=== PATIENT | female | born 1945 | race Caucasian/White ===

== ENCOUNTER 2018-04-13 11:11 | Outpatient (REF) | payer MEDICARE, MEDICAID, SELFPAY ==
[2018-04-13 14:28] LABS: ALT 31 U/L (12-78); AST 31 U/L (15-37); Albumin 3.8 g/dL (3.4-5.0); Alkaline Phosphatase 103 U/L (46-116); BUN 18 mg/dL (7-18); Bilirubin, Total 0.5 mg/dL (0.2-1.0); Calcium 8.7 mg/dL (8.5-10.1); Chloride 107 mmol/L (98-107); Estimated GFR 54.35 (mL/min/1.73m2); Glucose 86 mg/dL (70-100); Potassium 4.1 mmol/L (3.5-5.1); Sodium 143 mmol/L (136-145); TSH (W/Ref FT4) 13.92 uIU/mL (0.358-3.74); Total Protein 6.7 g/dL (6.4-8.2)
[2018-04-13 16:19] LABS: FREE T4 1.12 ng/dL (0.76-1.46)
== END 2018-04-13 11:31 ==
LOC: NCHCN 11:11
PROVIDERS: PCP Nurse Practitioner; Visit Provider Nurse Practitioner
DX: E03.9 Hypothyroidism, unspecified (principal)
CPT/HCPCS: 80053; 84439; 84443

== ENCOUNTER 2018-04-27 00:44 | Outpatient (CLI) | payer MEDICARE, MEDICAID, SELFPAY ==
--- NOTE | 2018-04-27 16:06 | DI.MAMMO_ITS ---
SYMPTOMS/DIAGNOSIS: SCREENING, Z12.39 MAMMOGRAMS: Mammograms were interpreted according to the usual protocol including computer analysis with CAD system, tomosynthesis and C view imaging. The breast tissue is heterogeneously radiodense, which lowers the sensitivity of the study. There is no dominant mass or no suspicious calcifications. No prior images were available at the time of this dictation. SUMMARY: No evidence for malignancy, category 1. Yearly screening mammography is recommended. Breast density category C. MQSA ASSESSMENT OF FINDINGS: Negative. Category 1. Patient will receive a letter notifying them of these results. Bi-RADS category C. The breasts are heterogeneously dense, which may obscure small masses.
== END 2018-04-27 01:04 ==
PROVIDERS: PCP Nurse Practitioner; Visit Provider Nurse Practitioner
DX: Z12.31 Encounter for screening mammogram for malignant neoplasm of breast (principal)
CPT/HCPCS: 77063; 77067

== ENCOUNTER 2018-10-11 11:46 | Outpatient (REF) | payer MEDICARE, MEDICAID, SELFPAY ==
[2018-10-11 19:51] LABS: Cholesterol 112 mg/dL (50-200); HDL Cholesterol 66 mg/dL (40-60); LDL CHOLESTEROL 35 mg/dL (<100); TSH (W/Ref FT4) 10.74 uIU/mL (0.358-3.74); Triglyceride 46 mg/dL (30-150)
[2018-10-11 20:23] LABS: FREE T4 1.25 ng/dL (0.76-1.46)
== END 2018-10-11 12:06 ==
LOC: NCHCN 11:46
PROVIDERS: PCP Nurse Practitioner; Visit Provider Nurse Practitioner
DX: E03.9 Hypothyroidism, unspecified (principal)
CPT/HCPCS: 80061; 83721; 84439; 84443

== ENCOUNTER 2018-11-09 22:24 | Emergency (ER) | payer MEDICARE, MEDICAID, SELFPAY ==
[2018-11-09 22:21] VITALS: BP 152/84; PULSE 70; RESP 16; TEMP 36.5; O2SAT 97
[2018-11-09] MEDS: Lidocaine 5% Patch 1 PATCH TP (22:43)
--- NOTE | 2018-11-09 23:16 | ED.GENADUL_ITS ---
Discharge Plan Disposition Patient Disposition: HOME Condition: Stable Discharge Details Chief Complaint: Nk/Back Pain Clinical Impression: Back pain Primary Care Provider: Lesvia Gaviria ED Provider: Cem Flower Home Meds and New Rx's Prescriptions: No Action alendronate [Fosamax] 70 MG tablet 70 mg PO ONCE A WEEK RF: 0 acetaminophen [Mapap Arthritis Pain] 650 MG tablet extended release 650 mg PO PRN PRNRF: 0 calcium carbonate-vitamin D3 [Calcium 500 With D] 1 EACH tablet 1 ea PO BID RF: 0 omeprazole 20 MG tablet,delayed release (DR/EC) 20 mg PO DAILY RF: 0 quetiapine 25 mg Tablet 25 mg PO HS RF: 0 risperidone [Risperdal] 0.25 mg Tablet PO BID RF: 0 aspirin 81 mg Tablet,Delayed Release (Dr/Ec) 81 mg PO DAILY RF: 0 levothyroxine 112 MCG tablet 88 mcg PO DAILY RF: 0 levalbuterol tartrate [Xopenex HFA] 15 GM HFA aerosol inhaler 2 puff Inhalation Q4H WHILE AWAKE RF: 0 food supplemt, lactose-reduced [Boost] 237 ML liquid 237 ml PO DAILY PRNQty: 12 RF: 0 Discharge Instructions Instructions: Back Pain (ED) Additional Instructions: 1. Drink plenty of fluids. 2. Continue all medications as prescribed. 3. Acetaminophen 1000mg every 4 hours (up to 5 time a day) and/or ibuprofen 600mg every 6 hours as needed for fever or pain. 4. Continue lidocaine patch if clinically beneficial. 5. Ice sore area frequently Return to the Emergency Department (ED) if your condition worsens, does not improve as expected, or for ANY other concerns. Specifically, return if you have new or uncontrolled pain, worsening fever, difficulty breathing, vomiting, or are unable to drink fluids. Medical Decision Making 73-year-old with a history of osteoarthritis and previous episodes of back pain presents with worsening low thoracic/upper lumbar discomfort. Pain is worsened by direct palpitation and rotation. Otherwise nonfocal exam with no respiratory, abdominal, or flank findings. Patient has been managed with OTC analgesia and appears in no distress. Lidocaine patch applied and patient discharged home with a plan for continued OTC analgesia and outpatient PCP follow-up. As alternative analgesia regimens with concern of cognitive side ef fects and associates with current dementia. Pt evaluated immediately prior to discharge with improved symptoms, normal vital signs, and tolerating PO. The patient feels appropriate for discharge home. Discussed clinical/diagnostic findings. Discharged with a clear plan for outpatient follow up. Given usual and customary return instructions prior to discharge. Medical Records Medical records reviewed: Yes I reviewed the patient's medical records. HPI 73-year-old with a history of dementia, hypothyroidism, COPD and osteoarthritis. Presents with 2 days of progressive atraumatic low back pain. Has had previous similar episodes. Pain is worse with direct pressure and rotation. Of note, is able to stand and walk without significant difficulty. Denies fevers/chills, dyspnea, chest pain, palpitations, abdominal pain. She has had no change in bowel habits, melena, hematochezia. She denies flank pain, urinary symptoms. She denies headache, neck pain, focal extremity weakness or difficulty with stance and gait. Her daughter has been assisting in pain management with OTC acetaminophen and ibuprofen. She had a physical therapy assessment earlier today. General Date/Time Provider Initiated Documentation: 11/09/18 23:06 . Related Data Home Medications Medication Instructions Recorded Confirmed acetaminophen [Mapap Arthritis 650 mg PO PRN PRN 06/12/16 11/09/18 Pain] calcium carbonate-vitamin D3 1 ea PO BID 06/12/16 11/09/18 [Calcium 500 With D] omeprazole 20 mg PO DAILY 06/12/16 11/09/18 levalbuterol tartrate [Xopenex HFA] 2 puff INHALATION Q4H WHILE AWAKE 04/14/17 11/09/18 food supplemt, lactose-reduced 237 ml PO DAILY PRN #12 liquid 05/22/17 06/15/17 [Boost] alendronate [Fosamax] 70 mg PO ONCE A WEEK 06/24/17 11/09/18 aspirin 81 mg PO DAILY 11/09/18 11/09/18 levothyroxine 88 mcg PO DAILY 11/09/18 11/09/18 quetiapine 25 mg PO HS 11/09/18 11/09/18 risperidone [Risperdal] PO BID 11/09/18 Previous Rx's Medication Instructions Recorded food supplemt, lactose-reduced 237 ml PO DAILY PRN #12 liquid 05/22/17 [Boost] Allergies Allergy/AdvReac Type Severity Reaction Status Date / Time No Known Allergies Allergy Unverified 11/09/18 22:45 General Stated Complaint: Nk/Back Pain DELISA: 4 Review of Systems Review of Systems All systems are reviewed and are unremarkable except as noted in HPI and below: CONSTITUTIONAL: no fevers/chills, no weakness or change in appetite EYES: no change in vision HEENT: no throat pain or difficulty swallowing; no neck pain CARDIOVASCULAR: no chest pain, palpitations, leg swelling, or diaphoresis RESPIRATORY: no cough, dyspnea, wheezing GASTROINTESTINAL: no abdominal pain, melena, nausea/emesis GENITOURINARY: no dysuria, flank pain, MUSCULOSKELETAL: Midline low back pain, myalgias, arthralgias INTEGUMENTARY: no rash, no wounds NEUROLOGIC: no headache, focal weakness, difficulty with speech, numbness PSYCHIATRIC: no confusion, no anxiety HEME: no easy bruising or bleeding ALLERGIC: no urticaria PFSH Social History Smoking/Tobacco Use Status: Never Do you feel safe in your relationship?: Yes Exam Narrative Exam Narrative: Nursing note and vital signs have been reviewed and noted. GENERAL: alert, active, no acute distress, well -hydrated, well-nourished HEENT: atraumatic/normocephalic, PERRLA, EOMI, conjunctiva clear, external ears/canals normal, nasal mucosa normal NECK: supple, full range of motion CARDIOVASCULAR: nl pulses, no edema PULMONARY: nl effort, no audible wheezing or stridor ABDOMEN: non-distended; nontender. No flank tenderness EXTREMITY: normal muscle tone, all joints with FROM, no deformity BACK: No ecchymosis, erythema, or deformity. Low thoracic midline tenderness which reproduces subjective pain. Patient able to stand upright without significant pain, noting increased discomfort with palpation and with rotation. NUERO: normal mentation, moving all extremities, normal stance and gait, PSYCH: alert and oriented SKIN: no new rashes or lesions Course Vital Signs Temperature 97.7 F 11/09/18 22:21 Pulse 70 11/09/18 22:21 Respiratory Rate 16 11/09/18 22:21 Blood Pressure 152/84 H 11/09/18 22:21 Pulse Oximetry 97 11/09/18 22:21 Temperature 97.7 F 11/09/18 22:21 Temperature Source Skin 11/09/18 22:21 Pulse 70 11/09/18 22:21 Respiratory Rate 16 11/09/18 22:21 Respiratory Effort Non-Labored 11/09/18 23:04 Blood Pressure 152/84 H 11/09/18 22:21 Blood Pressure Position Sitting 11/09/18 22:21 Pulse Oximetry 97 11/09/18 22:21 Oxygen Delivery Method Room Air 11/09/18 22:21 Oxygen Flow Rate 0 11/09/18 22:21
== END 2018-11-09 23:10 | disposition home or self-care (01) ==
LOC: ER 23:47
PROVIDERS: Emergency Provider Emergency Medicine; PCP Nurse Practitioner
DX: M54.5 Low back pain (principal); M54.6 Pain in thoracic spine; J44.9 Chronic obstructive pulmonary disease, unspecified; M19.91 Primary osteoarthritis, unspecified site
CPT/HCPCS: 99283

== ENCOUNTER 2018-11-18 10:13 | Emergency (ER) | payer MEDICARE, MEDICAID, SELFPAY ==
[2018-11-18 10:24] VITALS: BP 142/67; PULSE 72; RESP 18; TEMP 36.7; O2SAT 99
[2018-11-18 10:41] LABS: Bilirubin Negative (Negative); Blood Trace-lysed (Negative); Clarity Clear; Glucose Negative (Negative); Ketones Negative (Negative); Leukocyte Esterase Small (Negative); Nitrite Negative (Negative); Specific Gravity <= 1.005 (1.005-1.025); Urobilinogen 0.2 EU/dL (Up TO 0.2); pH 5.5 (5-8)
[2018-11-18 11:00] LABS: Bacteria Rare HPF (Negative); Casts Negative LPF (Negative); Crystals Negative HPF (Negative); Epithelial Cells Many HPF (Negative); Mucus Negative (Negative); Other Cells Few Renal (Negative); RBC 0-2 (0-2)
[2018-11-18 11:01] LABS: C & S Indicated? No/Sq. Contamination
--- NOTE | 2018-11-18 11:01 | ED.GENADUL_ITS ---
Discharge Plan Disposition Patient Disposition: HOME Condition: Fair Discharge Details Chief Complaint: Urinary Clinical Impression: UTI (urinary tract infection) Primary Care Provider: Lesvia Gaviria ED Provider: Rosina Carcamo Home Meds and New Rx's Prescriptions: New cephalexin [Keflex] 500 mg capsule 500 mg PO BID Qty: 10 RF: 0 No Action alendronate [Fosamax] 70 MG tablet 70 mg PO ONCE A WEEK RF: 0 acetaminophen [Mapap Arthritis Pain] 650 MG tablet extended release 650 mg PO PRN PRNRF: 0 calcium carbonate-vitamin D3 [Calcium 500 With D] 1 EACH tablet 1 ea PO BID RF: 0 omeprazole 20 MG tablet,delayed release (DR/EC) 20 mg PO DAILY RF: 0 quetiapine 25 mg Tablet 25 mg PO HS RF: 0 risperidone [Risperdal] 0.25 mg Tablet 0.25 mg PO BID RF: 0 aspirin 81 mg Tablet,Delayed Release (Dr/Ec) 81 mg PO DAILY RF: 0 levothyroxine 112 MCG tablet 88 mcg PO DAILY RF: 0 levalbuterol tartrate [Xopenex HFA] 15 GM HFA aerosol inhaler 2 puff Inhalation Q4H WHILE AWAKE RF: 0 Boost 237 ML liquid 237 ml PO DAILY PRNQty: 12 RF: 0 Discharge Instructions Instructions: Urinary Tract Infection in Women (ED) Additional Instructions: Encourage hydration. Please take antibiotics as prescribed. Even if symptoms improve, please finish the entire course. Keep a primary care appointment in 2 days. If you develop fever/chills, increased pain or other new/worsening symptoms please seek care urgently once again Referrals: Lesvia Gaviria [Primary Care Provider] - Discharge Data Discharge Date/Time-TO BE ENTERED AT DEPARTURE: 11/18/18 11:17 Medical Decision Making Patient 74-year-old female with history of Alzheimer's, asthma, anxiety, depression, GERD, hypothyroidism, osteoporosis, schizophrenia. Presenting today with concern for urinary tract infection by family and caregiver. Patient had been endorsing back pain but reports that this is improving. No CVA tenderness or back pain was elicited on exam today. Rather, this sounds to be isolated to sitting in a particular chair. Patient does report increased urinary urgency and frequency but denies any dysuria. Patient is afebrile. Exam is benign. Patient has had increased auditory hallucinations but she reports that these are improved although caregiver reports she is noticed increased auditory halluci nations recently. The report that she had increased auditory hallucinations associated with her UTI that she had approximately 1 year ago. Plan to obtain UA. With vital signs and exam being otherwise well, do not feel that further workup is necessary at this time. Urinalysis is concerning for small amount of leukocyte esterase. This with her history is concerning for urinary tract infection. Plan to treat with Keflex. Encourage hydration. She has an appointment with primary care in 2 days. Discussed new/worsening symptoms when to seek care urgently once again. The patient is endorsing some back pain, I have low suspicion for pyelonephritis at this time she did not have any CVA tenderness, fever and is otherwise feeling quite well. All the questions and concerns were addressed in agreement this plan. HPI General Mode of arrival: ambulatory . Date/Time Provider Initiated Documentation: 11/18/18 10:36 . Limitations to Documentation: no limitations . Information obtained by: patient, family and RN notes reviewed . HPI Narrative: Patient is a 73-year-old female, accompanied by caregiver and family, with chief complaint of increased urinary frequency and back pain. Patient was seen here on the for chief complaint of right-sided back pain which has improved only slightly since being here previously. She was diagnosed at that time a muscular skeletal source. Patient reports that at this point is not having any discomfort but primarily only notes this she sitting in her chair for an extended period of time. Family has also noted increased urinary frequency reporting that she urinates every 5 minutes. Patient reports no dysuria. No recent fevers or chills. No nausea vomiting. No change in bowel habits. Denies any abdominal pain. Caregiver also notes that her auditory hallucinations which patient does have a baseline have increased over the past week. Related Data Home Medications Medication Instructions Recorded Confirmed acetaminophen [Mapap Arthritis 650 mg PO PRN PRN 06/12/16 11/18/18 Pain] calcium carbonate-vitamin D3 1 ea PO BID 06/12/16 11/18/18 [Calcium 500 With D] omeprazole 20 mg PO DAILY 06/12/16 11/18/18 levalbuterol tartrate [Xopenex HFA] 2 puff INHALATION Q4H WHILE AWAKE 04/14/17 11/18/18 Boost 237 ml PO DAILY PRN #12 liquid 05/22/17 11/18/18 alendronate [Fosamax] 70 mg PO ONCE A WEEK 06/24/17 11/18/18 aspirin 81 mg PO DAILY 11/09/18 11/18/18 levothyroxine 88 mcg PO DAILY 11/09/18 11/18/18 quetiapine 25 mg PO HS 11/09/18 11/18/18 risperidone [Risperdal] 0.25 mg PO BID 11/09/18 11/18/18 cephalexin [Keflex] 500 mg PO BID #10 cap 11/18/18 Previous Rx's Medication Instructions Recorded Boost 237 ml PO DAILY PRN #12 liquid 05/22/17 cephalexin [Keflex] 500 mg PO BID #10 cap 11/18/18 Allergies Allergy/AdvReac Type Severity Reaction Status Date / Time No Known Allergies Allergy Unverified 11/18/18 10:38 General Stated Complaint: Urinary DELISA: 3 Review of Systems Constitutional Reports as per HPI, Denies chills, Denies fever(s) and Denies poor appetite ENT Denies neck pain Cardiovascular Denies chest pain Respiratory Denies cough Gastrointestinal Denies abdominal pain, Denies change in bowel habits, Denies nausea and Denies vomiting Genitourinary Reports as per HPI Musculoskeletal Reports as per HPI, Reports back pain, Reports muscle weakness (Baseline, currently in PT), Denies neck pain and Denies numbness Integumentary/Breasts Reports as per HPI and Denies rash Neurologic Denies numbness PFS Social History Smoking/Tobacco Use Status: Never Alcohol Intake: never Drug use: Never Substance use type: does not use Do you feel safe at home: Yes Do you feel safe in your relationship?: Yes Exam Const General: cooperative, healthy appearing, comfortable, no acute distress, well developed and well groomed Nutritional Appearance: average body habitus and well nourished Orientation: alert and awake Resp Effort & Inspection: normal respiratory effort and no respiratory distress Auscultation: clear to auscultation bilaterally, no rales, no rhonchi and no wheezes Cardio Rate: regular rate Rhythm: regular rhythm Heart Sounds: S1 normal and S2 normal GI Inspection: normal to inspection Palpation: soft, no hepatosplenomegaly, not firm, no guarding, not rigid and nontender Back/Spine/Pelvis Back: no CVA tenderness Thoracic/Lumbar Spine: thoracic and lumbar spine normal to inspection (scoliosis noted), thoraco-lumbar ROM normal, straight leg raise negative bilaterally, No bend over test abnormal, No pain with thoraco-lumbar ROM, No paraspinal tenderness, scoliosis, No thoraco-lumbar spasm, No thoracic spinal tenderness and No lumbar spinal tenderness Skin General skin exam: no rashes or lesions noted Trauma: no lacerations or abrasions Neuro General: alert and awake Cognition: normal cognition Speech: speech normal Gait: normal gait (walks with assistance at baseline) Psych Appearance: grossly normal and well kempt Mental Status: mental status grossly normal Speech and Movement: speech and movement normal Course Vital Signs Temperature 36.7 C 11/18/18 10:24 Pulse 72 11/18/18 10:24 Respiratory Rate 18 11/18/18 10:24 Blood Pressure 142/67 H 11/18/18 10:24 Pulse Oximetry 99 11/18/18 10:24 Temperature 36.7 C 11/18/18 10:24 Temperature Source Skin 11/18/18 10:24 Pulse 72 11/18/18 10:24 Respiratory Rate 18 11/18/18 10:24 Blood Pressure 142/67 H 11/18/18 10:24 Pulse Oximetry 99 11/18/18 10:24 Oxygen Delivery Method Room Air 11/18/18 10:24 Oxygen Flow Rate 0 11/18/18 10:24 Pain Level 3 11/18/18 10:24
== END 2018-11-18 11:17 | disposition home or self-care (01) ==
PROVIDERS: Emergency Provider Physician Assistant; PCP Nurse Practitioner
DX: N39.0 Urinary tract infection, site not specified (principal)
CPT/HCPCS: 99283; 81003; 81015

== ENCOUNTER 2019-05-09 16:23 | Outpatient (REF) | payer MEDICARE, MEDICAID, SELFPAY | END 2019-05-09 16:43 | LOC: NCHCO 16:23 | PROVIDERS: PCP Nurse Practitioner; Visit Provider Nurse Practitioner | DX: E03.9 Hypothyroidism, unspecified (principal) | CPT/HCPCS: 84443 ==

== ENCOUNTER 2019-08-01 14:17 | Outpatient (REF) | payer MEDICARE, MEDICAID, SELFPAY ==
[2019-08-01 19:19] LABS: ALT 47 U/L (14-59); AST 35 U/L (15-37); Albumin 3.6 g/dL (3.4-5.0); Alkaline Phosphatase 108 U/L (46-116); Anion Gap 7.8 mmol/L (3-11); BUN 15 mg/dL (7-18); Bilirubin, Total 0.4 mg/dL (0.2-1.0); CO2 29.2 mmol/L (21.0-32.0); CREATININE 0.97 mg/dL (0.55-1.02); Calcium 8.9 mg/dL (8.5-10.1); Chloride 107 mmol/L (98-107); Estimated GFR 55.98 (mL/min/1.73m2); Glucose 107 mg/dL (74-106); Potassium 4.2 mmol/L (3.5-5.1); Sodium 144 mmol/L (136-145); TSH (W/Ref FT4) 0.41 uIU/mL (0.36-3.74); Total Protein 6.3 g/dL (6.4-8.2)
[2019-08-01 19:23] LABS: Vitamin D 25 Total 34.5 ng/ml (30-100)
== END 2019-08-01 14:37 ==
LOC: NCHCN 14:17
PROVIDERS: PCP Nurse Practitioner; Visit Provider Nurse Practitioner
DX: E03.9 Hypothyroidism, unspecified (principal); M81.0 Age-related osteoporosis without current pathological fracture; F25.9 Schizoaffective disorder, unspecified
CPT/HCPCS: 80053; 82306; 84443

== ENCOUNTER 2019-08-08 01:01 | Outpatient (CLI) | payer MEDICARE, MEDICAID, SELFPAY ==
--- NOTE | 2019-08-08 13:18 | DI.MAMMO_ITS ---
EXAM: MG MAMMO SCREENING CLINICAL HISTORY: SCREENING, Z12.39. TECHNIQUE: Bilateral full field digital CC and MLO mammographic images were obtained with 3D tomosyn thesis and utilizing computer aided detection (CAD). COMPARISON: Available for comparison. FINDINGS: Masses/Architectural Distortion: None seen. Microcalcifications: No suspicious pleomorphic-type are seen. Skin Thickening/Nipple Retraction: None. IMPRESSION: 1. No significant interval change with no specific features of malignancy noted. 2. Unless there is more urgent need, screening mammography is recommended, as per [employer] guidelines. ACR BI-RAD Category- 1 Negative Breast Density - Category C - Heterogeneously dense The mammogram demonstrates the patient's breast tissue is dense. Dense breast tissue is very common a nd is not abnormal but dense breast tissue can make it harder to find cancer on a mammogram. Also, de nse breast tissue may increase their breast cancer risk. This information about the result of the [facility] mogram report was provided to the patient to raise their awareness. Use this report when you speak wi th the patient about their risks for breast cancer, which includes their family history. At that time , you may recommend for more screening tests (Ultrasound or MRI) as they might be useful based on the ir risk. A negative radiographic report should not delay biopsy if a dominant or clinically suspicious mass is present. Up to ten percent of cancers are not identified on mammography. A negative report may reinforce clinical impression. Adenosis and dense breasts may obscure an underlying neoplasm. False positive reports average 6 to 10%. Patient will receive a letter notifying them of these results.
== END 2019-08-08 01:21 ==
PROVIDERS: PCP Nurse Practitioner; Visit Provider Nurse Practitioner
DX: Z12.31 Encounter for screening mammogram for malignant neoplasm of breast (principal)
CPT/HCPCS: 77063; 77067

== ENCOUNTER 2019-08-08 03:05 | Outpatient (CLI) | payer MEDICARE, MEDICAID, SELFPAY ==
--- NOTE | 2019-08-08 14:00 | NS.NUTBLAN_ITS ---
76 year old female with cachexic appearance referred for nutritional counseling for underweight status. Ht: 11/25 Wt: 98 lbs BMI: 17 . Mayra reports she does not wear her dentures but has not trouble eating most foods, reports that her typical weight is 100 lbs but that she had lost some weight in last 6 months. Dislikes ensure and boost. Lives with son and receives food stamps. She relies on cereal, soup, sandwiches and TV dinners. Had meals on wheels in past but did not like the food. No food insecurity reported. Estimated needs: 3047-6657 kcal, 45-50 gprotein Diet recall: 850-900 kcal, 30 g protein Assessment: Mayra is only meeting 70% of her nutrient needs for weight gain back to baseline weight. She is unwilling to use Ensure , Boost or meals on wheels at this time. She is willing to add 24 ounces whole milk and cottage cheese or pudding daily to her meal routine which will meet all her nutrient needs. . Mayra is at high nutritional risk in view of low weight and inadequate intake. I expect a slow regain to baseline if she is able to meet 1200 kcal per day as discussed. Plan: add additional calories as discussed to daily routine, follow up with [facility] as scheduled, follow up with nutritional counseling if unable to regain lost weight in next 90 days.
== END 2019-08-08 03:25 ==
PROVIDERS: PCP Nurse Practitioner; Visit Provider Dietitian, Registered
DX: R63.6 Underweight (principal); Z71.3 Dietary counseling and surveillance
CPT/HCPCS: 97802

== ENCOUNTER 2022-09-24 17:57 | Emergency (ER) | payer MEDICARE, MEDICAID, SELFPAY ==
[2022-09-24 18:07] VITALS: BP 151/89; PULSE 88; RESP 16; TEMP 37.4; O2SAT 95
--- NOTE | 2022-09-24 18:30 | DI.RAD_ITS ---
Exam(s) XR CHEST 2V PA LATERAL EXAM: XR CHEST 2V PA LATERAL CLINICAL HISTORY: Cough. TECHNIQUE: 2D digital imaging was performed. COMPARISON: CR CHEST 2 VIEWS PA,LAT from 06/15/2017 FINDINGS: 2 views: Heart size is normal. The mediastinum is not widened. Thoracolumbar scoliosis again noted. Bilateral hyperinflation again noted. Lungs are clear. No infiltrates nor pleural effusions. IMPRESSION: No acute pulmonary findings.Hyperinflation again noted. DATA REPOSITORY: RADIATION DOSE DELIVERED:
--- NOTE | 2022-09-24 18:40 | ED.GENADUL_ITS ---
Discharge Plan Disposition Patient Disposition: Home Discharge Details Clinical Impression: URI (upper respiratory infection) Primary Care Provider: Lesvia Gaviria ED Provider: Penelope Montemayor Home Meds and New Rx's Prescriptions: New benzonatate 100 mg capsule 100 mg PO BID-TID PRN (Reason: cough) 7 Days Qty: 14 0RF Rx Instructions: Take 1 capsule 2-3 times a day by mouth as needed for cough. Continued alendronate [Fosamax] 70 MG tablet 70 mg PO ONCE A WEEK acetaminophen [Mapap Arthritis Pain] 650 MG tablet extended release 650 mg PO PRN PRN calcium carbonate-vitamin D3 [Calcium 500 With D] 1 EACH tablet 1 ea PO BID omeprazole 20 MG tablet,delayed release (DR/EC) 20 mg PO DAILY quetiapine 25 mg Tablet 25 mg PO HS risperidone [Risperdal] 0.25 mg Tablet 0.25 mg PO BID Rx Instructions: 0.50mg QAM, 0.25mg PM aspirin 81 mg Tablet,Delayed Release (Dr/Ec) 81 mg PO DAILY levothyroxine 112 MCG tablet 88 mcg PO DAILY levalbuterol tartrate [Xopenex HFA] 15 GM HFA aerosol inhaler 2 puff Inhalation Q4H WHILE AWAKE Boost 237 ML liquid 237 ml PO DAILY PRNQty: 12 0RF No Action cephalexin [Keflex] 500 mg capsule 500 mg PO BID Qty: 10 0RF Discharge Instructions Instructions: Upper Respiratory Infection (ED) Additional Instructions: Use the albuterol inhaler 1 to 2 puffs every 4-6 hours as needed for cough and wheezing. Take the Tessalon Perles as directed. Chest x-ray shows no evidence for pneumonia, the COVID flu swab is negative. Follow up with primary care provider in 3-5 days. Return to ED sooner if any worsening or concerns. Increase oral fluids. Referrals: Lesvia Gaviria [Primary Care Provider] - 3 days Medical Decision Making 77-year-old female with a past medical history of TIA, developmental delay, hypothyroidism, schizoaffective disorder, presents to the ER with a chief complaint of cough sore throat for the last few days. Denies any fever chills nausea vomiting diarrhea headache or chest pain. She denies any productive cough. She does have a bronchial type cough upon entrance to the room. Family states she has been taking Robitussin with little to no relief. She did take some today. She has no other associated symptoms or complaints. Chest x-ray, COVID flu, albuterol and Tessalon Perles ordered. Differential diagnosis includes but not limited to pneumonia, bronchitis, flu, COVID viral URI COVID, flu RSV rapid swab negative. X-ray negative. We will send patient home with albuterol inhaler Tessalon Perles, and follow up care. Patient appears much more comfortable after the Tessalon Perles and albuterol inhaler. This text was generated using [employer] system, please disregard any oddities of phrase or misspellings. Medical Records Medical records reviewed: Yes I reviewed the patient's medical records. Imaging Data Radiologic Study: Imaging: X-Ray Radiologist's impression: TECHNIQUE: Imaging protocol: Radiologic exam of the chest. Views: 2 views. COMPARISON: CR CHEST 2 VIEWS PA,LAT 06/15/2017 2:13 PM FINDINGS: Lungs: Unremarkable. No consolidation. Pleural spaces: Unremarkable. No pleural effusion. No pneumothorax. Heart/Mediastinum: Grossly stable. Bones/joints: Hernandes zone grossly stable. IMPRESSION: No acute findings. Thank you for allowing us to participate in the care of your patient. Dictated and Authenticated by: Erickson Hurtado MD [facility] General Mode of arrival: wheelchair . Date/Time Provider Initiated Documentation: 09/24/22 18:13 . Limitations to Documentation: no limitations . Information obtained by: patient and family . HPI Narrative: 77-year-old female with a past medical history of TIA, developmental delay, hypothyroidism, schizoaffective disorder, presents to the ER with a chief complaint of cough sore throat for the last few days. Denies any fever chills nausea vomiting diarrhea headache or chest pain. She denies any productive cough. She does have a bronchial type cough upon entrance to the room. Family states she has been taking Robitussin with little to no relief. She did take some today. She has no other associated symptoms or complaints. Family states that her grandchildren just recently were diagnosed with pneumonia. Related Data Home Medications Medication Instructions Recorded Confirmed acetaminophen 650 mg 650 mg PO PRN PRN 06/12/16 11/18/18 tablet,extended release (Mapap Arthritis Pain) calcium carbonate 500 mg-vitamin 1 ea PO BID 06/12/16 11/18/18 D3 10 mcg (400 unit) tablet (Calcium 500 With D) omeprazole 20 mg tablet,delayed 20 mg PO DAILY 06/12/16 11/18/18 release levalbuterol tartrate 45 2 puff inhalation Q4H WHILE AWAKE 04/14/17 11/18/18 mcg/actuation aerosol inhaler (Xopenex HFA) food supplemt, lactose-reduced 237 ml PO DAILY PRN ##12 05/22/17 11/18/18 0.04 gram-1 kcal/mL oral liquid (Boost) alendronate 70 mg tablet (Fosamax) 70 mg PO ONCE A WEEK 06/24/17 11/18/18 aspirin 81 mg tablet,delayed 81 mg PO DAILY 11/09/18 11/18/18 release levothyroxine 112 mcg tablet 88 mcg PO DAILY 11/09/18 11/18/18 quetiapine 25 mg tablet 25 mg PO HS 11/09/18 11/18/18 risperidone 0.25 mg tablet 0.25 mg PO BID 11/09/18 11/18/18 (Risperdal) cephalexin 500 mg capsule (Keflex) 500 mg PO BID #10 caps 11/18/18 benzonatate 100 mg capsule 100 mg PO BID-TID PRN cough 7 days 09/24/22 #14 caps Previous Rx's Medication Instructions Recorded food supplemt, lactose-reduced 237 ml PO DAILY PRN ##12 05/22/17 0.04 gram-1 kcal/mL oral liquid (Boost) cephalexin 500 mg capsule (Keflex) 500 mg PO BID #10 caps 11/18/18 benzonatate 100 mg capsule 100 mg PO BID-TID PRN cough 7 days 09/24/22 #14 caps Allergies Allergy/AdvReac Type Severity Reaction Status Date / Time No Known Allergies Allergy Unverified 11/18/18 10:38 General Stated Complaint: RespSymp DELISA: 3 Review of Systems All systems reviewed & are unremarkable except as noted in HPI and below Cardiovascular Cardiovascular: Denies dyspnea Respiratory Respiratory: Reports cough, Denies hemoptysis, Denies excessive phlegm prod uction, Denies dyspnea and Denies wheezing Gastrointestinal Gastrointestinal: Denies abdominal pain, Denies diarrhea, Denies nausea and Denies vomiting Allergic/Immunologic Allergic/Immunologic: Denies wheezing PFSH All Active Problems (Updated 09/24/22 @ 19:34 by Penelope Montemayor NP) URI (upper respiratory infection) (Acute) TIA (transient ischemic attack) (Acute) Medical History Arthropathy Auditory hallucinations Depressive disorder Developmental speech or language disorder Hypothyroidism Idiopathic scoliosis Lack of coordination Memory impairment Osteochondropathy Osteoporosis Schizoaffective disorder Sciatica Sensorineural hearing loss Symptomatic menopausal or female climacteric states Underweight Social History Smoking/Tobacco Use Status: Never Smoking risk assessment performed?: Yes Alcohol Intake: never Drug use: Never Substance use type: does not use Do you feel safe at home: Yes Do you feel safe in your relationship?: Yes Exam Narrative Exam Narrative: Constitutional: Alert and oriented x3. Appears stated age. Normal body habitus. Head: Normocephalic, no trauma. Eyes: Pupils PERRL, Red reflex noted, EOM's intact. Eyelids symmetrical without lesions, discharge, or swelling. ENT: Bilateral TM's WNL, External ear normal to inspection, no mastoid TTP, swelling, or erythema, Nasal turbinates WNL, no nasal discharge. Normal dentition, Posterior pharynx slightly erythemic, tonsils 0 bilaterally, uvula midline, no exudate. Chest: RRR, Normal S1, S2, distal pulses intact. Resp: Lungs diminished to auscultation bilaterally, no wheezes, rales, or rhonchi. Bronchial dry cough noted. Abdomen: Soft, non-distended, Normoactive bowel sounds all 4 quads. Musculoskeletal: Normal gait, 5/5 strength to all four extremities. Skin: No suspicious rashes or lesions. Capillary refill less than 2 sec. Neurologic: Cranial nerves II-XII intact. Alert and oriented x 3. Motor: No deficits noted. Sensory: Intact bilaterally all 4 extremities. Reflexes: DTR's intact bilaterally.. Hematologic/Lymphatic: No ecchymosis, no lymphadenopathy. Course Vital Signs Vital signs: Vital Signs Temperature 37.4 C 09/24/22 18:07 Pulse 88 09/24/22 18:07 Respiratory Rate 16 09/24/22 18:07 Blood Pressure 151/89 H 09/24/22 18:07 Pulse Oximetry 95 09/24/22 18:07 Temperature 37.4 C 09/24/22 18:07 Temperature Source Tympanic 09/24/22 18:07 Pulse 88 09/24/22 18:07 Respiratory Rate 16 09/24/22 18:07 Blood Pressure 151/89 H 09/24/22 18:07 Blood Pressure Position Sitting 09/24/22 18:07 Pulse Oximetry 95 09/24/22 18:07 Oxygen Delivery Method Room Air 09/24/22 18:07 Oxygen Flow Rate 0 09/24/22 18:07 Pain Level 0 09/24/22 18:07
[2022-09-24] MEDS: Albuterol HFA 8 GM 60 PUFF INH IH (18:51)
[2022-09-24] MEDS: Benzonatate 100 MG CAP PO (18:52)
[2022-09-24] MEDS: Inhaler, Assist Device 1 EACH MC (18:52)
--- NOTE | 2022-09-24 19:28 | DI.VRAD_ITS ---
PROCEDURE INFORMATION: Exam: XR Chest Exam date and time: 09/24/2022 7:13 PM Age: 77 years old Clinical indication: Cough TECHNIQUE: Imaging protocol: Radiologic exam of the chest. Views: 2 views. COMPARISON: CR CHEST 2 VIEWS PA,LAT 06/15/2017 2:13 PM FINDINGS: Lungs: Unremarkable. No consolidation. Pleural spaces: Unremarkable. No pleural effusion. No pneumothorax. Heart/Mediastinum: Grossly stable. Bones/joints: Hernandes zone grossly stable. IMPRESSION: No acute findings. Dictated and Authenticated by: Erickson Hurtado MD. Ordering:STAN Negrete MD
== END 2022-09-24 19:44 | disposition home or self-care (01) ==
PROVIDERS: Emergency Provider Registered Nurse Emergency; PCP Nurse Practitioner
DX: J06.9 Acute upper respiratory infection, unspecified (principal); E03.9 Hypothyroidism, unspecified; Z86.73 Personal history of transient ischemic attack (TIA), and cerebral infarction without residual deficits; Z79.82 Long term (current) use of aspirin
CPT/HCPCS: 94640; 99283; 71046; 99284

== ENCOUNTER 2022-09-29 22:42 | Emergency (ER) | payer MEDICARE, MEDICAID, SELFPAY ==
[2022-09-29 22:46] VITALS: BP 113/66; PULSE 92; RESP 18; TEMP 36.8; O2SAT 94
--- NOTE | 2022-09-29 23:28 | ED.GENADUL_ITS ---
Discharge Plan Disposition Patient Disposition: Home Condition: Good Discharge Details Clinical Impression: Bronchitis Primary Care Provider: Ana Rosa Handley ED Provider: Gilbert Soto Home Meds and New Rx's Prescriptions: New doxycycline hyclate 100 mg tablet 100 mg PO BID Qty: 20 0RF Continued alendronate [Fosamax] 70 MG tablet 70 mg PO ONCE A WEEK acetaminophen [Mapap Arthritis Pain] 650 MG tablet extended release 650 mg PO PRN PRN calcium carbonate-vitamin D3 [Calcium 500 With D] 1 EACH tablet 1 ea PO BID omeprazole 20 MG tablet,delayed release (DR/EC) 20 mg PO DAILY quetiapine 25 mg Tablet 25 mg PO HS risperidone [Risperdal] 0.25 mg Tablet 0.25 mg PO BID Rx Instructions: 0.50mg QAM, 0.25mg PM aspirin 81 mg Tablet,Delayed Release (Dr/Ec) 81 mg PO DAILY levothyroxine 112 MCG tablet 88 mcg PO DAILY levalbuterol tartrate [Xopenex HFA] 15 GM HFA aerosol inhaler 2 puff Inhalation Q4H WHILE AWAKE Boost 237 ML liquid 237 ml PO DAILY PRNQty: 12 0RF cephalexin [Keflex] 500 mg capsule 500 mg PO BID Qty: 10 0RF benzonatate 100 mg capsule 100 mg PO BID-TID PRN (Reason: cough) 7 Days Qty: 14 0RF Rx Instructions: Take 1 capsule 2-3 times a day by mouth as needed for cough. Discharge Instructions Instructions: Acute Bronchitis (ED) Additional Instructions: At this time your symptoms are concerning for mild bronchitis. Please take the doxycycline as directed. Please take the Symbicort inhaler, 2 puffs every 12 hours as directed. If you notice any worsening of your symptoms, or any new symptoms such as vomiting, diarrhea, fever, chills, shortness of breath, chest pain, numbness, weakness, or fainting , please return immediately to the emergency department for reevaluation. Please follow up with your primary care provider as soon as possible for reassessment and reevaluation. As always, it was a pleasure participating in your medical care today. Referrals: Ana Rosa Handley [Primary Care Provider] - Medical Decision Making 77-year-old female with a past medical history of depression, developmental speech delay, hypothyroidism, mild cognitive memory impairment, schizoaffective disorder, presents today for evaluation of cough. Patient was seen and assessed in the emergency department 5 days ago for evaluation of cough. At that time she had a negative chest x-ray and a benign work-up. She was given Tessalon Perles and an albuterol inhaler, but unfortunately in spite of this her cough is persisted. She denies fever or chills. She now does have productive yellow sputum. No other complaints at this time. No chest pain or shortness of breath otherwise. No vomiting or diarrhea. Exam demonstrates stable vital signs, patient does have a minimal crackle in the right lower lung field. With the patient's persistent cough, I do suspect that she may be affected with mild bronchitis or pneumonia at this stage. We will hold off on additional radiation exposure, will start the patient on doxycycline and a Symbicort inhaler. I did discuss with the patient the importance of close follow-up with her primary care provider for reassessment if she does not have improvement after a week of treatment, she may need pulmonary function testing then. Discussed red flags for which to return. I have extensively reviewed the treatment plan and discharge instructions with the patient and their family. I have addressed all patient concerns at this time. The patient and family was made aware of what symptoms to monitor for that would warrant a return to the emergency department. Discussed the plan with the patient and family, they demonstrate verbal understanding and agreement with our assessment and plan at this time. The documentation in this chart was dictated using [employer] dictation software. Please excuse any dictation errors. HPI General Date/Time Provider Initiated Documentation: 09/29/22 22:43 . HPI Narrative: 77-year-old female with a past medical history of depression, developmental speech delay, hypothyroidism, mild cognitive memory impairment, schizoaffective disorder, presents today for evaluation of cough. Patient was seen and assessed in the emergency department 5 days ago for evaluation of cough. At that time she had a negative chest x-ray and a benign work-up. She was given Tessalon Perles and an albuterol inhaler, but unfortunately in spite of this her cough is persisted. She denies fever or chills. She now does have productive yellow sputum. No other complaints at this time. No chest pain or shortness of breath otherwise. No vomiting or diarrhea. Related Data Home Medications Medication Instructions Recorded Confirmed acetaminophen 650 mg 650 mg PO PRN PRN 06/12/16 11/18/18 tablet,extended release (Mapap Arthritis Pain) calcium carbonate 500 mg-vitamin 1 ea PO BID 06/12/16 11/18/18 D3 10 mcg (400 unit) tablet (Calcium 500 With D) omeprazole 20 mg tablet,delayed 20 mg PO DAILY 06/12/16 11/18/18 release levalbuterol tartrate 45 2 puff inhalation Q4H WHILE AWAKE 04/14/17 11/18/18 mcg/actuation aerosol inhaler (Xopenex HFA) food supplemt, lactose-reduced 237 ml PO DAILY PRN ##12 05/22/17 11/18/18 0.04 gram-1 kcal/mL oral liquid (Boost) alendronate 70 mg tablet (Fosamax) 70 mg PO ONCE A WEEK 06/24/17 11/18/18 aspirin 81 mg tablet,delayed 81 mg PO DAILY 11/09/18 11/18/18 release levothyroxine 112 mcg tablet 88 mcg PO DAILY 11/09/18 11/18/18 quetiapine 25 mg tablet 25 mg PO HS 11/09/18 11/18/18 risperidone 0.25 mg tablet 0.25 mg PO BID 11/09/18 11/18/18 (Risperdal) cephalexin 500 mg capsule (Keflex) 500 mg PO BID #10 caps 11/18/18 benzonatate 100 mg capsule 100 mg PO BID-TID PRN cough 7 days 09/24/22 #14 caps doxycycline hyclate 100 mg tablet 100 mg PO BID #20 tabs 09/29/22 Previous Rx's Medication Instructions Recorded food supplemt, lactose-reduced 237 ml PO DAILY PRN ##12 05/22/17 0.04 gram-1 kcal/mL oral liquid (Boost) cephalexin 500 mg capsule (Keflex) 500 mg PO BID #10 caps 11/18/18 benzonatate 100 mg capsule 100 mg PO BID-TID PRN cough 7 days 09/24/22 #14 caps doxycycline hyclate 100 mg tablet 100 mg PO BID #20 tabs 09/29/22 Allergies Allergy/AdvReac Type Severity Reaction Status Date / Time No Known Allergies Allergy Unverified 11/18/18 10:38 General Stated Complaint: RespSymp DELISA: 3 Review of Systems All systems reviewed & are unremarkable except as noted in HPI and below PFSH All Active Problems URI (upper respiratory infection) (Acute) Bronchitis (Acute) TIA (transient ischemic attack) (Acute) Medical History Arthropathy Auditory hallucinations Depressive disorder Developmental speech or language disorder Hypothyroidism Idiopathic scoliosis Lack of coordination Memory impairment Osteochondropathy Osteoporosis Schizoaffective disorder Sciatica Sensorineural hearing loss Symptomatic menopausal or female climacteric states Underweight Social History Smoking/Tobacco Use Status: Never Smoking risk assessment performed?: Yes Alcohol Intake: never Drug use: Never Substance use type: does not use Do you feel safe at home: Yes Do you feel safe in your relationship?: Yes Exam Narrative Exam Narrative: 1.Const: Well-nourished, Well-developed, appearing stated age 2.Eyes: PERRL, no conjunctival injection, and symmetrical lids. 3.ENT: Atraumatic external nose and ears. Moist MM. Neck: Symmetric, trachea midline, No thyromegaly. 4.CVS: +S1/S2, No murmurs or gallops. Peripheral pulses 2+ and equal in all extremities. Brisk capillary refill in all extremities. 5.RESP: Unlabored respiratory effort. Clear to auscultation except for minimal crackle in the right lower lung field 6.GI: Soft, Nontender/Nondistended, No hepatosplenomegaly. No guarding or rebound. 7.MSK: Normocephalic/Atraumatic, Extremities w/o deformity or ttp No cyanosis or clubbing, Normal movement of all extremities 8.Skin: Warm, Dry. No rashes or lesions. 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 Sensation grossly intact, no focal neurologic deficits. 10.Psych: (AAO) x3. Appropriate mood and affect Course Vital Signs Vital signs: Vital Signs Temperature 36.8 C 09/29/22 22:46 Pulse 92 H 09/29/22 22:46 Respiratory Rate 18 09/29/22 22:46 Blood Pressure 113/66 09/29/22 22:46 Pulse Oximetry 94 09/29/22 22:46 Temperature 36.8 C 09/29/22 22:46 Temperature Source Oral 09/29/22 22:46 Pulse 92 H 09/29/22 22:46 Respiratory Rate 18 09/29/22 22:46 Respiratory Effort Normal, Non-Labored 09/29/22 22:53 Blood Pressure 113/66 09/29/22 22:46 Blood Pressure Position Sitting 09/29/22 22:46 Pulse Oximetry 94 09/29/22 22:46 Oxygen Delivery Method Room Air 09/29/22 22:46 Oxygen Flow Rate 0 09/29/22 22:46 Pain Level 5 09/29/22 22:46
[2022-09-29] MEDS: Doxycycline Hyclate 100 MG, 2 CAPS/BTL PO (23:45)
[2022-09-29] MEDS: Budesonide/Formoterol 160/4.5 6 GM 60 PUFF INH IH (23:47)
== END 2022-09-30 00:01 | disposition home or self-care (01) ==
PROVIDERS: Emergency Provider Student in an Organized Health Care Education/Training Program; PCP Nurse Practitioner Occupational Health
DX: J40 Bronchitis, not specified as acute or chronic (principal)
CPT/HCPCS: 99283

== ENCOUNTER → 2023-06-02 13:56 | Outpatient (BNVA) | payer MEDICARE, MEDICAID, SELFPAY | PROVIDERS: Visit Provider Podiatrist | DX: B35.1 Tinea unguium (principal); L60.3 Nail dystrophy; I73.89 Other specified peripheral vascular diseases; M79.672 Pain in left foot; M79.671 Pain in right foot | CPT/HCPCS: 11721; 99213 ==

== ENCOUNTER 2023-06-16 16:23 | Outpatient (REF) | payer MEDICARE, MEDICAID, SELFPAY ==
[2023-06-16 16:00] LABS: Abs Immature Grans 0.02 10^3/uL (0.0-0.06); Absolute Basophil Count 0.03 10^3/uL (0.0-0.2); Absolute Eosinophil Count 0.06 10^3/uL (0.0-0.7); Absolute Lymphocyte Count 1.27 10^3/uL (1.2-3.4); Absolute Monocyte Count 0.51 10^3/uL (0.1-0.8); Absolute Neutrophil Count 4.06 10^3/uL (1.2-6.7); Basophils % 0.5; HCT 42.8 % (36.0-46.0); HGB 14.3 g/dL (11.2-15.7); Immature Grans % 0.3; Lymphocytes % 21.3; MCH 30.8 pg (27.0-33.0); MCHC 33.4 % (32.0-36.0); MCV 92 fL (80-95); MPV 10.9 fL (8.0-11.0); Monocytes % 8.6; Neutrophils % 68.3; Platelet Count 273 10^3/uL (130-400); RBC 4.65 10^6/uL (3.93-5.22); RDW-SD 43.6 fL; WBC 5.95 10^3/uL (4.4-10.8)
[2023-06-16 16:18] LABS: ALT 16 U/L (14-59); AST 23 U/L (15-37); Alkaline Phosphatase 77 U/L (46-116); Anion Gap 8.9 mmol/L (3-11); BUN 21 mg/dL (7-18); Bilirubin, Total 0.6 mg/dL (0.2-1.0); CO2 26.1 mmol/L (21.0-32.0); Calcium 9.7 mg/dL (8.5-10.1); Chloride 106 mmol/L (98-107); Estimated GFR 57.66 (mL/min/1.73m2); Glucose 110 mg/dL (74-106); Potassium 3.8 mmol/L (3.5-5.1); Sodium 141 mmol/L (136-145); TSH 0.18 uIU/mL (0.36-3.74); Total Protein 7.2 g/dL (6.4-8.2)
== END 2023-06-16 16:24 | disposition home or self-care (01) ==
LOC: NCHCN 16:23
PROVIDERS: PCP Nurse Practitioner Family; Visit Provider Nurse Practitioner Family
DX: E03.9 Hypothyroidism, unspecified (principal); F25.9 Schizoaffective disorder, unspecified
CPT/HCPCS: 80053; 84443; 85025

== ENCOUNTER 2023-07-02 09:42 | Emergency (ER) | payer MEDICARE, MEDICAID, SELFPAY ==
[2023-07-02 10:00] VITALS: BP 153/81; PULSE 84; RESP 18; TEMP 37; O2SAT 97
[2023-07-02 10:09] VITALS: RESP 16
[2023-07-02 10:24] LABS: Bilirubin Negative (Negative); Blood Negative (Negative); Clarity Clear (Clear); Glucose Negative (Negative); Ketones Negative (Negative); Leukocyte Esterase Negative (Negative); Nitrite Negative (Negative); Urobilinogen 0.2 mg/dL (Up to 0.2)
--- NOTE | 2023-07-02 10:30 | RT.EKG_ITS ---
APPROVED REPORT Exam: Resting ECG Reason for Exam: ams Patient Location: E HR:75 bpm ECG Measurements Heart Rate 75 AXIS FL 141 P 76 QRSd 82 QRS 20 QT 388 T 54 QTc 430 Conclusion Sinus rhythm.. V-rate 60- 99 Atrial premature complex...SV complex w/ short R-R interval Consider anteroseptal infarct...Q >30mS, dimin R, V1-V2 Appropriate intervals. No ST segment or T wave abnormalities to suggest occlusive NV
--- NOTE | 2023-07-02 10:30 | DI.CT_ITS ---
Exam(s) CT HEAD WO EXAM: CT HEAD WO CLINICAL HISTORY: ams. TECHNIQUE: Imaging Protocol: Axial computed tomography images with coronal and sagittal reformatted images were created and reviewed COMPARISON: CT HEAD WITHOUT STROKE PROTOCOL from 05/20/2017 FINDINGS: Ventricles and Extra axial spaces: Normal in size and morphology for the patient's age. Hemorrhage: None. Cerebral parenchyma: No evidence of acute infarct or mass. Midline shift: None. Brainstem/Cerebellum: Normal. Calvarium: Normal. Visualized Paranasal sinuses/Mastoids: Clear. Soft Tissues: Unremarkable. IMPRESSION: No acute intracranial process. RADIATION DOSE DELIVERED: Total DLP DATA REPOSITORY: All CT scans at this facility are submitted to the National Radiology Data Registry (NRDR) Dose Index Registry (DIR) with the [employer] (A[employer]). RADIATION OPTIMIZATION: All CT scans at this facility use at least one of these dose optimization te chniques: automated exposure control; mA and/or kV adjustment per patient size (includes targeted exa ms where dose is matched to clinical indication); or iterative reconstruction.
[2023-07-02] MEDS: risperiDONE 0.5 MG TAB PO (10:55)
[2023-07-02] MEDS: LORazepam 0.5 MG TAB PO (10:55)
[2023-07-02 11:07] LABS: RBC 4.76 10^6/uL (3.93-5.22); WBC 6.75 10^3/uL (4.4-10.8)
[2023-07-02 11:08] LABS: Abs Immature Grans 0.03 10^3/uL (0.0-0.06); Absolute Basophil Count 0.03 10^3/uL (0.0-0.2); Absolute Eosinophil Count 0.03 10^3/uL (0.0-0.7); Absolute Lymphocyte Count 0.93 10^3/uL (1.2-3.4); Absolute Monocyte Count 0.43 10^3/uL (0.1-0.8); Basophils % 0.4; Eosinophils % 0.4; HCT 43.8 % (36.0-46.0); HGB 14.6 g/dL (11.2-15.7); Immature Grans % 0.4; Lymphocytes % 13.8; MCH 30.7 pg (27.0-33.0); MCHC 33.3 % (32.0-36.0); MCV 92 fL (80-95); MPV 9.7 fL (8.0-11.0); Monocytes % 6.4; Neutrophils % 78.6; Platelet Count 258 10^3/uL (130-400); RDW-SD 44.5 fL
[2023-07-02 11:33] LABS: ALT 19 U/L (14-59); AST 19 U/L (15-37); Albumin 3.9 g/dL (3.4-5.0); Alkaline Phosphatase 75 U/L (46-116); BUN 13 mg/dL (7-18); Bilirubin, Total 0.5 mg/dL (0.2-1.0); CREATININE 1.2 mg/dL (0.55-1.02); Calcium 10.1 mg/dL (8.5-10.1); Chloride 107 mmol/L (98-107); Estimated GFR 46.33 (mL/min/1.73m2); Glucose 124 mg/dL (74-106); Magnesium 2.2 mg/dL (1.8-2.4); Potassium 3.5 mmol/L (3.5-5.1); Sodium 145 mmol/L (136-145); TSH (W/Ref FT4) 5.47 uIU/mL (0.36-3.74); Total Protein 6.9 g/dL (6.4-8.2)
[2023-07-02 11:34] LABS: ETHANOL BLOOD < 3.0 mg/dL (<10)
[2023-07-02 11:53] LABS: FREE T4 1.56 ng/dL (0.76-1.46)
--- NOTE | 2023-07-02 12:25 | ED.GENADUL_ITS ---
Discharge Plan Disposition Patient Disposition: Home Discharge Details Clinical Impression: Auditory hallucinations, Schizoaffective disorder, Hypothyroidism, Agitation Primary Care Provider: Ivania Lancaster ED Provider: Marlee Jones Home Meds and New Rx's Prescriptions: New risperidone [Risperdal] 0.5 mg tablet 0.5 mg PO BID Qty: 14 0RF lorazepam [Ativan] 0.5 mg tablet 0.5 mg PO DAILY PRNQty: 5 0RF Continued ketoconazole 2 % cream 1 applic topical DAILY 90 Days Qty: 60 3RF Rx Instructions: Apply to toenails once daily alendronate [Fosamax] 70 MG tablet 70 mg PO ONCE A WEEK acetaminophen [Mapap Arthritis Pain] 650 MG tablet extended release 650 mg PO PRN PRN calcium carbonate-vitamin D3 [Calcium 500 With D] 1 EACH tablet 1 ea PO BID omeprazole 20 MG tablet,delayed release (DR/EC) 20 mg PO DAILY quetiapine 25 mg Tablet 25 mg PO HS risperidone [Risperdal] 0.25 mg Tablet 0.25 mg PO BID Rx Instructions: 0.50mg QAM, 0.25mg PM levothyroxine 112 MCG tablet 88 mcg PO DAILY levalbuterol tartrate [Xopenex HFA] 15 GM HFA aerosol inhaler 2 puff Inhalation Q4H WHILE AWAKE Discharge Instructions Instructions: Hypothyroidism (ED) Additional Instructions: Please follow-up with your primary care physician and 2 to 3 days for reassessment It sounds like you have had an intake today [facility] for further outpatient evaluation i am writing for your morning and evening medication risperdal 0.5 mg and ativan 0.5mg as needed Use the Ativan only for persistent agitation 1 hour after Risperdal administration Please return earlier should he have new or worsening complaints Continue on your nightly dose of Risperdal Referrals: [facility] [Outside] Ivania Lancaster [Primary Care Provider] - Discharge Data Discharge Date/Time-TO BE ENTERED AT DEPARTURE: 07/02/23 14:58 Medical Decision Making 77-year-old female presenting with increased agitation in the setting of dementia history was decrease of Risperdal by PCP In the emergency department she is alert, active, agitated, actively hallucinating which is not reportedly new and not significantly changed from baseline aside from agitation per daughter who is also DPOA She was given 0.5 of Risperdal which is the medication she was on previously and a half a milligram of Ativan and is now calm and cooperative, her labs do not display any acute medical cause of patient's complaints and CT imaging of her head did not show acute abnormality She will be screened NK, urinalysis clear I do not see a clear medical etiology of patient's complaints, she was screened by and had just and both daughter and patient felt comfortable being discharged home at this time, patient is calm and cooperative, she is alert and oriented Will place patient on 0.5 mg of Risperdal in the morning and give Ativan several tablets 0.5 as needed HPI General Date/Time Provider Initiated Documentation: 07/02/23 10:14 . HPI Narrative: 77-year-old female presenting with history of peripheral vascular disease, dementia, schizoaffective disorder, hypothyroidism, auditory hallucinations presents with report of worsening agitation since risperidone was discontinued in the morning by PCP last week. Also had adjustment of her thyroid medication simultaneously. Patient has not been reportedly more confused but agitated and throwing plates and increased hallucinations at home. some urinary frequency per daughter. Did have a fall out of her seat at bin, unsure as to whether or not she hit her head but no reported loss of consciousness. Related Data Home Medications Medication Instructions Recorded Confirmed acetaminophen 650 mg 650 mg PO PRN PRN 06/12/16 06/02/23 tablet,extended release (Mapap Arthritis Pain) calcium carbonate 500 mg-vitamin 1 ea PO BID 06/12/16 06/02/23 D3 10 mcg (400 unit) tablet (Calcium 500 With D) omeprazole 20 mg tablet,delayed 20 mg PO DAILY 06/12/16 06/02/23 release levalbuterol tartrate 45 2 puff inhalation Q4H WHILE AWAKE 04/14/17 06/02/23 mcg/actuation aerosol inhaler (Xopenex HFA) alendronate 70 mg tablet (Fosamax) 70 mg PO ONCE A WEEK 06/24/17 06/02/23 levothyroxine 112 mcg tablet 88 mcg PO DAILY 11/09/18 06/02/23 quetiapine 25 mg tablet 25 mg PO HS 11/09/18 06/02/23 risperidone 0.25 mg tablet 0.25 mg PO BID 11/09/18 06/02/23 (Risperdal) ketoconazole 2 % topical cream 1 applic topical DAILY 3 months 06/02/23 06/02/23 #60 grams lorazepam 0.5 mg tablet (Ativan) 0.5 mg PO DAILY PRN #5 tabs 07/02/23 risperidone 0.5 mg tablet 0.5 mg PO BID #14 tabs 07/02/23 (Risperdal) Previous Rx's Medication Instructions Recorded ketoconazole 2 % topical cream 1 applic topical DAILY 3 months 06/02/23 #60 grams lorazepam 0.5 mg tablet (Ativan) 0.5 mg PO DAILY PRN #5 tabs 07/02/23 risperidone 0.5 mg tablet 0.5 mg PO BID #14 tabs 07/02/23 (Risperdal) Allergies Allergy/AdvReac Type Severity Reaction Status Date / Time No Known Allergies Allergy Unverified 06/02/23 14:06 General Stated Complaint: AMS/LOC DELISA: 2 PFSH All Active Problems (Updated 07/02/23 @ 14:45 by SHIRLEY Tejeda) Agitation (Acute) PVD (peripheral vascular disease) (Chronic) Pain in right foot (Acute) Pain in left foot (Acute) Nail dystrophy (Acute) Onychomycosis (Acute) Memory impairment (Acute) Underweight (Acute) Lack of coordination (Acute) Schizoaffective disorder (Acute) Auditory hallucinations (Acute) Developmental speech or language disorder (Acute) Depressive disorder (Chronic) Hypothyroidism (Chronic) Sciatica (Acute) Osteoporosis (Chronic) Idiopathic scoliosis (Acute) Sensorineural hearing loss (Acute) Osteochondropathy (Acute) TIA (transient ischemic attack) (Acute) Medical History Symptomatic menopausal or female climacteric states Arthropathy Social History Smoking/Tobacco Use Status: Never Smoking risk assessment performed?: Yes Alcohol Intake: never Drug use: Never Substance use type: does not use Do you feel safe at home: Yes Do you feel safe in your relationship?: Yes Additional Social history: unable to asses privately SANJUANITA ARREDONDO 07/02/23 Course Vital Signs Vital signs: Vital Signs Temperature 37.0 C 07/02/23 10:00 Pulse 84 07/02/23 10:00 Respiratory Rate 18 07/02/23 10:00 Blood Pressure 153/81 H 07/02/23 10:00 Pulse Oximetry 97 07/02/23 10:00 Temperature 37.0 C 07/02/23 10:00 Temperature Source Temporal Artery Scan 07/02/23 10:00 Pulse 84 07/02/23 10:00 Respiratory Rate 16 07/02/23 10:09 Respiratory Effort Normal, Non-Labored 07/02/23 10:09 Respiratory Depth Normal 07/02/23 10:09 Respiratory Pattern Normal 07/02/23 10:09 Blood Pressure 153/81 H 07/02/23 10:00 Pulse Oximetry 97 07/02/23 10:00 Oxygen Delivery Method Room Air 07/02/23 10:00 Oxygen Flow Rate 0 07/02/23 10:00 Lab/Test Results Lab/Test Results: Laboratory Tests Range/Units 07/02/23 07/02/23 10:14 10:59 WBC (4.4-10.8) 10^3/uL 6.75 RBC (3.93-5.22) 10^6/uL 4.76 Hgb (11.2-15.7) g/dL 14.6 Hct (36.0-46.0) % 43.8 MCV (80-95) fL 92 MCH (27.0-33.0) pg 30.7 MCHC (32.0-36.0) % 33.3 RDW (11.7-14.6) % 13.0 Plt Count (130-400) 10^3/uL 258 MPV (8.0-11.0) fL 9.7 Immature Gran % 0.4 Neutrophils % 78.6 Lymphocytes % 13.8 Monocytes % 6.4 Eosinophils % 0.4 Basophils % 0.4 Nucleated RBC % (0.0-0.3) % 0.0 Absolute Neutrophils (1.2-6.7) 10^3/uL 5.30 Absolute Lymphocytes (1.2-3.4) 10^3/uL 0.93 L Absolute Monocytes (0.1-0.8) 10^3/uL 0.43 Absolute Eosinophils (0.0-0.7) 10^3/uL 0.03 Absolute Basophils (0.0-0.2) 10^3/uL 0.03 Sodium (136-145) mmol/L 145 Potassium (3.5-5.1) mmol/L 3.5 Chloride (98-107) mmol/L 107 Carbon Dioxide (21.0-32.0) mmol/L 30.0 Anion Gap (3-11) mmol/L 8.0 BUN (7-18) mg/dL 13 Creatinine (0.55-1.02) mg/dL 1.2 H Est GFR (CKD-EPI 2020) (mL/min/1.73m2) 46.33 Glucose (74-106) mg/dL 124 H Calcium (8.5-10.1) mg/dL 10.1 Magnesium (1.8-2.4) mg/dL 2.2 Total Bilirubin (0.2-1.0) mg/dL 0.5 AST (15-37) U/L 19 ALT (14-59) U/L 19 Alkaline Phosphatase (46-116) U/L 75 Total Protein (6.4-8.2) g/dL 6.9 Albumin (3.4-5.0) g/dL 3.9 TSH (0.36-3.74) uIU/mL 5.47 H Free T4 (0.76-1.46) ng/dL 1.56 H Urine Color (Yellow) Yellow Urine Clarity (Clear) Clear Urine pH (5-8) 6.0 Ur Specific [place] (1.005-1.025) 1.010 Urine Protein (Negative) mg/dL Negative Urine Ketones (Negative) mg/dL Negative Urine Blood (Negative) Negative Urine Nitrite (Negative) Negative Urine Bilirubin (Negative) Negative Urine Urobilinogen (Up to 0.2) mg/dL 0.2 Ur Leukocyte Esterase (Negative) Negative Urine Glucose (Negative) mg/dL Negative Ethyl Alcohol (<10) mg/dL < 3.0
[2023-07-02 12:56] VITALS: BP 126/80; PULSE 76; RESP 16; TEMP 37; O2SAT 98
[2023-07-02 15:29] LABS: *AMPHETAMINES SCREEN URINE Negative (Negative); *BARBITURATES SCREEN URINE Negative (Negative); *BENZODIAZEPINES SCREEN URINE Negative (Negative); Cannabinoids THC Negative (Negative); Cocaine Screen,Urine Negative (Negative); METHADONE URINE SCREEN Negative (Negative); OPIATES URINE SCREEN Negative (Negative)
[2023-07-02 15:33] LABS: Tricyclic Antidepressants Negative (Negative)
--- NOTE | 2023-07-03 12:08 | PDOC.MHCN_ITS ---
Date of service: 07/03/23 Time of Service: 12:08 Mental Health Emergency Note Release [facility] release signed:: Yes Reason for Visit The client is seen in the ED after family brought her in for sudden increase in agitation and behaviors. The ED reported they did not see her needing inpatient level of care however, outpatient supports would be helpful. In the last 2 weeks has the pt presented for ES prior to today?: Unknown Client Information Client is: New Well Housed: Yes Non Suicidal Self Injury Current: No History: No Safety Risk/Harm to Self or Others Current Ideation to Harm Self or Others: No Risk: Does risk to harm exist?: No Risk: Low Risk Duty to warn indicated: No Asssessment/Mental Status Appearance: Disheveled Attitude: Cooperative Behavior: Unremarkable Speech: Other (The client speaks as if she may have a hearing impairment.) Affect: Normal Mood: Euthymic Thought process: Unremarkable Hallucinations: yes, Visual and Auditory Delusions: No Attention: Unremarkable Perception: Other (The client has dementia per hospital and daughters report. ) Orientation: Disoriented in Time Memory: Impaired in: (Per report of the hospital staff and client's daughter she is diagnosed with dementia.) Remote Insight: Fair Judgement: Fair Neurovegetative Symptoms Sleep: Decrease (Reported she tosses and turns all night) Appetitie: Decrease Interests: Decrease Energy: Decrease Libido: Not applicable Substance Use: Do you use nicotine?: No Have you used substances in the last 7 days?: No Additional Issues: Assaultive/Threatening Behavior: No Medical Concerns: No Client engaged in active self harm w/weapon: No Threatening to run away: No Child reported abuse/neglect: No Voluntarily presenting for services: Yes Domestic violence is a concern: No Extreme Psychosis or extreme behavior is present: No Impression The client is a 77, year old, , female who lives with her daughter and others in [facility]. She gaytan been trying to get into services with [facility] and [facility] was only trying to get intake paperwork completed. This was completed today during this assessment. It is reported by the daughter and the client that the client has been experiencing auditory and visual hallucinations and as a result has at times become physically aggressive. The client reported that she hears voices telling her they want to shoot me. She does not know why but states she has heard them for a long time. Shes said she would but I don't know how to shoot a gun. I tell it to shut up all the time. She described the voice as being a females voice but not a familiar one. The daughter informed that the client stated that the voice tells her she is going to take her kids away. when she hears this she becomes agitated pounding her fist on the table really hard and screaming out loud. The daughter stated that there was a recent change in her meds and attributes this behavior to those changes. The daughter said she has had poor concentration even when it comes to her favorite game of [employer]. She reported that last evening while playing [employer] she thought she saw this person staring at her through the window and so slid off the chair and hid under the table. She is observed by family to sit in her chair all day tapping her foot continuously. It appears based on chart review with [facility] the client is diagnosed with schizophrenia. The client was feeling better after receiving some Risperidone and wanted to go home. Resources Re[facility] reviewed and given:: [id number] and [facility] Plan/Disposition Recommended Disposition: [facility] Services [facility] Services: Other. Plan: The client was discharged to go home with her daughter. She will be followed up with by her new team in [facility] soon now that intake paperwork is completed. Person reported agreement to plan: Yes Reports/communication Outcome discussed with: ED/Personnel
== END 2023-07-02 14:58 | disposition home or self-care (01) ==
PROVIDERS: Student in an Organized Health Care Education/Training Program; Emergency Provider Physician Assistant; PCP Nurse Practitioner Family
DX: R44.0 Auditory hallucinations (principal); R45.1 Restlessness and agitation; R94.31 Abnormal electrocardiogram [ECG] [EKG]; F03.90 Unspecified dementia, unspecified severity, without behavioral disturbance, psychotic disturbance, mood disturbance, and anxiety
CPT/HCPCS: 00123; 36415; 80053; 80307; 93005; 99284; 70450; 80320; 81003; 83735; 84439; 84443; 85025; 93010

== ENCOUNTER 2023-07-29 09:04 | Emergency (ER) | payer MEDICARE, MEDICAID, SELFPAY ==
--- NOTE | 2023-07-29 09:08 | ED.GENADUL_ITS ---
HPI General DELISA: 2 Date/Time Provider Initiated Documentation: 07/29/23 09:07. HPI Narrative: MDM This is an overall well-appearing normothermic and not tachycardic nor hypoxic 78-year-old female with shortness of breath while laying flat concerning for possibility of pneumonia. ACS possible based on the patient's age however in the setting of a nonischemic ECG and symptoms since last night we will obtain a single troponin and will be reassured if this is negative. No pain out of pr oportion to suggest necrotizing soft tissue infection. No dysuria nor frequency so doubt UTI. Not volume overloaded and reassuring POCUS exam not consistent with acute heart failure so I did not send a proBNP. Pulmonary embolism is certainly a possibility however is not the most likely diagnosis as patient does not have calf pain or hemoptysis or prior history of PE nor DVT so we will use a D-dimer cutoff of 1000 based on YEARS criteria. Will swab for COVID influenza and RSV. Will obtain a chest x-ray though limited bedside ultrasound was not consistent with pneumonia. Will obtain labs in the event that patient is found to have a pneumonia in order to calculate a PORT score. I considered sepsis however the patient is not febrile hypotensive nor tachycardic so I did not obtain a lactate to empirically with antibiotics nor obtain blood cultures. Patient is eating and drinking well and so my suspicion for dehydration is low so I did not order IV fluids. No focal neurological deficits to suggest CVA. Patient does have a formal echocardiogram from 6 years ago in the system showing normal ejection fraction. She is on an inhaler which introduces possibility of acute exacerbation of reactive airway disease. She has no significant wheezes and no diagnosis of COPD. Given age will defer steroids. Patient's daughter does report that she has an inhaler which was prescribed when she was [place]. She has no history of reactive airway disease and no history of COPD. Given her age and her pulmonary complaints but reassuring lung exam he may benefit from pulmonary function testing and/or repeat echocardiogram but do not feel that she requires these emergently. 10 AM CBC lacks anemia thrombocytopenia and leukocytosis. Negative troponin. Chest x-ray read as clear. Basic metabolic panel lacks JANET had any acute electrolyte abnormalities. 10:50 AM COVID RSV influenza all negative. D-dimer greater than 2000 for which patient will undergo CT angiogram to assess for PE. 12:20 PM Patient was found to have a CT scan with no evidence of PE and no obvious pneumonia. 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 No abdominal pain nausea nor vomiting to suggest mesenteric ischemia. I have asked health community sports coordinator Trudy to have the patient seen within the week by her primary care provider. I advised ED return to the patient and her daughter for any worsening shortness of breath chest pain fevers or more productive cough. Otherwise we will proceed with an empiric trial of discharge with expectant outpatient management. Given the small size of the patient's pleural effusion I do not feel that she requires a thoracentesis. She is not hypoxic. Based on patient's age her lower effusion may be secondary to malignancy though she had no obvious pulmonary nodules on CT scan.It is certainly possible that the patient's shortness of breath could be secondary to viral URI for which I gave her benzonatate and cetirizine. Chronic conditions affecting the care of the patient: Alzheimer's and schizophrenia History obtained from an outside historian: Patient's daughter External record review: [facility] [Diagnostic interpretations performed by me: Per my independent interpretation chest x-ray shows: Significantly rotated film with no acute cardiopulmonary process on preliminary ED interpretation. Per my independent interpretation EKG shows: Narrow complex normal sinus rhythm at a rate of 79. Normal axis. Intervals within normal limits. No ST segment abnormalities beyond mild ST segment depressions left lateral chest wall leads. T wave inversion in aVL. Artifact in leads I and II interferes with interpretation. No acute injury pattern. No prior for comparison. Medications: benzonatate and cetirizine Social determinants of health affecting disposition: N/A Management discussed with: N/A Treatment/interventions considered: N/A Response to therapies provided: N/A HPI This is a 78-year-old female arriving from a private residence with her daughter with whom she lives in the setting of shortness of breath since last night. Patient has had a dry cough for the past 4 days. Patient had more shortness of breath when laying flat. Her cough is nonproductive. She has had no fevers. Daughter has been treated with Robitussin and Sudafed. No chest pain. No leg swelling. No history of heart failure. She received her influenza, COVID and pneumonia vaccines. No sick contacts. No recent falls. No history of PE nor DVT. No recent travel. No dysuria nor frequency. No history of diabetes. Patient is not a smoker drinker nor an IV drug user. Exam General: Chronically ill-appearing in no acute distress speaking in complete sentences. Head: Normocephalic, atraumatic. Eye: Extraocular eye movements intact. No conjunctival injection. No scleral icterus. Ear, nose, mouth, throat: Grossly normal inspection. Normal voice, handling secretions normally. Neck: Trachea midline. Cardiovascular: Well-perfused distal extremities. Regular rate and rhythm Respiratory: Nonlabored respiration. Clear lungs bilaterally Gastrointestinal: Nondistended abdomen. Soft nontender Musculoskeletal: No significant lower extremity pitting edema. Moving all 4 extremities spontaneously. Skin: Normal for age and race, grossly normal temperature and turgor. No acute rash. Neurologic: Alert and appropriate, no apparent acute deficits. GCS 14: E4, V4, M6 Psychiatric: Mood and manner are appropriate. Grooming and personal hygiene are appropriate. Related Data Home Medications Medication Instructions Recorded Confirmed acetaminophen 650 mg 650 mg PO PRN PRN 06/12/16 07/29/23 tablet,extended release (Mapap Arthritis Pain) calcium carbonate 500 mg-vitamin 1 ea PO BID 06/12/16 07/29/23 D3 10 mcg (400 unit) tablet (Calcium 500 With D) omeprazole 20 mg tablet,delayed 20 mg PO DAILY 06/12/16 07/29/23 release levalbuterol tartrate 45 2 puff inhalation Q4H WHILE AWAKE 04/14/17 07/29/23 mcg/actuation aerosol inhaler (Xopenex HFA) alendronate 70 mg tablet (Fosamax) 70 mg PO ONCE A WEEK 06/24/17 07/29/23 levothyroxine 112 mcg tablet 88 mcg PO DAILY 11/09/18 07/29/23 quetiapine 25 mg tablet 25 mg PO HS 11/09/18 07/29/23 risperidone 0.25 mg tablet 0.25 mg PO BID 11/09/18 07/29/23 (Risperdal) ketoconazole 2 % topical cream 1 applic topical DAILY 3 months 06/02/23 07/29/23 #60 grams lorazepam 0.5 mg tablet (Ativan) 0.5 mg PO DAILY PRN #5 tabs 07/02/23 07/29/23 risperidone 0.5 mg tablet 0.5 mg PO BID #14 tabs 07/02/23 07/29/23 (Risperdal) benzonatate 100 mg capsule 100 mg PO BID PRN #7 caps 07/29/23 cetirizine 10 mg tablet 10 mg PO DAILY PRN #7 tabs 07/29/23 Previous Rx's Medication Instructions Recorded ketoconazole 2 % topical cream 1 applic topical DAILY 3 months 06/02/23 #60 grams lorazepam 0.5 mg tablet (Ativan) 0.5 mg PO DAILY PRN #5 tabs 07/02/23 risperidone 0.5 mg tablet 0.5 mg PO BID #14 tabs 07/02/23 (Risperdal) benzonatate 100 mg capsule 100 mg PO BID PRN #7 caps 07/29/23 cetirizine 10 mg tablet 10 mg PO DAILY PRN #7 tabs 07/29/23 Allergies Allergy/AdvReac Type Severity Reaction Status Date / Time No Known Allergies Allergy Unverified 07/29/23 09:30 PFSH All Active Problems (Updated 07/29/23 @ 12:24 by Bakari Aquino MD) Pleural effusion, right (Acute) Breath shortness (Acute) Agitation (Acute) PVD (peripheral vascular disease) (Chronic) Pain in right foot (Acute) Pain in left foot (Acute) Nail dystrophy (Acute) Onychomycosis (Acute) Memory impairment (Acute) Underweight (Acute) Lack of coordination (Acute) Schizoaffective disorder (Acute) Auditory hallucinations (Acute) Developmental speech or language disorder (Acute) Depressive disorder (Chronic) Hypothyroidism (Chronic) Sciatica (Acute) Osteoporosis (Chronic) Idiopathic scoliosis (Acute) Sensorineural hearing loss (Acute) Osteochondropathy (Acute) TIA (transient ischemic attack) (Acute) Medical History Symptomatic menopausal or female climacteric states Arthropathy Social History Smoking/Tobacco Use Status: Never Smoking risk assessment performed?: Yes Alcohol Intake: never Drug use: Never Substance use type: does not use Do you feel safe at home: Yes Do you feel safe in your relationship?: Yes Additional Social history: unable to assess privately Medical Decision Making Quality:[facility] Health Related Social Needs: No Data to Display Discharge Plan Disposition Patient Disposition: Home Discharge Details Clinical Impression: Breath shortness, Pleural effusion, right Primary Care Provider: Ivania Lancaster ED Provider: Bakari Aquino Home Meds and New Rx's Prescriptions: New cetirizine 10 mg tablet 10 mg PO DAILY PRNQty: 7 0RF benzonatate 100 mg capsule 100 mg PO BID PRNQty: 7 0RF Continued ketoconazole 2 % cream 1 applic topical DAILY 90 Days Qty: 60 3RF Rx Instructions: Apply to toenails once daily alendronate [Fosamax] 70 MG tablet 70 mg PO ONCE A WEEK acetaminophen [Mapap Arthritis Pain] 650 MG tablet extended release 650 mg PO PRN PRN calcium carbonate-vitamin D3 [Calcium 500 With D] 1 EACH tablet 1 ea PO BID omeprazole 20 MG tablet,delayed release (DR/EC) 20 mg PO DAILY quetiapine 25 mg Tablet 25 mg PO HS risperidone [Risperdal] 0.25 mg Tablet 0.25 mg PO BID Rx Instructions: 0.50mg QAM, 0.25mg PM levothyroxine 112 MCG tablet 88 mcg PO DAILY risperidone [Risperdal] 0.5 mg tablet 0.5 mg PO BID Qty: 14 0RF lorazepam [Ativan] 0.5 mg tablet 0.5 mg PO DAILY PRNQty: 5 0RF levalbuterol tartrate [Xopenex HFA] 15 GM HFA aerosol inhaler 2 puff Inhalation Q4H WHILE AWAKE Discharge Instructions Additional Instructions: You were seen in the emergency department for your shortness of breath. Your blood work showed no sign of a heart attack. Your CAT scan showed no sign of a pneumonia and no signs of a blood clot in your lungs. As we discussed you may benefit from an updated echocardiogram or the possibility of pulmonary function testing. You are found to have a small amount of fluid in your right lung. Please return to the emergency department if you develop worsening shortness of breath have any falls or develop any chest pain. Discharge Data Discharge Date/Time-TO BE ENTERED AT DEPARTURE: 07/29/23 12:42 POCUS Exam (ED) Limited Cardiac Exam DATE OF EXAM: 07/29/23 TIME OF EXAM: 09:44 PROVIDER THAT PERFORMED THE STUDY: Bakari Aquino IS THIS A REPEAT EXAM DURING THIS ENCOUNTER: no REASON FOR EXAM: Dyspnea VISUALIZED STRUCTURES: Four Chambers, Left ventricle and LVOT VIEW OBTAINED: Apical 4-Chamber, Parasternal long-axis, Subxiphoid and Other (Lung windows) PERTINENT FINDINGS/IMPRESSION: No LV dysfunction, No pericardial effusion and No RV dilation INCIDENTAL FINDINGS: Aortic outflow track less than 4 cm, good squeeze, RV less than LV, no significant pericardial effusion Exam complete Limited Thoracic Lung Exam DATE OF EXAM: 07/29/23 TIME OF EXAM: 09:45 PROVIDER THAT PERFORMED THE STUDY: Bakari Aquino REASON FOR EXAM: Shortness ofBreath and Other indication: Shortness of breath VISUALIZED STRUCTURES: right anterior, left anterior, right posterior and left posterior PERTINENT FINDINGS/IMPRESSION: No apparent abnormalities; lung sliding left side, lung sliding left side, no B-Lines/left side, no B-lines/left side and no pneumonia noted INCIDENTAL FINDINGS: Reassuring bedside thoracic ultrasound Exam complete
[2023-07-29 09:10] VITALS: BP 164/89; PULSE 88
[2023-07-29 09:11] VITALS: BP 164/89; PULSE 85; RESP 18; TEMP 36.6; O2SAT 100
--- NOTE | 2023-07-29 09:15 | RT.EKG_ITS ---
APPROVED REPORT Exam: Resting ECG Reason for Exam: sob Patient Location: E HR:79 bpm ECG Measurements Heart Rate 79 AXIS WY 134 P 82 QRSd 72 QRS 52 QT 374 T 73 QTc 429 Conclusion Sinus rhythm...normal P axis, V-rate 60- 99 Narrow complex normal sinus rhythm at a rate of 79. Normal axis. Intervals within normal limits. N o ST segment abnormalities beyond mild ST segment depressions left lateral chest wall leads. T wave inversion in aVL. Artifact in leads I and II interferes with interpretation. No acute injury kev n. No prior for comparison.
[2023-07-29 09:16] VITALS: BP 145/78; PULSE 79
[2023-07-29 09:26] VITALS: RESP 20
--- NOTE | 2023-07-29 09:30 | DI.RAD_ITS ---
Exam(s) XR PORTABLE CHEST AP EXAM: XR PORTABLE CHEST AP CLINICAL HISTORY: Shortness of breath TECHNIQUE: 2D digital imaging was performed. COMPARISON: CR,XR XR CHEST 2V PA LATERAL from 09/24/2022 FINDINGS: LUNGS: Clear. No pleural abnormality seen. HEART: Normal size. AORTA: Normal diameter. BONES: Prominent scoliosis. Soft tissues: Unremarkable. IMPRESSION: No acute findings. DATA REPOSITORY: RADIATION DOSE DELIVERED:
[2023-07-29 09:48] LABS: Abs Immature Grans 0.01 10^3/uL (0.0-0.06); Absolute Basophil Count 0.03 10^3/uL (0.0-0.2); Absolute Eosinophil Count 0.13 10^3/uL (0.0-0.7); Absolute Lymphocyte Count 1.06 10^3/uL (1.2-3.4); Absolute Monocyte Count 0.34 10^3/uL (0.1-0.8); Absolute Neutrophil Count 3.42 10^3/uL (1.2-6.7); Basophils % 0.6; Eosinophils % 2.6; HCT 43.6 % (36.0-46.0); HGB 14.3 g/dL (11.2-15.7); Immature Grans % 0.2; Lymphocytes % 21.2; MCH 30.8 pg (27.0-33.0); MCHC 32.8 % (32.0-36.0); MCV 94 fL (80-95); Monocytes % 6.8; Neutrophils % 68.6; Platelet Count 263 10^3/uL (130-400); RBC 4.64 10^6/uL (3.93-5.22); RDW 13.8 % (11.7-14.6); RDW-SD 47.6 fL; WBC 4.99 10^3/uL (4.4-10.8)
[2023-07-29 10:08] LABS: Anion Gap 4.5 mmol/L (3-11); BUN 17 mg/dL (7-18); CO2 31.5 mmol/L (21.0-32.0); Calcium 9.3 mg/dL (8.5-10.1); Chloride 107 mmol/L (98-107); Estimated GFR 57.31 (mL/min/1.73m2); Glucose 103 mg/dL (74-106); Potassium 3.9 mmol/L (3.5-5.1); Sodium 143 mmol/L (136-145); Troponin I < 50 ng/L (<or=60)
[2023-07-29 10:23] LABS: COVID-19 PCR Negative (Negative); Influenza A PCR Negative (Negative); Influenza B PCR Negative (Negative); RSV PCR Negative (Negative)
[2023-07-29 10:45] LABS: Source Nasopharynx
[2023-07-29 10:48] LABS: D-Dimer 1764 ng/mlFEU (<500)
[2023-07-29] MEDS: Normal Saline - Diluent 50 ML VIAL IJ (11:53)
[2023-07-29] MEDS: Omnipaque 350 MG/ML 100 ML BTL 53 ML IJ (11:54)
--- NOTE | 2023-07-29 12:00 | DI.CT_ITS ---
Exam(s) CT CHEST PE CTA EXAM: CT CHEST PE CTA CLINICAL HISTORY: Positive D-dimer. TECHNIQUE: Imaging Protocol: Axial CT angiography was performed with multi-slice acquisition and mu lti-planar reconstructions as well as axial, coronal and sagittal MIP reconstructions. CONTRAST MATERIAL: Intravenous: Omnipaque 350 Contrast volume:53 ml COMPARISON: CR XR PORTABLE CHEST AP from 07/29/2023 FINDINGS: Pulmonary Arteries: No evidence of filling defect to suggest pulmonary emboli. Tracheobronchial tree: Patent where visualized. Mediastinum and Yesenia: No dominant adenopathy or fluid collection. Pulmonary parenchyma: Mild left basilar atelectasis. Respiratory motion and expiratory changes somew hat limited evaluation of the lungs. No consolidation or dominant measurable mass. Pleura: Trace right pleural effusion. Heart: The heart is mildly dilated. No coronary artery calcifications are seen. Aorta: Ascending aorta 3.5 cm. Descending aorta 1.9 cm. No dissection. Upper abdomen: Severe narrowing at origin of celiac axis. SMA and left renal artery are unremarkabl e. Bones: Severe scoliosis. Tubes, Catheters, and Lines: None Soft tissues: Unremarkable. IMPRESSION: No evidence of pulmonary embolism. Trace right pleural effusion and adjacent mild atelectasis. 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 RADIATION DOSE DELIVERED: Total DLP DATA REPOSITORY: All CT scans at this facility are submitted to the National Radiology Data Registry (NRDR) Dose Index Registry (DIR) with the [employer] (ACR). RADIATION OPTIMIZATION: All CT scans at this facility use at least one of these dose optimization te chniques: automated exposure control; mA and/or kV adjustment per patient size (includes targeted exa ms where dose is matched to clinical indication); or iterative reconstruction.
--- NOTE | 2023-07-29 12:24 | NUR.NOTE ---
Pt referred to Primary Care to be seen for shortness of breath within the week.
== END 2023-07-29 12:42 | disposition home or self-care (01) ==
PROVIDERS: Emergency Provider Emergency Medicine; PCP Nurse Practitioner Family
DX: R06.02 Shortness of breath (principal); J90 Pleural effusion, not elsewhere classified; Z11.52 Encounter for screening for COVID-19
CPT/HCPCS: 36415; 71275; 76604; 80048; 87637; 93005; 93308; 99284; 71045; 84484; 85025; 85379; 93010; J3490

== ENCOUNTER 2023-11-12 16:45 | Outpatient (REF) | payer MEDICARE, MEDICAID, SELFPAY ==
[2023-11-12 19:21] LABS: Abs Immature Grans 0.01 10^3/uL (0.0-0.06); Absolute Basophil Count 0.04 10^3/uL (0.0-0.2); Absolute Eosinophil Count 0.19 10^3/uL (0.0-0.7); Absolute Lymphocyte Count 0.94 10^3/uL (1.2-3.4); Absolute Monocyte Count 0.42 10^3/uL (0.1-0.8); Absolute Neutrophil Count 4.47 10^3/uL (1.2-6.7); Basophils % 0.7; Eosinophils % 3.1; HCT 39.1 % (36.0-46.0); Immature Grans % 0.2; Lymphocytes % 15.5; MCH 31.2 pg (27.0-33.0); MCHC 33.2 % (32.0-36.0); MCV 94 fL (80-95); MPV 10.8 fL (8.0-11.0); Monocytes % 6.9; Neutrophils % 73.6; Platelet Count 252 10^3/uL (130-400); RBC 4.17 10^6/uL (3.93-5.22); RDW-SD 44.3 fL; WBC 6.07 10^3/uL (4.4-10.8)
[2023-11-12 19:40] LABS: ALT 19 U/L (14-59); AST 25 U/L (15-37); Albumin 3.4 g/dL (3.4-5.0); Alkaline Phosphatase 77 U/L (46-116); Anion Gap 6.1 mmol/L (3-11); BUN 17 mg/dL (7-18); Bilirubin, Total 0.3 mg/dL (0.2-1.0); CO2 28.9 mmol/L (21.0-32.0); CREATININE 0.9 mg/dL (0.55-1.02); Calcium 8.8 mg/dL (8.5-10.1); Chloride 108 mmol/L (98-107); Estimated GFR 65.03 (mL/min/1.73m2); FREE T4 1.36 ng/dL (0.76-1.46); Glucose 153 mg/dL (74-106); Potassium 3.9 mmol/L (3.5-5.1); Sodium 143 mmol/L (136-145); TSH 3.79 uIU/Ml (0.36-3.74); Total Protein 6.5 g/dL (6.4-8.2)
== END 2023-11-12 16:46 | disposition home or self-care (01) ==
LOC: NCHCN 16:45
PROVIDERS: PCP Nurse Practitioner Family; Visit Provider Nurse Practitioner Family
DX: E03.9 Hypothyroidism, unspecified (principal); F25.9 Schizoaffective disorder, unspecified; Z79.899 Other long term (current) drug therapy
CPT/HCPCS: 80053; 84439; 84443; 85025

== ENCOUNTER 2024-02-11 16:40 | Outpatient (REF) | payer MEDICARE, MEDICAID, SELFPAY ==
--- OUTSIDE RECORDS SUMMARY | 2024-02-11 16:42 | XMS_ITS | Encounter Summary ---
Author Organization [facility] Address [address] [place] [address] Care Team Providers Care Bmx Rider Name Role Phone Unavailable Primary Care Provider Unavailabl e Encounter Details Date Type Department Care Team (Latest Contact Info) Description 02/21/2014 12:50 EDT - 02/21/2014 23:59 EDT Hospital Encounter [address] [address] Unknown, Provider, Discharge Disposition: Home or Self Care Social History Tobacco Use Types Packs/Day Years Used Date Smoking Tobacco: Never Assessed Sex and Gender Information Value Date Recorded Sex Assigned at Not on file Gender Identity Not on file Sexual Orientation Not on file documented as of this encounter Discharge Disposition Disposition Code Departure Means Destination Home or Self Long Term documented in this encounter Plan of Treatment Not on file documented as of this encounter Visit Diagnoses Not on filedocumented in this encounter
--- OUTSIDE RECORDS SUMMARY | 2024-02-11 16:42 | XMS_ITS | Encounter Summary ---
Author Organization [facility] Address [address] [place] [address] Care Team Providers Care Software Test Developer Name Role Phone Unknown, Provider Primary Care Provider [phone] Encounter Details Date Type Department Care Team (Late st Contact Info) Description 03/29/2015 Historical Results Only [facility] Radiology Results [address] [place] [id number] Jorge Morillo MD [address] [place] [address] [address] [place] [address] Social History Tobacco Use Types Packs/Day Years Used Date Smoking Tobacco: Never Assessed Sex and Gender Information Value Date Recorded Sex Assigned at Not on file Gender Identity Not on file Sexual Orientation Not on file documented as of this encounter Plan of Treatment Not on file documented as of this encounter Procedures Procedure Name Priority Date/Time Associated Diagnosis Comments XR CHEST 2 VIEWS 03/29/2015 13:4 3 EDT documented in this encounter Results * XR CHEST 2 VIEWS (03/29/2015 13:43 EDT) Anatomical Region Laterality Modality Spine, C-spine Other 03/29/2015 13:4 3 EDT Narrative 03/29/2015 17:08 EDT [facility] [address] [place], [place] [address] Diagnostic Imaging Report Signed Patient Name:LOLITA ELIZONDO ? Date of :1945 ? MR Number:[id number] Age:69 ?Sex:F Category: CR ? Date of Exam:03/29/15 Procedure: CR: Chest; PA/LAT views ? Ordering Physician: Jorge Bonilla ?? CC: Jorge Bonilla CHEST X-RAY CLINICAL HISTORY: ??Choking and coughing. PA and lateral radiographs of the chest demonstrate the heart to be normal in size. ??The mediastinum is unremarkable in appearance and the pulmonary vascularity is not engorged. ??Linear pulmonary opacity radiating inferiorly from the right hilum is stable in appearance since prior study of 11/08/13. ??The lungs are hyperinflated. ??No developing mass, infiltrate or effusion is seen. ??There is rotatory scoliosis of the thoracolumbar spine which is convex to the right. EDGARDO/demario Dictated by: Carl Matute ??MD ? D/ 1708 Transcribed by: VANESSA ? D/ 26 E-Signed by: <Electronically signed by Carl Matute ??MD> ? D/ 1008 Procedure Note Carl Matute MD - 04/26/2019 [place] [id number] Diagnostic Imaging Report Signed Patient Name:LOLITA ELIZONDO Number:[id number] Date of :1945 MRNumber:[id number] Age:69 Sex:F Category: CR Date ofExam:03/29/15 Procedure: CR: Chest; PA/LAT viewsAccession: [id number] Ordering Physician: Jorge Bonilla MD CC: Jorge Bonilla CHEST X-RAY CLINICAL HISTORY: Choking and coughing. PA and lateral radiographs of the chest demonstrate the heart to be normalin size. The mediastinum is unremarkable in appearance and the pulmonary vascularity is notengorged. Linear pulmonary opacity radiating inferiorly from the right hilum is stable in appearancesince prior study of 11/08/13. The lungs are hyperinflated. No developing mass, infiltrate oreffusion is seen. There is rotatory scoliosis of the thoracolumbar spine which is convex to theright. EDGARDO/demario Dictated by: Carl Matute MDD/ 07 Transcribed by: EFICSORD/ 26 E-Signed by: <Electronically signed by Carl Matute MD>D/ 1008 Jorge Morillo MD [facility] ORDERABLES documented in this encounter Visit Diagnoses Not on filedocumented in this encounter Care Teams Software Test Developer Relationship Specialty Start Date End Date Unknown, Provider, PCP - General 02/22/14 documented as of this encounter
--- OUTSIDE RECORDS SUMMARY | 2024-02-11 16:42 | XMS_ITS | Referral Summary ---
Author Organization [facility] Address [address] [place] [address] Care Team Providers Care Ash Pit Worker Name Role Phone Unknown, Provider Primary Care Provider [phone] Social History Tobacco Use Types Packs/Day Years Used Date Smoking Tobacco: Never Assessed Sex and Gender Information Value Date Recorded Sex Assigned at Not on file Gender Identity Not on file Sexual Orientation Not on file Plan of Treatment Not on file Care Teams Ash Pit Worker Relationship Specialty Start Date End Date Unknown, Provider, PCP - General 02/22/14
--- OUTSIDE RECORDS SUMMARY | 2024-02-11 16:42 | XMS_ITS | Encounter Summary ---
Author Organization [facility] Address [address] [place] [address] Care Team Providers Care Insecticide Expert Name Role Phone Unavailable Primary Care Provider Unavailabl e Encounter Details Date Type Department Care Team (Latest Contact Info) Description 04/07/2006 16:43 EDT Hospital Encounter [facility] - Other [address] [place] [address] Raissa Jones, HAND FORMER Discharge Disposition: Home or Self Care Social History Tobacco Use Types Packs/Day Years Used Date Smoking Tobacco: Never Assessed Sex and Gender Information Value Date Recorded Sex Assigned at Not on file Gender Identity Not on file Sexual Orientation Not on file documented as of this encounter Discharge Disposition Disposition Code Departure Means Destination Home or Self Care documented in this encounter Plan of Treatment Not on file documented as of this encounter Procedures Procedure Name Priority Date/Time Associated Diagnosis Comments T3, TOTAL Routine 04/07/2006 14:30 EDT documented in this encounter Results * T3, TOTAL (04/07/2006 14:30 EDT) T3, Total 115 60 - 181 ng/dL [facility] 04/07/2006 14:3 0 EDT 04/08/2006 17:33 EDT Provider Unknown CHEMISTRY & BLOOD GA S ORDERABLES [facility] [address] [place] [address] documented in this encounter Visit Diagnoses Not on filedocumented in this encounter
--- OUTSIDE RECORDS SUMMARY | 2024-02-11 16:42 | XMS_ITS | Encounter Summary ---
Author Organization [facility] Address [address] [place] [address] Care Team Providers Care Dust Box Worker Name Role Phone Unknown, Provider Primary Care Provider Encounter Details Date Type Department Care Team (Late st Contact Info) Description 03/08/2015 Historical Results Only [facility] Radiology Results [address] [place] [address] [id number] Jorge Morillo MD [address] [place] [address] [address] [place] [address] Social History Tobacco Use Types Packs/Day Years Used Date Smoking Tobacco: Never Assessed Sex and Gender Information Value Date Recorded Sex Assigned at Not on file Gender Identity Not on file Sexual Orientation Not on file documented as of this encounter Plan of Treatment Not on file documented as of this encounter Procedures Procedure Name Priority Date/Time Associated Diagnosis Comments MR HEAD WO CONTRAST 03/08/2015 1 1:30 EDT documented in this encounter Results * MR HEAD WO CONTRAST (03/08/2015 11:30 EDT) Anatomical Region Laterality Modality Head Other 03/08/2015 11:3 0 EDT Narrative 03/08/2015 17:19 EDT [facility] [place] [facility] [address] [place], [place] [address] Diagnostic Imaging Report Signed Patient Name:LOLITA ELIZONDO ? Date of :1945 ? MR Number:[id number] Age:69 ?Sex:F Category: MR ? Date of Exam:03/08/15 Procedure: MR: MRI Brain w/o contrast ? Ordering Physician: Jorge Bonilla ?? CC: Jorge Morillo MR BRAIN The patient has a history of auditory hallucinations and the question is raised of neoplasm. T1, T2, FLAIR and diffusion/ADC imaging is performed. ??The exam possesses limitations owing to difficulty with patient cooperation. ??No prior brain MR is currently available for comparison. There is mild cerebral atrophy. ??Multiple small areas of increased T2/FLAIR signal are present within the white matter bilaterally in a pattern consistent with mild to moderate chronic small vessel ischemic disease. ??No focal clearly suspicious areas of abnormal signal are identified within the brain parenchyma. ??The ventricles appear relatively symmetric with no mass effect or romina hydrocephalus noted. ??No intracranial hemorrhage is identified. ??A tiny focus of increased T1 and T2 signal within the skull superiorly on the right is of doubtful clinical significance. The exam otherwise appears unremarkable. IMPRESSION: ??No acute intracranial abnormality is identified. ??Specifically no suspicious mass lesion is noted. ESTRADA/eif Dictated by: Allyson Estrada ??MD ? D/ 1719 Transcribed by: VANESSA ? D/ 1730 E-Signed by: <Electronically signed by Allyson Estrada ??MD> ? D/ 1520 Procedure Note Steven Estrada MD - 04/27/2019 [place] [id number] Diagnostic Imaging Report Signed Patient Name:LOLITA ELIZONDO Number:[id number] Date of :1945 MRNumber:[id number] Age:69 Sex:F Category: MR Date ofExam:03/08/15 Procedure: MR: MRI Brain w/o contrastAccession: [id number] Ordering Physician: Jorge Bonilla MD CC: Jorge Morillo MR BRAIN The patient has a history of auditory hallucinations and the question israised of neoplasm. T1, T2, FLAIR and diffusion/ADC imaging is performed. The exam possesseslimitations owing to difficulty with patient cooperation. No prior brain MR is currentlyavailable for comparison. There is mild cerebral atrophy. Multiple small areas of increasedT2/FLAIR signal are present within the white matter bilaterally in a pattern consistent with mild tomoderate chronic small vessel ischemic disease. No focal clearly suspicious areas of abnormalsignal are identified within the brain parenchyma. The ventricles appear relatively symmetric with nomass effect or romina hydrocephalus noted. No intracranial hemorrhage is identified. A tinyfocus of increased T1 and T2 signal within the skull superiorly on the right is of doubtful clinicalsignificance. The exam otherwise appears unremarkable. IMPRESSION: No acute intracranial abnormality is identified.Specifically no suspicious mass lesion is noted. KATELYN/eif Dictated by: Allyson Estrada MDD/ 1719 Transcribed by: JYOTIORD/ 1730 E-Signed by: <Electronically signed by Allyson Estrada MD>D/ 1520 Jorge Morillo MD IMG MRI ORDERABLES documented in this encounter Visit Diagnoses Not on filedocumented in this encounter Care Teams Dust Box Worker Relationship Specialty Start Date End Date Unknown, Provider, PCP - General 02/22/14 documented as of this encounter
--- OUTSIDE RECORDS SUMMARY | 2024-02-11 16:42 | XMS_ITS | Encounter Summary ---
Author Organization [facility] Address [address] [place] [address] Care Team Providers Care Licensed Insurance Agent Name Role Phone Unavailable Primary Care Provider Unavailabl e Encounter Details Date Type Department Care Team (Latest Contact Info) Description 04/20/2007 15:03 EDT Hospital Encounter [facility] - Other [address] [place] [address] Raissa Jones NP Discharge Disposition: Auto Discharge Social History Tobacco Use Types Packs/Day Years Used Date Smoking Tobacco: Never Assessed Sex and Gender Information Value Date Recorded Sex Assigned at Not on file Gender Identity Not on file Sexual Orientation Not on file documented as of this encounter Discharge Disposition Disposition Code Departure Means Destination Auto Discharge documented in this encounter Plan of Treatment Not on file documented as of this encounter Procedures Procedure Name Priority Date/Time Associated Diagnosis Comments CYTOPATHOLOGY Routine 04/25/2008 0:00 EDT documented in this encounter Results * CYTOPATHOLOGY (04/25/2008 0:00 EDT) Pathology Report: CYTOPATHOLOGY REPORT ? Reports generated via electronic interface contain original data; ? however they are lacking the format of the original report. ? Caution should be taken when reading/interpreti ng unformatted reports. ? Name: ? PLRAZA, LOLITA ? Accession #: ? [id number] ? : ? 1945 (Age: 62) ??F ?Collect Date: ? 04/25/2008 ? Location: ? [facility] ? Receive Date: ? 04/26/2008 ? Provider: ?EMI DEENA MD ? Copy to: ? Specimen/Source: ?Pap Test, Endocervix, ThinPrep Imaging System with ? manual evaluation ? Last Menstrual Period: ? SPECIMEN ADEQUACY ? Satisfactory for Evaluation ? - transformation zone component present ? GENERAL CATEGORIZATION ? Negative for Intraepithelial Lesion or Malignancy ? Document reviewed and electronically signed by: ? Ivania Verville,CT(ASCP) ? Report Date: ??04/28/2008 08:04 ? End of Report ? [facility] 04/25/2008 04/26/2008 Emi Reilly MD PATHOLOGY ORDERABL ES [facility] [address] [place] [address] documented in this encounter Visit Diagnoses Not on filedocumented in this encounter
--- OUTSIDE RECORDS SUMMARY | 2024-02-11 16:42 | XMS_ITS | Encounter Summary ---
Author Organization [facility] Address [address] [place] [address] Care Team Providers Care Hospital Liaison Name Role Phone Unknown, Provider Primary Care Provider [phone] Encounter Details Date Type Department Care Team (Late st Contact Info) Description 02/21/2014 Results Only [facility] Services - [facility] [address] [place], [place] [address] Jorge Morillo MD [address] [place] [address] [address] [place] [address] Social History Tobacco Use Types Packs/Day Years Used Date Smoking Tobacco: Never Assessed Sex and Gender Information Value Date Recorded Sex Assigned at Not on file Gender Identity Not on file Sexual Orientation Not on file documented as of this encounter Plan of Treatment Not on file documented as of this encounter Procedures Procedure Name Priority Date/Time Associated Diagnosis Comments SURGICAL PATHOLOGY Routine 02/21/2014 14 :35 EDT documented in this encounter Results * SURGICAL PATHOLOGY (02/21/2014 14:35 EDT) Pathology Report: SURGICAL PATHOLOGY REPORT Reports generated via electronic interface contain original data; however they are lacking the format of the original report. Caution should be taken when reading/interpreting unformatted reports. Name: ? CHARLESRAZA LOLITA ? Accession #: ? [id number] ? : ? 1945 (Age: 68) ??F ? Collect Date: ? 02/21/2014 ? Location: ? [facility] ? Receive Date: ? 02/22/2014 ? Provider: JORGE LOW MD Copy to: TY JUSTICE MD ? Final Pathologic Diagnosis: SKIN OF FACE, LEFT MAXILLARY, SHAVE BIOPSY: - Actinic keratosis, irritated and inflamed. ?? - Lesion present at base of shave biopsy specimen. ?? Microscopic Description: The stratum corneum is thickened by compact orthohyperkeratosis with tiers of parakeratosis and foci of hemorrhage. ??The epidermis is hyperplastic with papillomatosis and acanthosis. ??The keratinocytes have variable atypia with glassy cytoplasm centrally. The granular layer is accentuated. ??There is a moderately dense lymphohistiocytic infiltrate and solar elastosis. ??(Dr. Fuller)/n Document reviewed and electronically signed by: FRANCE FULLER MD Report ??Date: 02/23/2014 14:35 By the signature above, the attending physician certifies that he/she has personally conducted a gross and/or microscopic examination of the described specimens and rendered or confirmed the above diagnosis. Specimen(s) Received: Left maxillary facial growth with excoriation Clinical History: R/O neoplasm, removed with DermaBlade; clinical diagnosis code: 238.2 Gross Description: ? Received in formalin labelled with proper patient identification (initials P, A) and left cheek is a shave biopsy of lopez-hays friable granular papule (0.8 x 0.5 x 0.4 cm). ??Inked, bisected and entirely submitted in 1. Dr. Mckeon 02/22/2014 03:09 PM End of Report TIA PIN[facility] 02/21/2014 14:3 5 EDT 02/22/2014 14:35 EDT Jorge Morillo MD PATHOLO GY ORDERABLES [facility] [address] [place] [address] documented in this encounter Visit Diagnoses Not on filedocumented in this encounter Care Teams Hospital Liaison Relationship Specialty Start Date End Date Unknown, Provider, PCP - General 02/22/14 documented as of this encounter
--- OUTSIDE RECORDS SUMMARY | 2024-02-11 16:42 | XMS_ITS | Encounter Summary ---
Author Organization [facility] Address [address] [place] [address] Care Team Providers Care Beam Racker Name Role Phone Unavailable Primary Care Provider Unavailabl e Encounter Details Date Type Department Care Team (Late st Contact Info) Description 04/15/2005 Results Only [facility] conversion [address] [place] [address] Raissa Rashid NP Social History Tobacco Use Types Packs/Day Years Used Date Smoking Tobacco: Never Assessed Sex and Gender Information Value Date Recorded Sex Assigned at Not on file Gender Identity Not on file Sexual Orientation Not on file documented as of this encounter Plan of Treatment Not on file documented as of this encounter Procedures Procedure Name Priority Date/Time Associated Diagnosis Comments CYTOPATHOLOGY Routine 04/15/2005 0:00 EDT documented in this encounter Results * CYTOPATHOLOGY (04/15/2005 0:00 EDT) Pathology Report: CYTOPATHOLOGY REPORT Reports generated via electronic interface contain original data; however they are lacking the format of the original report. Caution should be taken when reading/interpreti ng unformatted reports. Name: ? LOLITA LUO ? Accession #: ? [id number] : ? 1945 (Age: 59) ??F ?Collect Date: ? 04/15/2005 Location: ? [facility] ? Receive Date: ? 04/16/2005 Provider: ?RAISSA RASHID BUSINESS RELATIONS MANAGER Copy to: ? Specimen/Source: ?ThinPrep Pap Test, Endocervix, processed on [employer] ThinPrep Imaging System, with manual evaluation Last Menstrual Period: ? SPECIMEN ADEQUACY ? Satisfactory for Evaluation - transformation zone component present GENERAL CATEGORIZATION ? Negative for Intraepithelial Lesion or Malignancy ? Document reviewed and electronically signed by: ? FOREST Serna(ASCP)(IAC) ? Report Date: ??04/22/2005 15:56 End of Report [facility] 04/15/2005 04/16/2005 Raissa Rashid STRETCH BOX TENDER PATHOLOGY ORDERABLES [facility] [address] [place] [address] documented in this encounter Visit Diagnoses Not on filedocumented in this encounter
--- OUTSIDE RECORDS SUMMARY | 2024-02-11 16:42 | XMS_ITS | Encounter Summary ---
Author Organization [facility] Address [address] [place] [address] Care Team Providers Care Coverage Analyst Name Role Phone Unknown, Provider Primary Care Provider [phone] Encounter Details Date Type Department Care Team (Late st Contact Info) Description 06/11/2014 Historical Results Only [facility] Radiology Results [address] [place] [address] [id number] Darnell Obando MD [address] [place] [address] Social History Tobacco Use Types Packs/Day Years Used Date Smoking Tobacco: Never Assessed Sex and Gender Information Value Date Recorded Sex Assigned at Not on file Gender Identity Not on file Sexual Orientation Not on file documented as of this encounter Plan of Treatment Not on file documented as of this encounter Procedures Procedure Name Priority Date/Time Associated Diagnosis Comments XR ACUTE ABDOMEN SERIES 06/11/2014 10:35 EST documented in this encounter Results * XR ACUTE ABDOMEN SERIES (06/11/2014 10:35 EST) Anatomical Region Laterality Modality Body Other 06/11/2014 10:3 5 EST Narrative 06/11/2014 19:36 EST [facility] [place] [facility] [address] [place], [place] [address] Diagnostic Imaging Report Signed Patient Name:LOLITA ELIZONDO ? Date of :1945 ? MR Number:[id number] Age:68 ?Sex:F Category: CR ? Date of Exam:06/11/14 Procedure: CR: Acute Abdomen w/PA Chest ? Ordering Physician: Darnell Obando ?? CC: Jorge Morillo Michael MD ACUTE ABDOMINAL SERIES CLINICAL HISTORY: Vomiting. Frontal radiograph of the chest demonstrates rotatory scoliosis of the thoracolumbar spine which is convex to the right. ??Linear density at the right lower lung field likely represents scar or atelectasis and was visible on prior study of 11/07. ??The lungs are otherwise voluminous but clear. No subdiaphragmatic free air is seen. Supine and upright radiographs of the abdomen demonstrate the bowel gas pattern to be unremarkable in appearance. ??Left pelvic surgical clips are present. EDGARDO/karina Dictated by: Carl Matute ? D/ 35 Transcribed by: RADHA ? D/ 13 E-Signed by: <Electronically signed by Carl Matute ??MD> ? D/ 29 Procedure Note Carl Matute MD - 04/26/2019 [place] [id number] Diagnostic Imaging Report Signed Patient Name:LOLITA ELIZONDO Number:[id number] Date of :1945 MRNumber:[id number] Age:68 Sex:F Category: CR Date ofExam:06/11/14 Procedure: CR: Acute Abdomen w/PA ChestAccession: [id number] Ordering Physician: Darnell Obando MD CC: Jorge Morillo Michael MD ACUTE ABDOMINAL SERIES CLINICAL HISTORY: Vomiting. Frontal radiograph of the chest demonstrates rotatory scoliosis of thethoracolumbar spine which is convex to the right. Linear density at the right lower lung field likelyrepresents scar or atelectasis and was visible on prior study of 11/07. The lungs areotherwise voluminous but clear. No subdiaphragmatic free air is seen. Supine and upright radiographs of the abdomen demonstrate the bowel gaspattern to be unremarkable in appearance. Left pelvic surgical clips are present. EDGARDO/karina Dictated by: Carl Matute/ 35 Transcribed by: JCURIEL/ 13 E-Signed by: <Electronically signed by Carl Matute MD>D/ 29 Darnell Obando MD IMG DIAGNOSTIC IMAG ING ORDERABLES documented in this encounter Visit Diagnoses Not on filedocumented in this encounter Care Teams Coverage Analyst Relationship Specialty Start Date End Date Unknown, Provider, PCP - General 02/22/14 documented as of this encounter
--- OUTSIDE RECORDS SUMMARY | 2024-02-11 16:42 | XMS_ITS | Encounter Summary ---
Author Organization [facility] Address [address] [place] [address] Care Team Providers Care Window Sash Installer Name Role Phone Unavailable Primary Care Provider Unavailabl e Encounter Details Date Type Department Care Team (Latest Contact Info) Description 04/29/2004 9:39 EDT - 04/29/2004 11:59 EDT Hospital Encounter [facility] - Other [address] [place] [address] Raissa Jones, OVER HAULER HELPER Discharge Disposition: Auto Discharge Social History Tobacco [...]
--- OUTSIDE RECORDS SUMMARY | 2024-02-11 16:42 | XMS_ITS | Encounter Summary ---
Author Organization [facility] Address [address] [place] [address] Care Team Providers Care Wheel Cutter Name Role Phone Unknown, Provider Primary Care Provider Encounter Details Date Type Department Care Team (Late st Contact Info) Description 02/15/2014 Historical Results Only [facility] Radiology Results [address] [place], [place] [address] Jorge Morillo MD [address] [place] [address] [address] [place] [address] Social History Tobacco Use Types Packs/Day Years Used Date Smoking Tobacco: Never Assessed Sex and Gender Information Value Date Recorded Sex Assigned at Not on file Gender Identity Not on file Sexual Orientation Not on file documented as of this encounter Plan of Treatment Not on file documented as of this encounter Procedures Procedure Name Priority Date/Time Associated Diagnosis Comments MA BREAST SCREENING BILATERAL 02/15/2014 14:00 EDT documented in this encounter Results * MA BREAST SCREENING BILATERAL (02/15/2014 14:00 EDT) Anatomical Region Laterality Modality Breast Bilateral Other 02/15/2014 14:0 0 EDT Narrative 02/16/2014 9:23 EDT [facility] [address] [place], [place] [address] Diagnostic Imaging Report Signed Patient Name:LOLITA ELIZONDO ? Date of :1945 ? MR Number:[id number] Age:68 ?Sex:F Category: MG ? Date of Exam:02/15/14 Procedure: MG: Mammo, Bilat, Screening ? Ordering Physician: Jorge Morillo CC: Jorge Morillo BILATERAL SCREENING MAMMOGRAM This is a routine screening exam. ??No clinical symptoms are reported. Correlation is made with multiple earlier studies, the most recent of which is dated 01/18/13. ??R2 CAD is utilized. The breast tissue is heterogeneously dense. ??No suspicious three-dimensional mass, architectural distortion or suspicious appearing calcifications are identified on either side. IMPRESSION: ??No significant imaging abnormality is noted. ??It is advised the patient undergo a bilateral screening mammogram in one year? s time unless clinical findings indicate a dditional/earlier evaluation. ??BIRADS 1 (negative). ??The patient has been entered into a reminder system to prompt scheduling of a recommended routine screening mammogram in one year? s time. KATELYN/eif Dictated by: Allyson Estrada ? D/ 922 Transcribed by: VANESSA ? D/ 1047 E-Signed by: <Electronically signed by Allyson Estrada ??MD> ? D/ 1535 Procedure Note Steven Estrada MD - 04/26/2019 [place] [address] Diagnostic Imaging Report Signed Patient Name:LOLITA ELIZONDO Number:[id number] Date of :1945 MRNumber:[id number] Age:68 Sex:F Category: MG Date ofExam:02/15/14 Procedure: MG: Mammo, Bilat, ScreeningAccession: [id number] Ordering Physician: Jorge Morillo CC: Jorge Morillo BILATERAL SCREENING MAMMOGRAM This is a routine screening exam. No clinical symptoms are reported. Correlation is made with multiple earlier studies, the most recent ofwhich is dated 01/18/13. R2 CAD is utilized. The breast tissue is heterogeneously dense. No suspiciousthree-dimensional mass, architectural distortion or suspicious appearing calcifications are identified on eitherside. IMPRESSION: No significant imaging abnormality is noted. It is advisedthe patient undergo a bilateral screening mammogram in one year? s time unless clinical findingsindicate a dditional/earlier evaluation. BIRADS 1 (negative). The patient has beenentered into a reminder system to prompt scheduling of a recommended routine screening mammogramin one year? s time. KATELYN/demario Dictated by: Allyson Estrada MDD/ 2 Transcribed by: MADAI/ 1047 E-Signed by: <Electronically signed by Allyson Estrada MD>D/ 0105 [facility] documented in this encounter Visit Diagnoses Not on filedocumented in this encounter Care Teams Wheel Cutter Relationship Specialty Start Date End Date Unknown, Provider, PCP - General 02/22/14 documented as of this encounter
--- OUTSIDE RECORDS SUMMARY | 2024-02-11 16:42 | XMS_ITS | Encounter Summary ---
Author Organization [facility] Address [address] [place] [address] Care Team Providers Care Assembler Watch Train Name Role Phone Unavailable Primary Care Provider Unavailabl e Encounter Details Date Type Department Care Team (Late st Contact Info) Description 04/20/2007 Results Only [facility] conversion [address] [place] [address] Raissa Rashid NP Social History Tobacco Use [...] Priority Date/Time Associated Diagnosis Comments CYTOPATHOLOGY Routine 04/20/2007 0:00 EDT documented in this encounter Results * CYTOPATHOLOGY (04/20/2007 0:00 EDT) Pathology Report: CYTOPATHOLOGY REPORT Reports generated via electronic interface contain original data; however they are lacking the format of the original report. Caution should be taken when reading/interpreti ng unformatted reports. Name: ? LOLITA LUO ? Accession #: ? [id number] : ? 1945 (Age: 61) ??F ?Collect Date: ? 04/20/2007 Location: ? [facility] ? Receive Date: ? 04/21/2007 Provider: ?RAISSA RASHID ENTRY SPECIALIST Copy to: ? Specimen/Source: ?ThinPrep Pap Test, Cervix, processed on [employer] ThinPrep Imaging System, with manual evaluation Last Menstrual Period: ? SPECIMEN ADEQUACY ? Satisfactory for Evaluation - transformation zone component present GENERAL CATEGORIZATION ? Negative for Intraepithelial Lesion or Malignancy ? Document reviewed and electronically signed by: ? JAX Sands(ASCP) ? Report Date: ??04/27/2007 10:58 End of Report TIA PINEDA 04/20/2007 04/21/2007 Raissa Rashid WASTE SPECIALIST PATHOLOGY ORDERABLES [facility] [address] [place] [address] documented in this encounter Visit Diagnoses Not on filedocumented in this encounter
--- OUTSIDE RECORDS SUMMARY | 2024-02-11 16:42 | XMS_ITS | Encounter Summary ---
Author Organization [facility] Address [address] [place] [address] Care Team Providers Care Certified Nurses Aide Name Role Phone Unknown, Provider Primary Care Provider [phone] Encounter Details Date Type Department Care Team (Late st Contact Info) Description 04/12/2015 Historical Results Only [facility] Radiology Results [address] [place], [place] [address] Jorge Morillo MD [address] [place] [address] [address] [place] [address] Social History Tobacco Use Types Packs/Day Years Used Date Smoking Tobacco: Never Assessed Sex and Gender Information Value Date Recorded Sex Assigned at Not on file Gender Identity Not on file Sexual Orientation Not on file documented as of this encounter Plan of Treatment Not on file documented as of this encounter Procedures Procedure Name Priority Date/Time Associated Diagnosis Comments FL SWALLOW FUNCTION 04/12/2015 1 3:16 EDT documented in this encounter Results * FL SWALLOW FUNCTION (04/12/2015 13:16 EDT) Anatomical Region Laterality Modality Body Other 04/12/2015 13:1 6 EDT Narrative 04/12/2015 19:05 EDT [facility] [address] [place], [place] [address] Diagnostic Imaging Report Signed Patient Name:LOLITA ELIZONDO ? Date of :1945 ? MR Number:[id number] Age:69 ?Sex:F Category: RF ? Date of Exam:04/12/15 Procedure: RF: Barium Swallow- Modified ? Ordering Physician: Jorge Bonilla ?? CC: Jorge Bonilla MODIFIED BARIUM SWALLOW The patient has a history of cough. Fluoroscopic services were provided to the speech pathology department in the performance of a swallowing function study. The patient was given various viscosities of barium soaked food under fluoroscopic guidance. ??A single spot image that, unfortunately, is degraded by motion documents the procedure. ??Please see formal speech pathology report. ??Briefly, no romina aspiration is seen. ??Abundant coughing occurred throughout the procedure. KATELYN/eif Dictated by: Allyson Estrada ? D/ 04 Transcribed by: VANESSA ? D/ 28 E-Signed by: <Electronically signed by Allyson Estrada ??MD> ? D/ 3 Procedure Note Steven Estrada MD - 04/27/2019 [place] [id number] Diagnostic Imaging Report Signed Patient Name:LOLITA ELIZONDO Number:[id number] Date of :1945 MRNumber:[id number] Age:69 Sex:F Category: RF Date ofExam:04/12/15 Procedure: RF: Barium Swallow- ModifiedAccession: [id number] Ordering Physician: Jorge Bonilla MD CC: Jorge Bonilla MODIFIED BARIUM SWALLOW The patient has a history of cough. Fluoroscopic services were provided to the speech pathology department inthe performance of a swallowing function study. The patient was given various viscosities of barium soaked food underfluoroscopic guidance. A single spot image that, unfortunately, is degraded by motion documents theprocedure. Please see formal speech pathology report. Briefly, no romina aspiration is seen.Abundant coughing occurred throughout the procedure. KATELYN/demario Dictated by: Allyson Estrada MDD/ 04 Transcribed by: BETTYICSORD/ 28 E-Signed by: <Electronically signed by Allyson Estrada MD>D/ 3 Jorge Morillo MD IMG FLU OROSCOPY ORDERABLES documented in this encounter Visit Diagnoses Not on filedocumented in this encounter Care Teams Certified Nurses Aide Relationship Specialty Start Date End Date Unknown, Provider, PCP - General 02/22/14 documented as of this encounter
--- OUTSIDE RECORDS SUMMARY | 2024-02-11 16:42 | XMS_ITS | Encounter Summary ---
Author Organization [facility] Address [address] [place] [address] Care Team Providers Care Warehouse Incentive Selector Name Role Phone Unavailable Primary Care Provider Unavailabl e Encounter Details Date Type Department Care Team (Late st Contact Info) Description 04/07/2006 Results Only [facility] conversion [address] [place] [address] Raissa Rashid NP Social History Tobacco Use [...] Priority Date/Time Associated Diagnosis Comments CYTOPATHOLOGY Routine 04/07/2006 0:00 EDT documented in this encounter Results * CYTOPATHOLOGY (04/07/2006 0:00 EDT) Pathology Report: CYTOPATHOLOGY REPORT Reports generated via electronic interface contain original data; however they are lacking the format of the original report. Caution should be taken when reading/interpreti ng unformatted reports. Name: ? LOLITA LUO ? Accession #: ? [id number] : ? 1945 (Age: 60) ??F ?Collect Date: ? 04/07/2006 Location: ? [facility] ? Receive Date: ? 04/08/2006 Provider: ?RAISSA RASHID WEAVER TIRE CORD Copy to: ? Specimen/Source: ?ThinPrep Pap Test, Endocervix, processed on [employer] ThinPrep Imaging System, with manual evaluation Last Menstrual Period: ? SPECIMEN ADEQUACY ? Satisfactory for Evaluation - transformation zone component present GENERAL CATEGORIZATION ? Negative for Intraepithelial Lesion or Malignancy ? Document reviewed and electronically signed by: ? JAX Sands(ASCP) ? Report Date: ??04/10/2006 15:09 End of Report TIA PINEDA 04/07/2006 04/08/2006 Raissa Rashid LEAD DATABASE ADMINISTRATOR PATHOLOGY ORDERABLES [facility] [address] [place] [address] documented in this encounter Visit Diagnoses Not on filedocumented in this encounter
--- OUTSIDE RECORDS SUMMARY | 2024-02-11 16:42 | XMS_ITS | Encounter Summary ---
Author Organization [facility] Address [address] [place] [address] Care Team Providers Care Package Center Supervisor Name Role Phone Unknown, Provider Primary Care Provider [phone] Encounter Details Date Type Department Care Team (Late st Contact Info) Description 09/12/2015 Results Only [facility] [phone] Jorge Morillo MD [address] [place] [address] [address] [place] [address] Social History Tobacco Use Types [...] Date/Time Associated Diagnosis Comments SURGICAL PATHOLOGY Routine 09/12/2015 16 :38 EST documented in this encounter Results * SURGICAL PATHOLOGY (09/12/2015 16:38 EST) Pathology Report: SURGICAL PATHOLOGY REPORT Reports generated via electronic interface contain original data; however they are lacking the format of the original report. Caution should be taken when reading/interpreti ng unformatted reports. Name: ? SANDRA ELIZONDOA ? Accession #: ? [id number] ? : ? 1945 (Age: 70) ??F ? Collect Date: ? 09/12/2015 ? Location: ? [facility] ? Receive Date: ? 09/13/2015 ? Provider: JORGE LOW MD Copy to: TY JUSTICE MD ? Final Pathologic Diagnosis: SKIN OF SHOULDER, LEFT ANTERIOR, SHAVE BIOPSY: - Seborrheic keratosis, inflamed. Document reviewed and electronically signed by: NATALIE ARROYO MD Report ??Date: 09/17/2015 16:37 By the signature above, the attending physician certifies that he/she has personally conducted a gross and/or microscopic examination of the described specimens and rendered or confirmed the above diagnosis. Specimen(s) Received: Left ant shoulder 1.0 cm Clinical History: Flat topped irregular but well defined macule with mild irritation ? ISK removed with dermablade; clinical diagnosis code: ??R21 Gross Description: ? Received in formalin labelled with proper patient identification (initials P, A) and not otherwise specified is a shave biopsy of a lopez to myers friable, diffusely crusted nodule (1.3 x 0.8 x 0.2 cm). The margins are inked blue. The specimen is serially sectioned and entirely submitted as 1-2. Marlon Butcher 09/14/2015 8:56 AM End of Report [facility] 09/12/2015 16:3 8 EST 09/13/2015 16:38 EST Jorge Morillo MD PATHOLO GY ORDERABLES [facility] [address] [place] [address] documented in this encounter Visit Diagnoses Not on filedocumented in this encounter Care Teams Package Center Supervisor Relationship Specialty Start Date End Date Unknown, Provider, PCP - General 02/22/14 documented as of this encounter
--- OUTSIDE RECORDS SUMMARY | 2024-02-11 16:42 | XMS_ITS | Encounter Summary ---
Author Organization [facility] Address [address] [place] [address] Care Team Providers Care Commercial Credit Portfolio Manager Name Role Phone Unknown, Provider Primary Care Provider [phone] Encounter Details Date Type Department Care Team (Latest Contact Info) Description 09/12/2015 7:01 EST - 09/12/2015 23:59 EST Hospital Encounter [address] [address] Unknown, Provider, Discharge Disposition: Home or Self Care Social History Tobacco Use Types Packs/Day Years Used Date Smoking Tobacco: Never Assessed Sex and Gender Information Value Date Recorded Sex Assigned at Not on file Gender Identity Not on file Sexual Orientation Not on file documented as of this encounter Discharge Disposition Disposition Code Departure Means Destination Home or Self Penitentiary documented in this encounter Plan of Treatment Not on file documented as of this encounter Visit Diagnoses Not on filedocumented in this encounter Care Teams Commercial Credit Portfolio Manager Relationship Specialty Start Date End Date Unknown, Provider, PCP - General 02/22/14 documented as of this encounter
--- OUTSIDE RECORDS SUMMARY | 2024-02-11 16:42 | XMS_ITS | Encounter Summary ---
Author Organization [facility] Address [address] [place] [address] Care Team Providers Care Chocolate Packer Name Role Phone Unknown, Provider Primary Care Provider [phone] Encounter Details Date Type Department Care Team (Late st Contact Info) Description 03/05/2015 Historical Results Only [facility] Radiology Results [address] [place], [place] [id number] Jorge Morillo MD [address] [place] [address] [address] [place] [address] Social History Tobacco Use Types [...] Date/Time Associated Diagnosis Comments MA BREAST SCREENING GURPREET BILATERAL 03/05/2015 16:30 EDT documented in this encounter Results * MA BREAST SCREENING GURPREET BILATERAL (03/05/2015 16:30 EDT) Anatomical Region Laterality Modality Breast Bilateral Other 03/05/2015 16:3 0 EDT Narrative 03/06/2015 8:[address] [facility] [address] [place], [place] [address] Diagnostic Imaging Report Signed Patient Name:LOLITA ELIZONDO ? Date of :1945 ? MR Number:[id number] Age:69 ?Sex:F Category: MG ? Date of Exam:03/05/15 Procedure: MG: Mammo, Bilat scr w/gurpreet ? Ordering Physician: Jorge Bonilla ?? CC: Jorge Morillo BILATERAL SCREENING MAMMOGRAM This is a routine screening exam. ??No clinical symptoms are reported. Correlation is made with multiple earlier studies, the most recent of which is dated 02/15/14. Tomosynthesis and R2 CAD are utilized. The current exam possesses slight limitations owing to difficulty with patient cooperation. Scattered fibroglandular elements are present. ??No suspicious three-dimensional mass, architectural distortion or suspicious appearing calcifications are identified on either side. IMPRESSION: ??No significant imaging abnormality is noted. ??It is advised the patient undergo a bilateral screening mammogram in one year? s time unless clinical findings indicate additional/earlier evaluation. ??BIRADS 1 (negative). ??The patient has been entered into a reminder system to prompt scheduling of a recommended routine screening mammogram in one year? s time. ESTRADA/eif Dictated by: Allyson Estrada ? D/ 0817 Transcribed by: VANESSA ? D/ 0957 E-Signed by: <Electronically signed by Allyson Estrada ??MD> ? D/ 1233 Procedure Note Steven Estrada MD - 04/26/2019 [place] [id number] Diagnostic Imaging Report Signed Patient Name:LOLITA ELIZONDO Number:[id number] Date of :1945 MRNumber:[id number] Age:69 Sex:F Category: MG Date ofExam:03/05/15 Procedure: MG: Mammo, Bilat scr w/tomoAccession: [id number] Ordering Physician: Jorge Bonilla MD CC: Jorge Morillo BILATERAL SCREENING MAMMOGRAM This is a routine screening exam. No clinical symptoms are reported. Correlation is made with multiple earlier studies, the most recent ofwhich is dated 02/15/14. Tomosynthesis and R2 CAD are utilized. The current exam possesses slight limitations owing to difficulty withpatient cooperation. Scattered fibroglandular elements are present. No suspiciousthree-dimensional mass, architectural distortion or suspicious appearing calcifications are identified on eitherside. IMPRESSION: No significant imaging abnormality is noted. It is advisedthe patient undergo a bilateral screening mammogram in one year? s time unless clinical findingsindicate additional/earlier evaluation. BIRADS 1 (negative). The patient has beenentered into a reminder system to prompt scheduling of a recommended routine screening mammogramin one year? s time. KATELYN/demario Dictated by: Allyson Estrada MDD/ 0817 Transcribed by: MADAI/ 0957 E-Signed by: <Electronically signed by Allyson Estrada MD>D/ 1233 [facility] documented in this encounter Visit Diagnoses Not on filedocumented in this encounter Care Teams Chocolate Packer Relationship Specialty Start Date End Date Unknown, Provider, PCP - General 02/22/14 documented as of this encounter
--- OUTSIDE RECORDS SUMMARY | 2024-02-11 16:42 | XMS_ITS | Clinical Summary ---
Author Organization [facility] Address [address] [place] [address] Care Team Providers Care Acura Sales Consultant Name Role Phone Unknown, Provider Primary Care Provider Social History Tobacco Use Types Packs/Day Years Used Date Smoking Tobacco: Never Assessed Sex and Gender Information Value Date Recorded Sex Assigned at Not on file Gender Identity Not on file Sexual Orientation Not on file Plan of Treatment Health Maintenance Due Date Last Done Comments Hepatitis C Screen 1945 RSV Immunization ( o r 60+ Years) (1 - 1-dose 60+ series) 2004 Fall Risk Screening 2009 COVID-19 Vaccine (2022-24 season) 2023 Care Teams Acura Sales Consultant Relationship Specialty Start Date End Date Unknown, Provider, PCP - General 02/22/14
--- OUTSIDE RECORDS SUMMARY | 2024-02-11 16:42 | XMS_ITS | Encounter Summary ---
Author Organization [facility] Address [address] [place] [address] Care Team Providers Care Opthalmic Tech Name Role Phone Unavailable Primary Care Provider Unavailabl e Encounter Details Date Type Department Care Team (Late st Contact Info) Description 09/10/2005 Results Only [facility] conversion [address] [place] [address] Tori Hernandez MD Social History Tobacco Use Types Packs/Day Years Used Date Smoking Tobacco: Never Assessed Sex and Gender Information Value Date Recorded Sex Assigned at Not on file Gender Identity Not on file Sexual Orientation Not on file documented as of this encounter Plan of Treatment Not on file documented as of this encounter Procedures Procedure Name Priority Date/Time Associated Diagnosis Comments SURGICAL PATHOLOGY Routine 09/10/2005 0:00 EST documented in this encounter Results * SURGICAL PATHOLOGY (09/10/2005 0:00 EST) Pathology Report: SURGICAL PATHOLOGY REPORT Reports generated via electronic interface contain original data; however they are lacking the format of the original report. Caution should be taken when reading/interpreti ng unformatted reports. Name: ? LOLITA ELIZONDO ? Accession #: ? [id number] ? : ? 1945 (Age: 60) ??F ? Collect Date: ? 09/10/2005 ? Location: ? [facility] ? Receive Date: ? 09/10/2005 ? Provider: TORI HERNANDEZ MD Copy to: TY RASHID [facility] JACINTA WHITE MD ? Final Pathologic Diagnosis: ? Colon, ascending, biopsy: - Cauterized hyperplastic polyp. Document reviewed and electronically signed by: TY JUSTICE MD Report ??Date: 09/12/2005 16:27 By the signature above, the attending physician certifies that he/she has personally conducted a gross and/or microscopic examination of the described specimens and rendered or confirmed the above diagnosis. Specimen(s) Received: ? Ascend polyp x1 Clinical History: ? Blood per rectum Gross Description: ? Received in Hollande's fixative labelled Plue and ascend is a 0.3 x 0.2 x 0.2 cm piece of tissue. ??Submitted intact in one cassette. ??(Jona Delacruz)/herminio End of Report TIA [facility] 09/10/2005 09/10/2005 14: 12 EST Tori Hernandez MD PATHOLOGY ORDERABLES [facility] [address] [place] [address] documented in this encounter Visit Diagnoses Not on filedocumented in this encounter
--- OUTSIDE RECORDS SUMMARY | 2024-02-11 16:42 | XMS_ITS | Encounter Summary ---
Author Organization [facility] Address [address] [place] [address] Care Team Providers Care Personal Development Educator Name Role Phone Unavailable Primary Care Provider Unavailabl e Encounter Details Date Type Department Care Team (Late st Contact Info) Description 04/15/2005 17:[address] [facility] [address] [place] [address] Raissa Jones, VANDANA Social History Tobacco Use Types Packs/Day Years Used Date Smoking Tobacco: Never Assessed Sex and Gender Information Value Date Recorded Sex Assigned at Not on file Gender Identity Not on file Sexual Orientation Not on file documented as of this encounter Plan of Treatment Not on file documented as of this encounter Procedures Procedure Name Priority Date/Time Associated Diagnosis Comments VITAMIN B12 Routine 04/15/2005 14:30 EDT documented in this encounter Results * VITAMIN B12 (04/15/2005 14:30 EDT) Vitamin B-12 456 250 - 1100 pg/ml [facility] 04/15/2005 14:3 0 EDT 04/16/2005 15:30 EDT Provider Unknown MD CHEMISTRY & BLOOD GA S ORDERABLES [facility] [address] [place] [address] documented in this encounter Visit Diagnoses Not on filedocumented in this encounter
--- OUTSIDE RECORDS SUMMARY | 2024-02-11 16:42 | XMS_ITS | Encounter Summary ---
Author Organization [facility] Address [address] [place] [address] Care Team Providers Care Tail Dogger Name Role Phone Unavailable Primary Care Provider Unavailabl e Encounter Details Date Type Department Care Team (Late st Contact Info) Description 04/17/2004 Results Only [facility] conversion [address] [place] [address] Raissa Rashid NP Social History Tobacco Use [...] Priority Date/Time Associated Diagnosis Comments CYTOPATHOLOGY Routine 04/17/2004 0:00 EDT documented in this encounter Results * CYTOPATHOLOGY (04/17/2004 0:00 EDT) Pathology Report: CYTOPATHOLOGY REPORT Reports generated via electronic interface contain original data; however they are lacking the format of the original report. Caution should be taken when reading/interpreti ng unformatted reports. Name: ? LOLITA LUO ? Accession #: ? [id number] : ? 1945 (Age: 58) ??F ?Collect Date: ? 04/17/2004 Location: ? [facility] ? Receive Date: ? 04/18/2004 Provider: ?RAISSA RASHID BROOM BUILDER Copy to: ? Specimen/Source: ?ThinPrep Pap Test, Endocervix Last Menstrual Period: ? n/a ? SPECIMEN ADEQUACY ? Unsatisfactory for Evaluation, - insufficient numbers of squamous epithelial cells (less than 10% of expected cellularity) - sample preparation compromised by excessive inflammation GENERAL CATEGORIZATION ? Specimen processed and examined, but unsatisfactory for evaluation of epithelial abnormality. Recommend repeat Pap test or further follow up, as clinically indicated. ? Document reviewed and electronically signed by: ? FOERST Esquivel(ASCP) ? Report Date: ??04/24/2004 11:52 End of Report TIA PINEDA 04/17/2004 04/18/2004 Raissa Rashid PRODUCT SUPPORT ANALYST PATHOLOGY ORDERABLES [facility] [address] [place] [address] documented in this encounter Visit Diagnoses Not on filedocumented in this encounter
--- OUTSIDE RECORDS SUMMARY | 2024-02-11 16:42 | XMS_ITS | Encounter Summary ---
Author Organization [facility] Address [address] [place] [address] Care Team Providers Care Printer Slotter Operator Name Role Phone Unavailable Primary Care Provider Unavailabl e Encounter Details Date Type Department Care Team (Late st Contact Info) Description 04/29/2004 Results Only [facility] conversion [address] [place] [address] Raissa Rashid NP Social History Tobacco Use [...] Priority Date/Time Associated Diagnosis Comments CYTOPATHOLOGY Routine 04/29/2004 0:00 EDT documented in this encounter Results * CYTOPATHOLOGY (04/29/2004 0:00 EDT) Pathology Report: CYTOPATHOLOGY REPORT Reports generated via electronic interface contain original data; however they are lacking the format of the original report. Caution should be taken when reading/interpreti ng unformatted reports. Name: ? LOLITA LUO ? Accession #: ? [id number] : ? 1945 (Age: 58) ??F ?Collect Date: ? 04/29/2004 Location: ? [facility] ? Receive Date: ? 04/30/2004 Provider: ?RAISSA RASHID MECHANIC RECOVERY Copy to: ? Specimen/Source: ?ThinPrep Pap Test, Endocervix Last Menstrual Period: ? SPECIMEN ADEQUACY ? Satisfactory for Evaluation - assessment of transformation zone component not applicable ( e.g. atrophy, vaginal sample, hysterectomy) - scant squamous epithelial component secondary to excessive inflammation GENERAL CATEGORIZATION ? Negative for Intraepithelial Lesion or Malignancy ? Document reviewed and electronically signed by: ? Dixie Liriano, CT(ASCP) ? Report Date: ??05/02/2004 14:31 End of Report TIA PINEDA 04/29/2004 04/30/2004 Raissa Rashid PRIVATE EQUITY ANALYST PATHOLOGY ORDERABLES [facility] [address] [place] [address] documented in this encounter Visit Diagnoses Not on filedocumented in this encounter
--- OUTSIDE RECORDS SUMMARY | 2024-02-11 16:43 | XMS_ITS | Data Portability ---
Author Organization [facility] Address [address] [place] [address] Care Team Providers Care Digester Capper Name Role Phone [facility] Neurologist Assessment No assessment recorded. Plan of Treatment Reminders Order Date Submit Date Provider Last Modified By Organization Details Last Modified Time Details Appointments Follow Up 2023 01:00P Brenden LANCASTER Not available Not available Not available Follow Up 2023 12:30P Brenden LANCASTER Not available Not available Not available Lab urinalysi s, dipstick 2022 023 [email or web address] [facility], [address], [place], [address], 06/16/2023 14:20:23 CBC w/ diff 2022 023 [facility] (Registration ), [address] [place] [address] [place] [facility] [place], [address], 07/30/2023 07:41:58 CMP, serum or plasma 2022 023 [facility] (Registration ), [address] [place] [address] [place] [facility] [place], [address], 07/02/2023 11:36:43 TSH, serum or plasma 2022 023 [facility] (Registration ), [address] [place] [address] [place], [address], 07/30/2023 07:41:59 CBC w/ diff - 1 PST, 1 LAV obtained without issue from (R) AC 2023 024 [email or web address] [facility] (Registration ), [address] [place] [address] [place], [address], 11/13/2023 10:19:53 urinalysi s, dipstick 2023 024 [email or web address] [facility], [address] , [place], [address], 11/13/2023 10:19:53 TSH + free T4, serum - 1 PST, 1 LAV obtained without issue from (R) [address] [facility] (Registration ), [address] [place] [address] [place], [address], 11/13/2023 10:19:53 CMP, serum or plasma - 1 PST, 1 LAV obtained without issue from (R) 2023 024 [email or web address] [facility] (Registration ), [address] [place] [address] [place], [address], 11/13/2023 10:19:[address] referral 2022 023 [email or web address] Sandra Choudhary [facility], [address] [place] [address] [place], [address], 02/08/2024 15:48:55 psychiatr ist referral - schizoaff ective disorder, depressio n, auditory hallucina tions, needs psychiatr ist and medicatio n managemen t 2022 023 [email or web address] [facility], [address] [place], [address], 01/05/2024 16:11:18 psychiatr ist referral - NEEDS PSYCHIATR IST, NOT JUST COUNSELOR 2023 024 [email or web address] [facility], [address] [place], [address], 02/05/2024 09:26:[address] referral 2023 024 [facility], [address] [facility], [place], [address], 11/30/2023 16:45:24 Procedures None recorded. Surgeries None recorded. Imaging bone density 2022 023 [email or web address] [facility], [address], [place], [address], 01/27/2024 16:25:23 Medication Orders Adult Low Dose Aspirin 81 mg tablet,de layed release 2022 023 [email or web address] [facility], [address] [place] [address], [address], 06/16/2023 12:44:58 quetiapin e 25 mg tablet 2023 024 [facility], [address] [place], [address], 02/11/2024 13:02:41 risperido ne 0.25 mg tablet 2023 024 [facility], [address] [place], [address], 02/08/2024 15:20:22 oxybutyni n chloride ER 5 mg tablet,ex tended release 24 hr 2023 024 [email or web address] [facility], [address] [place], [address], 11/25/2023 13:37:53 Patient TargetsNo targets recorded. Patient Instructions Encounter Date Encounter Id Patient Instructions Last Modified By Organization Details Last Modified Time 06/16/2023 [id number] 1. Call [facility] and make a follow up to review MRI and make a plan for lower back pain and tumor 2. get bone density screening done 3. establish care with [facility] psychiatry, referral sent 4. establish with audiology for hearing aids- referral sent 5. continue all current medications as you have been until you hear from me about labs or imaging results [email or web address] Not available 06/16/2023 12:36:59 11/12/2023 [id number] Nice to see you today! Labs today for monitoring and possible initiation of medication for urge incontinence. Urine testing today as well. I will call you with results. Continue on all current medications as prescribed. We will check on [facility] psychiatrist referral that we placed back in July. You are established with a counselor there as well as career discovery teacher but no psychiatrist for prescribing. Will let you know what they say on estimate for appointment with them for psychiatrist. We discussed that [facility] with Deanna cole may be able to see you instead if [facility] can't get you in. We will order the durable medical equipment: medium size pull-ups through [employer] for 4-5 pull ups in a 24-hour period for urge incontinence. Discussed starting oxybutynin extended release once nightly if kidney function testing is normal and urine testing is normal today. This should help with urge incontinence And nighttime urination. Not available 11/12/2023 14:52:40 Reason for Referral Psychiatrist Referral for Sc hizoaffective disorder schizoaffective disorder, depression, auditory hallucinations, needs psychiatrist and medication management Referring Physician: [facility], Encounter Date: 06/16/2023 Drafter Patent Referral for Bradly ateral hearing loss Referring Physician: [facility], Encounter Date: 06/16/2023 Psychiatrist Referral for Sc hizoaffective disorder NEEDS PSYCHIATRIST, NOT JUST COUNSELOR Referring Physician: [facility], Encounter Date: 11/12/2023 Drafter Patent Referral for Sen sorineural hearing loss hearing aids in past. want updated hearing exam and hearing aid consult. lost her last pair 1 yr ago Referring Physician: [facility], Encounter Date: 11/12/2023 Boot Maker Referral for Onyc homycosis of toenails toenail cutting, onychomycosis Referring Physician: Ivania [facility], [facility], Encounter Date: 02/11/2024 Results Created Date Observation Date Name Description Value Unit Range Abnormal Flag LastModifiedBy Organization Detail LastModifiedTime 06/16/2006/16/2023 urina lysis , dipst ick Leukocytes Small Not Available [facility] [address], [place], [address], 06/16/2023 11:49:26 06/16/2006/16/2023 urina lysis , dipst ick Nitrite negati ve Not Available [facility] [address], [place], [address], 06/16/2023 11:49:26 06/16/20 23 06/16/2023 urina lysis , dipst ick Urobilinogen .2 Not Available [facility] [address], [place], [address], 06/16/2023 11:49:26 06/16/20 23 06/16/2023 urina lysis , dipst ick Protein 30 Not Available [facility] [address], [place], [address], 06/16/2023 11:49:26 06/16/20 23 06/16/2023 urina lysis , dipst ick pH 6.0 Not Available [facility] [address], [place], [address], 06/16/2023 11:49:26 06/16/20 23 06/16/2023 urina lysis , dipst ick Blood Non-He molyze d: Trace Not Available [facility] [address], [place], [address], 06/16/2023 11:49:26 06/16/20 23 06/16/2023 urina lysis , dipst ick Specific [place] 1.030 Not Available [facility] [address], [place], [address], 06/16/2023 11:49:26 06/16/20 23 06/16/2023 urina lysis , dipst ick Ketone Small Not Available [facility] [address], [place], [address], 06/16/2023 11:49:26 06/16/20 23 06/16/2023 urina lysis , dipst ick Bilirubin Negati ve Not Available [facility] [address], [place], [address], 06/16/2023 11:49:26 06/16/20 23 06/16/2023 urina lysis , dipst ick Glucose Negati ve Not Available [facility] [address], [place], [address], 06/16/2023 11:49:26 07/02/20 23 07/02/2023 URINA LYSIS color Yellow yellow Not Available [address] [place], [address] 07/02/2023 10:28:35 07/02/20 23 07/02/2023 URINA LYSIS clarity Clear clear Not Available [address] [place] [facility] [place], [address] 07/02/2023 10:28:35 07/02/20 23 07/02/2023 URINA LYSIS specific gravity 1.010 1.005- 1.025 normal Not Available [address] [place] [facility] [place], [address] 07/02/2023 10:28:35 07/02/20 23 07/02/2023 URINA LYSIS pH 6.0 5-8 normal Not Available [address] [place], [address] 07/02/2023 10:28:35 07/02/20 23 07/02/2023 URINA LYSIS leukocyte esterase Negati ve negati ve Not Available [address] [place], [address] 07/02/2023 10:28:35 07/02/20 23 07/02/2023 URINA LYSIS nitrite Negati ve negati ve Not Available [address] [place], [address] 07/02/2023 10:28:35 07/02/20 23 07/02/2023 URINA LYSIS protein Negati ve mg/dL negati ve Not Available [address] [place], [address] 07/02/2023 10:28:35 07/02/20 23 07/02/2023 URINA LYSIS glucose Negati ve mg/dL negati ve Not Available [address] [place], [address] 07/02/2023 10:28:35 07/02/20 23 07/02/2023 URINA LYSIS ketones Negati ve mg/dL negati ve Not Available [address] [place], [address] 07/02/2023 10:28:35 07/02/20 23 07/02/2023 URINA LYSIS urobilinogen 0.2 mg/dL up to 0.2 Not Available [address] [place], [address] 07/02/2023 10:28:35 07/02/20 23 07/02/2023 URINA LYSIS bilirubin Negati ve negati ve Not Available [address] [place], [address] 07/02/2023 10:28:35 07/02/20 23 07/02/2023 URINA LYSIS blood Negati ve negati ve Not Available [address] [place], [address] 07/02/2023 10:28:35 07/02/20 23 07/02/2023 COMPL ETE BLOOD COUNT W/DIF F WBC 6.75 10_3/ uL 4.4-10 .8 normal Not Available [address] [place], [address] 07/02/2023 11:11:40 07/02/20 23 07/02/2023 COMPL ETE BLOOD COUNT W/DIF F RBC 4.76 10_6/ uL 3.93-5 .22 normal Not Available [address] [place], [address] 07/02/2023 11:11:40 07/02/20 23 07/02/2023 COMPL ETE BLOOD COUNT W/DIF F HGB 14.6 g/dL 11.2-1 5.7 normal Not Available [address] [place], [address] 07/02/2023 11:11:40 07/02/2007/02/2023 COMPL ETE BLOOD COUNT W/DIF F HCT 43.8 % 36.0-4 6.0 normal Not Available [address] [place], [address] 07/02/2023 11:11:40 07/02/20 23 07/02/2023 COMPL ETE BLOOD COUNT W/DIF F MCV 92 fL 80-95 normal Not Available [address] [place], [address] 07/02/2023 11:11:40 07/02/20 23 07/02/2023 COMPL ETE BLOOD COUNT W/DIF F MCH 30.7 pg 27.0-3 3.0 normal Not Available [address] [place], [address] 07/02/2023 11:11:40 07/02/20 23 07/02/2023 COMPL ETE BLOOD COUNT W/DIF F MCHC 33.3 % 32.0-3 6.0 normal Not Available [address] [place], [address] 07/02/2023 11:11:40 07/02/20 23 07/02/2023 COMPL ETE BLOOD COUNT W/DIF F RDW 13.0 % 11.7-1 4.6 normal Not Available [address] [place], [address] 07/02/2023 11:11:40 07/02/20 23 07/02/2023 COMPL ETE BLOOD COUNT W/DIF F platelet count 258 10_3/ uL 130-40 0 normal Not Available [address] [place], [address] 07/02/2023 11:11:40 07/02/20 23 07/02/2023 COMPL ETE BLOOD COUNT W/DIF F MPV 9.7 fL 8.0-11 .0 normal Not Available [address] [place], [address] 07/02/2023 11:11:40 07/02/20 23 07/02/2023 COMPL ETE BLOOD COUNT W/DIF F neutrophils % 78.6 Not Available [address] [place], [address] 07/02/2023 11:11:40 07/02/20 23 07/02/2023 COMPL ETE BLOOD COUNT W/DIF F lymphocytes % 13.8 Not Available [address] [place], [address] 07/02/2023 11:11:40 07/02/20 23 07/02/2023 COMPL ETE BLOOD COUNT W/DIF F monocytes % 6.4 Not Available [address] [place], [address] 07/02/2023 11:11:40 07/02/20 23 07/02/2023 COMPL ETE BLOOD COUNT W/DIF F eosinophils % 0.4 Not Available [address] [place], [address] 07/02/2023 11:11:40 07/02/20 23 07/02/2023 COMPL ETE BLOOD COUNT W/DIF F basophils % 0.4 Not Available [address] [place], [address] 07/02/2023 11:11:40 07/02/20 23 07/02/2023 COMPL ETE BLOOD COUNT W/DIF F immature grans % 0.4 Not Available [address] [place], [address] 07/02/2023 11:11:40 07/02/20 23 07/02/2023 COMPL ETE BLOOD COUNT W/DIF F nucleated RBC 0.0 % 0.0-0. 3 normal Not Available [address] [place], [address] 07/02/2023 11:11:40 07/02/20 23 07/02/2023 COMPL ETE BLOOD COUNT W/DIF F absolute neutrophil count 5.30 10_3/ uL 1.2-6. 7 normal Not Available [address] [place], [address] 07/02/2023 11:11:40 07/02/20 23 07/02/2023 COMPL ETE BLOOD COUNT W/DIF F absolute lymphocyte count 0.93 10_3/ uL 1.2-3. 4 low Not Available [address] [place], [address] 07/02/2023 11:11:40 07/02/20 23 07/02/2023 COMPL ETE BLOOD COUNT W/DIF F absolute monocyte count 0.43 10_3/ uL 0.1-0. 8 normal Not Available [address] [place], [address] 07/02/2023 11:11:40 07/02/20 23 07/02/2023 COMPL ETE BLOOD COUNT W/DIF F absolute eosinophil count 0.03 10_3/ uL 0.0-0. 7 normal Not Available [address] [place], [address] 07/02/2023 11:11:40 07/02/20 23 07/02/2023 COMPL ETE BLOOD COUNT W/DIF F absolute basophil count 0.03 10_3/ uL 0.0-0. 2 normal Not Available [address] [place], [address] 07/02/2023 11:11:40 07/02/20 23 07/02/2023 COMPR EHENS PAVITHRA METAB OLIC PANEL calcium 10.1 mg/dL 8.5-10 .1 normal Not Available [address] [place], [address] 07/02/2023 11:36:43 12/07/07/02/2023 COMPR EHENS PAVITHRA METAB OLIC PANEL glucose 124 mg/dL 74-106 high Not Available [address] [place], [address] 07/02/2023 11:36:43 07/02/20 23 07/02/2023 COMPR EHENS PAVITHRA METAB OLIC PANEL BUN 13 mg/dL 7-18 normal Not Available [address] [place], [address] 07/02/2023 11:36:43 07/02/20 23 07/02/2023 COMPR EHENS PAVITHRA METAB OLIC PANEL creatinine 1.2 mg/dL 0.55-1 .02 high Not Available [address] [place], [address] 07/02/2023 11:36:43 07/02/20 23 07/02/2023 COMPR EHENS PAVITHRA METAB OLIC PANEL estimated GFR 46.33 mL/min /1.73m 2 Not Available [address] [place], [address] 07/02/2023 11:36:43 07/02/20 23 07/02/2023 COMPR EHENS PAVITHRA METAB OLIC PANEL total protein 6.9 g/dL 6.4-8. 2 normal Not Available [address] [place], [address] 07/02/2023 11:36:43 07/02/20 23 07/02/2023 COMPR EHENS PAVITHRA METAB OLIC PANEL albumin 3.9 g/dL 3.4-5. 0 normal Not Available [address] [place], [address] 07/02/2023 11:36:43 07/02/20 23 07/02/2023 COMPR EHENS PAVITHRA METAB OLIC PANEL bilirubin, total 0.5 mg/dL 0.2-1. 0 normal Not Available [address] [place], [address] 07/02/2023 11:36:43 07/02/20 23 07/02/2023 COMPR EHENS PAVITHRA METAB OLIC PANEL alk phos 75 U/L 46-116 normal Not Available [address] [place], [address] 07/02/2023 11:36:43 07/02/20 23 07/02/2023 COMPR EHENS PAVITHRA METAB OLIC PANEL sodium 145 mmol/ L 136-14 5 normal Not Available [address] [place], [address] 07/02/2023 11:36:43 07/02/20 23 07/02/2023 COMPR EHENS PAVITHRA METAB OLIC PANEL potassium 3.5 mmol/ L 3.5-5. 1 normal Not Available [address] [place], [address] 07/02/2023 11:36:43 07/02/20 23 07/02/2023 COMPR EHENS PAVITHRA METAB OLIC PANEL chloride 107 mmol/ L 98-107 normal Not Available [address] [place], [address] 07/02/2023 11:36:43 07/02/20 23 07/02/2023 COMPR EHENS PAVITHRA METAB OLIC PANEL CO2 30.0 mmol/ L 21.0-3 2.0 normal Not Available [address] [place], [address] 07/02/2023 11:36:43 07/02/20 23 07/02/2023 COMPR EHENS PAVITHRA METAB OLIC PANEL anion gap 8.0 mmol/ L 3-11 normal Not Available [address] [place], [address] 07/02/2023 11:36:43 07/02/20 23 07/02/2023 COMPR EHENS PAVITHRA METAB OLIC PANEL AST 19 U/L 15-37 normal Not Available [address] [place], [address] 07/02/2023 11:36:43 07/02/20 23 07/02/2023 COMPR EHENS PAVITHRA METAB OLIC PANEL ALT 19 U/L 14-59 normal Not Available [address] [place], [address] 07/02/2023 11:36:43 07/02/20 23 07/02/2023 ETHYL ALCOH OL ethyl alcohol < 3.0 mg/dL <10 Not Available Vlad [address] [place], [address] 07/02/2023 11:36:44 07/02/20 23 07/02/2023 MAGNE SIUM magnesium 2.2 mg/dL 1.8-2. 4 normal Not Available [address] [place], [address] 07/02/2023 11:36:44 07/02/20 23 07/02/2023 TSH (W/RE F FT4) TSH (w/ref FT4) 5.47 uIU/m L 0.36-3 .74 high Not Available [address] [place], [address] 07/02/2023 11:36:45 07/02/20 23 07/02/2023 ETHYL ALCOH OL ethyl alcohol < 3.0 mg/dL <10 Not Available [address] [place], [address] 07/02/2023 11:55:51 07/02/20 23 07/02/2023 MAGNE SIUM magnesium 2.2 mg/dL 1.8-2. 4 normal Not Available [address] [place], [address] 07/02/2023 11:55:51 07/02/20 23 07/02/2023 TSH (W/RE F FT4) TSH (w/ref FT4) 5.47 uIU/m L 0.36-3 .74 high Not Available [address] [place], [address] 07/02/2023 11:55:52 07/02/20 23 07/02/2023 FREE T4 free T4 1.56 NG/dL 0.76-1 .46 high Not Available [address] [place], [address] 07/02/2023 11:55:52 07/02/20 23 07/02/2023 URINE DRUG SCREE N ([facility] ) methadone Negati ve negati ve Not Available [address] [place], [address] 07/02/2023 15:35:13 07/02/20 23 07/02/2023 URINE DRUG SCREE N ([facility] ) benzodiazepi odalys Negati ve negati ve Not Available [address] [place], [address] 07/02/2023 15:35:13 07/02/20 23 07/02/2023 URINE DRUG SCREE N ([facility] ) cocaine Negati ve negati ve Not Available [address] [place], [address] 07/02/2023 15:35:13 07/02/20 23 07/02/2023 URINE DRUG SCREE N ([facility] ) amphetamines Negati ve negati ve Not Available [address] [place], [address] 07/02/2023 15:35:13 07/02/20 23 07/02/2023 URINE DRUG SCREE N ([facility] ) tetrahydroca nnabinol Negati ve negati ve Not Available [address] [place], [address] 07/02/2023 15:35:13 07/02/20 23 07/02/2023 URINE DRUG SCREE N ([facility] ) opiates Negati ve negati ve Not Available [address] [place], [address] 07/02/2023 15:35:13 07/02/20 23 07/02/2023 URINE DRUG SCREE N ([facility] ) barbiturates Negati ve negati ve Not Available [address] [place], [address] 07/02/2023 15:35:13 07/02/20 23 07/02/2023 URINE DRUG SCREE N ([facility] ) tricyclic antidepressa nts Negati ve negati ve Not Available [address] [place], [address] 07/02/2023 15:35:13 07/29/19 24 07/29/2023 COMPL ETE BLOOD COUNT W/DIF F WBC 4.99 10_3/ uL 4.4-10 .8 normal Not Available [address] [place], [address] 07/29/2023 09:52:33 07/29/19 24 07/29/2023 COMPL ETE BLOOD COUNT W/DIF F RBC 4.64 10_6/ uL 3.93-5 .22 normal Not Available [address] [place], [address] 07/29/2023 09:52:33 07/29/19 24 07/29/2023 COMPL ETE BLOOD COUNT W/DIF F HGB 14.3 g/dL 11.2-1 5.7 normal Not Available [address] [place], [address] 07/29/2023 09:52:33 07/29/19 24 07/29/2023 COMPL ETE BLOOD COUNT W/DIF F HCT 43.6 % 36.0-4 6.0 normal Not Available [address] [place], [address] 07/29/2023 09:52:33 07/29/19 24 07/29/2023 COMPL ETE BLOOD COUNT W/DIF F MCV 94 fL 80-95 normal Not Available [address] [place], [address] 07/29/2023 09:52:33 07/29/19 24 07/29/2023 COMPL ETE BLOOD COUNT W/DIF F MCH 30.8 pg 27.0-3 3.0 normal Not Available [address] [place], [address] 07/29/2023 09:52:33 07/29/19 24 07/29/2023 COMPL ETE BLOOD COUNT W/DIF F MCHC 32.8 % 32.0-3 6.0 normal Not Available [address] [place], [address] 07/29/2023 09:52:33 07/29/19 24 07/29/2023 COMPL ETE BLOOD COUNT W/DIF F RDW 13.8 % 11.7-1 4.6 normal Not Available [address] [place], [address] 07/29/2023 09:52:33 07/29/19 24 07/29/2023 COMPL ETE BLOOD COUNT W/DIF F platelet count 263 10_3/ uL 130-40 0 normal Not Available [address] [place], [address] 07/29/2023 09:52:33 07/29/19 24 07/29/2023 COMPL ETE BLOOD COUNT W/DIF F MPV 10.0 fL 8.0-11 .0 normal Not Available [address] [place], [address] 07/29/2023 09:52:33 07/29/19 24 07/29/2023 COMPL ETE BLOOD COUNT W/DIF F neutrophils % 68.6 Not Available [address] [place], [address] 07/29/2023 09:52:33 07/29/19 24 07/29/2023 COMPL ETE BLOOD COUNT W/DIF F lymphocytes % 21.2 Not Available [address] [place], [address] 07/29/2023 09:52:33 07/29/19 24 07/29/2023 COMPL ETE BLOOD COUNT W/DIF F monocytes % 6.8 Not Available [address] [place], [address] 07/29/2023 09:52:33 07/29/19 24 07/29/2023 COMPL ETE BLOOD COUNT W/DIF F eosinophils % 2.6 Not Available [address] [place], [address] 07/29/2023 09:52:33 07/29/19 24 07/29/2023 COMPL ETE BLOOD COUNT W/DIF F basophils % 0.6 Not Available [address] [place], [address] 07/29/2023 09:52:33 07/29/19 24 07/29/2023 COMPL ETE BLOOD COUNT W/DIF F immature grans % 0.2 Not Available [address] [place], [address] 07/29/2023 09:52:33 07/29/19 24 07/29/2023 COMPL ETE BLOOD COUNT W/DIF F nucleated RBC 0.0 % 0.0-0. 3 normal Not Available [address] [place], [address] 07/29/2023 09:52:33 07/29/19 24 07/29/2023 COMPL ETE BLOOD COUNT W/DIF F absolute neutrophil count 3.42 10_3/ uL 1.2-6. 7 normal Not Available [address] [place], [address] 07/29/2023 09:52:33 07/29/19 24 07/29/2023 COMPL ETE BLOOD COUNT W/DIF F absolute lymphocyte count 1.06 10_3/ uL 1.2-3. 4 low Not Available [address] [place], [address] 07/29/2023 09:52:33 07/29/19 24 07/29/2023 COMPL ETE BLOOD COUNT W/DIF F absolute monocyte count 0.34 10_3/ uL 0.1-0. 8 normal Not Available [address] [place], [address] 07/29/2023 09:52:33 07/29/19 24 07/29/2023 COMPL ETE BLOOD COUNT W/DIF F absolute eosinophil count 0.13 10_3/ uL 0.0-0. 7 normal Not Available [address] [place], [address] 07/29/2023 09:52:33 07/29/19 24 07/29/2023 COMPL ETE BLOOD COUNT W/DIF F absolute basophil count 0.03 10_3/ uL 0.0-0. 2 normal Not Available [address] [place], [address] 07/29/2023 09:52:33 07/29/19 24 07/29/2023 BASIC METAB OLIC PANEL calcium 9.3 mg/dL 8.5-10 .1 normal Not Available [address] [place], [address] 07/29/2023 10:10:34 07/29/19 24 07/29/2023 BASIC METAB OLIC PANEL glucose 103 mg/dL 74-106 normal Not Available [address] [place], [id number] 07/29/2023 10:10:34 07/29/19 24 07/29/2023 BASIC METAB OLIC PANEL BUN 17 mg/dL 7-18 normal Not Available [address] [place], [id number] 07/29/2023 10:10:34 07/29/19 24 07/29/2023 BASIC METAB OLIC PANEL creatinine 1.0 mg/dL 0.55-1 .02 normal Not Available [address] [place], [address] 07/29/2023 10:10:34 07/29/19 24 07/29/2023 BASIC METAB OLIC PANEL estimated GFR 57.31 mL/min /1.73m 2 Not Available [address] [place], [id number] 07/29/2023 10:10:34 07/29/19 24 07/29/2023 BASIC METAB OLIC PANEL sodium 143 mmol/ L 136-14 5 normal Not Available [address] [place], [id number] 07/29/2023 10:10:34 07/29/19 24 07/29/2023 BASIC METAB OLIC PANEL potassium 3.9 mmol/ L 3.5-5. 1 normal Not Available [address] [place], [address] 07/29/2023 10:10:34 07/29/19 24 07/29/2023 BASIC METAB OLIC PANEL chloride 107 mmol/ L 98-107 normal Not Available [address] [place], [address] 07/29/2023 10:10:34 07/29/19 24 07/29/2023 BASIC METAB OLIC PANEL CO2 31.5 mmol/ L 21.0-3 2.0 normal Not Available [address] [place], [address] 07/29/2023 10:10:34 07/29/19 24 07/29/2023 BASIC METAB OLIC PANEL anion gap 4.5 mmol/ L 3-11 normal Not Available [address] [place], [address] 07/29/2023 10:10:34 07/29/19 24 07/29/2023 CARDI AC TROPO DOMINICK I cardiac troponin I < 50 NG/L <or=60 Not Available [address] [place], [address] 07/29/2023 10:10:35 07/29/19 24 07/29/2023 COVID /FLU/ RSV PCR source Nasoph arynx Not Available [address] [place], [address] 07/29/2023 10:49:41 07/29/19 24 07/29/2023 COVID /FLU/ RSV PCR covid-19 PCR Negati ve negati ve Not Available [address] [place], [address] 07/29/2023 10:49:41 07/29/19 24 07/29/2023 COVID /FLU/ RSV PCR influenza A PCR Negati ve negati ve Not Available [address] [place], [address] 07/29/2023 10:49:41 07/29/19 24 07/29/2023 COVID /FLU/ RSV PCR influenza B PCR Negati ve negati ve Not Available [address] [place], [address] 07/29/2023 10:49:41 07/29/19 24 07/29/2023 COVID /FLU/ RSV PCR RSV PCR Negati ve negati ve Not Available [address] [place], [address] 07/29/2023 10:49:41 07/29/19 24 07/29/2023 D-DIM ER D-dimer 1764 NG/ml feu <500 high Not Available [address] [place], [address] 07/29/2023 10:51:41 11/12/19 24 11/12/2023 COMPL ETE BLOOD COUNT W/DIF F WBC 6.07 10_3/ uL 4.4-10 .8 normal Not Available [address] [place], [address] 11/12/2023 19:26:45 11/12/19 24 11/12/2023 COMPL ETE BLOOD COUNT W/DIF F RBC 4.17 10_6/ uL 3.93-5 .22 normal Not Available [address] [place], [address] 11/12/2023 19:26:45 11/12/19 24 11/12/2023 COMPL ETE BLOOD COUNT W/DIF F HGB 13.0 g/dL 11.2-1 5.7 normal Not Available [address] [place], [address] 11/12/2023 19:26:45 11/12/19 24 11/12/2023 COMPL ETE BLOOD COUNT W/DIF F HCT 39.1 % 36.0-4 6.0 normal Not Available [address] [place], [address] 11/12/2023 19:26:45 11/12/19 24 11/12/2023 COMPL ETE BLOOD COUNT W/DIF F MCV 94 fL 80-95 normal Not Available [address] [place], [address] 11/12/2023 19:26:45 11/12/19 24 11/12/2023 COMPL ETE BLOOD COUNT W/DIF F MCH 31.2 pg 27.0-3 3.0 normal Not Available [address] [place], [address] 11/12/2023 19:26:45 11/12/19 24 11/12/2023 COMPL ETE BLOOD COUNT W/DIF F MCHC 33.2 % 32.0-3 6.0 normal Not Available [address] [place], [address] 11/12/2023 19:26:45 11/12/19 24 11/12/2023 COMPL ETE BLOOD COUNT W/DIF F RDW 13.0 % 11.7-1 4.6 normal Not Available [address] [place], [address] 11/12/2023 19:26:45 11/12/19 24 11/12/2023 COMPL ETE BLOOD COUNT W/DIF F platelet count 252 10_3/ uL 130-40 0 normal Not Available [address] [place], [address] 11/12/2023 19:26:45 11/12/19 24 11/12/2023 COMPL ETE BLOOD COUNT W/DIF F MPV 10.8 fL 8.0-11 .0 normal Not Available [address] [place], [address] 11/12/2023 19:26:45 11/12/19 24 11/12/2023 COMPL ETE BLOOD COUNT W/DIF F neutrophils % 73.6 Not Available [address] [place], [address] 11/12/2023 19:26:45 11/12/19 24 11/12/2023 COMPL ETE BLOOD COUNT W/DIF F lymphocytes % 15.5 Not Available [address] [place], [address] 11/12/2023 19:26:45 11/12/19 24 11/12/2023 COMPL ETE BLOOD COUNT W/DIF F monocytes % 6.9 Not Available [address] [place], [address] 11/12/2023 19:26:45 11/12/19 24 11/12/2023 COMPL ETE BLOOD COUNT W/DIF F eosinophils % 3.1 Not Available [address] [place], [address] 11/12/2023 19:26:45 11/12/19 24 11/12/2023 COMPL ETE BLOOD COUNT W/DIF F basophils % 0.7 Not Available [address] [place], [address] 11/12/2023 19:26:45 11/12/19 24 11/12/2023 COMPL ETE BLOOD COUNT W/DIF F immature grans % 0.2 Not Available [address] [place], [address] 11/12/2023 19:26:45 11/12/19 24 11/12/2023 COMPL ETE BLOOD COUNT W/DIF F nucleated RBC 0.0 % 0.0-0. 3 normal Not Available [address] [place], [address] 11/12/2023 19:26:45 11/12/19 24 11/12/2023 COMPL ETE BLOOD COUNT W/DIF F absolute neutrophil count 4.47 10_3/ uL 1.2-6. 7 normal Not Available [address] [place], [address] 11/12/2023 19:26:45 11/12/19 24 11/12/2023 COMPL ETE BLOOD COUNT W/DIF F absolute lymphocyte count 0.94 10_3/ uL 1.2-3. 4 low Not Available [address] [place], [address] 11/12/2023 19:26:45 11/12/19 24 11/12/2023 COMPL ETE BLOOD COUNT W/DIF F absolute monocyte count 0.42 10_3/ uL 0.1-0. 8 normal Not Available [address] [place], [address] 11/12/2023 19:26:45 11/12/19 24 11/12/2023 COMPL ETE BLOOD COUNT W/DIF F absolute eosinophil count 0.19 10_3/ uL 0.0-0. 7 normal Not Available [address] [place], [address] 11/12/2023 19:26:45 11/12/19 24 11/12/2023 COMPL ETE BLOOD COUNT W/DIF F absolute basophil count 0.04 10_3/ uL 0.0-0. 2 normal Not Available [address] [place], [address] 11/12/2023 19:26:45 11/12/19 24 11/12/2023 COMPR EHENS PAIVTHRA METAB OLIC PANEL calcium 8.8 mg/dL 8.5-10 .1 normal Not Available [address] [place], [address] 11/12/2023 19:44:51 11/12/19 24 11/12/2023 COMPR EHENS PAVITHRA METAB OLIC PANEL glucose 153 mg/dL 74-106 high Not Available [address] [place], [address] 11/12/2023 19:44:51 11/12/19 24 11/12/2023 COMPR EHENS PAVITHRA METAB OLIC PANEL BUN 17 mg/dL 7-18 normal Not Available [address] [place], [address] 11/12/2023 19:44:51 11/12/19 24 11/12/2023 COMPR EHENS PAVITHRA METAB OLIC PANEL creatinine 0.9 mg/dL 0.55-1 .02 normal Not Available [address] [place], [address] 11/12/2023 19:44:51 11/12/19 24 11/12/2023 COMPR EHENS PAVITHRA METAB OLIC PANEL estimated GFR 65.03 mL/min /1.73M 2 Not Available [address] [place], [address] 11/12/2023 19:44:51 11/12/19 24 11/12/2023 COMPR EHENS PAVITHRA METAB OLIC PANEL total protein 6.5 g/dL 6.4-8. 2 normal Not Available [address] [place], [address] 11/12/2023 19:44:51 11/12/19 24 11/12/2023 COMPR EHENS PAVITHRA METAB OLIC PANEL albumin 3.4 g/dL 3.4-5. 0 normal Not Available [address] [place], [address] 11/12/2023 19:44:51 11/12/19 24 11/12/2023 COMPR EHENS PAVITHRA METAB OLIC PANEL bilirubin, total 0.3 mg/dL 0.2-1. 0 normal Not Available [address] [place], [address] 11/12/2023 19:44:51 11/12/19 24 11/12/2023 COMPR EHENS PAVITHRA METAB OLIC PANEL alk phos 77 U/L 46-116 normal Not Available [address] [place], [address] 11/12/2023 19:44:51 11/12/19 24 11/12/2023 COMPR EHENS PAVITHRA METAB OLIC PANEL sodium 143 mmol/ L 136-14 5 normal Not Available [address] [place], [address] 11/12/2023 19:44:51 11/12/19 24 11/12/2023 COMPR EHENS PAVITHRA METAB OLIC PANEL potassium 3.9 mmol/ L 3.5-5. 1 normal Not Available [address] [place], [address] 11/12/2023 19:44:51 11/12/19 24 11/12/2023 COMPR EHENS PAVITHRA METAB OLIC PANEL chloride 108 mmol/ L 98-107 high Not Available [address] [place], [address] 11/12/2023 19:44:51 11/12/19 24 11/12/2023 COMPR EHENS PAVITHRA METAB OLIC PANEL CO2 28.9 mmol/ L 21.0-3 2.0 normal Not Available [address] [place], [address] 11/12/2023 19:44:51 11/12/19 24 11/12/2023 COMPR EHENS PAVITHRA METAB OLIC PANEL anion gap 6.1 mmol/ L 3-11 normal Not Available [address] [place], [address] 11/12/2023 19:44:51 11/12/19 24 11/12/2023 COMPR EHENS PAVITHRA METAB OLIC PANEL AST 25 U/L 15-37 normal Not Available [address] [place], [address] 11/12/2023 19:44:51 11/12/19 24 11/12/2023 COMPR EHENS PAVITHRA METAB OLIC PANEL ALT 19 U/L 14-59 normal Not Available [address] [place], [address] 11/12/2023 19:44:51 11/12/19 24 11/12/2023 TSH TSH 3.79 uIU/m L 0.36-3 .74 high Not Available [facility] [address] , [place], [address] 11/12/2023 19:44:52 11/12/19 24 11/12/2023 FREE T4 free T4 1.36 NG/dL 0.76-1 .46 normal Not Available [facility] [address] , [place], [address] 11/12/2023 19:44:53 11/12/19 24 11/12/2023 urina lysis , dipst ick Leukocytes Negati ve Not Available [facility] [address], [place], [address], 11/12/2023 15:23:50 11/12/19 24 11/12/2023 urina lysis , dipst ick Nitrite negati ve Not Available [facility] [address], [place], [address], 11/12/2023 15:23:50 11/12/19 24 11/12/2023 urina lysis , dipst ick Urobilinogen .2 Not Available [facility] [address], [place], [address], 11/12/2023 15:23:50 11/12/19 24 11/12/2023 urina lysis , dipst ick Protein Trace Not Available [facility] [address], [place], [address], 11/12/2023 15:23:50 11/12/19 24 11/12/2023 urina lysis , dipst ick pH 5.0 Not Available [facility] [address], [place], [address], 11/12/2023 15:23:50 11/12/19 24 11/12/2023 urina lysis , dipst ick Blood Non-He molyze d: Trace Not Available [facility] [address], [place], [address], 11/12/2023 15:23:50 11/12/19 24 11/12/2023 urina lysis , dipst ick Specific [place] 1.020 Not Available [facility] [address], [place], [address], 11/12/2023 15:23:50 11/12/19 24 11/12/2023 urina lysis , dipst ick Ketone Negati ve Not Available [facility] [address], [place], [address], 11/12/2023 15:23:50 11/12/19 24 11/12/2023 urina lysis , dipst ick Bilirubin Negati ve Not Available [facility] [address], [place], [address], 11/12/2023 15:23:50 11/12/19 24 11/12/2023 urina lysis , dipst ick Glucose Negati ve Not Available [facility] [address], [place], [address], 11/12/2023 15:23:50 11/12/19 24 11/12/2023 urina lysis , dipst ick Appearance Slight ly Cloudy Not Available [facility] [address], [place], [address], 11/12/2023 15:23:50 11/12/19 24 11/12/2023 urina lysis , dipst ick Color Pale Yellow Not Available [facility] [address], [place], [address], 11/12/2023 15:23:50 06/24/20 23 12/02/2022 MRI, lumba r spine , w/wo contr ast No observ ation record ed. Not Available 06/24/2023 19:58:44 07/02/2007/02/2023 karli bolden am EKG ZHANNA Anaya NAME: Jaspal Elizondo UNIT #: [id number] ORDERI NG PROVID ER: Candy hernandez,Tra n PA ACCOUN T #: [id number] PRIMAR Y CARE PROVID ER: IVANIA LANCASTER DATE/T SO OF SERVIC E: 1043 : 1944 PERFOR EDWINA LOCATI ON: ER ------ ------ --- APPROV ED REPORT ------ ------ -- Exam: Restin g ECG Reason for Exam: ams Zhanna anaya Locati on: E HR:75 bpm ECG Measur ements Heart Rate 75 AXIS MT 141 P 76 QRSd 82 QRS 20 QT 388 T 54 QTc 430 Conclu dick Sinus rhythm .. V-rate 60- 99 Atrial premat ure comple x...SV comple x w/ short R-R interv al Consid er kisha septal infarc t...Q >30mS, dimin R, V1-V2 Approp riate interv als. No ST segmen t or T wave abnorm angel an to connie t occlus pavithra [place] ------ ------ ------ ------ ------ ------ ------ ------ ------ ------ ------ ------ ------ ------ ------ ------ ---- ------ - E-Sign Date: E-Sign Time: 1052 [facility] [address] [place], [address] 07/02/2023 15:48:08 07/02/2007/02/2023 CT imagi ng repor t Zhanna anaya Name: Jaspal Elizondo Unit #: [id number] Loc: ER Orderi ng Provid er: Tra Moreira Accoun t #: [id number] Status : REG ER Primar y Care Provid er: Ivania Lancaster Date of Exam: Sex: F : 1944 Age: 77 Exam(s ) a CT:CT head wo Exam(s ) CT HEAD WO EXAM: CT HEAD WO CLINIC AL HISTOR Y: ams. TECHNI QUE: Imagin g Protoc ol: Axial comput ed tomogr aphy images with miller l and sagitt al reform atted images were create d and review ed COMPAR TEN: CT HEAD WITHOU T STROKE PROTOC OL from 2016 FINDIN GS: Ventri cles and Extra axial spaces : Normal in size and morpho logy for the patien t's age. Hemorr yaneth: None. Cerebr al parenc hyma: No eviden ce of acute infarc t or mass. Midlin e shift: None. Brains tem/Ce rebell um: Normal . Calvar ium: Normal . Visual ized Parana jose sinuse s/Mast oids: Clear. Soft Tissue s: Unrema rkable . IMPRES DICK: No acute intrac ranial proces s. RADIAT ION DOSE DELIVE RED: Total DLP DATA REPOSI TORY: All CT scans at this facili ty are submit erick to the Nation al Radiol ogy Data Regist ry (NRDR) Dose Index Regist ry (DIR) with the [place] Radiol ogy (ACR). RADIAT ION OPTIMI ZATION : All CT scans at this facili ty use at least one of these dose optimi zation techni ques: automa erick exposu re contro l; mA and/or kV adjust ment per patien t size (inclu jareth target ed exams where dose is matche d to clinic al indica tion); or iterat pavithra recons tructi on. 1207-0 012: Total DLP = 0.00 mGy-cm Ordere d By: Tra Moreira CC: ------ ------ ------ ------ ------ ------ ------ ------ ------ ------ ------ ------ ---- Dictat ed By: Rudy Rosario [id number] Transc ribed By: Sebastian Ames [id number] This is privil eged, confid ential inform ation intend ed only for the provid er named. Any use or distri bution by any person other than this provid er is strict ly prohib ited. If you receiv e this report in error, please notify us immedi tracey at [phone] and return the origin al report to us at the addres s above. Thank- you. [facility] [address], [place], [address] 07/02/2023 15:48:09 07/02/20 23 07/02/2023 elect jani bolden am EKG ZHANNA Anaya NAME: Jaspal Elizondo UNIT #: [id number] ORDERI NG PROVID ER: Candy hernandez,Tra WATSON ACCOUN T #: [id number] PRIMAR Y CARE PROVID ER: IVANIA LANCASTER DATE/T SO OF SERVIC E: 104 : 1944 MILADY EDWINA LOCATI ON: ER ------ ------ --- APPROV ED REPORT ------ ------ -- Exam: Restin g ECG Reason for Exam: ams Zhanna anaya Locati on: E HR:75 bpm ECG Measur ements Heart Rate 75 AXIS MT 141 P 76 QRSd 82 QRS 20 QT 388 T 54 QTc 430 Conclu dick Sinus rhythm .. V-rate 60- 99 Atrial premat ure comple x...SV comple x w/ short R-R interv al Consid er kisha septal infarc t...Q >30mS, dimin R, V1-V2 Approp riate interv als. No ST segmen t or T wave abnorm alitie s to sugges t occlus pavithra [place] ------ ------ ------ ------ ------ ------ ------ ------ ------ ------ ------ ------ ------ ------ ------ ------ ---- ------ - E-Sign Date: E-Sign Time: 1052 ------ ------ --- ADDEND UM APPROV ED REPORT ------ ------ -- Exam: Restin g ECG Reason for Exam: ams Patien t Locati on: E HR:75 bpm ECG Measur ements Heart Rate 75 AXIS MT 141 P 76 QRSd 82 QRS 20 QT 388 T 54 QTc 430 Conclu dick Sinus rhythm .. V-rate 60- 99 Atrial premat ure comple x...SV comple x w/ short R-R interv al Consid er kisha septal infarc t...Q >30mS, dimin R, V1-V2 Approp riate interv als. No ST segmen t or T wave abnorm alitie s to sugges t occlus pavithra [place] I have review ed and I agree with the emerge ncy room physic peña's ECG interp retati on. Electr onical ly signed by: [id number] Cosign ed by: [facility] [address] [facility] [place], [address] 07/02/2023 15:48:08 07/03/20 23 07/02/2023 ED visit note ED Visit Note PATIPAT Anaya NAME: Jaspal Elizondo brigid Brenden UNIT #: [id number] ADMITT ING PROVID ER: Tra Moreira ACCOUN T #: [id number] PRIMAR Y CARE PROVID ER: IVANIA LANCASTER DATE OF ADMIT: 02/15 : 1944 Discha rge Plan Dispos ition Patien t Dispos ition: Home Discha rge Detail s Clinic al Impres dick: Audito ry halluc inatio ns, Schizo affect pavithra disord er, Hypoth yroidi sm, Agitat ion Primar y Care Provid er: Ivania Lancaster ED Provid er: Tra Moreira Home Meds and New Rx's Prescr iption s: New risper idone [Rispe rdal] 0.5 mg tablet 0.5 mg PO BID Qty: 14 0RF loraze yadiel [Ativa n] 0.5 mg tablet 0.5 mg PO DAILY PRNQty : 5 0RF Contin ued ketoco nazole 2 % cream 1 applic topica l DAILY 90 Days Qty: 60 3RF Rx Instru ctions : Apply to toenai ls once daily alendr erlin [Fosam ax] 70 MG tablet 70 mg PO ONCE A WEEK acetam inophe n [Mapap Arthri tis Pain] 650 MG tablet extend ed releas e 650 mg PO PRN PRN calciu m carbon ate-vi tamin D3 [Calci um 500 With D] 1 EACH tablet 1 ea PO BID omepra zole 20 MG tablet ,delay ed releas e (DR/EC ) 20 mg PO DAILY quetia pine 25 mg Tablet 25 mg PO HS risper idone [Rispe rdal] 0.25 mg Tablet 0.25 mg PO BID Rx Instru ctions : 0.50mg QAM, 0.25mg PM levoth yroxin e 112 MCG tablet 88 mcg PO DAILY levalb uterol tartra te [Xopen ex HFA] 15 GM HFA aeroso l inhale r 2 puff Inhala tion Q4H WHILE AWAKE Discha rge Instru ctions Instru ctions : Hypoth yroidi sm (ED) Additi onal Instru ctions : Please follow -up with your primar y care physic peña and 2 to 3 days for reasse ssment It sounds like you have had an intake today [facility] for furthe r outpat ient evalua tion i am writin g for your mornin g and evenin g medica tion risper adela 0.5 mg and ativan 0.5mg as needed Use the Ativan only for persis tent agitat ion 1 hour after Risper adela admini strati on Please return earlie r should he have new or worsen ing compla ints Contin ue on your nightl y dose of Risper adela Referr als: [facility] [Outsi de] Ivania Lancaster [Prima ry Care Provid er] - Discha rge Data Discha rge Date/T so-TO BE ENTERE D AT DEPART URE: 14:58 Medica l Decisi on Making 77-yea r-old female paul de leong with increa sed agitat ion in the settin g of sameera ia histor y was decrea se of Risper adela by PCP In the emerge ncy depart ment she is alert, active , agitat ed, active ly halluc inatin g which is not report edly new and not signif icantl y change d from baseli ne aside from agitat ion per daught er who is also DPOA She was given 0.5 of Risper adela which is the medica tion she was on previo usly and a half a millig janene of Ativan and is now calm and marcos ative, her labs do not displa y any acute medica l cause of zhanna anaya's compla ints and CT imagin g of her head did not show acute abnorm ality She will be screen ed [facility], urinal ysis clear I do not see a clear medica l etiolo gy of zhanna anaya's compla ints, she was screen ed by and had just and both daught er and patien héctor felt comfor table being discha rged home at this time, zhanna anaya is calm and marcos ative, she is alert and orient ed Will place zhanna anaya on 0.5 mg of Risper adela in the mornin g and give Ativan severa l tablet s 0.5 as needed HPI Genera l Date/T so Provid er Initia erick Docume ntatio n: 10:14 . 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 Also had adjust ment of her thyroi d medica tion simult aneous ly. Zhanna anaya has not been report edly more confus ed but agitat ed and throwi ng plates and increa sed halluc inatio ns at home. some urinar y freque ncy per daught er. Did have a fall out of her seat at bin, unsure as to whethe r or not she hit her head but no report ed loss of consci ousnes s. Relate d Data Home Medica tions Medica tion Instru ctions Record ed Confir med acetam inophe n 650 mg 650 mg PO PRN PRN tablet ,exten ded releas e (Mapap Arthri tis Pain) calciu m carbon ate 500 mg-vit ocasio 1 ea PO BID D3 10 mcg (400 unit) tablet (Calci um 500 With D) omepra zole 20 mg tablet ,delay ed 20 mg PO DAILY releas e levalb uterol tartra te 45 2 puff inhala tion Q4H WHILE AWAKE mcg/ac tuatio n aeroso l inhale r (Xopen ex HFA) alendr erlin 70 mg tablet (Fosam ax) 70 mg PO ONCE A WEEK levoth yroxin e 112 mcg tablet 88 mcg PO DAILY quetia pine 25 mg tablet 25 mg PO HS risper idone 0.25 mg tablet 0.25 mg PO BID (Rispe rdal) ketoco nazole 2 % topica l cream 1 applic topica l DAILY 3 months #60 grams loraze yadiel 0.5 mg tablet (Ativa n) 0.5 mg PO DAILY PRN #5 tabs risper idone 0.5 mg tablet 0.5 mg PO BID #14 tabs (Rispe rdal) Previo us Rx's Medica tion Instru ctions Record ed ketoco nazole 2 % topica l cream 1 applic topica l DAILY 3 months #60 grams loraze yadiel 0.5 mg tablet (Ativa n) 0.5 mg PO DAILY PRN #5 tabs risper idone 0.5 mg tablet 0.5 mg PO BID #14 tabs (Rispe rdal) Allerg ies Allerg y/AdvR eac Type Severi ty Reacti on Status Date / Time No Known Allerg ies Allerg y Unveri fied 14:06 Genera l Stated Compla int: AMS/LO C DELISA: 2 PFSH All Active Proble ms (Updat ed @ 14:45 by Marlee Gupta rs, PA) Agitat ion (Acute ) 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) (Chron ic) Pain in right foot (Acute ) Pain in left foot (Acute ) Nail dystro phy (Acute ) Onycho mycosi s (Acute ) Memory impair ment (Acute ) Underw eight (Acute ) Lack of coordi nation (Acute ) Schizo affect pavithra disord er (Acute ) Audito ry halluc inatio ns (Acute ) Develo pmenta l speech or langua ge disord er (Acute ) Depres sive disord er (Chron ic) Hypoth yroidi sm (Chron ic) Sciati ca (Acute ) Osteop orosis (Chron ic) Idiopa thic scolio sis (Acute ) Sensor ineura l hearin g loss (Acute ) Osteoc hondro roshan (Acute ) TIA (trans ient ischem ic attack ) (Acute ) Medica l Histor y (Revie thu @ 14:12 by Sophia Guzmán DPM) Sympto matic menopa usal or female climac teric states Arthro roshan Social Histor y (Revie thu @ 14:12 by Sophia Guzmán DPM) 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 Use Status : Never Smokin g risk assess ment perfor med?: Yes Alcoho l Intake : never Drug use: Never Substa nce use type: does not use Do you feel safe at home: Yes Do you feel safe in your relati onship ?: Yes Additi onal Social histor y: unable to asses pop ARREDONDO RN 3 Course Vital Signs Vital signs: Vital Signs Temper ature 37.0 C 10:00 Pulse 84 10:00 Respir atory Rate 18 10:00 Blood Pressu re 153/81 H 10:00 Pulse Oximet ry 97 10:00 Temper ature 37.0 C 10:00 Temper ature Source Tempor al Artery Scan 10:00 Pulse 84 10:00 Respir atory Rate 16 10:09 Respir atory Effort Normal , Non-La bored 10:09 Respir atory Depth Normal 10:09 Respir atory Patter n Normal 10:09 Blood Pressu re 153/81 H 10:00 Pulse Oximet ry 97 10:00 Oxygen Delive ry Method Room Air 10:00 Oxygen Flow Rate 0 10:00 Lab/Te st Result s Lab/Te st Result s: Labora tory Tests Range/ Units 10:14 10:59 WBC (4.4-1 0.8) 10 3/uL 6.75 RBC (3.93- 5.22) 10 6/uL 4.76 Hgb (11.2- 15.7) g/dL 14.6 Hct (36.0- 46.0) % 43.8 MCV (80-95 ) fL 92 MCH (27.0- 33.0) pg 30.7 MCHC (32.0- 36.0) % 33.3 RDW (11.7- 14.6) % 13.0 Plt Count (130-4 00) 10 3/uL 258 MPV (8.0-1 1.0) fL 9.7 Immatu re Gran % 0.4 Neutro phils % 78.6 Lympho cytes % 13.8 Monocy melissa % 6.4 Eosino phils % 0.4 Basoph ils % 0.4 Nuclea erick RBC % (0.0-0 .3) % 0.0 Absolu te Neutro phils (1.2-6 .7) 10 3/uL 5.30 Absolu te Lympho cytes (1.2-3 .4) 10 3/uL 0.93 L Absolu te Monocy melissa (0.1-0 .8) 10 3/uL 0.43 Absolu te Eosino phils (0.0-0 .7) 10 3/uL 0.03 Absolu te Basoph ils (0.0-0 .2) 10 3/uL 0.03 Sodium (136-1 45) mmol/L 145 Potass ium (3.5-5 .1) mmol/L 3.5 Chlori de (98-10 7) mmol/L 107 Carbon Dioxid e (21.0- 32.0) mmol/L 30.0 Anion Gap (3-11) mmol/L 8.0 BUN (7-18) mg/dL 13 Creati nine (0.55- 1.02) mg/dL 1.2 H Est GFR (CKD-E PI 2020) (mL/mi n/1.73 m2) 46.33 Glucos e (74-10 6) mg/dL 124 H Calciu m (8.5-1 0.1) mg/dL 10.1 Magnes ium (1.8-2 .4) mg/dL 2.2 Total Biliru bin (0.2-1 .0) mg/dL 0.5 AST (15-37 ) U/L 19 ALT (14-59 ) U/L 19 Alkali ne Phosph atase (46-11 6) U/L 75 Total Protei n (6.4-8 .2) g/dL 6.9 Albumi n (3.4-5 .0) g/dL 3.9 TSH (0.36- 3.74) uIU/mL 5.47 H Free T4 (0.76- 1.46) ng/dL 1.56 H Urine Color (Yello w) Yellow Urine Clarit y (Clear ) Clear Urine pH (5-8) 6.0 Ur Specif ic Gravit y (1.005 -1.025 ) 1.010 Urine Protei n (Negat pavithra) mg/dL Negati ve Urine Ketone s (Negat pavithra) mg/dL Negati ve Urine Blood (Negat pavithra) Negati ve Urine Nitrit e (Negat pavithra) Negati ve Urine Biliru bin (Negat pavithra) Negati ve Urine Urobil inogen (Up to 0.2) mg/dL 0.2 Ur Leukoc yte Estera se (Negat pavithra) Negati ve Urine Glucos e (Negat pavithra) mg/dL Negati ve Ethyl Alcoho l (<10) mg/dL < 3.0 cc: JILLIAN IVANIA ------ ------ ------ ------ ------ ------ ------ ------ ------ ------ ------ --- Dictat ed by: TRA LOPEZ Dictat ed: Time: 1225 Date: 1750 Date: Date: Transc ribed Date: Transc ribed Time: 1224 By: FLORENTIN This is privil eged, confid ential inform ation, intend ed only for the provid er named. Any use or distri bution by any person other than this provid er is strict ly prohib ited. If you receiv e this report in error, please notify us immedi tracey at [phone] and return the origin al report to us at the addres s above. Thank you. [email or web address] [facility] [address], [place], [address] 07/03/2023 22:25:15 07/04/20 23 07/03/2023 stanley padilla crisi s note Mental Health Crisis Note ZHANNA T NAME: Jaspal Elizondo brandojaspal Brenden UNIT #: [id number] ADMITT ING PROVID ER: Leticia Hill T #: [id number] PRIMAR Y CARE PROVID ER: IVANIA LANCASTER DATE OF ADMIT: 02/15 : 1944 Date of servic e: Time of Servic e: 12:08 Mental Health Emerge ncy Note Releas meagan [facility] releas meagan signed :: Yes Reason for Visit The client is seen in the ED after family yemi t her in for sudden increa se in agitat ion and behavi ors. The ED report ed they did not see her murphyin g inpati ent level of care kym r, outpat edi alvarado ts would be helpfu l. In the last 2 weeks has the pt presen erick for ES prior to today? : Unknow n Client Inform ation Client is: New Well Housed : Yes Non Suicid al Self Injury Curren t: No Histor y: No Safety Risk/H arm to Self or Others Curren t Ideati on to Harm Self or Others : No Risk: Does risk to harm exist? : No Risk: Low Risk Duty to warn indica erick: No Assses sment/ Mental Status Appear ance: Dishev eled Attitu de: Marcos ative Behavi or: Unrema rkable Speech : Other (The client speaks as if she may have a hearin g impair ment.) Affect : Normal Mood: Euthym ic Though t proces s: Unrema rkable Halluc inatio ns: yes, Visual and Audito ry Delusi ons: No Attent ion: Unrema rkable Percep tion: Other (The client has sameera ia per hospit al and daught ers report . ) [place] ation: Disori ented in Time Memory : Impair ed in: (Per report of the hospit al staff and client 's daught er she is diagno sed with sameera ia.) Remote Insigh t: Fair Judgem ent: Fair Neurov egetat pavithra Sympto ms Sleep: Decrea se (Repor erick she tosses and turns all night) Appeti tie: Decrea se Intere sts: Decrea se Energy : Decrea se Libido : Not applic able Substa nce Use: Do you use nicoti ne?: No Have you used substa nces in the last 7 days?: No Additi onal Issues : Assaul tive/T hreate fidelina Behavi or: No Medica l Concer ns: No Client engage d in active self harm w/weap on: No Threat ening to run away: No Child report ed abuse/ neglec t: No Volunt arily presen ting for servic es: Yes Domest ic violen ce is a concer n: No Extrem e Psycho sis or extrem e behavi or is presen t: No Impres dick The client is a 77, year old, widowe d, [place] peña female who lives with her daught er and others in [facility]. She gaytan been trying to get into servic es with [facility] and [facility] was only trying to get intake paperw ork comple erick. This was comple erick today during this assess ment. It is report ed by the daught er and the client that the client has been experi encing audito ry and visual halluc inatio ns and as a result has at times become physic ally aggres sive. The client report ed that she hears voices tellin g her they want to shoot me. She does not know why but states she has heard them for a long time. Shes said she would but I don't know how to shoot a gun. I tell it to shut up all the time. She descri bed the voice as being a female s voice but not a famili ar one. The daught er inform ed that the client stated that the voice tells her she is going to take her kids away. when she hears this she become s agitat ed poundi ng her fist on the table really hard and scream ing out loud. The daught er stated that there was a recent change in her meds and attrib utes this behavi or to those change s. The daught er said she has had poor concen tratio n even when it comes to her favori te game of [employer]. She report ed that last evenin g while playin g [employer] she though t she saw this person starin g at her throug h the window and so slid off the chair and hid under the table. She is observ ed by family to sit in her chair all day tappin g her foot contin uously . It appear s based on chart review with [facility] the client is diagno sed with schizo phreni a. The client was feelin g better after receiv ing some Risper idone and wanted to go home. Resour lillian Reosur lillian review ed and given: : 988 and [facility] Plan/D isposi tion Recomm ended Dispos ition: [facility] Servic es [facility] Servic es: Other. Plan: The client was discha rged to go home with her daught er. She will be follow ed up with by her new team in [facility] soon now that intake paperw ork is comple erick. Person report ed agreem ent to plan: Yes Report s/comm unicat ion Outcom e discus sed with: ED/Per libby cc: ------ ------ ------ ------ ------ ------ ------ ------ ------ ------ ------ --- Dictat ed by: CECI Padilla MS QMHP,R OSE Dictat ed: Time: 1208 Date: 2201 Date: Date: Transc ribed Date: Transc ribed Time: 1207 By: SAVANNAH This is privil eged, confid ential inform ation, intend ed only for the provid er named. Any use or distri bution by any person other than this provid er is strict ly prohib ited. If you receiv e this report in error, please notify us immedi lizly at and return the origin al report to us at the addres s above. Thank you. [email or web address] [facility] [address], [place], [address] 07/07/2023 13:32:02 07/29/19 24 07/29/2023 karli bolden am EKG ZHANNA Anaay NAME: Jaspal Elizondo UNIT #: [id number] ORDERI NG PROVID ER: Bakari Olea M.D. ACCOUN T #: [id number] PRIMAR Y CARE PROVID ER: Ivania Lancaster DATE/T SO OF SERVIC E: 0 4 0917 : 1944 PERFOR EDWINA LOCATI ON: ER ------ ------ --- APPROV ED REPORT ------ ------ -- Exam: Restin g ECG Reason for Exam: sob Zhanna anaya Locati on: E HR:79 bpm ECG Measur ements Heart Rate 79 AXIS MT 134 P 82 QRSd 72 QRS 52 QT 374 T 73 QTc 429 Conclu dick Sinus rhythm ...nor mal P axis, V-rate 60- 99 ____ Narrow comple x normal sinus rhythm at a rate of 79. Normal axis. Interv als within normal limits . No ST segmen t abnorm alitie s beyond mild ST segmen t depres sions left latera l chest wall leads. T wave invers ion in aVL. Artifa ct in leads I and II interf eres with interp retati on. No acute injury patter n. No prior for compar ten. ------ ------ ------ ------ ------ ------ ------ ------ ------ ------ ------ ------ ------ ------ ------ ------ ---- ------ - E-Sign Date: E-Sign Time: 934 [email or web address] [facility] [address] [place], [address] 07/30/2023 22:26:49 07/29/19 24 07/29/2023 elect jani bolden am No observ ation record ed. [email or web address] Not Available 07/30/2023 22:58:55 07/29/19 24 07/29/2023 x-ray imagi ng rayna anaya Name: Jaspal Elizondo Unit #: [id number] Loc: ER Orderi [facility] er: Bakari Olea M.D. Accdaniel t #: [id number] Status : REG ER [facility] er: Ivania Lancaster Date of Exam: Sex: F Admiss ion Date: : 1944 Age: 78 Exam(s ) XR PORTAB LE CHEST AP EXAM: XR PORTAB LE CHEST AP CLINIC AL HISTOR Y: Shortn ess of breath TECHNI QUE: 2D digita l imagin g was perfor med. COMPAR TEN: CR,XR XR CHEST 2V PA LATERA L from 2022 FINDIN GS: LUNGS: Clear. No pleura l abnorm ality seen. HEART: Normal size. AORTA: Normal diamet er. BONES: Promin ent scolio sis. Soft tissue s: Unrema rkable . IMPRES DICK: No acute findin gs. DATA REPOSI TORY: RADIAT ION DOSE DELIVE RED: Ordere d By: Bakari Olea M.D. CC: ------ ------ ------ ------ ------ ------ ------ ------ ------ ------ ------ ------ - Dictat ed By: Rudy Rosario 1002 1002 Transc ribed By: Sebastian Ames 1002 This is privil eged, confid ential inform ation intend ed only for the provid er named. Any use or distri bution by any person other than this provid er is strict ly prohib ited. If you receiv e this report in error, please notify us immedi ately at and return the origin al report to us at the addres s above. Thank- you. [email or web address] [facility] [address], [place], [address] 07/30/2023 22:26:49 07/29/19 24 07/29/2023 CT imagi ng rayna t Zhanna t Name: Jaspal Elizondo Unit #: [id number] Loc: ER Orderi ng Provid er: Bakari Olea M.D. Accoun t #: [id number] Status : REG ER Primar y Care Provid er: Ivania Lancaster Date of Exam: Sex: F : 1944 Age: 78 Exam(s ) a CT:CT chest PE CTA Exam(s ) CT CHEST PE CTA EXAM: CT CHEST PE CTA CLINIC AL HISTOR Y: Positi ve D-dime r. TECHNI QUE: Imagin g Protoc ol: Axial CT angiog ruy was perfor med with multi- slice acquis ition and multi- planar recons tructi ons as well as axial, miller l and sagitt al MIP recons tructi ons. CONTRA ST MATERI AL: Intrav enous: Omnipa que [address] volume :53 ml COMPAR TEN: CR XR PORTAB LE CHEST AP from 2023 FINDIN GS: Pulmon shannon Arteri es: No eviden ce of fillin g defect to sugges t pulmon shannon emboli . Trache obronc hial tree: Patent where visual ized. Medias tinum and Yesenia: No domina nt adenop athy or fluid collec tion. Pulmon shannon parenc hyma: Mild left basila r atelec tasis. Respir atory motion and expira tory change s somewh at limite d evalua tion of the lungs. No consol idatio n or domina nt measur able mass. Pleura : Trace right pleura l effusi on. Heart: The heart is mildly dilate d. No miller ry artery calcif icatio ns are seen. Aorta: Ascend ing aorta 3.5 cm. Descen ding aorta 1.9 cm. No dissec tion. Upper abdome n: Severe narrow ing at origin of celiac axis. SMA and left renal artery are unrema rkable . Bones: Severe scolio sis. Tubes, Cathet ers, and Lines: None Soft tissue s: Unrema rkable . IMPRES DICK: No eviden ce of pulmon shnanon emboli sm. Trace right pleura l effusi on and adjace nt mild atelec tasis. 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 RADIAT ION DOSE DELIVE RED: Total DLP DATA REPOSI TORY: All CT scans at this facili ty are submit erick to the Nation al Radiol ogy Data Regist ry (NRDR) Dose Index Regist ry (DIR) with the [employer] an [employer] e [employer] Radiol ogy (ACR). RADIAT ION OPTIMI ZATION : All CT scans at this facili ty use at least one of these dose optimi zation techni ques: automa erick exposu re contro l; mA and/or kV adjust ment per patien t size (inclu jareth target ed exams where dose is matche d to clinic al indica tion); or iterat pavithra recons tructi on. 102-0 016: Total DLP = 0.00 mGy-cm Ordere d By: Bakari Olea M.D. CC: ------ ------ ------ ------ ------ ------ ------ ------ ------ ------ ------ ------ ---- Dictat ed By: Rudy Rosario 1217 1216 Transc ribed By: Sebastian Ames 1216 This is privil eged, confid ential inform ation intend ed only for the provid er named. Any use or distri bution by any person other than this provid er is strict ly prohib ited. If you receiv e this report in error, please notify us immedi lizly at and return the origin al report to us at the addres s above. Thank- you. [email or web address] [facility] [address], [place], [address] 07/30/2023 22:26:49 07/30/19 24 07/29/2023 ED visit note ED Visit Note ZHANNA Anaya NAME: Jaspal Elizondo UNIT #: [id number] ADMITT ING PROVID ER: Bakari Olea M.D. ACCOUN T #: [id number] PRIMAR Y CARE PROVID ER: Ivania Lancaster DATE OF ADMIT: 07/29 : 1944 HPI Genera l DELISA: 2 Date/T so Provid er Initia erick Charlie ntatio n: 09:07. HPI Narrat pavithra: MDM This is an overal l well-a ppeari ng normot hermic and not tachyc ardic nor hypoxi c 78-yea r-old female with shortn ess of breath while laying flat concer fidelina for possib ility of pneumo jw. ACS possib le based on the zhanna anaya's age howeve r in the settin g of a nonisc hemic ECG and sympto ms since last night we will obtain a single tropon in and will be reassu red if this is negati ve. No pain out of propor tion to sugges t necrot izing soft tissue infect ion. No dysuri a nor freque ncy so doubt UTI. Not volume overlo aded and reassu ring POCUS exam not consis tent with acute heart failur e so I did not send a proBNP . Pulmon shannon emboli sm is certai nly a possib ility howeve r is not the most likely diagno sis as zhanna anaya does not have calf pain or hemopt ysis or prior histor y of PE nor DVT so we will use a D-dime r cutoff of 1000 based on YEARS criter ia. Will swab for COVID influe nza and RSV. Will obtain a chest x-ray though limite d bedsid e ultras ound was not consis tent with pneumo jw. Will obtain labs in the event that zhanna anaya is found to have a pneumo jw in order to calcul ate a PORT score. I consid ered sepsis howeve r the zhanna anaya is not febril e hypote nsive nor tachyc ardic so I did not obtain a lactat e to empiri omkar with antibi otics nor obtain blood cultur es. Zhanna anaya is eating and drinki ng well and so my suspic ion for dehydr ation is low so I did not order IV fluids . No focal neurol ogical defici ts to sugges t CVA. Zhanna anaya does have a formal echoca rdiogr am from 6 years ago in the system showin g normal ejecti on fracti on. She is on an inhale r which introd uces possib ility of acute exacer bation of reacti ve airway diseas e. She has no signif icant wheeze s and no diagno sis of COPD. Given age will defer steroi ds. Zhanna anaya's daught er does report that she has an inhale r which was prescr ibed when she was [place]. She has no histor y of reacti ve airway diseas e and no histor y of COPD. Given her age and her pulmon shannon compla ints but reassu ring lung exam he may benefi t from pulmon shannon functi on testin g and/or repeat echoca rdiogr am but do not feel that she requir es these emerge ntly. 10 AM CBC lacks anemia thromb ocytop enia and leukoc ytosis . Negati ve tropon in. Chest x-ray read as clear. Basic metabo lic panel lacks JANET had any acute electr olyte abnorm alitie s. 10:50 AM COVID RSV influe nza all negati ve. D-dime r greate r than 1999 for which zhanna anaya will underg o CT angiog janene to assess for PE. 12:20 PM Zhanna anaya was found to have a CT scan with no eviden ce of PE and no obviou s pneumo jw. Zhanna anaya did have incide ntal notati on of a severe stenos is of her celiac access . No abdomi nal pain nausea nor vomiti ng to sugges t mesent gurpreet ischem ia. I have asked health unit coordhumble Yates to have the zhanna anaya seen within the week by her primar y care provid er. I advise d ED return to the zhanna anaya and her daught er for any worsen ing shortn ess of breath chest pain fevers or more produc tive cough. Otherw ise we will procee d with an empiri c trial of discha rge with expect ant outpat ient manage ment. Given the small size of the zhanna anaya's pleura l effusi on I do not feel that she requir es a thorac entesi s. She is not hypoxi c. Based on zhanna anaya's age her lower effusi on may be second shannon to malign florencia though she had no obviou s pulmon shannon nodule s on CT scan.I t is certai nly possib le that the zhanna anaya's shortn ess of breath could be second shannon to viral URI for which I gave her benzon atate and cetiri zine. Chroni c condit ions affect ing the care of the zhanna anaya: Alzhei eriberto's and schizo phreni a Histor y obtain ed from an outsid e histor peña: Zahnna anaya's daught er [employer] al record review : [facility] [place] [Diagn ostic interp retati ons perfor med by me: Per my indepe ndent interp retati on chest x-ray shows: Signif icantl y rotate d film with no acute cardio pulmon shannon proces s on prelim inary ED interp retati on. Per my indepe ndent interp retati on EKG shows: Narrow comple x normal sinus rhythm at a rate of 79. Normal axis. Interv als within normal limits . No ST segmen t abnorm alitie s beyond mild ST segmen t depres sions left latera l chest wall leads. T wave invers ion in aVL. Artifa ct in leads I and II interf eres with interp retati on. No acute injury patter n. No prior for compar ten. Medica tions: benzon atate and cetiri zine Social determ inants of health affect ing dispos ition: N/A Manage ment discus sed with: N/A Treatm ent/in terven tions consid ered: N/A Respon se to therap ies provid ed: N/A HPI This is a 78-yea r-old female [facility] with her daught er [facility] shortn ess of breath since last night. Zhanna anaya has had a dry cough for the past 4 days. Zhanna anaya had more shortn ess of breath when laying flat. Her cough is nonpro ductiv e. She has had no fevers . Daught er has been treate d with Robitu ssin and Sudafe d. No chest pain. No leg swelli ng. No histor y of heart failur e. She receiv ed her influe nza, COVID and pneumo jw vaccin es. No sick contac ts. No recent falls. No histor y of PE nor DVT. No recent travel . No dysuri a nor freque ncy. No histor y of diabet es. Zhanna anaya is not a smoker drinke r nor an IV drug user. Exam Genera l: Chroni omkar ill-ap pearin g in no acute distre ss speaki ng in comple te senten lillian. Head: Normoc ephali c, atraum atic. Eye: Extrao cular eye moveme nts intact . No conjun ctival inject ion. No sclera l icteru s. Ear, nose, mouth, throat : Grossl y normal inspec tion. Normal voice, handli ng secret ions normal ly. Neck: Trache a midlin e. Cardio vascul ar: Well-p erfuse d distal extrem ities. Regula r rate and rhythm Respir atory: Nonlab ored respir ation. Clear lungs bilate rally Gastro intest inal: Nondis tended abdome n. Soft nonten ryan Muscul oskele jan: No signif icant lower extrem ity pittin g edema. Moving all 4 extrem ities sponta neousl y. Skin: Normal for age and race, grossl y normal temper ature and turgor . No acute rash. Neurol ogic: Alert and approp riate, no appare nt acute defici ts. GCS 14: E4, V4, M6 Psychi atric: Mood and manner are approp riate. Groomi ng and person al hygien e are approp riate. Relate d Data Home Medica tions Medica tion Instru ctions Record ed Confir med acetam inophe n 650 mg 650 mg PO PRN PRN tablet ,exten ded releas e (Mapap Arthri tis Pain) calciu m carbon ate 500 mg-vit ocasio 1 ea PO BID D3 10 mcg (400 unit) tablet (Calci um 500 With D) omepra zole 20 mg tablet ,delay ed 20 mg PO DAILY releas e levalb uterol tartra te 45 2 puff inhala tion Q4H WHILE AWAKE mcg/ac tuatio n aeroso l inhale r (Xopen ex HFA) alendr erlin 70 mg tablet (Fosam ax) 70 mg PO ONCE A WEEK levoth yroxin e 112 mcg tablet 88 mcg PO DAILY quetia pine 25 mg tablet 25 mg PO HS risper idone 0.25 mg tablet 0.25 mg PO BID (Rispe rdal) ketoco nazole 2 % topica l cream 1 applic topica l DAILY 3 months #60 grams loraze yadiel 0.5 mg tablet (Ativa n) 0.5 mg PO DAILY PRN #5 tabs risper idone 0.5 mg tablet 0.5 mg PO BID #14 tabs (Rispe rdal) benzon atate 100 mg capsul e 100 mg PO BID PRN #7 caps cetiri zine 10 mg tablet 10 mg PO DAILY PRN #7 tabs Previo us Rx's Medica tion Instru ctions Record ed ketoco nazole 2 % topica l cream 1 applic topica l DAILY 3 months #60 grams loraze yadiel 0.5 mg tablet (Ativa n) 0.5 mg PO DAILY PRN #5 tabs risper idone 0.5 mg tablet 0.5 mg PO BID #14 tabs (Rispe rdal) benzon atate 100 mg capsul e 100 mg PO BID PRN #7 caps cetiri zine 10 mg tablet 10 mg PO DAILY PRN #7 tabs Allerg ies Allerg y/AdvR eac Type Severi ty Reacti on Status Date / Time No Known Allerg ies Allerg y Unveri fied 09:30 PFSH All Active Proble ms (Updat ed @ 12:24 by Bakari anaya MD) Pleura l effusi on, right (Acute ) Breath shortn ess (Acute ) Agitat ion (Acute ) 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) (Chron ic) Pain in right foot (Acute ) Pain in left foot (Acute ) Nail dystro phy (Acute ) Onycho mycosi s (Acute ) Memory impair ment (Acute ) Underw eight (Acute ) Lack of coordi nation (Acute ) Schizo affect pavithra disord er (Acute ) Audito ry halluc inatio ns (Acute ) Develo pmenta l speech or langua ge disord er (Acute ) Depres sive disord er (Chron ic) Hypoth yroidi sm (Chron ic) Sciati ca (Acute ) Osteop orosis (Chron ic) Idiopa thic scolio sis (Acute ) Sensor ineura l hearin g loss (Acute ) Osteoc hondro roshan (Acute ) TIA (trans ient ischem ic attack ) (Acute ) Medica l Histor y (Revie thu @ 14:12 by Sophia Guzmán DPM) Sympto matic menopa usal or female climac teric states Arthro roshan Social Histor y (Revie thu @ 14:12 by Sophia Guzmán DPM) 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 Use Status : Never Smokin g risk assess ment perfor med?: Yes Alcoho l Intake : never Drug use: Never Substa nce use type: does not use Do you feel safe at home: Yes Do you feel safe in your relati onship ?: Yes Additi onal Social histor y: unable to assess privat constance Medica l Decisi on Making Qualit y:SDOH Health Relate d Social Needs: No Data to Displa y Discha rge Plan Dispos ition Patien t Dispos ition: Home Discha rge Detail s Clinic al Impres dick: Breath shortn ess, Pleura l effusi on, right Primar y Care Provid er: Ivania Lancaster ED Provid er: Bakari Olea Home Meds and New Rx's Prescr iption s: New cetiri zine 10 mg tablet 10 mg PO DAILY PRNQty : 7 0RF benzon atate 100 mg capsul e 100 mg PO BID PRNQty : 7 0RF Contin ued ketoco nazole 2 % cream 1 applic topica l DAILY 90 Days Qty: 60 3RF Rx Instru ctions : Apply to toenai ls once daily alendr erlin [Fosam ax] 70 MG tablet 70 mg PO ONCE A WEEK acetam inophe n [Mapap Arthri tis Pain] 650 MG tablet extend ed releas e 650 mg PO PRN PRN calciu m carbon ate-vi tamin D3 [Calci um 500 With D] 1 EACH tablet 1 ea PO BID omepra zole 20 MG tablet ,delay ed releas e (DR/EC ) 20 mg PO DAILY quetia pine 25 mg Tablet 25 mg PO HS risper idone [Rispe rdal] 0.25 mg Tablet 0.25 mg PO BID Rx Instru ctions : 0.50mg QAM, 0.25mg PM levoth yroxin e 112 MCG tablet 88 mcg PO DAILY risper idone [Rispe rdal] 0.5 mg tablet 0.5 mg PO BID Qty: 14 0RF loraze yadiel [Ativa n] 0.5 mg tablet 0.5 mg PO DAILY PRNQty : 5 0RF levalb uterol tartra te [Xopen ex HFA] 15 GM HFA aeroso l inhale r 2 puff Inhala tion Q4H WHILE AWAKE Discha rge Instru ctions Additi onal Instru ctions : You were seen in the emerge ncy depart ment for your shortn ess of breath . Your blood work showed no sign of a heart attack . Your CAT scan showed no sign of a pneumo jw and no signs of a blood clot in your lungs. As we discus sed you may benefi t from an update d echoca rdiogr am or the possib ility of pulmon shannon functi on testin g. You are found to have a small amount of fluid in your right lung. Please return to the emerge ncy depart ment if you develo p worsen ing shortn ess of breath have any falls or develo p any chest pain. Discha rge Data Discha rge Date/T so-TO BE ENTERE D AT DEPART URE: 12:42 POCUS Exam (ED) Limite gail Ambriz c Exam DATE OF EXAM: TIME OF EXAM: 09:44 [facility] THAT PERFOR MED THE STUDY: Bakari Barker t IS THIS A REPEAT EXAM DURING THIS ENCOUN TER: no REASON FOR EXAM: Dyspne a VISUAL IZED STRUCT URES: Four Chambe rs, Left ventri thiago and LVOT VIEW OBTAIN ED: Apical 4-Carol kristopher, Parast ernal long-a xis, Subxip hoid and Other (Lung window s) PERTIN ENT FINDIN GS/IMP RESSIO N: No LV dysfun ction, No perica rdial effusi on and No RV dilati on INCIDE NTAL FINDIN GS: Aortic outflo w track less than 4 cm, good squeez e, RV less than LV, no signif icant perica rdial effusi on Exam comple te Limite d Thorac ic Lung Exam DATE OF EXAM: TIME OF EXAM: 09:45 PROVID ER THAT PERFOR MED THE STUDY: Bakari anaya REASON FOR EXAM: Shortn ess ofBrea th and Other indica tion: Shortn ess of breath VISUAL IZED STRUCT URES: right anteri or, left anteri or, 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 Dictat ed: Time: 090 8 Date: 07 Date: Date: Transc ribed Date: Transc ribed Time: 09 By: MANUEL This is privil eged, confid ential inform ation, intend ed only for the provid er named. Any use or distri bution by any person other than this provid er is strict ly prohib ited. If you receiv e this report in error, please notify us immedi ately at and return the origin al report to us at the addres s above. Thank you. [email or web address] [facility] [address] [place], [address] 07/30/2023 22:26:48 08/04/19 24 07/29/2023 karli bolden am EKG ZHANNA Anaya NAME: Jaspal Elizondo brandojaspal Cronin UNIT #: [id number] ORDERI NG PROVID ER: Bakari Olea M.D. ACCOUN T #: [id number] PRIMAR Y CARE PROVID ER: Ivania Lancaster DATE/T SO OF SERVIC E: [id number] : 1944 [place] LOCATI ON: ER ------ ------ --- APPROV ED REPORT ------ ------ -- Exam: Restin g ECG Reason for Exam: vivi anaya Locati on: E HR:79 bpm ECG Measur ements Heart Rate 79 AXIS MT 134 P 82 QRSd 72 QRS 52 QT 374 T 73 QTc 429 Conclu dick Sinus rhythm ...nor mal P axis, V-rate 60- 99 ____ Narrow comple x normal sinus rhythm at a rate of 79. Normal axis. Interv als within normal limits . No ST segmen t abnorm alitie s beyond mild ST segmen t depres sions left latera l chest wall leads. T wave invers ion in aVL. Artifa ct in leads I and II interf eres with interp retati on. No acute injury kev quevedo No prior for compar ten. ------ ------ ------ ------ ------ ------ ------ ------ ------ ------ ------ ------ ------ ------ ------ ------ ---- ------ - E-Sign Date: E-Sign Time: 09 ------ ------ --- ADDEND APPRO ED REPORT ------ ------ -- Exam: Restin g ECG Reason for Exam: vivi anaya Locati on: E HR:79 bpm ECG Measur ements Heart Rate 79 AXIS MT 134 P 82 QRSd 72 QRS 52 QT 374 T 73 QTc 429 Conclu dick Sinus rhythm ...nor mal P axis, V-rate 60- 99 ____ Narrow comple x normal sinus rhythm at a rate of 79. Normal axis. Interv als within normal limits . No ST segmen t abnorm alitie s beyond mild ST segmen t depres sions left latera l chest wall leads. T wave invers ion in aVL. Artifa ct in leads I and II interf eres with interp retati on. No acute injury patter n. No prior for compar ten. I have review ed and I agree with the emerge ncy room physic peña's ECG interp retati on. Electr onical ly signed by: [id number] Cosign ed by: [email or web address] [facility] [address], [place], [address] 08/07/2023 11:35:30 08/04/19 24 07/29/2023 trans -thor acic echoc ardio gram (TTE) (PROC ) No observ ation record ed. Not Available 08/11/2023 14:34:47 Result Notes None recorded. 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 Tia Hugo null, [facility] 4 11:52:36 Sensorineural hearing loss Active 2015 Tia Hugo null, [facility], [facility] 4 11:54:31 Hypothyroidism Active 2015 Tia Hugo null, [facility] 4 11:49:27 Idiopathic scoliosis Active 2015 Problem Code: M41.20; Problem Code Type: ICD-10; Not Available [facility] 3 05:18:19 Senile osteoporosis Active 2015 Problem Code: M81.0; Problem Code Type: ICD-10; Not Available [facility] 3 05:18:19 Sciatica Active 2015 Problem Code: M54.30; Problem Code Type: ICD-10; Not Available [facility] 3 05:18:19 Major depression, single episode Active 2015 Problem Code: F32.9; Problem Code Type: ICD-10; Not Available [facility] 3 05:18:19 Arthropathy Active 2015 Problem Code: M12.9; Problem Code Type: ICD-10; Not Available [facility] 3 05:18:19 Acute upper respiratory infection Completed 201609/15/2016 Problem Code: J06.9; Problem Code Type: ICD-10; Not Available [facility] 3 05:18:19 Auditory hallucinations Active 2016 Tia Hugo null, [facility], [facility]. 4 11:52:16 Schizoaffective disorder Active 2016 Problem Code: F25.9; Problem Code Type: ICD-10; ADÁN HUFF [address], [place], [address] [facility], [facility] 3 11:51:45 Transient cerebral ischemia Active 2018 Tia Hugo null, [facility] 4 11:50:19 Incoordination Active 2018 Tia Hugo null, [facility] 4 11:56:33 Underweight Active 2019 Problem Code: R63.6; Problem Code Type: ICD-10; Not Available [facility] 3 05:18:20 Amnesia Active 2019 Tia Hugo null, [facility] 4 11:56:50 Pain in thoracic spine Completed 201503/19/2017 Problem Code: M54.9; Problem Code Type: ICD-10; Not Available [facility] 3 05:18:20 Abnormal weight loss Completed 201601/12/2018 Problem Code: R63.4; Problem Code Type: ICD-10; Not Available [facility] 3 05:18:20 Urinary tract infectious disease Completed 201805/09/2019 Problem Code: N39.0; Problem Code Type: ICD-10; Not Available [facility] 3 05:18:20 Cognitive deficit in communication skills Completed 201506/13/2016 Problem Code: R41.841; Problem Code Type: ICD-10; Not Available [facility] 3 05:18:20 Screening for malignant neoplasm of breast Completed 201608/02/2019 Problem Code: Z12.39; Problem Code Type: ICD-10; Not Available [facility] 3 05:18:20 Screening for malignant neoplasm of colon Completed 201708/02/2019 Problem Code: Z12.11; Problem Code Type: ICD-10; Not Available [facility] 3 05:18:20 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 Completed 201504/22/2023 Problem Code: I69.328; Problem Code Type: ICD-10; Not Available [facility] 3 05:18:20 General unsteadiness Completed 201503/24/2017 Problem Code: R26.81; Problem Code Type: ICD-10; Not Available [facility] 3 05:18:21 Auditory hallucinations Completed 201403/24/2017 Problem Code: R44.0; Problem Code Type: ICD-10; Estelita Arias [facility] 4 11:52:16 Screening for disorder Completed 201805/09/2019 Problem Code: Z13.89; Problem Code Type: ICD-10; Not Available [facility] 3 05:18:21 Stool finding Completed 201503/19/2017 Problem Code: R19.5; Problem Code Type: ICD-10; Not Available [facility] 3 05:18:21 Pain in left lower limb Completed 201503/19/2017 Problem Code: M79.605; Problem Code Type: ICD-10; Not Available [facility] 3 05:18:21 Gastroesophageal reflux disease without esophagitis Active 2022 TISHA MARIE RN [facility], [facility] 3 15:14:39 Nocturia Active [address], [place], [address] , [facility] 4 14:07:06 Urge incontinence of urine Active [address], [place], [address] , [facility] 4 14:13:00 Onychomycosis of toenails Active [address], [place], [address] , [facility] 4 13:35:19 Notes:Some problems listed i n Document: #[id number] could not be added to this patient's chart. Please review this document and add these problems to the patient's chart manually as needed. Problem Notes None recorded. Procedures Surgical History None recorded. Imaging Results Imaging Date Name Status LastModified by Organization Details LastModified Time 12/02/2022 MRI, lumbar spine, w/wo contrast completed Information not available 06/24/2023 19:58:44 07/02/2023 electrocardiogram completed [email or web address] [address] [place], [address] 07/02/2023 15:48:08 07/02/2023 CT imaging report completed [email or web address] [address] [place], [address] 07/02/2023 15:48:09 07/02/2023 electrocardiogram completed [email or web address] [address] [place], [address] 07/02/2023 15:48:08 07/02/2023 ED visit note completed [email or web address] Allen john [address] [place], [address] 07/03/2023 22:25:15 07/03/2023 mental health crisis note completed [email or web address] [address] [place], [address] 07/07/2023 13:32:02 07/29/2023 electrocardiogram completed [email or web address] [address] [place], [address] 07/30/2023 22:26:49 07/29/2023 electrocardiogram completed Informa tion not available 07/30/2023 22:58:55 07/29/2023 x-ray imaging report completed [email or web address] [address] [place], [address] 07/30/2023 22:26:49 07/29/2023 CT imaging report completed [address] [place], [address] 07/30/2023 22:26:49 07/29/2023 ED visit note completed [address] [place], [address] 07/30/2023 22:26:48 07/29/2023 electrocardiogram completed [email or web address] [address] [place], [address] 08/07/2023 11:35:30 07/29/2023 trans-thoracic echocardiogram (TTE) (PROC) completed Information not available 08/11/2023 14:34:47 Procedure Notes None recorded. Medical Equipment None Reported. Allergies No known drug allergies Medications Name Sig Start Date Stop Date Status Note LastModified by Organization Details LastModified Time quetiapin e 25 mg tablet Take 1 tablet every day by oral route at bedtime. active filled 11/12/23 Not Available Not Available Not Available atorvasta tin 40 mg tablet TAKE ONE TABLET BY MOUTH AT BEDTIME 07/04 completed Not Available Not Available Not Available aspirin 325 mg tablet TAKE ONE TABLET BY MOUTH EVERY DAY 10/11 completed Not Available Not Available Not Available alendrona te 70 mg tablet Take 1 tablet by mouth once a week 2023 active Not Available Not Available Not Avai lable risperido ne 0.25 mg tablet Take 3 tablet by mouth every night at bedtime 2023 active changed by [facility] provider Not Available Not Available Not Available aspirin 81 mg tablet,de layed release TAKE ONE TABLET BY MOUTH EVERY DAY active Not Available Not Available No t Available quetiapin e 100 mg tablet Take 1 tab by mouth daily 2016 active Not Available Not Available Not Avai lable acetamino phen ER 650 mg tablet,ex tended release 1 tablet by mouth every six hours as needed 2015 active Not Available Not Available Not Avai lable levothyro xine 75 mcg tablet TAKE ONE TABLET BY MOUTH EVERY MORNING PRIOR TO EATING BREAKFAS T +DOSE DECREASE + active Not Available Not Available No t Available levothyro xine 100 mcg tablet TAKE ONE TABLET BY MOUTH EVERY DAY IN THE MORNING 30 MINUTES PRIOR TO EATING active Not Available Not Available No t Available levothyro xine 88 mcg tablet Take 1 tab by mouth daily 06/17 completed dose decrease d to 75mcg on 06/17/23 . Not Available Not Available Not Available lorazepam 0.5 mg tablet TAKE ONE TABLET BY MOUTH EVERY DAY NEEDED 02/03 completed Not Available Not Available Not Available benzonata te 100 mg capsule TAKE ONE CAPSULE BY MOUTH TWICE A DAY NEEDED 11/11 completed Not Available Not Available Not Available paroxetin e 20 mg tablet Take 1 tab by mouth daily. 07/31 completed Has appt on 07/03/16 Not Available Not Available Not Available oxybutyni n chloride ER 5 mg tablet,ex tended release 24 hr TAKE ONE TABLET BY MOUTH EVERY MORNING FOR URINARY INCONTIN ENCE active Not Available Not Available No t Available omeprazol e 20 mg capsule,d elayed release TAKE ONE CAPSULE BY MOUTH EVERY DAY active Not Available Not Available No t Available Synthroid 112 mcg tablet Take 1 tab by mouth daily 2015 active Not Available Not Available Not Avai lable ketoconaz ole 2 % topical cream APPLY TO TOENAILS ONCE DAILY FOR 3 MONTHS 11/11 completed from podiatry Not Available Not Available Not Available sertralin e 50 mg tablet Take 1 tab by mouth daily prescrib ed by Dr. Tere su ([facility]) 07/09 completed Not Available Not Available Not Available doxycycli ne hyclate 100 mg tablet TAKE ONE TABLET BY MOUTH TWICE A DAY 06/16 completed Not Available Not Available Not Available risperido ne 0.5 mg tablet Take 1 tablet by mouth every night with 0.25mg tablet 02/10 completed changed by [facility] provider Not Available Not Available Not Available Ensure one can BID, vanilla is preferre d flavor 05/09 completed Not Available Not Available Not Available Xopenex HFA 45 mcg/actua tion aerosol inhaler Inhale 1-2 puffs by mouth every 4 - 6 hours as needed 05/09 completed Not Available Not Available Not Available quetiapin e 50 mg tablet Take 1 tab by mouth once daily 2016 active Not Available Not Available Not Avai lable calcium carbonate 600 mg-vitami n D3 10 mcg (400 unit) tablet TAKE 1 TABLET BY MOUTH EVERY DAY active Not Available Not Available No t Available omeprazol e 20 mg tablet,de layed release Take 1 tab by mouth daily. 06/16 completed duplicat e RX Not Available Not Available Not Available cholecalc iferol (vitamin D3) 50 mcg (2,000 unit) capsule TAKE 1 CAPSULE BY MOUTH ONCE DAILY active Not Available Not Available No t Available cholecalc iferol (vitamin D3) 50 mcg (2,000 unit) tablet TAKE ONE TABLET BY MOUTH EVERY DAY 06/16 completed Not Available Not Available Not Available Calcium 600 with Vitamin D3 600 mg-12.5 mcg (500 unit) capsule Take 1 capsule by mouth once a day 11/11 completed DUPLICAT E Not Available Not Available Not Available albuterol sulf 90 mcg/actua tion breath activated powder inhaler,s ensor Inhale 2 puffs every 4-6 hours by inhalati on route as needed. active Not Available Not Available No t Available Vitals Date Recorded Body height Body mass index (BMI) Body weight Body temperature Heart rate Respiratory rate Systolic blood pressure Diastolic blood pressure Provider Name and Address Organization Details Last Updated DateTime 3 162.56 cm 16.9 kg/m2 05687.7 7 g 98.2 [degF] 78 /min 14 /min 104 mm[Hg] 64 mm[Hg] TISHA MARIE RN [facility] 3 11:31:38 Date Recorded Body height Body mass index (BMI) Body weight Body temperature Heart rate Respiratory rate Systolic blood pressure Diastolic blood pressure Provider Name and Address Organization Details Last Updated DateTime 4 162.56 cm 16.3 kg/m2 91525.2 8 g 98.2 [degF] 76 /min 14 /min 92 mm[Hg] 50 mm[Hg] TISHA MARIE RN [facility] 4 13:51:53 Date Recorded Body height Body mass index (BMI) Body weight Body temperature Heart rate Respiratory rate Systolic blood pressure Diastolic blood pressure Provider Name and Address Organization Details Last Updated DateTime 4 162.56 cm 16.3 kg/m2 23131.5 6 g 98.2 [degF] 78 /min 16 /min 110 mm[Hg] 60 mm[Hg] TISHA MARIE RN [facility] 4 13:05:09 Social History Question Answer Notes LastModified by Organizat ion Details LastModified Time Tobacco Smoking Status Never Smoker SANJUANITA SPANGLER, [facility] 06/16/2023 11:28:51 What Is Your Level Of Alcohol Consumption? None Information not available 06/16/2023 Do You Use Any Illicit Or Recreational Drugs? No Information not available 06/16/2023 Do You Or Have You Ever Used Any Other Forms Of Tobacco Or Nicotine? No Information not available 11/12/2023 Sex: Female Functional Status None recorded. Mental Status None recorded. Family History Relationship Description Onset Age of this Age Resolved Age Notes Father Family history of ca ncer of colon Mother Family history of se izure disorder Medical History No medical history recorded. Gynecological HistoryNo gynecological history recorded. Obstetrics History GPAL:G 0 P 0 0 0 0 Immunizations Vaccine Type Date Status Provider Name and Address Organization Details Recorded Time Tdap 06/16/2023 completed SANJUANITA SPANGLER [facility] 06/16/2023 17:19:44 Tdap 08/27/2011 completed Not Available [facility] 06:04:44 zoster live 10/25/2012 completed Not Available [facility] 06/05/2023 06:04:44 Influenza, split virus, trivalent, preservative 07/03/2016 completed Not Available [facility] 06/05/2023 06:04:44 Pneumococcal Conjugate, unspecified formulation 10/18/2014 completed Not Available [facility] 06/05/2023 06:04:44 Influenza, split virus, quadrivalent, preservative 04/13/2018 completed Not Available [facility] 06/05/2023 06:04:44 pneumococcal polysaccharide PPV23 09/24/2010 completed Not Available [facility] 2022 06:04:44 influenza, unspecified formulation 05/17/2019 completed Not Available [facility] 06/05/2023 06:04:45 Past Encounters Encounter ID Performer Location Encounter Start Date Encounter Closed Date Diagnosis/Indication Diagnosis SNOMED-CT Code [id number] ADÁN HUFF [facility] [place] [address] 06/16/2023 11:04:49 06/16/2023 12:35:17 Anticoagulant therapy 730292422 Hypothyroidism 46774984 Schizoaffe ctive disorder 32596154 Transient cerebral ischemia 936587519 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 655596457 Patient ne w to provider [id number] Gastroesop hageal reflux disease 243804013 Osteoporosis 75003401 Dysuria 16414586 Low back pain 028174078 Bilateral hearing loss 20236374 Administra tion of diphtheria, pertussis, and tetanus vaccine 003736120 [id number] ADÁN HUFF [facility] [place] [address] 11/12/2023 12:49:40 11/12/2023 15:02:22 Schizoaffective disorder 65898597 Nocturia 644366124 Hypothyroidism 74398627 Urge incon tinence of urine 19255747 Sensorineu ral hearing loss 11022288 [id number] Mali [facility] [place] [address] 02/11/2024 12:45:08 02/11/2024 14:06:48 Hypothyroidism 10126162 Osteoporosis 95313898 Urge incon tinence of urine 37030065 Onychomyco sis of toenails 298418471 Health Concerns Section Related Observation LastModified by Organization Detai ls LastModified Time None Recorded Concern Status LastModified by Organization Details LastModified Time None Recorded Advance Directives Directive None Recorded Payers Encounter Date Sequence Insurance Name Policy Number Policy Murray Covered Member ID Murray Member ID Guarantor Name 06/16/2023 1 [place] [employer] Mayra Elizondo [id number] Mayra Cronin Plue 06/16/2023 2 [facility] (MEDICAID) Mayra Cronin Caro [id number] Mayra Cronin Caro 11/12/2023 1 [place] [employer] Mayra Cronin Plue [id number] Mayra Cronin Plue 11/12/2023 2 [facility] (MEDICAID) Mayra Cronin Caro [id number] Mayra Brenden Caro Notes Date Note Type Note Provider Name and Address Organization Details Recorded Time 06/16/2023 text/html HPI Notes: Gener ic HPI Template Reported by patient. Notes: Mayra is a pleasant 77 year old female here today for an [facility] care get acquainted visit with new PCP. Last time she was seen in this office was 2019. She has been seeing primary care provider in [facility] but hasn't been seen in a year. Last office visit notes, last labs at last office were February 2022. 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 Recent MRI completed in November but they did not hear the results back from the provider there yet apparently missed a phone call. Does not have a follow-up scheduled. She has chronic lumbar spine pain and the tumor was found secondary to work-up for this pain. Initial work-up started at her last PCP office last year. They report that it had been mentioned to get the tumor out via surgery but they wanted to see what the new MRI showed. I reviewed Lumbar spine MRI results with him today. 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 Should be reviewed by neurosurgery. Stable. History of hypothyroidism and currently on 88 mcg levothyroxine. Due for thyroid laboratory. Does have mental health medication for diagnosis of schizoaffective disorder. She has auditory hallucinations. Currently on quetiapine as well as risperidone nightly. Her caregiver feels that this is a good combination for her. They do want to get established with a psychiatric provider for continued management. Her caregiver is her daughter Binta. This is her power of commonwealth attorney. Mayra has a developmental delay as well as dementia. These diagnoses came from her last office visit with primary care provider in [place]. I do not have any mental health visit notes from past mental health facilities. does have history of osteoporosis and currently on L and on rate once weekly as well as vitamin D and calcium. Daughter reports that she has been on this well over 5 years. Last bone density screening was in 2016. Does have history of TIA and is currently only on low-dose baby aspirin.History of GERD and takes omeprazole 20 mg a day. Does complain of dysuria. Is not sure if this is related to urine or vaginal irritation. IVANIA LANCASTER, ADÁN [address], [place], [address], [facility]. 06/16/2023 14:42:48 11/12/2023 text/html HPI Notes: Mayra is here today with her daughter, Binta, who is also her caregiver. Was seen last to establish care with me 06/16/2023. At that time I had placed a referral to audiology for sensorineural hearing loss to get potential new hearing aids. Unfortunately [employer] lost their mannequin maker and they would like referral to a different mannequin maker for assessment. Discussed today that Mayra continues with urge incontinence and she does use urinary incontinence pads. Would like to get these reordered through the same company. Uses 4-5 a day. Size medium. Having a lot of trouble at night time with getting up to pee as well. Has never been on any medication to help with urge incontinence. Has not had a recent urine test or kidney function test. They would be interested in urge incontinence medication if would be helpful. Last office visit I had send her for audiology screening recheck hearing and hearing aids. Last office visit had sent referral back to [facility] [employer] to get reestablished with psychiatrist that she has not seen them for quite some time. does have diagnosis of schizoaffective disorder. Currently taking only quetiapine 25 mg nightly as well as risperidone 0.25 mg. Patient's daughter feels that this could be increased. Issues with sleeping still. But again she is getting up multiple times to pee in the night. Apparently [facility] human services only establish her with a counselor and not a psychiatrist so they never got establishedwith a psychiatric prescriber. IVANIA LANCASTER, ADÁN [address], [place], [address], [facility]. 11/25/2023 14:53:11 OBGyn Episode No OBEpisode recorded.
--- OUTSIDE RECORDS SUMMARY | 2024-02-11 16:43 | XMS_ITS | Encounter Summary ---
Author Organization [facility] Address [address] [place] [address] Care Team Providers Care Tiller Worker Name Role Phone Unavailable Primary Care Provider Unavailabl e Encounter Details Date Type Department Care Team (Latest Contact Info) Description 07/15/2000 14:10 EST Hospital Encounter [facility] - Other [address] [place] [address] Raissa Rashid, ENGINEERING WRITER Unknown, Provider, Discharge Disposition: Auto Discharge Social History Tobacco [...] Priority Date/Time Associated Diagnosis Comments CYTOPATHOLOGY Routine 07/15/2000 0:00 EST documented in this encounter Results * CYTOPATHOLOGY (07/15/2000 0:00 EST) Pathology Report: CYTOPATHOLOGY REPORT Reports generated via electronic interface contain original data; however they are lacking the format of the original report. Caution should be taken when reading/interpreti ng unformatted reports. Name: ? VALERIO LOLITA ? Accession #: ? [id number] : ? 1945 (Age: 55) ??F ?Collect Date: ? 07/15/2000 Location: ? [facility] ? Receive Date: ? 07/17/2000 Provider: ?RAISSA RASHID TRAIN ELECTRONIC TECHNICIAN Copy to: ? Specimen/Source: ?ThinPrep Pap Test, Endocervix Last Menstrual Period: ? Not applicable. Hormonal/Contracep tive Status: ? Premarin and provera ? SPECIMEN ADEQUACY ? Satisfactory for evaluation. GENERAL CATEGORIZATION ? Benign Cellular Changes DESCRIPTIVE DIAGNOSIS ? Predominance of coccobacilli present consistent with shift in vaginal rosario. ? Document reviewed and electronically signed by: ? FOREST Coronel(ASCP) ? Report Date: ??07/17/2000 14:24 End of Report TIA PINEDA 07/15/2000 07/17/2000 Raissa Rashid ENGINEERING WRITER PATHOLOGY ORDERABLES TIA PINEDA [address] [place] [address] documented in this encounter Visit Diagnoses Not on filedocumented in this encounter
--- OUTSIDE RECORDS SUMMARY | 2024-02-11 16:43 | XMS_ITS | Encounter Summary ---
Author Organization [facility] Address [address] [place] [address] Care Team Providers Care Bias Binding Cutter Name Role Phone Unavailable Primary Care Provider Unavailabl e Encounter Details Date Type Department Care Team (Latest Contact Info) Description 04/17/2004 12:14 EDT Hospital Encounter [facility] - Other [address] [place] [address] Raissa Jones, ESOL TEACHER ASSISTANT Discharge Disposition: Auto Discharge Social History Tobacco [...]
--- OUTSIDE RECORDS SUMMARY | 2024-02-11 16:43 | XMS_ITS | Continuity of Care Document ---
Author [facility] [place] [address] Care Team Providers Care Trimmer Press Clippings Name Role Phone [facility] Neurologist [phone] Assessment No assessment recorded. Plan of Treatment Reminders Order Date Submit Date Provider Last Modified By Organization Details Last Modified Time Details Appointments Follow Up 2023 01:00P Brenden LANCASTER Not available Not available Not available Follow Up 2023 12:30P Brenden LANCASTER Not available Not available Not available Lab CBC w/ diff - 1 PST, 1 LAV obtained without issue from (R) 2023 024 [id number] [facility] (Registration ), [address] [place] [address] [place], [address], 11/13/2023 10:19:53 urinalysi s, dipstick 2023 024 [facility], [address], [place], [address], 11/13/2023 10:19:53 TSH + free T4, serum - 1 PST, 1 LAV obtained without issue from (R) 2023 024 [id number] [facility] (Registration ), [address] [place] [address] [place], [address], 11/13/2023 10:19:53 CMP, serum or plasma - 1 PST, 1 LAV obtained without issue from (R) 2023 024 [id number] [facility] (Registration ), [address], [place], [address], 11/13/2023 10:19:53 Referral psychiatr ist referral - NEEDS PSYCHIATR IST, NOT JUST COUNSELOR 2023 024 [facility], [address] [place], [address], 02/05/2024 09:26:[address] referral 2023 024 [facility], [address] [facility], [place], [address], 11/30/2023 16:45:24 Procedures None recorded. Surgeries None recorded. Imaging None recorded. Medication Orders quetiapin e 25 mg tablet 2023 024 [facility], [address] [place], [address], 02/11/2024 13:02:41 risperido ne 0.25 mg tablet 2023 024 [email or web address] [facility], [address] [place], [address], 02/08/2024 15:20:22 oxybutyni n chloride ER 5 mg tablet,ex tended release 24 hr 2023 024 [place] [facility], [address] [place], [address], 11/25/2023 13:37:53 Patient TargetsNo targets recorded. Patient Instructions Encounter Date Encounter Id Patient Instructions Last Modified By Organization Details Last Modified Time 11/12/2023 [id number] Nice to see you today! Labs today for monitoring and possible initiation of medication for urge incontinence. Urine testing today as well. I will call you with results. Continue on all current medications as prescribed. We will check on [facility] psychiatrist referral that we placed back in July. You are established with a counselor there as well as career technical education instructor but no psychiatrist for prescribing. Will let you know what they say on estimate for appointment with them for psychiatrist. We discussed that [facility] with Deanna cole may be able to see you instead if [facility] can't get you in. We will order the durable medical equipment: medium size pull-ups through [employer] for 4-5 pull ups in a 24-hour [...] and medication management Referring Physician: Ivania Lancaster [facility], Encounter Date: 06/16/2023 Director Of Marketing Referral for Bradly ateral hearing loss Referring Physician: Ivania Lancaster [facility], Encounter Date: 06/16/2023 Psychiatrist Referral for Sc hizoaffective disorder NEEDS PSYCHIATRIST, NOT JUST COUNSELOR Referring Physician: Ivania Lancaster [facility], Encounter Date: 11/12/2023 Director Of Marketing Referral for Sen sorineural hearing loss hearing aids in past. want updated hearing exam and hearing aid consult. lost her last pair 1 yr ago Referring Physician: Ivania Lancaster [facility], Encounter Date: 11/12/2023 Rehab Manager Referral for Onyc homycosis of toenails toenail cutting, onychomycosis Referring Physician: Ivania Lancaster [facility], Encounter Date: 02/11/2024 Results Created Date Observation Date Name Description Value Unit Range Abnormal Flag LastModifiedBy Organization Detail LastModifiedTime 11/12/1911/12/2023 urina lysis , dipst ick Leukocytes Negati ve Not Available [facility] [address], [place], [address], 11/12/2023 15:23:50 04/18/20 24 11/12/2023 urina lysis , dipst ick Nitrite negati ve Not Available [facility] [address], [place], [address], 11/12/2023 15:23:50 11/12/19 24 11/12/2023 urina lysis , dipst ick Urobilinogen .2 Not Available [facility] [address], [place], [address], 11/12/2023 15:23:50 11/12/19 24 11/12/2023 urina lysis , dipst ick Protein Trace Not Available [facility] [address], [place], [address], 11/12/2023 15:23:50 11/12/19 24 11/12/2023 urina lysis , dipst ick pH 5.0 Not Available [facility] [address], [place], [address], 11/12/2023 15:23:50 11/12/19 24 11/12/2023 urina lysis , dipst ick Blood Non-He molyze d: Trace Not Available [facility] [address], [place], [address], 11/12/2023 15:23:50 11/12/19 24 11/12/2023 urina lysis , dipst ick Specific [place] 1.020 Not Available [facility] [address], [place], [address], 11/12/2023 15:23:50 11/12/19 24 11/12/2023 urina lysis , dipst ick Ketone Negati ve Not Available [facility] [address], [place], [address], 11/12/2023 15:23:50 11/12/19 24 11/12/2023 urina lysis , dipst ick Bilirubin Negati ve Not Available [facility] [address], [place], [address], 11/12/2023 15:23:50 11/12/19 24 11/12/2023 urina lysis , dipst ick Glucose Negati ve Not Available [facility] [address], [place], [address], 11/12/2023 15:23:50 11/12/19 24 11/12/2023 urina lysis , dipst ick Appearance Slight ly Cloudy Not Available [facility] [address], [place], [address], 11/12/2023 15:23:50 11/12/19 24 11/12/2023 urina lysis , dipst ick Color Pale Yellow Not Available [facility] [address], [place], [address], 11/12/2023 15:23:50 Result Notes None recorded. Problems Name Status Onset Date Resolution Date Notes Provider Name and Address Organization Details Recorded Time Menopause present Completed 201511/12/2023 Problem Code: N95.1; Problem Code Type: ICD-10; Tia Hugo null, [facility]. 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 4 11:52:36 Sensorineural hearing loss Active 2015 Tia Hugo null, [facility] 4 11:54:31 Hypothyroidism Active 2015 Tia Hugo null, [facility] 4 11:49:27 Idiopathic scoliosis Active 2015 Problem Code: M41.20; Problem Code Type: ICD-10; Not Available [facility] 3 05:18:19 Senile osteoporosis Active 2015 Problem Code: M81.0; Problem Code Type: ICD-10; Not Available [facility] 3 05:18:19 Sciatica Active 2015 Problem Code: M54.30; Problem Code Type: ICD-10; Not Available [facility] 3 05:18:19 Major depression, single episode Active 2015 Problem Code: F32.9; Problem Code Type: ICD-10; Not Available [facility] 3 05:18:19 Arthropathy Active 2015 Problem Code: M12.9; Problem Code Type: ICD-10; Not Available [facility] 3 05:18:19 Acute upper respiratory infection Completed 201609/15/2016 Problem Code: J06.9; Problem Code Type: ICD-10; Not Available [facility] 3 05:18:19 Auditory hallucinations Active 2016 Tia Hugo null, [facility]. 4 11:52:16 Schizoaffective disorder Active 2016 Problem Code: F25.9; Problem Code Type: ICD-10; [address], [place], [address] [facility]. 3 11:51:45 Transient cerebral ischemia Active 2018 Tia Hugo null, [facility], [facility]. 4 11:50:19 Incoordination Active 2018 Tia Hugo null, [facility]. 4 11:56:33 Underweight Active 2019 Problem Code: R63.6; Problem Code Type: ICD-10; Not Available [facility] 3 05:18:20 Amnesia Active 2019 Tia Hugo null, [facility], [facility]. 4 11:56:50 Pain in thoracic spine Completed 201503/19/2017 Problem Code: M54.9; Problem Code Type: ICD-10; Not Available [facility] 3 05:18:20 Abnormal weight loss Completed 201601/12/2018 Problem Code: R63.4; Problem Code Type: ICD-10; Not Available [facility] 3 05:18:20 Urinary tract infectious disease Completed 201805/09/2019 Problem Code: N39.0; Problem Code Type: ICD-10; Not Available [facility] 3 05:18:20 Cognitive deficit in communication skills Completed 201506/13/2016 Problem Code: R41.841; Problem Code Type: ICD-10; Not Available [facility] 3 05:18:20 Screening for malignant neoplasm of breast Completed 201608/02/2019 Problem Code: Z12.39; Problem Code Type: ICD-10; Not Available [facility] 3 05:18:20 Screening for malignant neoplasm of colon Completed 201708/02/2019 Problem Code: Z12.11; Problem Code Type: ICD-10; Not Available [facility] 3 05:18:20 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 Completed 201504/22/2023 Problem Code: I69.328; Problem Code Type: ICD-10; Not Available [facility] 3 05:18:20 General unsteadiness Completed 201503/24/2017 Problem Code: R26.81; Problem Code Type: ICD-10; Not Available [facility] 3 05:18:21 Auditory hallucinations Completed 201403/24/2017 Problem Code: R44.0; Problem Code Type: ICD-10; AYAN Nath [facility] 4 11:52:16 Screening for disorder Completed 201805/09/2019 Problem Code: Z13.89; Problem Code Type: ICD-10; Not Available [facility] 3 05:18:21 Stool finding Completed 201503/19/2017 Problem Code: R19.5; Problem Code Type: ICD-10; Not Available [facility] 3 05:18:21 Pain in left lower limb Completed 201503/19/2017 Problem Code: M79.605; Problem Code Type: ICD-10; Not Available [facility] 3 05:18:21 Gastroesophageal reflux disease without esophagitis Active 2022 TISHA MARIE RN [facility], [facility] 3 15:14:39 Nocturia Active [address], [facility] [id number] [place] [address] 4 14:07:06 Urge incontinence of urine Active [address], [facility] [id number] [place] [address] 4 14:13:00 Onychomycosis of toenails Active [address], [facility] [address] [facility] 4 13:35:19 Notes:Some problems listed i n Document: #[id number] could not be added to this patient's chart. Please review this document and add these problems to the patient's chart manually as needed. Problem Notes None recorded. Medical Equipment None Reported. [...] 1 tablet by mouth once a week 07/18/ 2024 active Not Available Not Available Not Avai lable risperido ne 0.25 mg tablet Take 3 tablet by mouth every night at bedtime 2023 active changed by [facility] provider Not Available Not Available Not [...] daily prescrib ed by Dr. Tere su ([facility]) 07/09 completed Not Available Not Available Not Available doxycycli ne hyclate 100 mg tablet TAKE ONE TABLET BY MOUTH TWICE A DAY 06/16 completed Not Available Not Available Not Available risperido ne 0.5 mg tablet Take 1 tablet by mouth every night with 0.25mg tablet 02/10 completed changed by [facility] provider Not Available Not Available Not [...] Updated DateTime 4 162.56 cm 16.3 kg/m2 17095.2 8 g 98.2 [degF] 76 /min 14 /min 92 mm[Hg] 50 mm[Hg] TISHA MARIE RN [facility] 13:51:53 Social History Question Answer Notes LastModified by Organizat ion Details LastModified Time Tobacco Smoking Status Never Smoker SANJUANITA SPANGLER, [facility] 06/16/2023 11:28:51 What Is Your Level Of [...] Details Recorded Time Tdap 06/16/2023 completed SANJUANITA SPANGLER, [facility] 06/16/2023 17:19:44 Tdap 08/27/2011 completed Not Available [facility] 06:04:44 zoster live 10/25/2012 completed Not Available [facility] 06/05/2023 06:04:44 Influenza, split virus, trivalent, preservative 07/03/2016 completed Not Available [facility] 06/05/2023 06:04:44 Pneumococcal Conjugate, unspecified formulation 10/18/2014 completed Not Available [facility] 06/05/2023 06:04:44 Influenza, split virus, quadrivalent, preservative 04/13/2018 completed Not Available [facility] 06/05/2023 06:04:44 pneumococcal polysaccharide PPV23 09/24/2010 completed Not Available [facility] 2022 06:04:44 influenza, unspecified formulation 05/17/2019 completed Not Available [facility] 06/05/2023 06:04:45 Past Encounters Encounter ID Performer Location Encounter Start Date Encounter Closed Date Diagnosis/Indication Diagnosis SNOMED-CT Code [id number] ADÁN HUFF [facility] [address] [place] [address] 11/12/2023 12:49:40 11/12/2023 15:02:22 Schizoaffective disorder 10959823 Nocturia 268272521 Hypothyroidism 17394834 Urge incon tinence of urine 36566786 Sensorineu ral hearing loss 82689867 Health Concerns Section Related Observation LastModified by Organization Detai ls LastModified Time None Recorded Concern Status LastModified by Organization Details LastModified Time None Recorded Payers Encounter Date Sequence Insurance Name Policy Number Policy Murray Covered Member ID Murray Member ID Guarantor Name 11/12/2023 1 [place] [employer] Mayra Elizondo [id number] Mayra Elizondo 11/12/2023 2 [facility] (MEDICAID) Mayra Elizondo [id number] Mayra Elizondo Notes Date Note Type Note Provider Name and Address Organization Details Recorded Time 11/12/2023 text/html HPI Notes: Mayra is here today with her daughter, Binta, who is also her caregiver. Was seen last to establish care with me 06/16/2023. At that time I had placed a referral to audiology for sensorineural hearing loss to get potential new hearing aids. Unfortunately [facility] lost their assistant designer and they would like referral to a different assistant designer for assessment. Discussed today that Mayra continues [...] office visit had sent referral back to [facility] to get reestablished with psychiatrist that she has not seen them for quite some time. does have diagnosis of schizoaffective disorder. Currently taking only quetiapine 25 mg nightly as well as risperidone 0.25 mg. Patient's daughter feels that this could be increased. Issues with sleeping still. But again she is getting up multiple times to pee in the night. Apparently [facility] only establish her with a counselor and not a psychiatrist so they never got establishedwith a psychiatric prescriber. IVANIA LANCASTER, [address], [place], [address], [facility]. 11/25/2023 14:53:11 OBGyn Episode No OBEpisode recorded.
--- OUTSIDE RECORDS SUMMARY | 2024-02-11 16:43 | XMS_ITS | Encounter Summary ---
Author Organization [facility] Address [address] [place] [address] Care Team Providers Care Sql Manager Name Role Phone Unavailable Primary Care Provider Unavailabl e Encounter Details Date Type Department Care Team (Latest Contact Info) Description 06/30/2001 14:24 EST Hospital Encounter [facility] - Other [address] [place] [address] Raissa Rashid, COMMUNITY COORDINATOR Unknown, Provider, Discharge Disposition: Auto Discharge Social [...] Priority Date/Time Associated Diagnosis Comments CYTOPATHOLOGY Routine 06/30/2001 0:00 EST documented in this encounter Results * CYTOPATHOLOGY (06/30/2001 0:00 EST) Pathology Report: CYTOPATHOLOGY REPORT Reports generated via electronic interface contain original data; however they are lacking the format of the original report. Caution should be taken when reading/interpreti ng unformatted reports. Name: ? VALERIO LOLITA ? Accession #: ? [id number] : ? 1945 (Age: 55) ??F ?Collect Date: ? 06/30/2001 Location: ? [facility] ? Receive Date: ? 07/02/2001 Provider: ?RAISSA RASHID SHUTTLE PREPARATION SUPERVISOR Copy to: ? Specimen/Source: ?ThinPrep Pap Test, Source Not Provided Last Menstrual Period: ? SPECIMEN ADEQUACY ? Satisfactory for evaluation. GENERAL CATEGORIZATION ? Benign Cellular Changes DESCRIPTIVE DIAGNOSIS ? Predominance of coccobacilli present consistent with shift in vaginal rosario. ? Document reviewed and electronically signed by: ? Michelle Guzman, FOREST(ASCP)(IAC) ? Report Date: ??07/07/2001 09:36 End of Report TIA PINEDA 06/30/2001 07/02/2001 Raissa Rashid COMMUNITY COORDINATOR PATHOLOGY ORDERABLES TIA PINEDA [address] [place] [address] documented in this encounter Visit Diagnoses Not on filedocumented in this encounter
--- OUTSIDE RECORDS SUMMARY | 2024-02-11 16:43 | XMS_ITS | Encounter Summary ---
Author Organization [facility] Address [address] [place] [address] Care Team Providers Care Certified Rehabilitation Counselor Name Role Phone Unavailable Primary Care Provider Unavailabl e Encounter Details Date Type Department Care Team (Latest Contact Info) Description 05/31/1999 16:36 EST Hospital Encounter [facility] - Other [address] [place] [address] Raissa Jones, RED MUD THICKENER OPERATOR Unknown, Provider, Discharge Disposition: Auto Discharge Social [...]
--- OUTSIDE RECORDS SUMMARY | 2024-02-11 16:43 | XMS_ITS | Encounter Summary ---
Author Organization [facility] Address [address] [place] [address] Care Team Providers Care Company Accountant Name Role Phone Unavailable Primary Care Provider Unavailabl e Encounter Details Date Type Department Care Team (Latest Contact Info) Description 09/30/2002 14:19 EST Hospital Encounter [facility] - Other [address] [place] [address] Raissa Rashid, THREE DIMENSIONAL ART INSTRUCTOR Unknown, Provider, Discharge Disposition: Auto Discharge Social [...] Priority Date/Time Associated Diagnosis Comments CYTOPATHOLOGY Routine 09/30/2002 0:00 EST documented in this encounter Results * CYTOPATHOLOGY (09/30/2002 0:00 EST) Pathology Report: CYTOPATHOLOGY REPORT Reports generated via electronic interface contain original data; however they are lacking the format of the original report. Caution should be taken when reading/interpreti ng unformatted reports. Name: ? VALERIO LOLITA ? Accession #: ? [id number] : ? 1945 (Age: 57) ??F ?Collect Date: ? 09/30/2002 Location: ? [facility] ? Receive Date: ? 10/03/2002 Provider: ?RAISSA RASHID BASIN CLEANER Copy to: ? Specimen/Source: ?ThinPrep Pap Test, Endocervix Last Menstrual Period: ? SPECIMEN ADEQUACY ? Satisfactory for Evaluation - transformation zone component present GENERAL CATEGORIZATION ? Negative for Intraepithelial Lesion or Malignancy INTERPRETATION ? Reactive cellular changes associated with inflammation present (includes repair). ? Document reviewed and electronically signed by: ? MARICRUZ CUNHA MD ? Report Date: ??10/05/2002 12:56 End of Report TIA PINEDA 09/30/2002 10/03/2002 Raissa Rashid THREE DIMENSIONAL ART INSTRUCTOR PATHOLOGY ORDERABLES TIA PINEDA [address] [place] [address] documented in this encounter Visit Diagnoses Not on filedocumented in this encounter
[2024-02-11 18:01] LABS: ALT 15 U/L (14-59); AST 25 U/L (15-37); Albumin 3.4 g/dL (3.4-5.0); Alkaline Phosphatase 80 U/L (46-116); Anion Gap 7.6 mmol/L (3-11); BUN 19 mg/dL (7-18); Bilirubin, Total 0.38 mg/dL (0.2-1.0); CO2 28.4 mmol/L (21.0-32.0); CREATININE 1.1 mg/dL (0.55-1.02); Calcium 8.9 mg/dL (8.5-10.1); Chloride 108 mmol/L (98-107); Estimated GFR 51.11 (mL/min/1.73m2); FREE T4 1.72 ng/dL (0.76-1.46); Glucose 117 mg/dL (74-106); Potassium 3.9 mmol/L (3.5-5.1); Sodium 144 mmol/L (136-145); TSH 0.18 uIU/Ml (0.36-3.74); Total Protein 6.4 g/dL (6.4-8.2)
== END 2024-02-11 16:41 | disposition home or self-care (01) ==
LOC: NCHCN 16:40
PROVIDERS: Visit Provider Nurse Practitioner Family
DX: E03.9 Hypothyroidism, unspecified (principal); N39.41 Urge incontinence
CPT/HCPCS: 80053; 84439; 84443

== ENCOUNTER → 2024-03-03 01:15 | Outpatient (CLI) | payer MEDICARE, MEDICAID, SELFPAY ==
--- NOTE | 2024-03-03 | DI.DEXA_ITS ---
Exam(s) XR DEXA BONE DENSITY W/WO TIERNEY EXAM: XR DEXA BONE DENSITY W/WO TIERNEY CLINICAL HISTORY: OSTEOPOROSIS, M85.88 TECHNIQUE: Hologic Horizon C densitometer analysis of left hip, lumbar spine and left forearm. Lat eral survey image of the thoracic and lumbar spine. COMPARISON: DX DEXA BONE DENSITY WITH TIERNEY from 07/15/2016 CR CHEST 2 VIEWS PA,LAT from 06/15/2017 CR,XR XR CHEST 2V PA LATERAL from 09/24/[address] CHEST PE CTA from 07/29/2023 CR XR PORTABLE CHEST AP from 07/29/2023 FINDINGS: Lateral view of the thoracic and lumbar spine shows a mild to moderate compression fracture of L2. T his appears to have been present on the prior chest x-ray from 2017. The thoracic vertebral bodies a re suboptimally profiled due to scoliosis. Bone mineral density measurements of the lumbar spine correspond to a total T-score of -1.5, in the osteopenic range. There are significant endplate degenerative changes with prominent endplate osteop hytes which likely elevate the bone mineral density measurements. Bone mineral density measurements of the left hip correspond to a total T-score of -3.1 greater this represents a 10.4 percent decrease from 2016.. The femoral neck T-score is -3.1, in the osteoporo tic range. Theleft forearm bone mineral density measurements correspond to a T-score of the distal 3rd of -5.2, in the osteoporotic range. This represents a 20.5 percent decrease from 2016. IMPRESSION: Osteoporosis of the hip and forearm. Osteopenia of the spine.
--- OUTSIDE RECORDS SUMMARY | 2024-03-03 01:20 | XMS_ITS | Encounter Summary ---
Author Organization [facility] Address [address] [place] [address] Care Team Providers Care Head Lineman Name Role Phone Unknown, Provider Primary Care Provider Encounter Details Date Type Department Care Team (Late st Contact Info) Description 04/12/[address] [facility] Radiology Results [address] [place], [place] [address] Jorge Morillo MD [address] [place] [address] [address] [place] [address] Social History Tobacco Use Types [...] 13:1 6 EDT Narrative 04/12/2015 19:05 EDT [facility] [address] [place], [place] [address] Diagnostic Imaging Report Signed Patient Name:LOLITA ELIZONDO ? Date of :1945 ? MR Number:[id number] Age:69 ?Sex:F Category: RF ? Date of [...] Allyson Estrada ? D/ 04 Transcribed by: VANSESA ? D/ 28 E-Signed by: <Electronically signed by Allyson Estrada ??MD> ? D/ 3 Procedure Note Steven Estrada MD - 04/27/2019 [place] [id number] Diagnostic Imaging Report Signed Patient Name:LOLITA ELIZONDO Number:[id number] Date of :1945 MRNumber:[id number] Age:69 Sex:F Category: RF Date ofExam:04/12/15 Procedure: RF: Barium Swallow- ModifiedAccession: [id number] Ordering Physician: Jorge Bonilla MD CC: Jorge [...] on filedocumented in this encounter Care Teams Head Lineman Relationship Specialty Start Date End Date Unknown, Provider, PCP - General 02/22/14 documented as of this encounter
--- OUTSIDE RECORDS SUMMARY | 2024-03-03 01:20 | XMS_ITS | Referral Summary ---
Author Organization [facility] Address [address] [place] [address] Care Team Providers Care Chopper Feeder Name Role Phone Unknown, Provider Primary Care Provider [phone] Social History Tobacco Use Types Packs/Day Years Used Date Smoking Tobacco: Never Assessed Sex and Gender Information Value Date Recorded Sex Assigned at Not on file Gender Identity Not on file Sexual Orientation Not on file Plan of Treatment Not on file Care Teams Chopper Feeder Relationship Specialty Start Date End Date Unknown, Provider, PCP - General 02/22/14
--- OUTSIDE RECORDS SUMMARY | 2024-03-03 01:20 | XMS_ITS | Clinical Summary ---
Author Organization [facility] Address [address] [place] [address] Care Team Providers Care Insurance Sales Assistant Name Role Phone Unknown, Provider Primary Care [...] COVID-19 Vaccine (2022-24 season) 2023 Care Teams Insurance Sales Assistant Relationship Specialty Start Date End Date Unknown, Provider, PCP - General 02/22/14
--- OUTSIDE RECORDS SUMMARY | 2024-03-03 01:20 | XMS_ITS | Encounter Summary ---
Author Organization [facility] Address [address] [place] [address] Care Team Providers Care Land Acquisition Manager Name Role Phone Unknown, Provider Primary Care Provider [phone] Encounter Details Date Type Department Care Team (Late st Contact Info) Description 09/12/2015 Results Only [facility] [phone] Jorge Morillo MD [address] [place] [address] [address] [place] [address] Social History Tobacco Use Types [...] ? SANDRA ELIZONDOA ? Accession #: ? [id number] ? : ? 1945 (Age: 70) ??F ? Collect Date: ? 09/12/2015 ? [facility] ? Receive Date: ? 09/13/2015 ? [...] 8:56 AM End of Report [facility] 09/12/2015 16:3 8 EST 09/13/2015 16:38 EST Jorge Morillo MD PATHOLO GY ORDERABLES [facility] [address] [place] [address] documented in this encounter Visit Diagnoses Not on filedocumented in this encounter Care Teams Land Acquisition Manager Relationship Specialty Start Date End Date Unknown, Provider, PCP - General 02/22/14 documented as of this encounter
--- OUTSIDE RECORDS SUMMARY | 2024-03-03 01:20 | XMS_ITS | Encounter Summary ---
Author Organization [facility] Address [address] [place] [address] Care Team Providers Care Hostess Party Sales Representative Name Role Phone Unknown, Provider Primary Care Provider [phone] Encounter Details Date Type Department Care Team (Latest Contact Info) Description 09/12/2015 7:01 EST - 09/12/2015 23:59 EST Hospital Encounter [address] [address] Unknown, Provider, Discharge Disposition: Home or Self Care Social History Tobacco Use Types Packs/Day Years Used Date Smoking Tobacco: Never Assessed Sex and Gender Information Value Date Recorded Sex Assigned at Not on file Gender Identity Not on file Sexual Orientation Not on file documented as of this encounter Discharge Disposition Disposition Code Departure Means Destination Home or Self [facility] documented in this encounter Plan of Treatment Not on file documented as of this encounter Visit Diagnoses Not on filedocumented in this encounter Care Teams Hostess Party Sales Representative Relationship Specialty Start Date End Date Unknown, Provider, PCP - General 02/22/14 documented as of this encounter
--- OUTSIDE RECORDS SUMMARY | 2024-03-03 01:21 | XMS_ITS | Encounter Summary ---
Author Organization [facility] Address [address] [place] [address] Care Team Providers Care Director Of Procurement Name Role Phone Unavailable Primary Care Provider Unavailabl e Encounter Details Date Type Department Care Team (Late st Contact Info) Description 04/15/2005 17:30 EDT Hospital Encounter [facility] - Other [address] [place] [address] Raissa Jones, VANDANA Social History Tobacco Use [...] GA S ORDERABLES [facility] [address] [place] [address] documented in this encounter Visit Diagnoses Not on filedocumented in this encounter
--- OUTSIDE RECORDS SUMMARY | 2024-03-03 01:21 | XMS_ITS | Encounter Summary ---
Author Organization [facility] Address [address] [place] [address] Care Team Providers Care Turkey Boner Name Role Phone Unknown, Provider Primary Care Provider Encounter Details Date Type Department Care Team (Late st Contact Info) Description 06/11/2014 Historical Results Only [facility] Radiology Results [address] [place] [id number] Darnell Obando MD [address] [place] [address] Social History Tobacco Use Types [...] 10:3 5 EST Narrative 06/11/2014 19:36 EST [facility] [address] [place], [place] [address] Diagnostic Imaging Report Signed Patient Name:LOLITA ELIZONDO ? Date of :1945 ? MR Number:[id number] Age:68 ?Sex:F Category: CR ? Date of [...] Procedure Note Carl Matute MD - 04/26/2019 [place] [id number] Diagnostic Imaging Report Signed Patient Name:LOLITA ELIZONDO Number:[id number] Date of :1945 MRNumber:[id number] Age:68 Sex:F Category: CR Date ofExam:06/11/14 Procedure: CR: Acute Abdomen w/PA ChestAccession: [id number] Ordering Physician: Darnell Obando MD CC: Jorge [...] on filedocumented in this encounter Care Teams Turkey Boner Relationship Specialty Start Date End Date Unknown, Provider, PCP - General 02/22/14 documented as of this encounter
--- OUTSIDE RECORDS SUMMARY | 2024-03-03 01:21 | XMS_ITS | Encounter Summary ---
Author Organization [facility] Address [address] [place] [address] Care Team Providers Care Data Collection Technician Name Role Phone Unavailable Primary Care Provider Unavailabl e Encounter Details Date Type Department Care Team (Latest Contact Info) Description 07/15/2000 14:10 EST Hospital Encounter [facility] - Other [address] [place] [address] Raissa Rashid, JAVA DEVELOPER WITH SECURITY CLEARANCE Unknown, Provider, Discharge Disposition: Auto Discharge Social [...] ? VALERIO LOLITA ? Accession #: ? [id number] : ? 1945 (Age: 55) ??F ?Collect Date: ? 07/15/2000 Location: ? [facility] ? Receive Date: ? 07/17/2000 Provider: ?RAISSA RASHID CITY DRIVER Copy to: ? Specimen/Source: ?ThinPrep Pap Test, [...] Report [facility] 07/15/2000 07/17/2000 Raissa Rashid JAVA DEVELOPER WITH SECURITY CLEARANCE PATHOLOGY ORDERABLES [facility] [address] [place] [address] documented in this encounter Visit Diagnoses Not on filedocumented in this encounter
--- OUTSIDE RECORDS SUMMARY | 2024-03-03 01:21 | XMS_ITS | Encounter Summary ---
Author Organization [facility] Address [address] [place] [address] Care Team Providers Care Medical Staff Credentialing Coordinator Name Role Phone Unavailable Primary Care Provider Unavailabl e Encounter Details Date Type Department Care Team (Late st Contact Info) Description 09/10/2005 Results Only [facility] [place] conversion [address] [place] [address] Tori Hernandez MD Social History Tobacco Use [...] ? LOLITA ELIZONDO ? Accession #: ? [id number] ? : ? 1945 (Age: 60) ??F ? Collect Date: ? 09/10/2005 ? Location: ? [facility] ? Receive Date: ? 09/10/2005 ? Provider: TORI HERNANDEZ MD Copy to: TY RASHID [facility] JACINTA WHITE MD ? Final Pathologic [...] MD PATHOLOGY ORDERABLES [facility] [address] [place] [address] documented in this encounter Visit Diagnoses Not on filedocumented in this encounter
--- OUTSIDE RECORDS SUMMARY | 2024-03-03 01:21 | XMS_ITS | Encounter Summary ---
Author Organization [facility] Address [address] [place] [address] Care Team Providers Care Icd 9 Coder Name Role Phone Unknown, Provider Primary Care Provider [phone] Encounter Details Date Type Department Care Team (Late st Contact Info) Description 03/05/2015 Historical Results Only [facility] Radiology Results [address] [place], [place] [id number] Jorge Morillo MD [address] [place] [address] [address] [place] [address] Social History Tobacco Use Types [...] 03/06/2015 8:[address] [facility] [address] [place], [place] [address] Diagnostic Imaging Report Signed Patient Name:LOLITA ELIZONDO ? Date of :1945 ? MR Number:[id number] Age:69 ?Sex:F Category: MG ? Date of [...] Procedure Note Steven Estrada MD - 04/26/2019 [place] [id number] Diagnostic Imaging Report Signed Patient Name:LOLITA ELIZONDO Number:[id number] Date of :1945 MRNumber:[id number] Age:69 Sex:F Category: MG Date ofExam:03/05/15 Procedure: MG: Mammo, Bilat scr w/tomoAccession: [id number] Ordering Physician: Jorge Bonilla MD CC: Jorge [...] Allyson Estrada MD>D/ 1233 [facility] documented in this encounter Visit Diagnoses Not on filedocumented in this encounter Care Teams Icd 9 Coder Relationship Specialty Start Date End Date Unknown, Provider, PCP - General 02/22/14 documented as of this encounter
--- OUTSIDE RECORDS SUMMARY | 2024-03-03 01:21 | XMS_ITS | Encounter Summary ---
Author Organization [facility] Address [address] [place] [address] Care Team Providers Care Fire Protection Designer Name Role Phone Unavailable Primary Care Provider Unavailabl e Encounter Details Date Type Department Care Team (Late st Contact Info) Description 04/20/2007 Results Only [facility] [address] [place] [address] Raissa Rashid NP Social History Tobacco Use [...] ? LOLITA LUO ? Accession #: ? [id number] : ? 1945 (Age: 61) ??F ?Collect Date: ? 04/20/2007 Location: ? [facility] ? Receive Date: ? 04/21/2007 Provider: ?RAISSA RASHID HEALTHCARE SALES REPRESENTATIVE Copy to: ? Specimen/Source: ?ThinPrep Pap Test, Cervix, processed on [employer] ThinPrep Imaging System, with manual evaluation Last Menstrual Period: ? SPECIMEN ADEQUACY ? Satisfactory for Evaluation - transformation zone component present GENERAL CATEGORIZATION ? Negative for Intraepithelial Lesion or Malignancy ? Document reviewed and electronically signed by: ? JAX Sands(ASCP) ? Report Date: ??04/27/2007 10:58 End of Report [facility] 04/20/2007 04/21/2007 Raissa Rashid CLAIMS AGENT RIGHT OF WAY PATHOLOGY ORDERABLES [facility] [address] [place] [address] documented in this encounter Visit Diagnoses Not on filedocumented in this encounter
--- OUTSIDE RECORDS SUMMARY | 2024-03-03 01:21 | XMS_ITS | Continuity of Care Document ---
Author Organization [facility] [place] [address] Care Team Providers Care Sugar Trucker Name Role Phone [facility] Neurologist Assessment No assessment recorded. Plan of Treatment Reminders Order Date Submit Date Provider Last Modified By Organization Details Last Modified Time Details Appointments Follow Up 30 2023 12:30P M MONIKA WALSH Not available Not available Not available Lab TSH + free T4, serum - 1 PST obtained without issue [email or web address] [facility] (Registration ), [address] [place] [address] [place], [address], 02/12/2024 15:44:58 CMP, serum or plasma - 1 PST obtained without issue [address] [facility] (Registration ), [address] [place] [address] [place], [address], 02/11/2024 18:09:39 Referral podiatris t referral 2023 024 [facility], [address] [place] [address] [place], [address], 02/15/2024 14:10:35 Procedures None recorded. Surgeries None recorded. Imaging bone density 2023 024 [email or web address] [facility], [address], [place], [address], 02/18/2024 09:54:37 Medication Orders alendrona te 70 mg tablet 2023 024 [email or web address] [facility], [address] [place], [address], 02/11/2024 14:20:14 Patient TargetsNo targets recorded. Patient Instructions Encounter Date Encounter Id Patient Instructions Last Modified By Organization Details Last Modified Time 02/11/2024 [id number] Nice to see you today! we will get your labs and I will call you with results talked about if kidney function good, would have less incontinence if we increase the ER to 10mg oxybutynin will let you know continue with [facility] provider, Seeker, telehealth continue same medication dosings continue with counselor weekly counselor on zoom with [facility] as you have been. I will reorder the dexa scan for osteoporosis monitoring on the alendonerate Not available 02/11/2024 14:03:36 Reason for Referral Psychiatrist Referral for Sc hizoaffective disorder schizoaffective disorder, depression, auditory hallucinations, needs psychiatrist and medication management Referring Physician: [facility], Encounter Date: 06/16/2023 Second Butler Referral for Bradly ateral hearing loss Referring Physician: [facility], Encounter Date: 06/16/2023 Psychiatrist Referral for Sc hizoaffective disorder NEEDS PSYCHIATRIST, NOT JUST COUNSELOR Referring Physician: Family Dakotah Herrmann, Encounter Date: 11/12/2023 Second Butler Referral for Sen sorineural hearing loss hearing aids in past. want updated hearing exam and hearing aid consult. lost her last pair 1 yr ago Referring Physician: Family Dakotah Herrmann, Encounter Date: 11/12/2023 Reel Winder Referral for Onyc homycosis of toenails toenail cutting, onychomycosis Referring Physician: Family Dakotah Herrmann, Encounter Date: 02/11/2024 Problems Name Status Onset Date Resolution Date Notes Provider Name and Address Organization Details Recorded Time Menopause present Completed 201511/12/2023 Problem Code: N95.1; Problem Code Type: ICD-10; Tia Hugo null, [place] - [facility] 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 2015 Tia Hugo null, [facility] 4 11:52:36 Sensorineural hearing loss Active 2015 Tia Hugo null, [facility] 4 11:54:31 Hypothyroidism Active 2015 [facility] Hugo null, [facility] 4 11:49:27 Idiopathic scoliosis Active 2015 Problem Code: M41.20; Problem Code Type: ICD-10; [address], [place] [address] , [facility] 4 14:14:56 Senile osteoporosis Active 2015 Problem Code: M81.0; Problem Code Type: ICD-10; AD[address], [place] [id number] 4 14:14:42 Sciatica Active 2015 Problem Code: M54.30; Problem Code Type: ICD-10; AD[address] Dr, [facility] [address] 4 14:14:44 Major depression, single episode Active 2015 Problem Code: F32.9; Problem Code Type: ICD-10; AD[address], [facility] [address] [place] [address] 4 14:14:54 Arthropathy Active 2015 Problem Code: M12.9; Problem Code Type: ICD-10; [address], [place], [address] , [facility] 4 14:14:59 Acute upper respiratory infection Completed 201609/15/2016 Problem Code: J06.9; Problem Code Type: ICD-10; Not Available [facility] 3 05:18:19 Auditory hallucinations Active 2016 Tia Hugo null, [facility]. 4 11:52:16 Schizoaffective disorder Active 2016 Problem Code: F25.9; Problem Code Type: ICD-10; [address], [facility] [address] [place] [address] 3 11:51:45 Transient cerebral ischemia Active 2018 Tia Hugo null, [facility]. 4 11:50:19 Incoordination Active 2018 Tia Hugo null, [facility]. 4 11:56:33 Underweight Active 2019 Problem Code: R63.6; Problem Code Type: ICD-10; AD[address], [facility] [address] [place] [address] 4 14:14:40 Amnesia Active 2019 Tia Hugo null, [facility]. 4 11:56:50 Pain in thoracic spine Completed 201503/19/2017 Problem Code: M54.9; Problem Code Type: ICD-10; Not Available [facility] 3 05:18:20 Abnormal weight loss Completed 201601/12/2018 Problem Code: R63.4; Problem Code Type: ICD-10; Not Available [facility] 3 05:18:20 Urinary tract infectious disease Completed 201805/09/2019 Problem Code: N39.0; Problem Code Type: ICD-10; Not Available [facility] 3 05:18:20 Cognitive deficit in communication skills Completed 201506/13/2016 Problem Code: R41.841; Problem Code Type: ICD-10; Not Available [facility] 3 05:18:20 Screening for malignant neoplasm of breast Completed 201608/02/2019 Problem Code: Z12.39; Problem Code Type: ICD-10; Not Available [facility] 3 05:18:20 Screening for malignant neoplasm of colon Completed 201708/02/2019 Problem Code: Z12.11; Problem Code Type: ICD-10; Not Available [facility] 3 05:18:20 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 4 11:52:16 Screening for disorder Completed 201805/09/2019 Problem Code: Z13.89; Problem Code Type: ICD-10; Not Available [facility] 3 05:18:21 Stool finding Completed 201503/19/2017 Problem Code: R19.5; Problem Code Type: ICD-10; Not Available [facility] 3 05:18:21 Pain in left lower limb Completed 201503/19/2017 Problem Code: M79.605; Problem Code Type: ICD-10; Not Available [facility] 3 05:18:21 Gastroesophagea l reflux disease without esophagitis Active 2022 SANJUANITA SPANGLER, [facility]. 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 sees [facility] neurosurger y. planned MRI repeat for management January [address], [place], [address] , [facility] 4 11:18:57 Low back pain Active [address], [facility] [address] , [facility] 4 11:16:28 Unsteady when walking Active [address], [facility] [address] , [facility] 4 11:16:42 Notes:Some problems listed i n Document: #[id number] could not be added to this patient's [...] completed Not Available Not Available Not Available oxybutyni n chloride ER 10 mg tablet,ex tended release 24 hr Take 1 tablet every day by oral route in the morning, for urinary incontin ence. active Not Available Not Available No t Available aspirin 325 mg tablet TAKE ONE TABLET BY MOUTH EVERY DAY 10/11 completed Not Available Not Available Not Available alendrona te 70 mg tablet Take 1 tablet by mouth once a week active Not Available Not Available No t Available risperido ne 0.25 mg tablet Take 3 tablet by mouth every night at bedtime 2023 active changed by [facility] provider Not Available Not Available Not [...] THE MORNING 30 MINUTES PRIOR TO EATING 02/11 completed Not Available Not Available Not Available levothyro xine 88 mcg tablet Take 1 tab by mouth daily in the morning 30 minutes prior to eating anything for hypothyr oidism active Not Available Not Available No t Available lorazepam 0.5 mg tablet TAKE ONE [...] MOUTH EVERY MORNING FOR URINARY INCONTIN ENCE 02/11 completed Not Available Not Available Not Available omeprazol e 20 mg capsule,d elayed [...] daily prescrib ed by Dr. Tere su ([facility]) 07/09 completed Not Available Not Available Not Available doxycycli ne hyclate 100 mg tablet TAKE ONE TABLET BY MOUTH TWICE A DAY 06/16 completed Not Available Not Available Not Available risperido ne 0.5 mg tablet Take 1 tablet by mouth every night with 0.25mg tablet 02/10 completed changed by [facility] provider Not Available Not Available Not [...] Updated DateTime 4 162.56 cm 16.3 kg/m2 23069.5 6 g 98.2 [degF] 78 /min 16 /min 110 mm[Hg] 60 mm[Hg] TISHA MARIE RN [facility] 4 13:05:09 Social History Question Answer Notes LastModified by Organizat ion Details LastModified Time Tobacco Smoking Status Never Smoker SANJUANITA SPANGLER, [facility] 06/16/2023 11:28:51 What Is Your Level Of [...] Recorded Time Tdap 06/16/2023 completed SANJUANITA SPANGLER, [facility] 06/16/2023 17:19:44 Tdap 08/27/2011 completed Not Available [facility] 06:04:44 zoster live 10/25/2012 completed Not Available [facility] 06/05/2023 06:04:44 Influenza, split virus, trivalent, preservative 07/03/2016 completed Not Available [facility] 06/05/2023 06:04:44 Pneumococcal Conjugate, unspecified formulation 10/18/2014 completed Not Available [facility] 06/05/2023 06:04:44 Influenza, split virus, quadrivalent, preservative 04/13/2018 completed Not Available [facility] 06/05/2023 06:04:44 pneumococcal polysaccharide PPV23 09/24/2010 completed Not Available [facility] 2022 06:04:44 influenza, unspecified formulation 05/17/2019 completed Not Available [facility] 06/05/2023 06:04:45 Past Encounters Encounter ID Performer Location Encounter Start Date Encounter Closed Date Diagnosis/Indication Diagnosis SNOMED-CT Code [id number] ADÁN HERRMANN [address] [place] [address] 02/11/2024 12:45:08 02/11/2024 14:06:48 Hypothyroidism 74884306 Osteoporosis 66987852 Urge incon tinence of urine 39753379 Onychomyco sis of toenails 667136777 Schizoaffe ctive disorder 80860494 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 639598387 Unsteady when walking 22 100111 Health Concerns Section Related Observation LastModified by Organization Detai ls LastModified Time None Recorded Concern Status LastModified by Organization Details LastModified Time None Recorded Payers Encounter Date Sequence Insurance Name Policy Number Policy Murray Covered Member ID Murray Member ID Guarantor Name 02/11/2024 1 [place] [employer] Mayra Elizondo [id number] Mayra Elizondo 02/11/2024 2 [facility] (MEDICAID) Mayra Elizondo [id number] Mayra Elizondo Notes Date Note Type Note Provider Name and Address Organization Details Recorded Time 02/11/2024 text/html HPI Notes: Mayra is a pleasant 78 year old female here today for a 3 month follow up: hypothyroidism (recheck TSH today), psych referral (re-sent 11/11, seeing Dr. Albert now), nocturia, audiology referral (sent 11/11, pt daughter Binta says they never called from [facility]). Did not get DEXA scan scheduled - will need new order today. ??? Daughter reports that Mayra is unsteady with her gait even though she is completing physical therapy for her lower back pain. 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 Continues to have back pain and also osteoporosis. Continues to see [facility] neurosurgery for management and follow-up MRI scheduled January or February for lower back. Reports that the oxybutynin 5 mg has helped with urinary urge incontinence but they never received DME order for incontinence pull-ups. We did order these back in October. Will order again for family. Says they never heard from the company active style. Daughter says she is doing well with no longer hearing voices as she is now on Risperdal and Seroquel at night. Does not take anything during the day. Feels she is too sedated if she takes these things during the day. Denies abdominal pain, flank pain, blood in urine, dysuria, poor sleep, chest pain, chest tightness, headaches, vision changes, edema MONIKA WALSH, CLEAR COAT SPRAYER [address], [place], [address], [place] - [facility]. 02/15/2024 11:26:46 OBGyn Episode No OBEpisode recorded.
--- OUTSIDE RECORDS SUMMARY | 2024-03-03 01:21 | XMS_ITS | Encounter Summary ---
Author Organization [facility] Address [address] [place] [address] Care Team Providers Care Health Insurance Specialist Name Role Phone Unavailable Primary Care Provider Unavailabl e Encounter Details Date Type Department Care Team (Late st Contact Info) Description 04/07/2006 Results Only [facility] conversion [address] [place] [address] Raissa Rashid NP Social History Tobacco Use [...] ? LOLITA LUO ? Accession #: ? [id number] : ? 1945 (Age: 60) ??F ?Collect Date: ? 04/07/2006 Location: ? [facility] ? Receive Date: ? 04/08/2006 Provider: ?RAISSA RASHID CAKE STRIPPER Copy to: ? Specimen/Source: ?ThinPrep Pap Test, Endocervix, processed on [employer] ThinPrep Imaging System, with manual evaluation Last Menstrual Period: ? SPECIMEN ADEQUACY ? Satisfactory for Evaluation - transformation zone component present GENERAL CATEGORIZATION ? Negative for Intraepithelial Lesion or Malignancy ? Document reviewed and electronically signed by: ? JAX Sands(ASCP) ? Report Date: ??04/10/2006 15:09 End of Report TIA PINEDA 04/07/2006 04/08/2006 Raissa Rashid THREAD GRINDER PATHOLOGY ORDERABLES [facility] [address] [place] [address] documented in this encounter Visit Diagnoses Not on filedocumented in this encounter
--- OUTSIDE RECORDS SUMMARY | 2024-03-03 01:21 | XMS_ITS | Encounter Summary ---
Author Organization [facility] Address [address] [place] [address] Care Team Providers Care Finishing Machine Tender Name Role Phone Unavailable Primary Care Provider Unavailabl e Encounter Details Date Type Department Care Team (Latest Contact Info) Description 04/20/2007 15:03 EDT Hospital Encounter [facility] - Other [address] [place] [address] Raissa Jones NP Discharge Disposition: Auto Discharge [...] ? PLRAZA, LOLITA ? Accession #: ? [id number] ? : ? 1945 (Age: 62) ??F [...] PATHOLOGY ORDERABL ES [facility] [address] [place] [address] documented in this encounter Visit Diagnoses Not on filedocumented in this encounter
--- OUTSIDE RECORDS SUMMARY | 2024-03-03 01:21 | XMS_ITS | Encounter Summary ---
Author Organization [facility] Address [address] [place] [address] Care Team Providers Care Respiratory Care Specialist Name Role Phone Unavailable Primary Care Provider Unavailabl e Encounter Details Date Type Department Care Team (Late st Contact Info) Description 04/15/2005 Results Only [facility] conversion [address] [place] [address] Raissa Rashid NP Social History Tobacco Use [...] ? LOLITA LUO ? Accession #: ? [id number] : ? 1945 (Age: 59) ??F ?Collect Date: ? 04/15/2005 Location: ? [facility] ? Receive Date: ? 04/16/2005 Provider: ?RAISSA RASHID RECEIVING WEIGHER Copy to: ? Specimen/Source: ?ThinPrep Pap Test, Endocervix, processed on [employer] ThinPrep Imaging System, with manual evaluation Last Menstrual Period: ? SPECIMEN ADEQUACY ? Satisfactory for Evaluation - transformation zone component present GENERAL CATEGORIZATION ? Negative for Intraepithelial Lesion or Malignancy ? Document reviewed and electronically signed by: ? FOREST Serna(ASCP)(IAC) ? Report Date: ??04/22/2005 15:56 End of Report TIA PINEDA 04/15/2005 04/16/2005 Raissa Rashid INTERLACER PATHOLOGY ORDERABLES [facility] [address] [place] [address] documented in this encounter Visit Diagnoses Not on filedocumented in this encounter
--- OUTSIDE RECORDS SUMMARY | 2024-03-03 01:21 | XMS_ITS | Encounter Summary ---
Author Organization [facility] Address [address] [place] [address] Care Team Providers Care Dish Technician Name Role Phone Unknown, Provider Primary Care Provider Encounter Details Date Type Department Care Team (Late st Contact Info) Description 02/15/2014 Historical Results Only [facility] Radiology Results [address] [place], [place] [address] Jorge Morillo MD [address] [place] [address] [address] [place] [address] Social History Tobacco Use Types [...] 14:0 0 EDT Narrative 02/16/2014 9:23 EDT [facility] [address] [place], [place] [address] Diagnostic Imaging Report Signed Patient Name:LOLITA ELIZONDO ? Date of :1945 ? MR Number:[id number] Age:68 ?Sex:F Category: MG ? Date of [...] Procedure Note Steven Estrada MD - 04/26/2019 [place] [address] Diagnostic Imaging Report Signed Patient Name:LOLITA ELIZONDO Number:[id number] Date of :1945 MRNumber:[id number] Age:68 Sex:F Category: MG Date ofExam:02/15/14 Procedure: MG: Mammo, Bilat, ScreeningAccession: [id number] Ordering Physician: Jorge Morillo CC: Jorge Morillo [...] by: <Electronically signed by Allyson Estrada MD>D/ 7755 Jorge Morillo MD [facility] ORDERABLES documented in this encounter Visit Diagnoses Not on filedocumented in this encounter Care Teams Dish Technician Relationship Specialty Start Date End Date Unknown, Provider, PCP - General 02/22/14 documented as of this encounter
--- OUTSIDE RECORDS SUMMARY | 2024-03-03 01:21 | XMS_ITS | Encounter Summary ---
Author Organization [facility] Address [address] [place] [address] Care Team Providers Care Labor Arbitrator Hearing Office Name Role Phone Unavailable Primary Care Provider Unavailabl e Encounter Details Date Type Department Care Team (Late st Contact Info) Description 04/29/2004 Results Only [facility] conversion [address] [place] [address] Raissa Rashid NP Social History Tobacco Use [...] ? LOLITA LUO ? Accession #: ? [id number] : ? 1945 (Age: 58) ??F ?Collect Date: ? 04/29/2004 Location: ? [facility] ? Receive Date: ? 04/30/2004 Provider: ?RAISSA RASHID SERVICE OPERATIONS MANAGER Copy to: ? Specimen/Source: ?ThinPrep Pap [...] Report TIA PINEDA 04/29/2004 04/30/2004 Raissa Rashid EVP CHIEF EXPLORATION OFFICER PATHOLOGY ORDERABLES [facility] [address] [place] [address] documented in this encounter Visit Diagnoses Not on filedocumented in this encounter
--- OUTSIDE RECORDS SUMMARY | 2024-03-03 01:21 | XMS_ITS | Data Portability ---
Author Organization [facility] Address [address] [place] [address] Care Team Providers Care Newsagent Name Role Phone [facility] Neurologist [phone] Assessment No assessment recorded. Plan of Treatment Reminders Order Date Submit Date Provider Last Modified By Organization Details Last Modified Time Details Appointments Follow Up 30 2023 12:30P M IVANIA LANCASTER Not available Not available Not available Lab urinalysi s, dipstick 2022 023 [email or web address] [facility], [address], [place], [address], 06/16/2023 14:20:23 CBC w/ diff 2022 023 [facility] (Registration ), [address] [place] [address] Dr [facility] [place], [address], 07/30/2023 07:41:58 CMP, serum or plasma 2022 023 [facility] (Registration ), [address] [place] [address] [place], [address], 07/02/2023 11:36:43 TSH, serum or plasma 2022 023 [facility] (Registration ), [address] [place] [address] [place], [address], 07/30/2023 07:41:59 CBC w/ diff - 1 PST, 1 LAV obtained without issue from (R) AC 2023 024 [email or web address] [facility] (Registration ), [address] [place] [address] , [place], [address], 11/13/2023 10:19:53 urinalysi s, dipstick 2023 024 [email or web address] [facility], [address] , [place], [address], 11/13/2023 10:19:53 TSH + free T4, serum - 1 PST, 1 LAV obtained without issue from (R) AC [email or web address] [facility] (Registration ), [address] [place] [address] [place], [address], 11/13/2023 10:19:53 CMP, serum or plasma - 1 PST, 1 LAV obtained without issue from (R) AC [address] [facility] (Registration ), [address] [place] [address] [place], [address], 11/13/2023 10:19:53 TSH + free T4, serum - 1 PST obtained without issue [email or web address] [address] [place] [address] [place], [address], 02/12/2024 15:44:58 CMP, serum or plasma - 1 PST obtained without issue 2023 024 [email or web address] [facility] (Registration ), [address] [place] [address] [place], [address], 02/11/2024 18:09:[address] referral 2022 023 [email or web address] Sadnra Choudhary [facility], [address] [place] [address] [place], [address], 02/08/2024 15:48:55 psychiatr ist referral - schizoaff ective disorder, depressio n, auditory hallucina tions, needs psychiatr ist and medicatio n managemen t 2022 023 [email or web address] [facility], [address] [place], [address], 01/05/2024 16:11:18 psychiatr ist referral - NEEDS PSYCHIATR IST, NOT JUST COUNSELOR 2023 024 [facility], [address] [place], [address], 02/05/2024 09:26:[address] referral 2023 024 [facility], [address], [place], [address], 11/30/2023 16:45:24 podiatris t referral 2023 024 [facility], [address] [place] [address], [place], [address], 02/15/2024 14:10:35 Procedures None recorded. Surgeries None recorded. Imaging bone density 2022 023 [email or web address] [facility], [address], [place], [address], 01/27/2024 16:25:23 bone density 2023 024 [email or web address] [facility], [address], [place], [address], 02/18/2024 09:54:37 Medication Orders Adult Low Dose Aspirin 81 mg tablet,de layed release 2022 023 [email or web address] [facility], [address] [place], [address], 06/16/2023 12:44:58 quetiapin e 25 mg tablet 2023 024 [facility], [address] [place], [address], 02/11/2024 13:02:41 risperido ne 0.25 mg tablet 2023 024 [email or web address] [facility], [address] [place], [address], 02/08/2024 15:20:22 oxybutyni n chloride ER 5 mg tablet,ex tended release 24 hr 2023 024 [email or web address] [facility], [address] [place], [address], 02/12/2024 14:14:19 alendrona te 70 mg tablet 2023 024 [email or web address] [facility], [address] [place], [address], 02/11/2024 14:20:14 Patient TargetsNo targets recorded. Patient Instructions Encounter Date Encounter Id Patient Instructions Last Modified By Organization Details Last Modified Time 06/16/2023 [id number] 1. Call [facility] and make a follow up to review MRI and make a plan for lower back pain and tumor 2. get bone density screening done 3. establish care with [facility] psychiatry, referral sent 4. establish with audiology for hearing aids- referral sent 5. continue all current medications as you have been until you hear from me about labs or imaging results Not available 06/16/2023 12:36:59 11/12/2023 [id number] Nice to see you today! Labs today for monitoring and possible initiation of medication for urge incontinence. Urine testing today as well. I will call you with results. Continue on all current medications as prescribed. We will check on [facility] psychiatrist referral that we placed back in July. You are established with a counselor there as well as care attendant but no psychiatrist for prescribing. Will let you know what they say on estimate for appointment with them for psychiatrist. We discussed that [facility] with Deanna cole may be able to see you instead if [facility] can't get you in. We will order the durable medical equipment: medium size pull-ups through [employer] for 4-5 pull ups in a 24-hour period for urge incontinence. Discussed starting oxybutynin extended release once nightly if kidney function testing is normal and urine testing is normal today. This should help with urge incontinence And nighttime urination. Not available 11/12/2023 14:52:40 02/11/2024 [id number] Nice to see you today! we will get your labs and I will call you with results talked about if kidney function good, would have less incontinence if we increase the ER to 10mg oxybutynin will let you know continue with [facility] provider, Seeker, telehealth continue same medication dosings continue with counselor weekly counselor on zoom with [facility] as you have been. I will reorder the dexa scan for osteoporosis monitoring on the alendonerate Not available 02/11/2024 14:03:36 Reason for Referral Psychiatrist Referral for Sc hizoaffective disorder schizoaffective disorder, depression, auditory hallucinations, needs psychiatrist and medication management Referring Physician: Ivania Lancaster [facility], Encounter Date: 06/16/2023 Surveillance Manager Referral for Bradly ateral hearing loss Referring Physician: Family Dakotah Huff, Encounter Date: 06/16/2023 Psychiatrist Referral for Sc hizoaffective disorder NEEDS PSYCHIATRIST, NOT JUST COUNSELOR Referring Physician: Family Dakotah Huff, Encounter Date: 11/12/2023 Surveillance Manager Referral for Sen sorineural hearing loss hearing aids in past. want updated hearing exam and hearing aid consult. lost her last pair 1 yr ago Referring Physician: [facility], Encounter Date: 11/12/2023 Falsework Builder Referral for Onyc homycosis of toenails toenail cutting, onychomycosis Referring Physician: Ivania Lancaster [facility], Encounter Date: 02/11/2024 Results Created Date Observation Date Name Description Value Unit Range Abnormal Flag LastModifiedBy Organization Detail LastModifiedTime 06/16/20 23 06/16/2023 urina lysis , dipst ick Leukocytes Small Not Available [facility] [address], [place], [address], 06/16/2023 11:49:26 06/16/20 23 06/16/2023 urina lysis , dipst ick Nitrite negati ve Not Available [facility] [address], [place], [address], 06/16/2023 11:49:26 06/16/20 23 06/16/2023 urina lysis , dipst ick Urobilinogen .2 Not Available [facility] [address], [place], [address], 06/16/2023 11:49:26 06/16/20 23 06/16/2023 urina lysis , dipst ick Protein 30 Not Available [facility] [address], [place], [address], 06/16/2023 11:49:26 06/16/20 23 06/16/2023 urina lysis , dipst ick pH 6.0 Not Available [facility] [address], [place], [address], 06/16/2023 11:49:26 06/16/20 23 06/16/2023 urina lysis , dipst ick Blood Non-He molyze d: Trace Not Available [facility] [address], [place], [address], 06/16/2023 11:49:26 06/16/20 23 06/16/2023 urina lysis , dipst ick Specific Gibson 1.030 Not Available [facility] [address], [place], [address], 06/16/2023 11:49:26 06/16/2006/16/2023 urina lysis , dipst ick Ketone Small Not Available [facility] [address], [place], [address], 06/16/2023 11:49:26 06/16/20 23 06/16/2023 urina lysis , dipst ick Bilirubin Negati ve Not Available [facility] [address], [place], [address], 06/16/2023 11:49:26 06/16/20 23 06/16/2023 urina lysis , dipst ick Glucose Negati ve Not Available [facility] [address], [place], [address], 06/16/2023 11:49:26 06/16/2006/16/2023 TSH, serum or plasm a TSH, serum or plasma 0.18 micro intl_ units /mL 0.36-3 .74 low Not Available Not Available 02/26/2024 12:47:05 06/16/2006/16/2023 hemog lobin (Hb), blood hemoglobin (Hb), blood 14.3 g/dL 11.2-1 5.7 normal Not Available Not Available 02/26/2024 12:47:05 06/16/2006/16/2023 gluco se, QN [mass /volu me], blood glucose ser 110 mg/dL 74-106 high Not Available [facility] [address], [place], [address], 02/26/2024 12:47:04 06/16/2006/16/2023 CMP, serum or plasm a albumin, serum or plasma 4.0 g/dL 3.4-5. 0 normal Not Available Not Available 02/26/2024 12:47:00 06/16/20 23 06/16/2023 CMP, serum or plasm a aniongap 8.9 mmol/ L 3-11 normal Not Available Not Available 02/26/2024 12:47:00 06/16/2006/16/2023 CMP, serum or plasm a bilirubin, total, serum or plasma 0.6 mg/dL 0.2-1. 0 normal Not Available Not Available 02/26/2024 12:47:00 06/16/2006/16/2023 CMP, serum or plasm a BUN (blood urea nitrogen), serum or plasma 21 mg/dL 7-18 high Not Available Not Available 12:47:00 06/16/2006/16/2023 CMP, serum or plasm a calcium, qn, serum or plasma 9.7 mg/dL 8.5-10 .1 normal Not Available Not Available 02/26/2024 12:47:00 06/16/2006/16/2023 CMP, serum or plasm a chloride, serum or plasma 106 mmol/ L 98-107 normal Not Available Not Available 02/26/2024 12:47:00 06/16/2006/16/2023 CMP, serum or plasm a CO2, (carbon dioxide), total, serum or plasma 26.1 mmol/ L 21.0-3 2.0 normal Not Available Not Available 02/26/2024 12:47:00 06/16/2006/16/2023 CMP, serum or plasm a creatinine, serum or plasma 1.0 mg/dL 0.55-1 .02 normal Not Available Not Available 02/26/2024 12:47:00 06/16/2006/16/2023 CMP, serum or plasm a eGFR 57.66 (?) mL/mi n/1.7 3m2 mL/min /1.73m 2 Not Available Not Available 02/26/2024 12:47:00 06/16/2006/16/2023 CMP, serum or plasm a potassium, serum or plasma 3.8 mmol/ L 3.5-5. 1 normal Not Available Not Available 02/26/2024 12:47:00 06/16/2006/16/2023 CMP, serum or plasm a protein, total, serum 7.2 g/dL 6.4-8. 2 normal Not Available Not Available 02/26/2024 12:47:00 06/16/2006/16/2023 CMP, serum or plasm a AST/SGOT (aspartate aminotransfe rase), serum or plasma 23 units /L 15-37 normal Not Available Not Available 02/26/2024 12:47:00 06/16/2006/16/2023 CMP, serum or plasm a ALT (alanine aminotransfe rase), serum or plasma 16 units /L 14-59 normal Not Available Not Available 02/26/2024 12:47:00 06/16/2006/16/2023 CMP, serum or plasm a sodium, serum or plasma 141 mmol/ L 136-14 5 normal Not Available Not Available 02/26/2024 12:47:00 06/16/2006/16/2023 CBC % baso auto 0.5 (?) % Not Available Not Available 02/26/20 12:46:55 06/16/2006/16/2023 CBC basoph count 0.03 10 3/uL 10*3/ mm3 0.0-0. 2 normal Not Available Not Available 02/26/2024 12:46:55 06/16/2006/16/2023 CBC eosinophil count, manual, blood 0.06 10 3/uL 10*3/ mm3 0.0-0. 7 normal Not Available Not Available 02/26/2024 12:46:55 06/16/2006/16/2023 CBC eosinophil % 1.0 (?) % Not Available Not Available 02/26/20 12:46:55 06/16/2006/16/2023 CBC hematocrit, automated count, blood 42.8 % 36.0-4 6.0 normal Not Available Not Available 02/26/2024 12:46:55 06/16/2006/16/2023 CBC imm granu % 0.3 (?) % Not Available Not Available 02/26/20 12:46:55 06/16/2006/16/2023 CBC lymph count 1.27 10 3/uL 10*3/ mm3 1.2-3. 4 normal Not Available Not Available 02/26/2024 12:46:55 06/16/20 23 06/16/2023 CBC MCH 30.8 pg 27.0-3 3.0 normal Not Available Not Available 02/26/2024 12:46:55 06/16/2006/16/2023 CBC MCHC 33.4 % 32.0-3 6.0 normal Not Available Not Available 02/26/2024 12:46:55 06/16/2006/16/2023 CBC MCV, blood 92 fL 80-95 normal Not Available No t Available 02/26/2024 12:46:55 06/16/2006/16/2023 CBC monocyte % 8.6 (?) % Not Available Not Available 02/26/20 12:46:55 06/16/2006/16/2023 CBC monocyte cnt 0.51 10 3/uL 10*3/ mm3 0.1-0. 8 normal Not Available Not Available 02/26/2024 12:46:55 06/16/20 23 06/16/2023 CBC MPV 10.9 fL 8.0-11 .0 normal Not Available Not Available 02/26/2024 12:46:55 06/16/20 23 06/16/2023 CBC neutro count 4.06 10 3/uL 10*3/ mm3 1.2-6. 7 normal Not Available Not Available 02/26/2024 12:46:55 06/16/20 23 06/16/2023 CBC nucl RBC-umd 0.0 % 0.0-0. 3 normal Not Available Not Available 02/26/2024 12:46:55 06/16/2006/16/2023 CBC platelets, auto, blood 273 10 3/uL 10*3/ mm3 130-40 0 normal Not Available Not Available 02/26/2024 12:46:55 06/16/20 23 06/16/2023 CBC PMN % 68.3 (?) % Not Available Not Available 02/26/20 12:46:55 06/16/20 23 06/16/2023 CBC RBC count, blood 4.65 10 6/uL 10*6/ mm3 3.93-5 .22 normal Not Available Not Available 02/26/2024 12:46:55 06/16/20 23 06/16/2023 CBC RDW 13.0 % 11.7-1 4.6 normal Not Available Not Available 02/26/2024 12:46:55 11/21/06/16/2023 CBC WBC 5.95 10 3/uL 10*3/ mm3 4.4-10 .8 normal Not Available Not Available 02/26/2024 12:46:55 07/02/2007/02/2023 URINA LYSIS color Yellow yellow Not Available [address] [place], [address] 07/02/2023 10:28:35 07/02/20 23 07/02/2023 URINA LYSIS clarity Clear clear Not Available [address] [place], [address] 07/02/2023 10:28:35 07/02/20 23 07/02/2023 URINA LYSIS specific gravity 1.010 1.005- 1.025 normal Not Available [address] [place], [address] 07/02/2023 10:28:35 07/02/20 23 07/02/2023 URINA LYSIS pH 6.0 5-8 normal Not Available [address] [place], [address] 07/02/2023 10:28:35 07/02/20 23 07/02/2023 URINA LYSIS leukocyte esterase Negati ve negati ve Not Available [address] [place], [address] 07/02/2023 10:28:35 07/02/20 23 07/02/2023 URINA LYSIS nitrite Negati ve negati ve Not Available [address] [place], [address] 07/02/2023 10:28:35 07/02/20 23 07/02/2023 URINA LYSIS protein Negati ve mg/dL negati ve Not Available [address] [place], [address] 07/02/2023 10:28:35 07/02/20 23 07/02/2023 URINA LYSIS glucose Negati ve mg/dL negati ve Not Available [address] [place], [address] 07/02/2023 10:28:35 07/02/20 23 07/02/2023 URINA LYSIS ketones Negati ve mg/dL negati ve Not Available [address] [place], [address] 07/02/2023 10:28:35 07/02/2007/02/2023 URINA LYSIS urobilinogen 0.2 mg/dL up to 0.2 Not Available [address] [place], [address] 07/02/2023 10:28:35 07/02/2007/02/2023 URINA LYSIS bilirubin Negati ve negati ve Not Available [address] [place], [address] 07/02/2023 10:28:35 07/02/20 23 07/02/2023 URINA LYSIS blood Negati ve negati ve Not Available [address] [place], [address] 07/02/2023 10:28:35 07/02/20 23 07/02/2023 COMPL ETE BLOOD COUNT W/DIF F WBC 6.75 10_3/ uL 4.4-10 .8 normal Not Available [address] [place], [address] 07/02/2023 11:11:40 07/02/20 23 07/02/2023 COMPL ETE BLOOD COUNT W/DIF F RBC 4.76 10_6/ uL 3.93-5 .22 normal Not Available [address] [place], [address] 07/02/2023 11:11:40 07/02/20 23 07/02/2023 COMPL ETE BLOOD COUNT W/DIF F HGB 14.6 g/dL 11.2-1 5.7 normal Not Available [address] [place], [address] 07/02/2023 11:11:40 07/02/20 23 07/02/2023 COMPL ETE BLOOD COUNT W/DIF F HCT 43.8 % 36.0-4 6.0 normal Not Available [address] [place], [address] 07/02/2023 11:11:40 07/02/20 23 07/02/2023 COMPL ETE BLOOD COUNT W/DIF F MCV 92 fL 80-95 normal Not Available [email or web address] [place], [address] 07/02/2023 11:11:40 07/02/20 23 07/02/2023 COMPL ETE BLOOD COUNT W/DIF F MCH 30.7 pg 27.0-3 3.0 normal Not Available [address] [place], [address] 07/02/2023 11:11:40 07/02/20 23 07/02/2023 COMPL ETE BLOOD COUNT W/DIF F MCHC 33.3 % 32.0-3 6.0 normal Not Available [address] [place], [address] 07/02/2023 11:11:40 07/02/20 23 07/02/2023 COMPL ETE BLOOD COUNT W/DIF F RDW 13.0 % 11.7-1 4.6 normal Not Available [address] [place], [address] 07/02/2023 11:11:40 07/02/20 23 07/02/2023 COMPL ETE BLOOD COUNT W/DIF F platelet count 258 10_3/ uL 130-40 0 normal Not Available [address] [place], [address] 07/02/2023 11:11:40 07/02/20 23 07/02/2023 COMPL ETE BLOOD COUNT W/DIF F MPV 9.7 fL 8.0-11 .0 normal Not Available [address] [place], [address] 07/02/2023 11:11:40 07/02/20 23 07/02/2023 COMPL ETE BLOOD COUNT W/DIF F neutrophils % 78.6 Not Available [address] [place], [address] 07/02/2023 11:11:40 07/02/20 23 07/02/2023 COMPL ETE BLOOD COUNT W/DIF F lymphocytes % 13.8 Not Available [address] [place], [address] 07/02/2023 11:11:40 07/02/20 23 07/02/2023 COMPL ETE BLOOD COUNT W/DIF F monocytes % 6.4 Not Available [address] [place], [address] 07/02/2023 11:11:40 07/02/20 23 07/02/2023 COMPL ETE BLOOD COUNT W/DIF F eosinophils % 0.4 Not Available [address] [place], [address] 07/02/2023 11:11:40 07/02/20 23 07/02/2023 COMPL ETE BLOOD COUNT W/DIF F basophils % 0.4 Not Available [address] [place], [address] 07/02/2023 11:11:40 07/02/20 23 07/02/2023 COMPL ETE BLOOD COUNT W/DIF F immature grans % 0.4 Not Available [address] [place], [address] 07/02/2023 11:11:40 07/02/20 23 07/02/2023 COMPL ETE BLOOD COUNT W/DIF F nucleated RBC 0.0 % 0.0-0. 3 normal Not Available [address] [place], [address] 07/02/2023 11:11:40 07/02/20 23 07/02/2023 COMPL ETE BLOOD COUNT W/DIF F absolute neutrophil count 5.30 10_3/ uL 1.2-6. 7 normal Not Available [address] [place], [address] 07/02/2023 11:11:40 07/02/20 23 07/02/2023 COMPL ETE BLOOD COUNT W/DIF F absolute lymphocyte count 0.93 10_3/ uL 1.2-3. 4 low Not Available [address] [place], [address] 07/02/2023 11:11:40 07/02/20 23 07/02/2023 COMPL ETE BLOOD COUNT W/DIF F absolute monocyte count 0.43 10_3/ uL 0.1-0. 8 normal Not Available [address] [place], [address] 07/02/2023 11:11:40 07/02/20 23 07/02/2023 COMPL ETE BLOOD COUNT W/DIF F absolute eosinophil count 0.03 10_3/ uL 0.0-0. 7 normal Not Available [address] [place], [address] 07/02/2023 11:11:40 07/02/20 23 07/02/2023 COMPL ETE BLOOD COUNT W/DIF F absolute basophil count 0.03 10_3/ uL 0.0-0. 2 normal Not Available [address] [place], [address] 07/02/2023 11:11:40 07/02/20 23 07/02/2023 COMPR EHENS PAVITHRA METAB OLIC PANEL calcium 10.1 mg/dL 8.5-10 .1 normal Not Available [address] [place], [address] 07/02/2023 11:36:43 07/02/20 23 07/02/2023 COMPR EHENS PAVITHRA METAB OLIC PANEL glucose 124 mg/dL 74-106 high Not Available [address] [place], [address] 07/02/2023 11:36:43 07/02/20 23 07/02/2023 COMPR EHENS PAVITHRA METAB OLIC PANEL BUN 13 mg/dL 7-18 normal Not Available [address] [place], [address] 07/02/2023 11:36:43 07/02/20 23 07/02/2023 COMPR EHENS PAVITHRA METAB OLIC PANEL creatinine 1.2 mg/dL 0.55-1 .02 high Not Available [address] [place], [address] 07/02/2023 11:36:43 07/02/20 23 07/02/2023 COMPR EHENS PAVITHRA METAB OLIC PANEL estimated GFR 46.33 mL/min /1.73m 2 Not Available [address] [place], [address] 07/02/2023 11:36:43 07/02/20 23 07/02/2023 COMPR EHENS PAVITHRA METAB OLIC PANEL total protein 6.9 g/dL 6.4-8. 2 normal Not Available [address] [place], [address] 07/02/2023 11:36:43 07/02/20 23 07/02/2023 COMPR EHENS PAVITHRA METAB OLIC PANEL albumin 3.9 g/dL 3.4-5. 0 normal Not Available [address] [place], [address] 07/02/2023 11:36:43 07/02/20 23 07/02/2023 COMPR EHENS PAVITHRA METAB OLIC PANEL bilirubin, total 0.5 mg/dL 0.2-1. 0 normal Not Available [address] [place], [address] 07/02/2023 11:36:43 07/02/20 23 07/02/2023 COMPR EHENS PAVITHRA METAB OLIC PANEL alk phos 75 U/L 46-116 normal Not Available [address] [place], [address] 07/02/2023 11:36:43 07/02/20 23 07/02/2023 COMPR EHENS PAVITHRA METAB OLIC PANEL sodium 145 mmol/ L 136-14 5 normal Not Available [address] [place], [address] 07/02/2023 11:36:43 07/02/20 23 07/02/2023 COMPR EHENS PAVITHRA METAB OLIC PANEL potassium 3.5 mmol/ L 3.5-5. 1 normal Not Available [address] [place], [address] 07/02/2023 11:36:43 07/02/20 23 07/02/2023 COMPR EHENS PAVITHRA METAB OLIC PANEL chloride 107 mmol/ L 98-107 normal Not Available [address] [place], [address] 07/02/2023 11:36:43 07/02/20 23 07/02/2023 COMPR EHENS PAVITHRA METAB OLIC PANEL CO2 30.0 mmol/ L 21.0-3 2.0 normal Not Available [address] [place], [address] 07/02/2023 11:36:43 07/02/20 23 07/02/2023 COMPR EHENS PAVITHRA METAB OLIC PANEL anion gap 8.0 mmol/ L 3-11 normal Not Available [address] [place], [address] 07/02/2023 11:36:43 07/02/20 23 07/02/2023 COMPR EHENS PAVITHRA METAB OLIC PANEL AST 19 U/L 15-37 normal Not Available [address] [place], [address] 07/02/2023 11:36:43 07/02/20 23 07/02/2023 COMPR EHENS PAVITHRA METAB OLIC PANEL ALT 19 U/L 14-59 normal Not Available [address] [place], [address] 07/02/2023 11:36:43 07/02/2007/02/2023 ETHYL ALCOH OL ethyl alcohol < 3.0 mg/dL <10 Not Available [address] [place], [address] 07/02/2023 11:36:44 07/02/20 23 07/02/2023 MAGNE SIUM magnesium 2.2 mg/dL 1.8-2. 4 normal Not Available [address] [place], [address] 07/02/2023 11:36:44 07/02/20 23 07/02/2023 TSH (W/RE F FT4) TSH (w/ref FT4) 5.47 uIU/m L 0.36-3 .74 high Not Available [address] [place], [address] 07/02/2023 11:36:45 07/02/20 23 07/02/2023 ETHYL ALCOH OL ethyl alcohol < 3.0 mg/dL <10 Not Available [address] [place], [address] 07/02/2023 11:55:51 07/02/20 23 07/02/2023 MAGNE SIUM magnesium 2.2 mg/dL 1.8-2. 4 normal Not Available [address] [place], [address] 07/02/2023 11:55:51 07/02/20 23 07/02/2023 TSH (W/RE F FT4) TSH (w/ref FT4) 5.47 uIU/m L 0.36-3 .74 high Not Available [address] [place], [address] 07/02/2023 11:55:52 07/02/2007/02/2023 FREE T4 free T4 1.56 NG/dL 0.76-1 .46 high Not Available [address] [place], [address] 07/02/2023 11:55:52 07/02/20 23 07/02/2023 URINE DRUG SCREE N ([facility] ) methadone Negati ve negati ve Not Available [address] [place], [address] 07/02/2023 15:35:13 07/02/20 23 07/02/2023 URINE DRUG SCREE N ([facility] ) benzodiazepi odalys Negati ve negati ve Not Available [address] [place], [address] 07/02/2023 15:35:13 07/02/20 23 07/02/2023 URINE DRUG SCREE N ([facility] ) cocaine Negati ve negati ve Not Available [address] [place], [address] 07/02/2023 15:35:13 07/02/20 23 07/02/2023 URINE DRUG SCREE N ([facility] ) amphetamines Negati ve negati ve Not Available [address] [place], [address] 07/02/2023 15:35:13 07/02/20 23 07/02/2023 URINE DRUG SCREE N ([facility] ) tetrahydroca nnabinol Negati ve negati ve Not Available [address] [place], [address] 07/02/2023 15:35:13 07/02/20 23 07/02/2023 URINE DRUG SCREE N ([facility] ) opiates Negati ve negati ve Not Available [address] [place], [address] 07/02/2023 15:35:13 07/02/20 23 07/02/2023 URINE DRUG SCREE N ([facility] ) barbiturates Negati ve negati ve Not Available [address] [place], [address] 07/02/2023 15:35:13 07/02/20 23 07/02/2023 URINE DRUG SCREE N ([facility] ) tricyclic antidepressa nts Negati ve negati ve Not Available [address] [place], [address] 07/02/2023 15:35:13 07/29/19 24 07/29/2023 COMPL ETE BLOOD COUNT W/DIF F WBC 4.99 10_3/ uL 4.4-10 .8 normal Not Available [address] [place], [address] 07/29/2023 09:52:33 07/29/19 24 07/29/2023 COMPL ETE BLOOD COUNT W/DIF F RBC 4.64 10_6/ uL 3.93-5 .22 normal Not Available [address] [place], [address] 07/29/2023 09:52:33 07/29/19 24 07/29/2023 COMPL ETE BLOOD COUNT W/DIF F HGB 14.3 g/dL 11.2-1 5.7 normal Not Available [address] [place], [address] 07/29/2023 09:52:33 07/29/19 24 07/29/2023 COMPL ETE BLOOD COUNT W/DIF F HCT 43.6 % 36.0-4 6.0 normal Not Available [address] [place], [address] 07/29/2023 09:52:33 07/29/19 24 07/29/2023 COMPL ETE BLOOD COUNT W/DIF F MCV 94 fL 80-95 normal Not Available Mo weiner [address] [place], [address] 07/29/2023 09:52:33 07/29/19 24 07/29/2023 COMPL ETE BLOOD COUNT W/DIF F MCH 30.8 pg 27.0-3 3.0 normal Not Available [address] [place], [address] 07/29/2023 09:52:33 07/29/19 24 07/29/2023 COMPL ETE BLOOD COUNT W/DIF F MCHC 32.8 % 32.0-3 6.0 normal Not Available [address] [place], [address] 07/29/2023 09:52:33 07/29/19 24 07/29/2023 COMPL ETE BLOOD COUNT W/DIF F RDW 13.8 % 11.7-1 4.6 normal Not Available [address] [place], [address] 07/29/2023 09:52:33 07/29/19 24 07/29/2023 COMPL ETE BLOOD COUNT W/DIF F platelet count 263 10_3/ uL 130-40 0 normal Not Available [address] [place], [address] 07/29/2023 09:52:33 07/29/19 24 07/29/2023 COMPL ETE BLOOD COUNT W/DIF F MPV 10.0 fL 8.0-11 .0 normal Not Available [address] [place], [address] 07/29/2023 09:52:33 07/29/19 24 07/29/2023 COMPL ETE BLOOD COUNT W/DIF F neutrophils % 68.6 Not Available [address] [place] [place], [address] 07/29/2023 09:52:33 07/29/19 24 07/29/2023 COMPL ETE BLOOD COUNT W/DIF F lymphocytes % 21.2 Not Available [address] [place], [address] 07/29/2023 09:52:33 07/29/19 24 07/29/2023 COMPL ETE BLOOD COUNT W/DIF F monocytes % 6.8 Not Available [address] [place], [address] 07/29/2023 09:52:33 07/29/19 24 07/29/2023 COMPL ETE BLOOD COUNT W/DIF F eosinophils % 2.6 Not Available [address] [place], [address] 07/29/2023 09:52:33 07/29/19 24 07/29/2023 COMPL ETE BLOOD COUNT W/DIF F basophils % 0.6 Not Available [address] [place], [address] 07/29/2023 09:52:33 07/29/19 24 07/29/2023 COMPL ETE BLOOD COUNT W/DIF F immature grans % 0.2 Not Available [address] [place], [address] 07/29/2023 09:52:33 07/29/19 24 07/29/2023 COMPL ETE BLOOD COUNT W/DIF F nucleated RBC 0.0 % 0.0-0. 3 normal Not Available [address] [place], [address] 07/29/2023 09:52:33 07/29/19 24 07/29/2023 COMPL ETE BLOOD COUNT W/DIF F absolute neutrophil count 3.42 10_3/ uL 1.2-6. 7 normal Not Available [address] [place], [address] 07/29/2023 09:52:33 07/29/19 24 07/29/2023 COMPL ETE BLOOD COUNT W/DIF F absolute lymphocyte count 1.06 10_3/ uL 1.2-3. 4 low Not Available [address] [place], [address] 07/29/2023 09:52:33 07/29/19 24 07/29/2023 COMPL ETE BLOOD COUNT W/DIF F absolute monocyte count 0.34 10_3/ uL 0.1-0. 8 normal Not Available [address] [place], [address] 07/29/2023 09:52:33 07/29/19 24 07/29/2023 COMPL ETE BLOOD COUNT W/DIF F absolute eosinophil count 0.13 10_3/ uL 0.0-0. 7 normal Not Available [address] [place], [address] 07/29/2023 09:52:33 07/29/19 24 07/29/2023 COMPL ETE BLOOD COUNT W/DIF F absolute basophil count 0.03 10_3/ uL 0.0-0. 2 normal Not Available [address] [place], [address] 07/29/2023 09:52:33 07/29/19 24 07/29/2023 BASIC METAB OLIC PANEL calcium 9.3 mg/dL 8.5-10 .1 normal Not Available [address] [place], [address] 07/29/2023 10:10:34 07/29/19 24 07/29/2023 BASIC METAB OLIC PANEL glucose 103 mg/dL 74-106 normal Not Available [address] [place], [address] 07/29/2023 10:10:34 07/29/19 24 07/29/2023 BASIC METAB OLIC PANEL BUN 17 mg/dL 7-18 normal Not Available [facility] [address] [place], [address] 07/29/2023 10:10:34 07/29/19 24 07/29/2023 BASIC METAB OLIC PANEL creatinine 1.0 mg/dL 0.55-1 .02 normal Not Available [address] [place], [address] 07/29/2023 10:10:34 07/29/19 24 07/29/2023 BASIC METAB OLIC PANEL estimated GFR 57.31 mL/min /1.73m 2 Not Available [address] [place], [address] 07/29/2023 10:10:34 07/29/19 24 07/29/2023 BASIC METAB OLIC PANEL sodium 143 mmol/ L 136-14 5 normal Not Available [address] [place], [address] 07/29/2023 10:10:34 07/29/19 24 07/29/2023 BASIC METAB OLIC PANEL potassium 3.9 mmol/ L 3.5-5. 1 normal Not Available [address] [place], [address] 07/29/2023 10:10:34 07/29/19 24 07/29/2023 BASIC METAB OLIC PANEL chloride 107 mmol/ L 98-107 normal Not Available [address] [place], [address] 07/29/2023 10:10:34 07/29/19 24 07/29/2023 BASIC METAB OLIC PANEL CO2 31.5 mmol/ L 21.0-3 2.0 normal Not Available [address] [place], [address] 07/29/2023 10:10:34 07/29/19 24 07/29/2023 BASIC METAB OLIC PANEL anion gap 4.5 mmol/ L 3-11 normal Not Available [address] [place], [address] 07/29/2023 10:10:34 07/29/19 24 07/29/2023 CARDI AC TROPO DOMINICK I cardiac troponin I < 50 NG/L <or=60 Not Available [address] [place], [address] 07/29/2023 10:10:35 07/29/19 24 07/29/2023 COVID /FLU/ RSV PCR source Nasoph arynx Not Available [address] [place], [address] 07/29/2023 10:49:41 07/29/19 24 07/29/2023 COVID /FLU/ RSV PCR covid-19 PCR Negati ve negati ve Not Available [address] [place], [address] 07/29/2023 10:49:41 07/29/19 24 07/29/2023 COVID /FLU/ RSV PCR influenza A PCR Negati ve negati ve Not Available [address] [place], [address] 07/29/2023 10:49:41 07/29/19 24 07/29/2023 COVID /FLU/ RSV PCR influenza B PCR Negati ve negati ve Not Available [address] [place], [address] 07/29/2023 10:49:41 07/29/19 24 07/29/2023 COVID /FLU/ RSV PCR RSV PCR Negati ve negati ve Not Available [address] [place], [address] 07/29/2023 10:49:41 07/29/19 24 07/29/2023 D-DIM ER D-dimer 1764 NG/ml feu <500 high Not Available [address] [place], [address] 07/29/2023 10:51:41 11/12/19 24 11/12/2023 COMPL ETE BLOOD COUNT W/DIF F WBC 6.07 10_3/ uL 4.4-10 .8 normal Not Available [address] [place], [address] 11/12/2023 19:26:45 11/12/19 24 11/12/2023 COMPL ETE BLOOD COUNT W/DIF F RBC 4.17 10_6/ uL 3.93-5 .22 normal Not Available [address] [place], [address] 11/12/2023 19:26:45 11/12/19 24 11/12/2023 COMPL ETE BLOOD COUNT W/DIF F HGB 13.0 g/dL 11.2-1 5.7 normal Not Available [address] [place], [address] 11/12/2023 19:26:45 11/12/19 24 11/12/2023 COMPL ETE BLOOD COUNT W/DIF F HCT 39.1 % 36.0-4 6.0 normal Not Available [address] [place], [address] 11/12/2023 19:26:45 11/12/19 24 11/12/2023 COMPL ETE BLOOD COUNT W/DIF F MCV 94 fL 80-95 normal Not Available Jose caro[address] [place], [address] 11/12/2023 19:26:45 11/12/19 24 11/12/2023 COMPL ETE BLOOD COUNT W/DIF F MCH 31.2 pg 27.0-3 3.0 normal Not Available [address] [place], [address] 11/12/2023 19:26:45 11/12/19 24 11/12/2023 COMPL ETE BLOOD COUNT W/DIF F MCHC 33.2 % 32.0-3 6.0 normal Not Available [address] [place], [address] 11/12/2023 19:26:45 11/12/19 24 11/12/2023 COMPL ETE BLOOD COUNT W/DIF F RDW 13.0 % 11.7-1 4.6 normal Not Available [address] [place], [address] 11/12/2023 19:26:45 11/12/19 24 11/12/2023 COMPL ETE BLOOD COUNT W/DIF F platelet count 252 10_3/ uL 130-40 0 normal Not Available [address] [place], [address] 11/12/2023 19:26:45 11/12/19 24 11/12/2023 COMPL ETE BLOOD COUNT W/DIF F MPV 10.8 fL 8.0-11 .0 normal Not Available [address] [place], [address] 11/12/2023 19:26:45 11/12/19 24 11/12/2023 COMPL ETE BLOOD COUNT W/DIF F neutrophils % 73.6 Not Available [address] [place], [address] 11/12/2023 19:26:45 11/12/19 24 11/12/2023 COMPL ETE BLOOD COUNT W/DIF F lymphocytes % 15.5 Not Available [address] [place], [address] 11/12/2023 19:26:45 11/12/19 24 11/12/2023 COMPL ETE BLOOD COUNT W/DIF F monocytes % 6.9 Not Available [address] [place], [address] 11/12/2023 19:26:45 11/12/19 24 11/12/2023 COMPL ETE BLOOD COUNT W/DIF F eosinophils % 3.1 Not Available [address] [place], [address] 11/12/2023 19:26:45 11/12/19 24 11/12/2023 COMPL ETE BLOOD COUNT W/DIF F basophils % 0.7 Not Available [address] [place], [address] 11/12/2023 19:26:45 11/12/19 24 11/12/2023 COMPL ETE BLOOD COUNT W/DIF F immature grans % 0.2 Not Available [address] [place], [address] 11/12/2023 19:26:45 11/12/19 24 11/12/2023 COMPL ETE BLOOD COUNT W/DIF F nucleated RBC 0.0 % 0.0-0. 3 normal Not Available [address] [place], [address] 11/12/2023 19:26:45 11/12/19 24 11/12/2023 COMPL ETE BLOOD COUNT W/DIF F absolute neutrophil count 4.47 10_3/ uL 1.2-6. 7 normal Not Available [address] [place], [address] 11/12/2023 19:26:45 11/12/19 24 11/12/2023 COMPL ETE BLOOD COUNT W/DIF F absolute lymphocyte count 0.94 10_3/ uL 1.2-3. 4 low Not Available [address] [place], [address] 11/12/2023 19:26:45 11/12/19 24 11/12/2023 COMPL ETE BLOOD COUNT W/DIF F absolute monocyte count 0.42 10_3/ uL 0.1-0. 8 normal Not Available [address] [place], [address] 11/12/2023 19:26:45 11/12/19 24 11/12/2023 COMPL ETE BLOOD COUNT W/DIF F absolute eosinophil count 0.19 10_3/ uL 0.0-0. 7 normal Not Available [address] [place], [address] 11/12/2023 19:26:45 11/12/19 24 11/12/2023 COMPL ETE BLOOD COUNT W/DIF F absolute basophil count 0.04 10_3/ uL 0.0-0. 2 normal Not Available [address] [place], [address] 11/12/2023 19:26:45 11/12/19 24 11/12/2023 COMPR EHENS PAVITHRA METAB OLIC PANEL calcium 8.8 mg/dL 8.5-10 .1 normal Not Available [address] [place], [address] 11/12/2023 19:44:51 11/12/19 24 11/12/2023 COMPR EHENS PAVITHRA METAB OLIC PANEL glucose 153 mg/dL 74-106 high Not Available [address] [place], [address] 11/12/2023 19:44:51 11/12/19 24 11/12/2023 COMPR EHENS PAVITHRA METAB OLIC PANEL BUN 17 mg/dL 7-18 normal Not Available [address] [place], [address] 11/12/2023 19:44:51 11/12/19 24 11/12/2023 COMPR EHENS PAVITHRA METAB OLIC PANEL creatinine 0.9 mg/dL 0.55-1 .02 normal Not Available [address] [place], [address] 11/12/2023 19:44:51 11/12/19 24 11/12/2023 COMPR EHENS PAVITHRA METAB OLIC PANEL estimated GFR 65.03 mL/min /1.73M 2 Not Available [address] [place], [address] 11/12/2023 19:44:51 11/12/19 24 11/12/2023 COMPR EHENS PAVITHRA METAB OLIC PANEL total protein 6.5 g/dL 6.4-8. 2 normal Not Available [address] [place], [address] 11/12/2023 19:44:51 11/12/19 24 11/12/2023 COMPR EHENS PAVITHRA METAB OLIC PANEL albumin 3.4 g/dL 3.4-5. 0 normal Not Available [address] [place], [address] 11/12/2023 19:44:51 11/12/19 24 11/12/2023 COMPR EHENS PAVITHRA METAB OLIC PANEL bilirubin, total 0.3 mg/dL 0.2-1. 0 normal Not Available [address] [place], [address] 11/12/2023 19:44:51 11/12/19 24 11/12/2023 COMPR EHENS PAVITHRA METAB OLIC PANEL alk phos 77 U/L 46-116 normal Not Available [address] [place], [address] 11/12/2023 19:44:51 11/12/19 24 11/12/2023 COMPR EHENS PAVITHRA METAB OLIC PANEL sodium 143 mmol/ L 136-14 5 normal Not Available [address] [place], [address] 11/12/2023 19:44:51 11/12/19 24 11/12/2023 COMPR EHENS PAVITHRA METAB OLIC PANEL potassium 3.9 mmol/ L 3.5-5. 1 normal Not Available [address] [place], [address] 11/12/2023 19:44:51 11/12/19 24 11/12/2023 COMPR EHENS PAVITHRA METAB OLIC PANEL chloride 108 mmol/ L 98-107 high Not Available [address] [place], [address] 11/12/2023 19:44:51 11/12/19 24 11/12/2023 COMPR EHENS PAVITHRA METAB OLIC PANEL CO2 28.9 mmol/ L 21.0-3 2.0 normal Not Available [address] [place], [address] 11/12/2023 19:44:51 11/12/19 24 11/12/2023 COMPR EHENS PAVITHRA METAB OLIC PANEL anion gap 6.1 mmol/ L 3-11 normal Not Available [address] [place], [address] 11/12/2023 19:44:51 11/12/19 24 11/12/2023 COMPR EHENS PAVITHRA METAB OLIC PANEL AST 25 U/L 15-37 normal Not Available [address] [place] [place], [address] 11/12/2023 19:44:51 11/12/19 24 11/12/2023 COMPR EHENS PAVITHRA METAB OLIC PANEL ALT 19 U/L 14-59 normal Not Available [address] [place] [place], [address] 11/12/2023 19:44:51 11/12/19 24 11/12/2023 TSH TSH 3.79 uIU/m L 0.36-3 .74 high Not Available [address] [place], [address] 11/12/2023 19:44:52 11/12/19 24 11/12/2023 FREE T4 free T4 1.36 NG/dL 0.76-1 .46 normal Not Available [address] [place], [address] 11/12/2023 19:44:53 11/12/19 24 11/12/2023 urina lysis , dipst ick Leukocytes Negati ve Not Available [facility] [address] [place], [address], 11/12/2023 15:23:50 11/12/19 24 11/12/2023 urina lysis , dipst ick Nitrite negati ve Not Available [facility] [address] [place], [address], 11/12/2023 15:23:50 11/12/19 24 11/12/2023 urina lysis , dipst ick Urobilinogen .2 Not Available [facility] [address], [place], [address], 11/12/2023 15:23:50 11/12/19 24 11/12/2023 urina lysis , dipst ick Protein Trace Not Available [facility] [address], [place], [address], 11/12/2023 15:23:50 11/12/19 24 11/12/2023 urina lysis , dipst ick pH 5.0 Not Available [facility] [address], [place], [address], 11/12/2023 15:23:50 11/12/19 24 11/12/2023 urina lysis , dipst ick Blood Non-He molyze d: Trace Not Available [facility] [address], [place], [address], 11/12/2023 15:23:50 11/12/19 24 11/12/2023 urina lysis , dipst ick Specific Gibson 1.020 Not Available [facility] [address], [place], [address], 11/12/2023 15:23:50 11/12/19 24 11/12/2023 urina lysis , dipst ick Ketone Negati ve Not Available [facility] [address], [place], [address], 11/12/2023 15:23:50 11/12/19 24 11/12/2023 urina lysis , dipst ick Bilirubin Negati ve Not Available [facility] [address], [place], [address], 11/12/2023 15:23:50 11/12/19 24 11/12/2023 urina lysis , dipst ick Glucose Negati ve Not Available [facility] [address], [place], [address], 11/12/2023 15:23:50 11/12/19 24 11/12/2023 urina lysis , dipst ick Appearance Slight ly Cloudy Not Available [facility] [address], [place], [address], 11/12/2023 15:23:50 11/12/19 24 11/12/2023 urina lysis , dipst ick Color Pale Yellow Not Available [facility] [address], [place], [address], 11/12/2023 15:23:50 02/11/20 24 02/11/2024 COMPR EHENS PAVITHRA METAB OLIC PANEL calcium 8.9 mg/dL 8.5-10 .1 normal Not Available [address] [place], [address] 02/11/2024 18:09:39 02/11/20 24 02/11/2024 COMPR EHENS PAVITHRA METAB OLIC PANEL glucose 117 mg/dL 74-106 high Not Available [address] [place], [address] 02/11/2024 18:09:39 02/11/20 24 02/11/2024 COMPR EHENS PAVITHRA METAB OLIC PANEL BUN 19 mg/dL 7-18 high Not Available [address] [place], [address] 02/11/2024 18:09:39 02/11/20 24 02/11/2024 COMPR EHENS PAVITHRA METAB OLIC PANEL creatinine 1.1 mg/dL 0.55-1 .02 high Not Available [address] [place], [address] 02/11/2024 18:09:39 02/11/20 24 02/11/2024 COMPR EHENS PAVITHRA METAB OLIC PANEL estimated GFR 51.11 mL/min /1.73m 2 Not Available [address] [place], [address] 02/11/2024 18:09:39 02/11/20 24 02/11/2024 COMPR EHENS PAVITHRA METAB OLIC PANEL total protein 6.4 g/dL 6.4-8. 2 normal Not Available [address] [place], [address] 02/11/2024 18:09:39 02/11/20 24 02/11/2024 COMPR EHENS PAVITHRA METAB OLIC PANEL albumin 3.4 g/dL 3.4-5. 0 normal Not Available [address] [place], [address] 02/11/2024 18:09:39 02/11/20 24 02/11/2024 COMPR EHENS PAVITHRA METAB OLIC PANEL bilirubin, total 0.38 mg/dL 0.2-1. 0 normal Not Available [address] [place], [address] 02/11/2024 18:09:39 02/11/20 24 02/11/2024 COMPR EHENS PAVITHRA METAB OLIC PANEL alk phos 80 U/L 46-116 normal Not Available [address] [place], [address] 02/11/2024 18:09:39 02/11/20 24 02/11/2024 COMPR EHENS PAVITHRA METAB OLIC PANEL sodium 144 mmol/ L 136-14 5 normal Not Available [address] [place], [address] 02/11/2024 18:09:39 02/11/20 24 02/11/2024 COMPR EHENS PAVITHRA METAB OLIC PANEL potassium 3.9 mmol/ L 3.5-5. 1 normal Not Available [address] [place], [address] 02/11/2024 18:09:39 02/11/20 24 02/11/2024 COMPR EHENS PAVITHRA METAB OLIC PANEL chloride 108 mmol/ L 98-107 high Not Available [address] [place], [address] 02/11/2024 18:09:39 02/11/20 24 02/11/2024 COMPR EHENS PAVITHRA METAB OLIC PANEL CO2 28.4 mmol/ L 21.0-3 2.0 normal Not Available [address] [place], [address] 02/11/2024 18:09:39 02/11/20 24 02/11/2024 COMPR EHENS PAVITHRA METAB OLIC PANEL anion gap 7.6 mmol/ L 3-11 normal Not Available [address] [place], [address] 02/11/2024 18:09:39 02/11/20 24 02/11/2024 COMPR EHENS PAVITHRA METAB OLIC PANEL AST 25 U/L 15-37 normal Not Available [address] [place] [place], [address] 02/11/2024 18:09:39 02/11/20 24 02/11/2024 COMPR EHENS PAVITHRA METAB OLIC PANEL ALT 15 U/L 14-59 normal Not Available [address] [place], [address] 02/11/2024 18:09:39 02/11/20 24 02/11/2024 TSH TSH 0.18 uIU/m L 0.36-3 .74 low Not Available [address] [place], [address] 02/11/2024 18:09:39 02/11/20 24 02/11/2024 FREE T4 free T4 1.72 NG/dL 0.76-1 .46 high Not Available [address] [place], [address] 02/11/2024 18:09:40 06/24/20 23 12/02/2022 MRI, lumba r spine , w/wo contr ast No observ ation record ed. Not Available 06/24/2023 19:58:44 07/02/20 23 07/02/2023 elect jani bolden am EKG PATICHAYO T NAME: Jaspal Elizondo UNIT #: [id number] ORDERI NG PROVID ER: Tra Moreira T #: [id number] PRIMAR Y CARE PROVID ER: IVANIA LANCASTER DATE/T SO OF SERVIC E: 1043 : 1944 PERFOR EDWINA LOCATI ON: ER ------ ------ --- APPROV ED REPORT ------ ------ -- Exam: Restin g ECG Reason for Exam: ams Patichayo t Locati on: E HR:75 bpm ECG Measur ements Heart Rate 75 AXIS ND 141 P 76 QRSd 82 QRS 20 QT 388 T 54 QTc 430 Conclu dick Sinus rhythm .. V-rate 60- 99 Atrial premat ure comple x...SV comple x w/ short R-R interv al Consid er kisha septal infarc t...Q >30mS, dimin R, V1-V2 Approp riate interv als. No ST segmen t or T wave abnorm angel s to sugges t occlus pavithra NC ------ ------ ------ ------ ------ ------ ------ ------ ------ ------ ------ ------ ------ ------ ------ ------ ---- ------ - E-Sign Date: E-Sign Time: 1052 [facility] [address] [facility] [place], [address] 07/02/2023 15:48:08 07/02/2007/02/2023 CT imagi ng repor t Zhanna t Name: Jaspal Elizondo Unit #: [id number] Loc: ER Orderi ng Provid er: Tra Moreira t #: [id number] Status : REG ER Primar [...] facili ty are submit erick to the [facility] al Radiol ogy Data Regist ry (NRDR) [...] ------ ---- Dictat ed By: Rudy Rosario 1118 12/07/ 23 1118 Transc ribed By: Sebastian Ames 1117 This [...] at the addres s above. Thank- you. [email or web address] [facility] [address], [place], [address] 07/02/2023 15:48:09 07/02/20 23 07/02/2023 elect jani bolden am EKG ZHANNA Anaya NAME: Jaspal Elizondo UNIT #: [id number] ORDERI NG PROVID ER: Dina hernandez,Tra WATSON ACCOUN T #: [id number] PRIMAR Y CARE PROVID ER: IVANIA LANCASTER DATE/T SO OF SERVIC E: 1043 : 1944 PERFOR EDWINA LOCATI ON: ER ------ ------ --- APPROV ED REPORT ------ ------ -- Exam: Restin g ECG Reason for Exam: annabella anaya Locati on: E HR:75 bpm ECG Measur ements Heart Rate 75 AXIS ND 141 P 76 QRSd 82 QRS 20 QT 388 T 54 QTc 430 Conclu dick Sinus rhythm .. V-rate 60- 99 Atrial premat ure comple x...SV comple x w/ short R-R interv al Consid er kisha septal infarc t...Q >30mS, dimin R, V1-V2 Approp riate interv als. No ST segmen t or T wave abnorm angel an to connie anaya occlus pavithra NC ------ ------ ------ ------ ------ ------ ------ ------ ------ ------ ------ ------ ------ ------ ------ ------ ---- ------ - E-Sign Date: E-Sign Time: 1052 ------ ------ --- ADDEND UM APPROV ED REPORT ------ ------ -- Exam: Restin g ECG Reason for Exam: ams Patichayo t Locati on: E HR:75 bpm ECG Measur ements Heart Rate 75 AXIS ND 141 P 76 QRSd 82 QRS 20 QT 388 T 54 QTc 430 Conclu dick Sinus rhythm .. V-rate 60- 99 Atrial premat ure comple x...SV comple x w/ short R-R interv al Consid er kisha septal infarc t...Q >30mS, dimin R, V1-V2 Approp riate interv als. No ST segmen t or T wave abnorm alitie s to sugges t occlus pavithra NC I have review ed and I agree with the emerge ncy room physic peña's ECG interp retati on. Electr onical ly signed by: [id number] Cosign ed by: [email or web address] [facility] [address], [place], [address] 07/02/2023 15:48:08 07/03/2007/02/2023 ED visit note ED Visit Note ZHANNA Anaya NAME: Jaspal Elizondo UNIT #: [id number] ADMITT ING PROVID ER: Tra Moreira PA ACCOUN T #: [id number] PRIMAR Y CARE PROVID ER: IVANIA LANCASTER [...] like you have had an intake today [facility] for furthe r outpat ient evalua tion [...] l [place] on Making 77-yea r-old female presen ting with increa sed agitat ion in the [...] had just and both daught er and zhanna anaya felt comfor table being discha rged home [...] . 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 Use Status : Never Smokin g risk assess ment perfor med?: Yes Alcoho l Intake : never Drug use: Never Substa nce use type: does not use Do you feel safe at home: Yes Do you feel safe in your relati onship ?: Yes Additi onal Social histor y: unable to asses pop ARREDONDORN 3 Course Vital Signs Vital signs: Vital [...] Result s Lab/Te st Result s: Labora torjose Tests Range/ Units 10:14 10:59 WBC (4.4-1 [...] Alcoho l (<10) mg/dL < 3.0 cc: IVANIA LANCASTER ------ ------ ------ ------ ------ ------ ------ ------ ------ ------ ------ --- Dictat ed by: DINA WATSON,TRA N Dictat ed: Time: 1225 Date: 1750 Date: [...] error, please notify us immedi lizly at [phone] and return the origin al report to us at the addres s above. Thank you. [email or web address] St[address] [facility] [address], [place], [address] 07/03/2023 22:25:15 07/04/20 23 07/03/2023 stanley thomas s note Mental Health Crisis Note ZHANNA Anaya NAME: Jaspal Elizondo UNIT #: [id number] ADMITT ING PROVID ER: Leticia Hill ACCOUN T #: [id number] PRIMAR Y CARE PROVID ER: IVANIA LANCASTER DATE OF ADMIT: 02/15 : 1944 Date of servic e: Time of Servic e: 12:08 Mental Health Emerge ncy Note Releas e [facility] releas e signed :: Yes Reason for Visit The client is seen in the ED after family yemi t her in for sudden increa se in agitat ion and behavi ors. The ED report ed they did not see her needin g inpati ent level of care kym r, outpat edi alvarado ts would be helpduy garcia. In the last 2 weeks has the [...] al and daught ers report . ) Grimes ation: Disori ented in Time Memory : [...] with her daught er and others in [facility]. She gaytan been trying to get into servic es with [facility] and [facility] was only trying to get intake paperw [...] but not a famili ar one. [facility] inform ed that the client stated that the voice tells her she is going to take her kids away. when she hears this she become s agitat ed poundi ng her fist on the table really hard and scream ing out loud. The [facility] stated that there was a recent change in her meds and attrib utes this behavi or to those change s. The [facility] said she has had poor concen tratio n even when it comes to her favori te game of BINGO. She report ed that last evenin g while playin g BINGO she though t she saw this person starin g at her throug h the window and so slid off the chair and hid under the table. She is observ ed by family to sit in her chair all day tappin g her foot contin uously . It appear s based on chart review with [facility] the client is diagno sed with schizo phreni a. The client was feelin g better after receiv ing some Risper idone and wanted to go home. Resour lillian Reosur lillian review ed and given: : 988 and [facility] Plan/D isposi tion Recomm ended Dispos ition: [facility] Servic es [facility] Servic es: Other. Plan: The client was discha rged to go home with her daught er. She will be follow ed up with by her new team in [facility] soon now that intake paperw vilma is annmarie suarez. Person report ed agreem ent to plan: Yes Report s/comm unicat ion Outcom e discus sed with: ED/Per libby cc: ------ ------ ------ ------ ------ ------ ------ ------ ------ ------ ------ --- Dictat ed by: CECI Martinez QMHP,R OSE Dictat ed: Time: 1208 Date: 2201 Date: Date: Transc ribed Date: Transc ribed Time: 120 By: SAVANNAH This is privil eged, confid ential inform ation, intend ed only for the provid er named. Any use or distri bution by any person other than this provid er is strict ly prohib ited. If you receiv e this report in error, please notify us immedi tracey at [phone] and return the origin al report to us at the addres s above. Thank you. [email or web address] [facility] [address] [place], [address] 07/07/2023 13:32:02 07/29/19 24 07/29/2023 elect jani bolden am EKG MARYCHAYO T NAME: Jaspal Elizondo UNIT #: [id number] ORDERI NG PROVID ER: Bakari Olea M.D. ACCOUN T #: [id number] PRIMAR Y CARE PROVID ER: Ivania Lancaster DATE/T SO OF SERVIC E: 0 4 0917 : 1944 PERFOR EDWINA LOCATI ON: ER ------ ------ --- APPROV ED REPORT ------ ------ -- Exam: Restin g ECG Reason for Exam: sob Patichayo t Locati on: E HR:79 bpm ECG Measur ements Heart Rate 79 AXIS ND 134 P 82 QRSd 72 QRS 52 [...] ------ - E-Sign Date: E-Sign Time: [email or web address] [facility] [address] [place], [address] 07/30/2023 22:26:49 07/29/19 24 07/29/2023 elect jani bolden am No observ ation record ed. [email or web address] Not Available 07/30/2023 22:58:55 07/29/19 24 07/29/2023 x-ray imagi ng rayna t Zhanna t Name: Jaspal Elizondo Unit #: [id number] Loc: ER Orderi ng Provid er: Bakari Olea M.D. Accoun t #: [id number] Status : REG ER Primar y Care [facility] er: Ivania Lancaster Date of Exam: [...] at the addres s above. Thank- you. [email or web address] [facility] [address], [place], [address] 07/30/2023 22:26:49 07/29/19 24 07/29/2023 CT imagi ng rayna anaya Name: Jaspal Elizondo Unit #: [id number] Loc: ER Orderi ng Provid er: Bakari Olea M.D. Accoun t #: [id number] Status : REG ER Primar [...] IMPRES DICK: No eviden ce of pulmon shannon emboli sm. Trace right pleura l effusi [...] ------ ---- Dictat ed By: Rudy Rosario 1216 Transc ribed By: Sebastian Ames 1216 This is privil eged, confid ential inform ation intend ed only for the provid er named. Any use or distri bution by any person other than this provid er is strict ly prohib ited. If you receiv e this report in error, please notify us immedi lizly at [phone] and return the origin al report to us at the addres s above. Thank- you. [email or web address] [facility] [address], [place], [address] 07/30/2023 22:26:49 07/30/19 24 07/29/2023 ED visit note ED Visit Note ZHANNA Anaya NAME: Jaspal Elizondo brandojaspal Cronin UNIT #: [id number] ADMITT ING PROVID ER: Bakari Olea M.D. ACCOUN T #: [id number] PRIMAR Y CARE PROVID ER: Ivania Lancaster DATE OF ADMIT: 07/29 : 1944 HPI Genera l DELISA: 2 Date/T so Provid er Initia erick Guerra ntatio n: 09:07. HPI Narrat pavithra: MDM This is an overal l well-a ppeari ng normot hermic and not tachyc ardic nor hypoxi c 78-yea r-old female with shortn ess of breath while laying flat concer fidelina for possib ility of pneumo jw. ACS possib le based on the patichayo anaya's age howeve r in the settin [...] ischem ia. 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 al record review : [facility] EMR [Diagn ostic interp retati ons perfor [...] HPI This is a 78-yea r-old female arrivhumble mcadams from a [facility] reside nce with her daught er [facility] shortn ess of breath [...] (Acute ) Medica l Histor y (Revie wed @ 14:12 by Sophia Guzmán DPM) Sympto matic menopa usal or female climac teric states Arthro roshan Social Histor y (Revie thu @ 14:12 by Sophia Guzmán DPM) 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 You are found to have a small amount of fluid in your right lung. Please return to the emerge ncy depart ment if you develo p worsen ing shortn ess of breath have any falls or develo p any chest pain. Discha rge Data Discha rge Date/T so-TO BE ENTERE D AT DEPART URE: 12:42 POCUS Exam (ED) Limite d Cardia c Exam DATE OF EXAM: TIME OF EXAM: 09:44 PROVID ER THAT PERFOR MED THE STUDY: Bakari anaya IS THIS A REPEAT EXAM DURING THIS ENCOUN TER: no REASON FOR EXAM: Dyspne a VISUAL IZED STRUCT URES: Four Chambe rs, Left ventri thiago and LVOT VIEW OBTAIN ED: Apical 4-Caorl kristopher, Parast ernal long-a xis, Subxip hoid [...] right anteri or, left anteri or, right superintendent division ior and left superintendent division ior PERTIN ENT FINDIN GS/IMP RESSIO N: [...] M.D. Dictat ed: Time: 090 8 Date: 738 Date: Date: Transc ribed Date: Transc ribed Time: 907 By: MANUEL This is privil eged, confid ential inform ation, intend ed only for the provid er named. Any use or distri bution by any person other than this provid er is strict ly prohib ited. If you receiv e this report in error, please notify us immedi lizly at [phone] and return the origin al report to us at the addres s above. Thank you. [email or web address] [facility] [address], [place], [address] 07/30/2023 22:26:48 08/04/19 24 07/29/2023 elect jani bolden am EKG ZHANNA T NAME: Jaspal Elizondo UNIT #: [id number] ORDERI NG PROVID ER: Bakari Olea M.D. ACCOUN T #: [id number] PRIMAR Y CARE PROVID ER: Ivania Lancaster DATE/T SO OF SERVIC E: 0 4 0917 : 1944 PERFOR EDWINA LOCATI ON: ER ------ ------ --- APPROV ED REPORT ------ ------ -- Exam: Restin g ECG Reason for Exam: vivi anaya Locati on: E HR:79 bpm ECG Measur ements Heart Rate 79 AXIS ND 134 P 82 QRSd 72 QRS 52 [...] ---- ------ - E-Sign Date: E-Sign Time: 0935 ------ ------ --- ADDEND UM APPRO ED REPORT ------ ------ -- Exam: Restin g ECG Reason for Exam: sob Zhanna anaya Locati on: E HR:79 bpm ECG Measur ements Heart Rate 79 AXIS ND 134 P 82 QRSd 72 QRS 52 [...] ly signed by: [id number] Cosign ed by: [email or web address] [facility] [address] , [place], [address] 08/07/2023 11:35:30 08/04/19 24 07/29/2023 trans -thor acic echoc ardio gram (TTE) (PROC ) No observ ation record ed. Not Available 08/11/2023 14:34:47 Result Notes None recorded. Problems Name Status Onset Date Resolution Date Notes Provider Name and Address Organization Details Recorded Time Menopause present Completed 201511/12/2023 Problem Code: N95.1; Problem Code Type: ICD-10; Tia Hugo null, [facility] 4 11:53:03 Osteochondropat hy Active 2015 Problem Code: M93.90; Problem Code Type: ICD-10; [address], [place], [address] , [facility], 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 4 11:52:36 Sensorineural hearing loss Active 2015 Tia Hugo null, [facility], [facility] 4 11:54:31 Hypothyroidism Active 2015 Tia Hugo null, [facility], [facility]. 4 11:49:27 Idiopathic scoliosis Active 2015 Problem Code: M41.20; Problem Code Type: ICD-10; [address], [place], [address] , [facility] 4 14:14:56 Senile osteoporosis Active 2015 Problem Code: M81.0; Problem Code Type: ICD-10; [address], [place], [address] , [facility] 4 14:14:42 Sciatica Active 2015 Problem Code: M54.30; Problem Code Type: ICD-10; [address], [place], [address] , [facility] 4 14:14:44 Major depression, single episode Active 2015 Problem Code: F32.9; Problem Code Type: ICD-10; [address], [facility] [address] , [facility] 4 14:14:54 Arthropathy Active 2015 Problem Code: M12.9; Problem Code Type: ICD-10; [address], [facility] [address] , [facility] 4 14:14:59 Acute upper respiratory infection Completed 201609/15/2016 Problem Code: J06.9; Problem Code Type: ICD-10; Not Available [facility] 3 05:18:19 Auditory hallucinations Active 2016 Tia Hugo null, [facility] 4 11:52:16 Schizoaffective disorder Active 2016 Problem Code: F25.9; Problem Code Type: ICD-10; [address], [facility] [address] , [facility] 3 11:51:45 Transient cerebral ischemia Active 2018 Tia Hugo null, [facility]. 4 11:50:19 [facility]coordination Active 2018 [facility] 4 11:56:33 Underweight Active 2019 Problem Code: R63.6; Problem Code Type: ICD-10; [address], [place], [address] , [facility] 4 14:14:40 Amnesia Active 2019 Tia Hugo tohmas, [facility]. 4 11:56:50 Pain in thoracic spine Completed 201503/19/2017 Problem Code: M54.9; Problem Code Type: ICD-10; Not Available [facility] 3 05:18:20 Abnormal weight loss Completed 201601/12/2018 Problem Code: R63.4; Problem Code Type: ICD-10; Not Available [facility] 3 05:18:20 Urinary tract infectious disease Completed 201805/09/2019 Problem Code: N39.0; Problem Code Type: ICD-10; Not Available [facility] 3 05:18:20 Cognitive deficit in communication skills Completed 201506/13/2016 Problem Code: R41.841; Problem Code Type: ICD-10; Not Available [facility] 3 05:18:20 Screening for malignant neoplasm of breast Completed 201608/02/2019 Problem Code: Z12.39; Problem Code Type: ICD-10; Not Available [facility] 3 05:18:20 Screening for malignant neoplasm of colon Completed 201708/02/2019 Problem Code: Z12.11; Problem Code Type: ICD-10; Not Available [facility] 3 05:18:20 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 Completed 201504/22/2023 Problem Code: I69.328; Problem Code Type: ICD-10; Not Available [facility] 3 05:18:20 General unsteadiness Completed 201503/24/2017 Problem Code: R26.81; Problem Code Type: ICD-10; Not Available [facility] 3 05:18:21 Auditory hallucinations Completed 201403/24/2017 Problem Code: R44.0; Problem Code Type: ICD-10; Tia Hugo null, [facility] 4 11:52:16 Screening for disorder Completed 201805/09/2019 Problem Code: Z13.89; Problem Code Type: ICD-10; Not Available [facility] 3 05:18:21 Stool finding Completed 201503/19/2017 Problem Code: R19.5; Problem Code Type: ICD-10; Not Available [facility] 3 05:18:21 Pain in left lower limb Completed 201503/19/2017 Problem Code: M79.605; Problem Code Type: ICD-10; Not Available [facility] 3 05:18:21 Gastroesophagea l reflux disease without esophagitis Active 2022 TISHA MARIE RN [facility], [facility] 3 15:14:39 Nocturia Active [address], [facility] [address] , [facility] 4 14:14:51 Urge incontinence of urine Active [address], [facility] [address] , [facility] 4 14:14:38 Onychomycosis of toenails Active [address], [facility] [address] , [facility] 4 14:14:49 Osteoporosis Active [address], 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 sees [facility] neurosurger jose. planned MRI repeat for management January [address], [facility] [address] , [facility] 4 11:18:57 Low back pain Active [address], [place], [address] , [facility] 4 11:16:28 Unsteady when walking Active [address], [place], [address] , [facility] 4 11:16:42 Notes:Some problems listed i n Document: #[id number] could not be added to this patient's chart. Please review this document and add these problems to the patient's chart manually as needed. Problem Notes None recorded. Procedures Surgical History None recorded. Imaging Results Imaging Date Name Status LastModified by Organization Details LastModified Time 12/02/2022 MRI, lumbar spine, w/wo contrast [facility] Information not available 06/24/2023 19:58:44 07/02/2023 electrocardiogram completed [email or web address] [address] [place], [address] 07/02/2023 15:48:08 07/02/2023 CT imaging report completed [address] [place], [address] 07/02/2023 15:48:09 07/02/2023 electrocardiogram completed [email or web address] [address] [place], [address] 07/02/2023 15:48:08 07/02/2023 ED visit note completed [address] [place], [address] 07/03/2023 22:25:15 07/03/2023 mental health crisis note completed [id number] [address] [place], [address] 07/07/2023 13:32:02 07/29/2023 electrocardiogram completed [address] [place], [address] 07/30/2023 22:26:49 07/29/2023 electrocardiogram completed [email or web address] Informa tion not available 07/30/2023 22:58:55 07/29/2023 x-ray imaging report completed [email or web address] Yunior reneehusam [address] [place], [address] 07/30/2023 22:26:49 07/29/2023 CT imaging report completed [email or web address] [address] [place], [address] 07/30/2023 22:26:49 07/29/2023 ED visit note completed Vlad lopez [address] [place], [address] 07/30/2023 22:26:48 07/29/2023 electrocardiogram completed [id number] [address] [place], [address] 08/07/2023 11:35:30 07/29/2023 trans-thoracic echocardiogram (TTE) (PROC) [...] night at bedtime 2023 active changed by [facility] provider Not Available Not Available Not Available [...] daily prescrib ed by Dr. Tere su ([facility]) 07/09 completed Not Available Not Available Not Available doxycycli ne hyclate 100 mg tablet TAKE ONE TABLET BY MOUTH TWICE A DAY 06/16 completed Not Available Not Available Not Available risperido ne 0.5 mg tablet Take 1 tablet by mouth every night with 0.25mg tablet 02/10 completed changed by [facility] provider Not Available Not Available Not Available [...] Updated DateTime 3 162.56 cm 16.9 kg/m2 61083.7 7 g 98.2 [degF] 78 /min 14 /min 104 mm[Hg] 64 mm[Hg] TISHA MARIE RN [place] [facility] 3 11:31:38 Date Recorded Body height Body mass index (BMI) Body weight Body temperature Heart rate Respiratory rate Systolic blood pressure Diastolic blood pressure Provider Name and Address Organization Details Last Updated DateTime 4 162.56 cm 16.3 kg/m2 84310.2 8 g 98.2 [degF] 76 /min 14 /min 92 mm[Hg] 50 mm[Hg] TISHA MARIE RN [facility] 4 13:51:53 Date Recorded Body height Body mass index (BMI) Body weight Body temperature Heart rate Respiratory rate Systolic blood pressure Diastolic blood pressure Provider Name and Address Organization Details Last Updated DateTime 4 162.56 cm 16.3 kg/m2 66500.5 6 g 98.2 [degF] 78 /min 16 /min 110 mm[Hg] 60 mm[Hg] TISHA MARIE RN [facility] 4 13:05:09 Social History Question Answer Notes LastModified by Organizat ion Details LastModified Time Tobacco Smoking Status Never Smoker SANJUANITA SPANGLER, [facility] 06/16/2023 11:28:51 What Is Your Level [...] Recorded Time Tdap 06/16/2023 completed SANJUANITA SPANGLER, [facility] 06/16/2023 17:19:44 Tdap 08/27/2011 completed Not Available [facility] 06:04:44 zoster live 10/25/2012 completed Not Available [facility] 06/05/2023 06:04:44 Influenza, split virus, trivalent, preservative 07/03/2016 completed Not Available [facility] 06/05/2023 06:04:44 Pneumococcal Conjugate, unspecified formulation 10/18/2014 completed Not Available [facility] 06/05/2023 06:04:44 Influenza, split virus, quadrivalent, preservative 04/13/2018 completed Not Available [facility] 06/05/2023 06:04:44 pneumococcal polysaccharide PPV23 09/24/2010 completed Not Available [facility] 2022 06:04:44 influenza, unspecified formulation 05/17/2019 completed Not Available [facility] 06/05/2023 06:04:45 Past Encounters Encounter ID Performer Location Encounter Start Date Encounter Closed Date Diagnosis/Indication Diagnosis SNOMED-CT Code [id number] IVANIA LANCASTER [address] [place] [place] [address] 06/16/2023 11:04:49 06/16/2023 12:35:17 Anticoagulant therapy 907282761 Hypothyroidism 56899873 Schizoaffe ctive disorder 45886800 Transient cerebral ischemia 780160347 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 322017877 Patient ne w to provider [id number] 9 Gastroesop hageal reflux disease 051755904 Osteoporosis 74269468 Dysuria 10452414 Low back pain 720735456 Bilateral hearing loss 28587049 Administra tion of diphtheria, pertussis, and tetanus vaccine 172879298 [id number] IVANIA LANCASTER [address] [place] [place] [address] 11/12/2023 12:49:40 11/12/2023 15:02:22 Schizoaffective disorder 49207298 Nocturia 682875075 Hypothyroidism 90210502 Urge incon tinence of urine 60212618 Sensorineu ral hearing loss 95457018 [id number] IVANIA LANCASTER [facility] [address] [place] [address] 02/11/2024 12:45:08 02/11/2024 14:06:48 Hypothyroidism 51053001 Osteoporosis 78999746 Urge incon tinence of urine 38884803 Onychomyco sis of toenails 808203078 Schizoaffe ctive disorder 72169754 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 607330293 Unsteady when walking 22 245354 Health Concerns Section Related Observation LastModified by Organization Detai ls LastModified Time None Recorded Concern Status LastModified by Organization Details LastModified Time None Recorded Advance Directives Directive None Recorded Payers Encounter Date Sequence Insurance Name Policy Number Policy Murray Covered Member ID Murray Member ID Guarantor Name 06/16/2023 1 [place] [employer] Mayra Cronin Plue [id number] Mayra Cronin Plue 06/16/2023 2 [facility] (MEDICAID) Mayra Cronin Plue [id number] Mayra M Plue 11/12/2023 1 [place] [employer] Mayra Brenden Plue [id number] Mayra Brenden Plue 11/12/2023 2 [facility] (MEDICAID) Mayra Cronin Plue [id number] Mayra M Plue 02/11/2024 1 [place] [employer] Mayra Cronin Plue [id number] Mayra Brenden Plue 02/11/2024 2 [facility] (MEDICAID) Mayra Cronin Plue [id number] Mayra Cronin Plzakiya Notes Date Note Type Note Provider Name and Address Organization Details Recorded Time 06/16/2023 text/html HPI Notes: Gener ic HPI Template Reported by patient. Notes: Mayra is a pleasant 77 year old female here today for an [facility] care get acquainted visit with new PCP. Last time she was seen in this office was 2019. She has been seeing primary care provider in [facility] but hasn't been seen in a year. Last office visit notes, last labs at last office were February 2022. 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 Recent [...] daughter Binta. 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 Mayra has a developmental delay as well as dementia. These diagnoses came from her last office visit with primary care provider in [place]. I do not have any mental health [...] irritation. IVANIA LANCASTER, [address], [place], [address], [facility]. 06/16/2023 14:42:48 11/12/2023 text/html HPI Notes: Mayra is here today with her daughter, Binta, who is also her caregiver. Was seen last to establish care with me 06/16/2023. At that time I had placed a referral to audiology for sensorineural hearing loss to get potential new hearing aids. Unfortunately [facility] lost their prototype technician and they would like referral to a different prototype technician for assessment. Discussed today that Mayra continues [...] office visit had sent referral back to [facility] to get reestablished with psychiatrist that she has not seen them for quite some time. does have diagnosis of schizoaffective disorder. Currently taking only quetiapine 25 mg nightly as well as risperidone 0.25 mg. Patient's daughter feels that this could be increased. Issues with sleeping still. But again she is getting up multiple times to pee in the night. Apparently [facility] only establish her with a counselor and not a psychiatrist so they never got establishedwith a psychiatric prescriber. [address]N [address], [place], [address], [facility]. 11/25/2023 14:53:11 02/11/2024 text/html HPI Notes: Mayra is a pleasant 78 year old female here today for a 3 month follow up: hypothyroidism (recheck TSH today), psych referral (re-sent 11/11, seeing Dr. Albert now), nocturia, audiology referral (sent 11/11, pt daughter Bitna says they never called from [facility]). Did not get DEXA scan scheduled - [...] pain and also osteoporosis. Continues to see [facility] neurosurgery for management and follow-up MRI scheduled January or February for lower back. Reports that the oxybutynin 5 mg has helped with urinary urge incontinence but they never received DME order for incontinence pull-ups. We did order these back in October. Will order again for family. Says they never heard from the [employer] active style. Daughter says she is doing well with no longer hearing voices as she is now on Risperdal and Seroquel at night. Does not take anything during the day. Feels she is too sedated if she takes these things during the day. Denies abdominal pain, flank pain, blood in urine, dysuria, poor sleep, chest pain, chest tightness, headaches, vision changes, edema AD[address]N [facility] [address], [place], [address], [facility], [facility]. 02/15/2024 11:26:46 OBGyn Episode No OBEpisode recorded.
--- OUTSIDE RECORDS SUMMARY | 2024-03-03 01:21 | XMS_ITS | Encounter Summary ---
Author Organization [facility] Address [address] [place] [address] Care Team Providers Care Livestock Laborer Name Role Phone Unavailable Primary Care Provider Unavailabl e Encounter Details Date Type Department Care Team (Late st Contact Info) Description 04/17/2004 Results Only [facility] [place] conversion [address] [place] [address] Raissa Rashid NP Social History Tobacco Use [...] ? LOLITA LUO ? Accession #: ? [id number] : ? 1945 (Age: 58) ??F ?Collect Date: ? 04/17/2004 Location: ? [facility] ? Receive Date: ? 04/18/2004 Provider: ?RAISSA RASHID BIOINFORMATICS ENGINEER Copy to: ? Specimen/Source: ?ThinPrep Pap Test, [...] reviewed and electronically signed by: ? FOREST Esquivel(ASCP) ? Report Date: ??04/24/2004 11:52 End of Report TIA PINEDA 04/17/2004 04/18/2004 Raissa Rashid MILL HOUSE SUPERVISOR PATHOLOGY ORDERABLES TIA PINEDA [address] [place] [address] documented in this encounter Visit Diagnoses Not on filedocumented in this encounter
--- OUTSIDE RECORDS SUMMARY | 2024-03-03 01:21 | XMS_ITS | Encounter Summary ---
Author Organization [facility] Address [address] [place] [address] Care Team Providers Care Cheese Grader Name Role Phone Unavailable Primary Care Provider Unavailabl e Encounter Details Date Type Department Care Team (Latest Contact Info) Description 05/31/1999 16:36 EST Hospital Encounter [facility] - Other [address] [place] [address] Raissa Jones, CREDIT BALANCE SPECIALIST Unknown, Provider, Discharge Disposition: Auto Discharge Social [...]
--- OUTSIDE RECORDS SUMMARY | 2024-03-03 01:21 | XMS_ITS | Encounter Summary ---
Author Organization [facility] Address [address] [place] [address] Care Team Providers Care Integrated Logistics Programs Director Name Role Phone Unknown, Provider Primary Care Provider [phone] Encounter Details Date Type Department Care Team (Late st Contact Info) Description 03/29/2015 Historical Results Only [facility] Radiology Results [address] [place] [address] [id number] Jorge Morillo MD [address] [place] [address] [address] [place] [address] Social History Tobacco Use Types [...] 03/29/2015 17:08 EDT [facility] [address] [place], [place] [address] Diagnostic Imaging Report Signed Patient Name:LOLITA ELIZONDO ? Date of :1945 ? MR Number:[id number] Age:69 ?Sex:F Category: CR ? Date of [...] Procedure Note Carl Matute MD - 04/26/2019 [place] [id number] Diagnostic Imaging Report Signed Patient Name:LOLITA ELIZONDO Number:[id number] Date of :1945 MRNumber:[id number] Age:69 Sex:F Category: CR Date ofExam:03/29/15 Procedure: CR: Chest; PA/LAT viewsAccession: [id number] Ordering Physician: Jorge Bonilla MD CC: Jorge [...] on filedocumented in this encounter Care Teams Integrated Logistics Programs Director Relationship Specialty Start Date End Date Unknown, Provider, PCP - General 02/22/14 documented as of this encounter
--- OUTSIDE RECORDS SUMMARY | 2024-03-03 01:21 | XMS_ITS | Encounter Summary ---
Author Organization [facility] Address [address] [place] [address] Care Team Providers Care Telephone Station Repairer Name Role Phone Unavailable Primary Care Provider Unavailabl e Encounter Details Date Type Department Care Team (Latest Contact Info) Description 04/29/2004 9:39 EDT - 04/29/2004 11:59 EDT Hospital Encounter [facility] - Other [address] [place] [address] Raissa Jones, OVERWEAVER Discharge Disposition: Auto Discharge Social History Tobacco [...]
--- OUTSIDE RECORDS SUMMARY | 2024-03-03 01:21 | XMS_ITS | Encounter Summary ---
Author Organization [facility] Address [address] [place] [address] Care Team Providers Care Spiritual Care Coordinator Name Role Phone Unknown, Provider Primary Care Provider [phone] Encounter Details Date Type Department Care Team (Late st Contact Info) Description 03/08/2015 Historical Results Only [facility] Radiology Results [address] [place] [address] [id number] Jorge Morillo MD [address] [place] [address] [address] [place] [address] Social History Tobacco Use Types [...] 11:3 0 EDT Narrative 03/08/2015 17:19 EDT [facility] [address] [place], [place] [address] Diagnostic Imaging Report Signed Patient Name:LOLITA ELIZONDO ? Date of :1945 ? MR Number:[id number] Age:69 ?Sex:F Category: MR ? Date of [...] Procedure Note Steven Estrada MD - 04/27/2019 [place] [id number] Diagnostic Imaging Report Signed Patient Name:LOLITA ELIZONDO Number:[id number] Date of :1945 MRNumber:[id number] Age:69 Sex:F Category: MR Date ofExam:03/08/15 Procedure: MR: MRI Brain w/o contrastAccession: [id number] Ordering Physician: Jorge Bonilla MD CC: Jorge [...] on filedocumented in this encounter Care Teams Spiritual Care Coordinator Relationship Specialty Start Date End Date Unknown, Provider, PCP - General 02/22/14 documented as of this encounter
--- OUTSIDE RECORDS SUMMARY | 2024-03-03 01:21 | XMS_ITS | Encounter Summary ---
Author Organization [facility] Address [address] [place] [address] Care Team Providers Care Production Control Scheduler Name Role Phone Unavailable Primary Care Provider Unavailabl e Encounter Details Date Type Department Care Team (Latest Contact Info) Description 02/21/2014 12:50 EDT - 02/21/2014 23:59 EDT Hospital Encounter [address] [address] Unknown, Provider, Discharge Disposition: Home or Self Care Social History Tobacco Use Types Packs/Day Years Used Date Smoking Tobacco: Never Assessed Sex and Gender Information Value Date Recorded Sex Assigned at Not on file Gender Identity Not on file Sexual Orientation Not on file documented as of this encounter Discharge Disposition Disposition Code Departure Means Destination Home or Self Senior Care documented in this encounter Plan of Treatment Not on file documented as of this encounter Visit Diagnoses Not on filedocumented in this encounter
--- OUTSIDE RECORDS SUMMARY | 2024-03-03 01:21 | XMS_ITS | Encounter Summary ---
Author Organization [facility] Address [address] [place] [address] Care Team Providers Care C S S Representative Name Role Phone Unavailable Primary Care Provider Unavailabl e Encounter Details Date Type Department Care Team (Latest Contact Info) Description 04/17/2004 12:14 EDT Hospital Encounter [facility] - Other [address] [place] [address] Raissa Jones, JUDICIAL REPORTER Discharge Disposition: Auto Discharge Social History Tobacco [...]
--- OUTSIDE RECORDS SUMMARY | 2024-03-03 01:21 | XMS_ITS | Encounter Summary ---
Author Organization [facility] Address [address] [place] [address] Care Team Providers Care Manager Of Investigations Name Role Phone Unknown, Provider Primary Care Provider [phone] Encounter Details Date Type Department Care Team (Late st Contact Info) Description 02/21/2014 Results Only [facility] - [facility] ([facility] [address] [place], [place] [address] Jorge Morillo MD [address] [place] [address] [address] [place] [address] Social History Tobacco Use Types [...] taken when reading/interpreting unformatted reports. Name: ? CAHRLESLOLITA PERSON ? Accession #: ? [id number] ? : ? 1945 (Age: 68) ??F ? Collect Date: ? 02/21/2014 ? Location: ? [facility] ? Receive Date: ? 02/22/2014 ? Provider: [...] EDT Jorge Morillo MD PATHOLO GY ORDERABLES [facility] [address] [place] [address] documented in this encounter Visit Diagnoses Not on filedocumented in this encounter Care Teams Manager Of Investigations Relationship Specialty Start Date End Date Unknown, Provider, PCP - General 02/22/14 documented as of this encounter
--- OUTSIDE RECORDS SUMMARY | 2024-03-03 01:21 | XMS_ITS | Encounter Summary ---
Author Organization [facility] Address [address] [place] [address] Care Team Providers Care Feller Buncher Operator Name Role Phone Unavailable Primary Care Provider Unavailabl e Encounter Details Date Type Department Care Team (Latest Contact Info) Description 04/07/2006 16:43 EDT Hospital Encounter [facility] - Other [address] [place] [address] Raissa Jones, COMMERCIAL COLLECTIONS DRIVER Discharge Disposition: Home or Self Care Social [...] GA S ORDERABLES [facility] [address] [place] [address] documented in this encounter Visit Diagnoses Not on filedocumented in this encounter
--- OUTSIDE RECORDS SUMMARY | 2024-03-03 01:21 | XMS_ITS | Encounter Summary ---
Author Organization [facility] Address [address] [place] [address] Care Team Providers Care Edger Machine Setter Name Role Phone Unavailable Primary Care Provider Unavailabl e Encounter Details Date Type Department Care Team (Latest Contact Info) Description 09/30/2002 14:19 EST Hospital Encounter [facility] - Other [address] [place] [address] Raissa Rashid, SANDSTONE INSPECTOR REPAIRER Unknown, Provider, Discharge Disposition: Auto Discharge Social [...] ? VALERIO LOLITA ? Accession #: ? [id number] : ? 1945 (Age: 57) ??F ?Collect Date: ? 09/30/2002 Location: ? [facility] ? Receive Date: ? 10/03/2002 Provider: ?RAISSA RASHID LITIGATION COORDINATOR Copy to: ? Specimen/Source: ?ThinPrep Pap Test, [...] Report TIA PINEDA 09/30/2002 10/03/2002 Raissa Rashid SANDSTONE INSPECTOR REPAIRER PATHOLOGY ORDERABLES TIA PINEDA [address] [place] [address] documented in this encounter Visit Diagnoses Not on filedocumented in this encounter
--- OUTSIDE RECORDS SUMMARY | 2024-03-03 01:21 | XMS_ITS | Encounter Summary ---
Author Organization [facility] Address [address] [place] [address] Care Team Providers Care Accountant Tax Name Role Phone Unavailable Primary Care Provider Unavailabl e Encounter Details Date Type Department Care Team (Latest Contact Info) Description 06/30/2001 14:24 EST Hospital Encounter [facility] - Other [address] [place] [address] Raissa Rashid, CAREER DEVELOPMENT COORDINATOR Unknown, Provider, Discharge Disposition: Auto Discharge [...] ? VALERIO LOLITA ? Accession #: ? [id number] : ? 1945 (Age: 55) ??F ?Collect Date: ? 06/30/2001 Location: ? [facility] ? Receive Date: ? 07/02/2001 Provider: ?RAISSA RASHID CONTAINER WASHER MACHINE Copy to: ? Specimen/Source: ?ThinPrep Pap Test, [...] Report TIA PINEDA 06/30/2001 07/02/2001 Raissa Rashid CAREER DEVELOPMENT COORDINATOR PATHOLOGY ORDERABLES TIA PINEDA [address] [place] [address] documented in this encounter Visit Diagnoses Not on filedocumented in this encounter
== END ==
PROVIDERS: Visit Provider Nurse Practitioner Family
DX: M85.88 Other specified disorders of bone density and structure, other site (principal); M81.0 Age-related osteoporosis without current pathological fracture
CPT/HCPCS: 77080

== ENCOUNTER 2024-05-13 15:07 | Outpatient (REF) | payer MEDICARE, MEDICAID, SELFPAY ==
--- OUTSIDE RECORDS SUMMARY | 2024-05-13 15:38 | XMS_ITS | Encounter Summary ---
Author Organization [facility] Address [address] [place] [address] Care Team Providers Care Closing Coordinator Name Role Phone Unknown, Provider Primary Care Provider [phone] Encounter Details Date Type Department Care Team (Late st Contact Info) Description 04/12/2015 Historical Results Only [facility] Radiology Results [address] [place], [place] [address] Jorge Morillo MD [address] [place] [address] [address] [place] [address] Social History Tobacco Use Types [...] 13:1 6 EDT Narrative 04/12/2015 19:05 EDT [facility] [address] [place], [place] [address] Diagnostic Imaging Report Signed Patient Name:LOLITA ELIZONDO ? Date of :1945 ? MR Number:[id number] Age:69 ?Sex:F Category: RF ? Date of [...] Procedure Note Steven Estrada MD - 04/27/2019 [place] [id number] Diagnostic Imaging Report Signed Patient Name:LOLITA ELIZONDO Number:[id number] Date of :1945 MRNumber:[id number] Age:69 Sex:F Category: RF Date ofExam:04/12/15 Procedure: RF: Barium Swallow- ModifiedAccession: [id number] Ordering Physician: Jorge Bonilla MD CC: Jorge [...] on filedocumented in this encounter Care Teams Closing Coordinator Relationship Specialty Start Date End Date Unknown, Provider, PCP - General 02/22/14 documented as of this encounter
--- OUTSIDE RECORDS SUMMARY | 2024-05-13 15:38 | XMS_ITS | Encounter Summary ---
Author Organization [facility] Address [address] [place] [address] Care Team Providers Care Director Of Accounts Receivable Name Role Phone Unavailable Primary Care Provider Unavailabl e Encounter Details Date Type Department Care Team (Late st Contact Info) Description 04/15/2005 Results Only [facility] conversion [address] [place] [address] Raissa Rashid NP Social History Tobacco Use [...] ? LOLITA LUO ? Accession #: ? [id number] : ? 1945 (Age: 59) ??F ?Collect Date: ? 04/15/2005 Location: ? [facility] ? Receive Date: ? 04/16/2005 Provider: ?RAISSA RASHID BUSINESS ANALYSIS PROFESSIONAL Copy to: ? Specimen/Source: ?ThinPrep Pap Test, Endocervix, processed on [employer] ThinPrep Imaging System, with manual evaluation Last Menstrual Period: ? SPECIMEN ADEQUACY ? Satisfactory for Evaluation - transformation zone component present GENERAL CATEGORIZATION ? Negative for Intraepithelial Lesion or Malignancy ? Document reviewed and electronically signed by: ? FOREST Serna(ASCP)(IAC) ? Report Date: ??04/22/2005 15:56 End of Report TIA PINEDA 04/15/2005 04/16/2005 Raissa Rashid TIPPLE SUPERVISOR PATHOLOGY ORDERABLES [facility] [address] [place] [address] documented in this encounter Visit Diagnoses Not on filedocumented in this encounter
--- OUTSIDE RECORDS SUMMARY | 2024-05-13 15:38 | XMS_ITS | Encounter Summary ---
Author Organization [facility] Address [address] [place] [address] Care Team Providers Care Coal Mine Inspector Name Role Phone Unknown, Provider Primary Care Provider [phone] Encounter Details Date Type Department Care Team (Late st Contact Info) Description 03/05/2015 Historical Results Only [facility] Radiology Results [address] [place], [place] [id number] Jorge Morillo MD [address] [place] [address] [address] [place] [address] Social History Tobacco Use Types [...] 16:3 0 EDT Narrative 03/06/2015 8:17 EDT [facility] [address] [place], [place] [address] Diagnostic Imaging Report Signed Patient Name:LOLITA ELIZONDO ? Date of :1945 ? MR Number:[id number] Age:69 ?Sex:F Category: MG ? Date of [...] Procedure Note Steven Estrada MD - 04/26/2019 [place] [id number] Diagnostic Imaging Report Signed Patient Name:LOLITA ELIZONDO Number:[id number] Date of :1945 MRNumber:[id number] Age:69 Sex:F Category: MG Date ofExam:03/05/15 Procedure: MG: Mammo, Bilat scr w/tomoAccession: [id number] Ordering Physician: Jorge Bonilla MD CC: Jorge [...] Allyson Estrada MD>D/ 1233 Jorge Mor[facility] documented in this encounter Visit Diagnoses Not on filedocumented in this encounter Care Teams Coal Mine Inspector Relationship Specialty Start Date End Date Unknown, Provider, PCP - General 02/22/14 documented as of this encounter
--- OUTSIDE RECORDS SUMMARY | 2024-05-13 15:38 | XMS_ITS | Encounter Summary ---
Author Organization [facility] Address [address] [place] [address] Care Team Providers Care Public Relations Supervisor Name Role Phone Unknown, Provider Primary Care Provider [phone] Encounter Details Date Type Department Care Team (Latest Contact Info) Description 09/12/2015 7:01 EST - 09/12/2015 23:59 EST Hospital Encounter [address] [address] Unknown, Provider, Discharge Disposition: Home or Self Care Social History Tobacco Use Types Packs/Day Years Used Date Smoking Tobacco: Never Assessed Sex and Gender Information Value Date Recorded Sex Assigned at Not on file Gender Identity Not on file Sexual Orientation Not on file documented as of this encounter Discharge Disposition Disposition Code Departure Means Destination Home or Self [facility] documented in this encounter Plan of Treatment Not on file documented as of this encounter Visit Diagnoses Not on filedocumented in this encounter Care Teams Public Relations Supervisor Relationship Specialty Start Date End Date Unknown, Provider, PCP - General 02/22/14 documented as of this encounter
--- OUTSIDE RECORDS SUMMARY | 2024-05-13 15:38 | XMS_ITS | Encounter Summary ---
Author Organization [facility] Address [address] [place] [address] Care Team Providers Care Parasitology Teacher Name Role Phone Unknown, Provider Primary Care Provider [phone] Encounter Details Date Type Department Care Team (Late st Contact Info) Description 09/12/2015 Results Only [facility] [phone] Jorge Morillo MD [address] [place] [address] [address] [place] [address] Social History Tobacco Use Types [...] ? SANDRA ELIZONDOA ? Accession #: ? [id number] ? : ? 1945 (Age: 70) ??F ? Collect Date: ? 09/12/2015 ? Location: ? [facility] ? Receive Date: ? 09/13/2015 ? Provider: [...] Butcher 09/14/2015 8:56 AM End of Report [facility] 09/12/2015 16:3 8 EST 09/13/2015 16:38 EST Jorge Morillo MD PATHOLO GY ORDERABLES [facility] [address] [place] [address] documented in this encounter Visit Diagnoses Not on filedocumented in this encounter Care Teams Parasitology Teacher Relationship Specialty Start Date End Date Unknown, Provider, PCP - General 02/22/14 documented as of this encounter
--- OUTSIDE RECORDS SUMMARY | 2024-05-13 15:38 | XMS_ITS | Referral Summary ---
Author Organization [facility] Address [address] [place] [address] Care Team Providers Care Project Portfolio Analyst Name Role Phone Unknown, Provider Primary Care Provider [phone] Social History Tobacco Use Types Packs/Day Years Used Date Smoking Tobacco: Never Assessed Sex and Gender Information Value Date Recorded Sex Assigned at Not on file Gender Identity Not on file Sexual Orientation Not on file Plan of Treatment Not on file Care Teams Project Portfolio Analyst Relationship Specialty Start Date End Date Unknown, Provider, PCP - General 02/22/14
--- OUTSIDE RECORDS SUMMARY | 2024-05-13 15:38 | XMS_ITS | Encounter Summary ---
Author Organization [facility] Address [address] [place] [address] Care Team Providers Care Director Of Ancillary Services Name Role Phone Unknown, Provider Primary Care Provider [phone] Encounter Details Date Type Department Care Team (Late st Contact Info) Description 03/29/2015 Historical Results Only [facility] Radiology Results [address] [place] [address] Jorge Morillo MD [address] [place] [address] [address] [place] [address] Social History Tobacco Use Types [...] 13:4 3 EDT Narrative 03/29/2015 17:08 EDT [facility] [address] [place], [place] [address] Diagnostic Imaging Report Signed Patient Name:LOLITA ELIZONDO ? Date of :1945 ? MR Number:[id number] Age:69 ?Sex:F Category: CR ? Date of [...] Procedure Note Carl Matute MD - 04/26/2019 [place] [id number] Diagnostic Imaging Report Signed Patient Name:LOLITA ELIZONDO Number:[id number] Date of :1945 MRNumber:[id number] Age:69 Sex:F Category: CR Date ofExam:03/29/15 Procedure: CR: Chest; PA/LAT viewsAccession: [id number] Ordering Physician: Jorge Bonilla MD CC: Jorge [...] on filedocumented in this encounter Care Teams Director Of Ancillary Services Relationship Specialty Start Date End Date Unknown, Provider, PCP - General 02/22/14 documented as of this encounter
--- OUTSIDE RECORDS SUMMARY | 2024-05-13 15:38 | XMS_ITS | Encounter Summary ---
Author Organization [facility] Address [address] [place] [address] Care Team Providers Care Federal Appellate Law Clerk Name Role Phone Unavailable Primary Care Provider Unavailabl e Encounter Details Date Type Department Care Team (Late st Contact Info) Description 04/17/2004 Results Only [facility] conversion [address] [place] [address] Raissa Rashid NP Social History Tobacco Use [...] ? LOLITA LUO ? Accession #: ? [id number] : ? 1945 (Age: 58) ??F ?Collect Date: ? 04/17/2004 Location: ? [facility] ? Receive Date: ? 04/18/2004 Provider: ?RAISSA RASHID FIELD SERVICE ANALYST Copy to: ? Specimen/Source: ?ThinPrep Pap Test, [...] Report TIA PINEDA 04/17/2004 04/18/2004 Raissa Rashid OPTOMETRIC TECH PATHOLOGY ORDERABLES TIA PINEDA [address] [place] [address] documented in this encounter Visit Diagnoses Not on filedocumented in this encounter
--- OUTSIDE RECORDS SUMMARY | 2024-05-13 15:38 | XMS_ITS | Encounter Summary ---
Author Organization [facility] Address [address] [place] [address] Care Team Providers Care Veneer Matcher Name Role Phone Unavailable Primary Care Provider Unavailabl e Encounter Details Date Type Department Care Team (Late st Contact Info) Description 09/10/2005 Results Only [facility] conversion [address] [place] [address] Tori Hernandez MD Social History Tobacco Use [...] ? LOLITA ELIZONDO ? Accession #: ? [id number] ? : ? 1945 (Age: 60) ??F ? Collect Date: ? 09/10/2005 ? Location: ? [facility] ? Receive Date: ? 09/10/2005 ? Provider: TORI HERNANDEZ MD Copy to: TY RASHID [facility] JACINTA WHITE MD ? Final Pathologic Diagnosis: [...] MD PATHOLOGY ORDERABLES [facility] [address] [place] [address] documented in this encounter Visit Diagnoses Not on filedocumented in this encounter
--- OUTSIDE RECORDS SUMMARY | 2024-05-13 15:38 | XMS_ITS | Encounter Summary ---
Author Organization [facility] Address [address] [place] [address] Care Team Providers Care Livestock Speculator Name Role Phone Unavailable Primary Care Provider Unavailabl e Encounter Details Date Type Department Care Team (Late st Contact Info) Description 04/07/2006 Results Only [facility] conversion [address] [place] [address] Raissa Rashid NP Social History Tobacco Use [...] ? LOLITA LUO ? Accession #: ? [id number] : ? 1945 (Age: 60) ??F ?Collect Date: ? 04/07/2006 Location: ? [facility] ? Receive Date: ? 04/08/2006 Provider: ?RAISSA RASHID GAGE DESIGNER Copy to: ? Specimen/Source: ?ThinPrep Pap Test, Endocervix, processed on [employer] ThinPrep Imaging System, with manual evaluation Last Menstrual Period: ? SPECIMEN ADEQUACY ? Satisfactory for Evaluation - transformation zone component present GENERAL CATEGORIZATION ? Negative for Intraepithelial Lesion or Malignancy ? Document reviewed and electronically signed by: ? JAX Sands(ASCP) ? Report Date: ??04/10/2006 15:09 End of Report TIA PINEDA 04/07/2006 04/08/2006 Raissa Rashid FRONT COUNTER CLERK PATHOLOGY ORDERABLES [facility] [address] [place] [address] documented in this encounter Visit Diagnoses Not on filedocumented in this encounter
--- OUTSIDE RECORDS SUMMARY | 2024-05-13 15:38 | XMS_ITS | Encounter Summary ---
Author Organization [facility] Address [address] [place] [address] Care Team Providers Care Specimen Collector Name Role Phone Unavailable Primary Care Provider Unavailabl e Encounter Details Date Type Department Care Team (Latest Contact Info) Description 04/29/2004 9:39 EDT - 04/29/2004 11:59 EDT Hospital Encounter [facility] [place] - Other [address] [place] [address] Raissa Jones, DISTRICT MANAGER Discharge Disposition: Auto Discharge Social History Tobacco [...]
--- OUTSIDE RECORDS SUMMARY | 2024-05-13 15:38 | XMS_ITS | Encounter Summary ---
Author Organization [facility] Address [address] [place] [address] Care Team Providers Care Thread Drawer Name Role Phone Unavailable Primary Care Provider Unavailabl e Encounter Details Date Type Department Care Team (Latest Contact Info) Description 04/07/2006 16:43 EDT Hospital Encounter [facility] - Other [address] [place] [address] Raissa Jones, JAVA JSF DEVELOPER Discharge Disposition: Home or Self Care Social [...] GA S ORDERABLES [facility] [address] [place] [address] documented in this encounter Visit Diagnoses Not on filedocumented in this encounter
--- OUTSIDE RECORDS SUMMARY | 2024-05-13 15:38 | XMS_ITS | Encounter Summary ---
Author Organization [facility] Address [address] [place] [address] Care Team Providers Care Customer Service Driver Name Role Phone Unavailable Primary Care Provider Unavailabl e Encounter Details Date Type Department Care Team (Late st Contact Info) Description 04/20/2007 Results Only [facility] conversion [address] [place] [address] Raissa Rashid NP Social History Tobacco Use [...] ? LOLITA LUO ? Accession #: ? [id number] : ? 1945 (Age: 61) ??F ?Collect Date: ? 04/20/2007 Location: ? [facility] ? Receive Date: ? 04/21/2007 Provider: ?RAISSA RASHID CERTIFICATION AND SELECTION SPECIALIST Copy to: ? Specimen/Source: ?ThinPrep Pap Test, Cervix, processed on [employer] ThinPrep Imaging System, with manual evaluation Last Menstrual Period: ? SPECIMEN ADEQUACY ? Satisfactory for Evaluation - transformation zone component present GENERAL CATEGORIZATION ? Negative for Intraepithelial Lesion or Malignancy ? Document reviewed and electronically signed by: ? JAX Sands(ASCP) ? Report Date: ??04/27/2007 10:58 End of Report TIA PINEDA 04/20/2007 04/21/2007 Raissa Rashid INSURANCE SALES EXECUTIVE PATHOLOGY ORDERABLES [facility] [address] [place] [address] documented in this encounter Visit Diagnoses Not on filedocumented in this encounter
--- OUTSIDE RECORDS SUMMARY | 2024-05-13 15:38 | XMS_ITS | Encounter Summary ---
Author Organization [facility] Address [address] [place] [address] Care Team Providers Care Boot Maker Name Role Phone Unavailable Primary Care Provider Unavailabl e Encounter Details Date Type Department Care Team (Late st Contact Info) Description 04/15/2005 17:30 EDT Hospital Encounter [facility] - Other [address] [place] [address] Raissa Jones, VANDANA Social History Tobacco Use [...] GA S ORDERABLES [facility] [address] [place] [address] documented in this encounter Visit Diagnoses Not on filedocumented in this encounter
--- OUTSIDE RECORDS SUMMARY | 2024-05-13 15:38 | XMS_ITS | Encounter Summary ---
Author Organization [facility] Address [address] [place] [address] Care Team Providers Care Lopper Name Role Phone Unavailable Primary Care Provider Unavailabl e Encounter Details Date Type Department Care Team (Latest Contact Info) Description 02/21/2014 12:50 EDT - 02/21/2014 23:59 EDT Hospital Encounter [address] [address] Unknown, Provider, Discharge Disposition: Home or Self [...]
--- OUTSIDE RECORDS SUMMARY | 2024-05-13 15:38 | XMS_ITS | Encounter Summary ---
Author Organization [facility] Address [address] [place] [address] Care Team Providers Care Apple Solutions Consultant Name Role Phone Unknown, Provider Primary Care Provider [phone] Encounter Details Date Type Department Care Team (Late st Contact Info) Description 06/11/2014 Historical Results Only [facility] Radiology Results [address] [place] [address] [id number] Darnell Obando MD [address] [place] [address] Social History Tobacco Use Types [...] 10:3 5 EST Narrative 06/11/2014 19:36 EST [facility] [address], [place] [address] Diagnostic Imaging Report Signed Patient Name:LOLITA ELIZONDO ? Date of :1945 ? MR Number:[id number] Age:68 ?Sex:F Category: CR ? Date of [...] Procedure Note Carl Matute MD - 04/26/2019 [place] [address] Diagnostic Imaging Report Signed Patient Name:LOLITA ELIZONDO Number:[id number] Date of :1945 MRNumber:[id number] Age:68 Sex:F Category: CR Date ofExam:06/11/14 Procedure: CR: Acute Abdomen w/PA ChestAccession: [id number] Ordering Physician: Darnell Obando MD CC: Jorge [...] on filedocumented in this encounter Care Teams Apple Solutions Consultant Relationship Specialty Start Date End Date Unknown, Provider, PCP - General 02/22/14 documented as of this encounter
--- OUTSIDE RECORDS SUMMARY | 2024-05-13 15:38 | XMS_ITS | Encounter Summary ---
Author Organization [facility] Address [address] [place] [address] Care Team Providers Care Crew Director Name Role Phone Unknown, Provider Primary Care Provider Encounter Details Date Type Department Care Team (Late st Contact Info) Description 03/08/2015 Historical Results Only [facility] Radiology Results [address] [place] [id number] Jorge Morillo MD [address] [place] [address] [address] [place] [address] Social History Tobacco Use Types [...] 11:3 0 EDT Narrative 03/08/2015 17:19 EDT [facility] [place] [facility] [address] [place], [place] [address] Diagnostic Imaging Report Signed Patient Name:LOLITA ELIZONDO ? Date of :1945 ? MR Number:[id number] Age:69 ?Sex:F Category: MR ? Date of [...] Procedure Note Steven Estrada MD - 04/27/2019 [place] [id number] Diagnostic Imaging Report Signed Patient Name:LOLITA ELIZONDO Number:[id number] Date of :1945 MRNumber:[id number] Age:69 Sex:F Category: MR Date ofExam:03/08/15 Procedure: MR: MRI Brain w/o contrastAccession: [id number] Ordering Physician: Jorge Bonilla MD CC: Jorge [...] on filedocumented in this encounter Care Teams Crew Director Relationship Specialty Start Date End Date Unknown, Provider, PCP - General 02/22/14 documented as of this encounter
--- OUTSIDE RECORDS SUMMARY | 2024-05-13 15:38 | XMS_ITS | Clinical Summary ---
Author Organization [facility] Address [address] [place] [address] Care Team Providers Care Coat Repair Inspector Name Role Phone Unknown, Provider Primary [...] COVID-19 Vaccine (2022-24 season) 2023 Care Teams Coat Repair Inspector Relationship Specialty Start Date End Date Unknown, Provider, PCP - General 02/22/14
--- OUTSIDE RECORDS SUMMARY | 2024-05-13 15:38 | XMS_ITS | Encounter Summary ---
Author Organization [facility] Address [address] [place] [address] Care Team Providers Care Electrician Supervisor Airplane Name Role Phone Unknown, Provider Primary Care Provider [phone] Encounter Details Date Type Department Care Team (Late st Contact Info) Description 02/21/2014 Results Only [facility] Laboratory Services - [facility] ([facility] [address] [place], [place] [address] Jorge Morillo MD [address] [place] [address] [address] [place] [address] Social History Tobacco Use Types [...] ? CHARLESRAZA LOLITA ? Accession #: ? [id number] ? : ? 1945 (Age: 68) ??F ? Collect Date: ? 02/21/2014 ? Location: ? [facility] ? Receive Date: ? 02/22/2014 ? [...] EDT Jorge Morillo MD PATHOLO GY ORDERABLES [facility] [address] [place] [address] documented in this encounter Visit Diagnoses Not on filedocumented in this encounter Care Teams Electrician Supervisor Airplane Relationship Specialty Start Date End Date Unknown, Provider, PCP - General 02/22/14 documented as of this encounter
--- OUTSIDE RECORDS SUMMARY | 2024-05-13 15:38 | XMS_ITS | Encounter Summary ---
Author Organization [facility] Address [address] [place] [address] Care Team Providers Care Gate Tender Name Role Phone Unknown, Provider Primary Care Provider Encounter Details Date Type Department Care Team (Late st Contact Info) Description 02/15/2014 Historical Results Only [facility] Radiology Results [address] [place], [place] [address] Jorge Morillo MD [address] [place] [address] [address] [place] [address] Social History Tobacco Use Types [...] 14:0 0 EDT Narrative 02/16/2014 9:23 EDT [address] [place], [place] [address] Diagnostic Imaging Report Signed Patient Name:LOLITA ELIZONDO ? Date of :1945 ? MR Number:[id number] Age:68 ?Sex:F Category: MG ? Date of [...] Procedure Note Steven Estrada MD - 04/26/2019 [place] [address] Diagnostic Imaging Report Signed Patient Name:LOLITA ELIZONDO Number:[id number] Date of :1945 MRNumber:[id number] Age:68 Sex:F Category: MG Date ofExam:02/15/14 Procedure: MG: Mammo, Bilat, ScreeningAccession: [id number] Ordering Physician: Jorge Morillo CC: Jorge Morillo [...] by: <Electronically signed by Allyson Estrada MD>D/ 0495 Jorge Morillo MD [facility] documented in this encounter Visit Diagnoses Not on filedocumented in this encounter Care Teams Gate Tender Relationship Specialty Start Date End Date Unknown, Provider, PCP - General 02/22/14 documented as of this encounter
--- OUTSIDE RECORDS SUMMARY | 2024-05-13 15:38 | XMS_ITS | Encounter Summary ---
Author Organization [facility] Address [address] [place] [address] Care Team Providers Care Shield Installer Name Role Phone Unavailable Primary Care Provider Unavailabl e Encounter Details Date Type Department Care Team (Late st Contact Info) Description 04/29/2004 Results Only [facility] conversion [address] [place] [address] Raissa Rashid NP Social History Tobacco Use [...] ? LOLITA LUO ? Accession #: ? [id number] : ? 1945 (Age: 58) ??F ?Collect Date: ? 04/29/2004 Location: ? [facility] ? Receive Date: ? 04/30/2004 Provider: ?RAISSA RASHID TURNING SANDER TENDER Copy to: ? Specimen/Source: ?ThinPrep Pap Test, [...] Report TIA PINEDA 04/29/2004 04/30/2004 Raissa Rashid OUTSIDE SALES INSPECTOR PATHOLOGY ORDERABLES [facility] [address] [place] [address] documented in this encounter Visit Diagnoses Not on filedocumented in this encounter
--- OUTSIDE RECORDS SUMMARY | 2024-05-13 15:38 | XMS_ITS | Encounter Summary ---
Author Organization [facility] Address [address] [place] [address] Care Team Providers Care Director Of Financial Reporting Name Role Phone Unavailable Primary Care Provider Unavailabl e Encounter Details Date Type Department Care Team (Latest Contact Info) Description 04/20/2007 15:03 EDT Hospital Encounter [facility] - Other [address] [place] [address] Raissa Jones NP Discharge Disposition: Auto Discharge [...] ? PLRAZA, LOLITA ? Accession #: ? [id number] ? : ? 1945 (Age: 62) ??F [...] 04/26/2008 Emi Reilly MD PATHOLOGY ORDERABL [facility] [address] [place] [address] documented in this encounter Visit Diagnoses Not on filedocumented in this encounter
--- OUTSIDE RECORDS SUMMARY | 2024-05-13 15:39 | XMS_ITS | Encounter Summary ---
Author Organization [facility] Address [address] [place] [address] Care Team Providers Care Fiction And Nonfiction Writer Prose Name Role Phone Unavailable Primary Care Provider Unavailabl e Encounter Details Date Type Department Care Team (Latest Contact Info) Description 09/30/2002 14:19 EST Hospital Encounter [facility] - Other [address] [place] [address] Raissa Rashid, UROLOGY NURSE Unknown, Provider, Discharge Disposition: Auto Discharge Social [...] ? VALERIO LOLITA ? Accession #: ? [id number] : ? 1945 (Age: 57) ??F ?Collect Date: ? 09/30/2002 Location: ? [facility] ? Receive Date: ? 10/03/2002 Provider: ?RAISSA RASHID CRIMPING PRESS OPERATOR Copy to: ? Specimen/Source: ?ThinPrep Pap Test, [...] Report TIA PINEDA 09/30/2002 10/03/2002 Raissa Rashid UROLOGY NURSE PATHOLOGY ORDERABLES [facility] [address] [place] [address] documented in this encounter Visit Diagnoses Not on filedocumented in this encounter
--- OUTSIDE RECORDS SUMMARY | 2024-05-13 15:39 | XMS_ITS | Encounter Summary ---
Author Organization [facility] Address [address] [place] [address] Care Team Providers Care Morning News Anchor Name Role Phone Unavailable Primary Care Provider Unavailabl e Encounter Details Date Type Department Care Team (Latest Contact Info) Description 05/31/1999 16:36 EST Hospital Encounter [facility] - Other [address] [place] [address] Raissa Jones, CEMETERY VAULT INSTALLER Unknown, Provider, Discharge Disposition: Auto Discharge Social [...]
--- OUTSIDE RECORDS SUMMARY | 2024-05-13 15:39 | XMS_ITS | Encounter Summary ---
Author Organization [facility] Address [address] [place] [address] Care Team Providers Care Web Application Dev Specialist Name Role Phone Unavailable Primary Care Provider Unavailabl e Encounter Details Date Type Department Care Team (Latest Contact Info) Description 04/17/2004 12:14 EDT Hospital Encounter [facility] - Other [address] [place] [address] Raissa Jones, INTERNAL MEDICINE NURSE Discharge Disposition: Auto Discharge Social History Tobacco [...]
--- OUTSIDE RECORDS SUMMARY | 2024-05-13 15:39 | XMS_ITS | Encounter Summary ---
Author Organization [facility] Address [address] [place] [address] Care Team Providers Care In Mold Coater Name Role Phone Unavailable Primary Care Provider Unavailabl e Encounter Details Date Type Department Care Team (Latest Contact Info) Description 06/30/2001 14:24 EST Hospital Encounter [facility] - Other [address] [place] [address] Raissa Rashid, BOAT DRIVER Unknown, Provider, Discharge Disposition: Auto Discharge Social [...] ? VALERIO LOLITA ? Accession #: ? [id number] : ? 1945 (Age: 55) ??F ?Collect Date: ? 06/30/2001 Location: ? [facility] ? Receive Date: ? 07/02/2001 Provider: ?RAISSA RASHID SALON RECEPTIONIST Copy to: ? Specimen/Source: ?ThinPrep Pap Test, [...] Report TIA PINEDA 06/30/2001 07/02/2001 Raissa Rashid BOAT DRIVER PATHOLOGY ORDERABLES [facility] [address] [place] [address] documented in this encounter Visit Diagnoses Not on filedocumented in this encounter
--- OUTSIDE RECORDS SUMMARY | 2024-05-13 15:39 | XMS_ITS | Continuity of Care Document ---
Author Organization [facility] [place] [address] Care Team Providers Care Refined Syrup Operator Name Role Phone [facility] Neurologist Assessment No assessment recorded. Plan of Treatment Reminders Order Date Submit Date Provider Last Modified By Organization Details Last Modified Time Details Appointments Follow Up 2023 12:30P Brenden LANCASTER Not available Not available Not available Follow Up 2024 10:30A Brenden LANCASTER Not available Not available Not available Lab TSH + free T4, serum - 1 PST obtained without issue 2023 024 [facility] (Registration ), [address] [place] [address] [place], [address], 02/12/2024 15:44:58 CMP, serum or plasma - 1 PST obtained without issue 2023 024 [email or web address] [facility] (Registration ), [address] [place] [address] [place], [address], 02/11/2024 18:09:39 Referral podiatris t referral 2023 024 [email or web address] [facility], [address] [place] [address] [place], [address], 05/12/2024 10:44:01 Procedures None recorded. Surgeries None recorded. Imaging bone density 2023 024 [email or web address] [facility], [address], [place], [address], 03/04/2024 08:38:58 Medication Orders alendrona te 70 mg tablet 2023 024 [facility], [address] [place], [address], 02/11/2024 14:20:14 Patient TargetsNo targets recorded. Patient Instructions Encounter Date Encounter Id Patient Instructions Last Modified By Organization Details Last Modified Time 02/11/2024 [id number] Nice to see you today! we will get your labs and I will call you with results talked about if kidney function good, would have less incontinence if we increase the ER to 10mg oxybutynin will let you know continue with [facility] provider, Seeker, telehealth continue same medication dosings continue with counselor weekly counselor on zoom with [facility] as you have been. I will reorder the dexa scan for osteoporosis monitoring on the alendonerate Not available 02/11/2024 14:03:36 Reason for Referral Psychiatrist Referral for Sc hizoaffective disorder schizoaffective disorder, depression, auditory hallucinations, needs psychiatrist and medication management Referring Physician: [facility], Encounter Date: 06/16/2023 Gaming Cage Cashier Referral for Bradly ateral hearing loss Referring Physician: [facility], Encounter Date: 06/16/2023 Psychiatrist Referral for Sc hizoaffective disorder NEEDS PSYCHIATRIST, NOT JUST COUNSELOR Referring Physician: Family Dakotah Herrmann, Encounter Date: 11/12/2023 Gaming Cage Cashier Referral for Sen sorineural hearing loss hearing aids in past. want updated hearing exam and hearing aid consult. lost her last pair 1 yr ago Referring Physician: [facility], Encounter Date: 11/12/2023 Rn Eligibility Referral for Onyc homycosis of toenails toenail cutting, onychomycosis Referring Physician: [facility], Encounter Date: 02/11/2024 Results Created Date Observation Date Name Description Value Unit Range Abnormal Flag Note LastModifiedBy Organization Detail LastModifiedTime 03/03/2003/03/2024 bone densi tomet ry imagi ng rpt Patien t Name: Jaspal Elizondo Unit #: [id number] Loc: DI Orderi ng Provid er: Ivania Lancaster Accoun t #: [id number] Status : REG CLI Primar y Care Provid er: Unknow n,Unkn own Date of Exam: 03/19 Sex: F Admiss ion Date: : 1944 Age: 78 Exam(s ) XR DEXA BONE DENSIT Y W/WO TIERNEY EXAM: XR DEXA BONE DENSIT Y W/WO TIERNEY CLINIC AL HISTOR Y: OSTEOP OROSIS , M85.88 TECHNI QUE: Hologi c Horizo n C densit ometer analys is of left hip, lumbar spine and left forear m. Latera l survey image of the thorac ic and lumbar spine. COMPAR ANGELO: DX DEXA BONE DENSIT Y WITH TIERNEY from 2015 CR CHEST 2 VIEWS PA,LAT from 2016 CR,XR XR CHEST 2V PA LATERA L from [address] CHEST PE CTA from 2023 CR XR PORTAB LE CHEST AP from 2023 FINDIN GS: Latera l view of the thorac ic and lumbar spine shows a mild to modera te compre ssion fractu re of L2. This appear s to have been presen t on the prior chest x-ray from 2016. The thorac ic verteb ral bodies are subopt imally profil ed due to scolio sis. Bone minera l densit y measur ements of the lumbar spine corres pond to a total T-scor e of -1.5, in the osteop enic range. There are signif icant endpla te degene rative change s with promin ent endpla te osteop hytes which likely elevat e the bone minera l densit y measur ements . Bone minera l densit y measur ements of the left hip corres pond to a total T-scor e of -3.1 greate r this repres ents a 10.4 percen t decrea se from 2015.. The femora l neck T-scor e is -3.1, in the osteop orotic range. Thelef t forear m bone minera l densit y measur ements corres pond to a T-scor e of the distal 3rd of - 5.2, in the osteop orotic range. This repres ents a 20.5 percen t decrea se from 2015. IMPRES SHERIDAN: Osteop orosis of the hip and forear m. Osteop enia of the spine. Ordere d By: Ivania Lancaster CC: ------ ------ ------ ------ ------ ------ ------ ------ ------ ------ ------ ------ - Dictat ed By: Rudy Rosario 1558 1558 Transc ribed By: Sebastian Ames 1558 This is privil eged, confid ential inform ation intend ed only for the provid er named. Any use or distri bution by any person other than this provid er is strict ly prohib ited. If you receiv e this report in error, please notify us immedi ately at and return the origin al report to us at the addres s above. Thank- you. [address] [place], [address] 03/14/2024 16:55:45 03/03/20 24 03/03/2024 bone densi ty No observ ation record ed. [facility] (Radiology) [address] [place] [address] [place], [address], 03/03/2024 16:37:30 04/11/20 24 07/02/2023 imagi ng/di yasmani bhandari t No observ ation record ed. [email or web address] Not Available 04/11 03:58:12 04/11/20 24 08/09/2019 valarie ESPINAL No observ ation record ed. [email or web address] Not Available 04/11 03:58:43 Result Notes None recorded. 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 011102602 Active 2015 Tia Hugo null, [facility] 4 11:52:36 Sensorin eural hearing loss 30067012 Active 2015 Tia Hugo null, [facility] 4 11:54:31 Hypothyr oidism 77999480 Active 2015 [facility] 4 11:49:27 Idiopath ic scoliosi s 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 Active 2015 Problem Code: M41.20; Problem Code Type: ICD-10; ADÁN [address]N Dr, [facility] [address] , [facility] 4 14:14:56 Senile osteopor osis 71631811 Active 2015 Problem Code: M81.0; Problem Code Type: ICD-10; ADÁN H[address]MANN Dr, [facility] [address] , [facility] 4 14:14:42 Sciatica 86499890 Active 2015 Problem Code: M54.30; Problem Code Type: ICD-10; ADÁN H[address] Dr, [facility] [address] , [facility] 4 14:14:44 Major depressi on, single episode 69065587 Active 2015 Problem Code: F32.9; Problem Code Type: ICD-10; ADÁN H[address]MANN Dr, [facility] [address] [place] [address] 4 14:14:54 Arthropa thy 045755418 Active 2015 Problem Code: M12.9; Problem Code Type: ICD-10; ADÁN HERRMANN Dr, [address] 4 14:14:59 Acute upper respirat ory infectio n 19346942 Completed 201609/15/2016 Problem Code: J06.9; Problem Code Type: ICD-10; Not Available [facility] 3 05:18:19 Auditory hallucin ations 01311185 Active 2016 Tia Hugo null, [facility] 4 11:52:16 Schizoaf fective disorder 39717097 Active 2016 Problem Code: F25.9; Problem Code Type: ICD-10; ADÁN H[address]MAN[address] Dr, [facility] [address] [place] [address] 3 11:51:45 Transien t cerebral ischemia 902586182 Active 2018 Tia Hugo null, [facility] 4 11:50:19 [facility] 064485126 Active 2018 Tia Hugo null, [facility] 4 11:56:33 [facility] 497586920 Active 2019 Problem Code: R63.6; Problem Code Type: ICD-10; ADÁN H[address]MAN[address] Dr, [facility] [address] [place] [address] 4 14:14:40 Amnesia 29022537 Active 2019 [facility], [facility]. 4 11:56:50 Pain in thoracic spine 935782776 Completed 201503/19/2017 Problem Code: M54.9; Problem Code Type: ICD-10; Not Available [facility] 3 05:18:20 Abnormal weight loss 077242139 Completed 201601/12/2018 Problem Code: R63.4; Problem Code Type: ICD-10; Not Available [facility] 3 05:18:20 Urinary tract infectio us disease 35128934 Completed 201805/09/2019 Problem Code: N39.0; Problem Code Type: ICD-10; Not Available [facility] 3 05:18:20 Cognitiv e deficit in communic ation skills 89414892942 9106 Completed 201506/13/2016 Problem Code: R41.841; Problem Code Type: ICD-10; Not Available [facility] 3 05:18:20 Screenin g for malignan t neoplasm of breast Completed 201608/02/2019 Problem Code: Z12.39; Problem Code Type: ICD-10; Not Available [facility] 3 05:18:20 Screenin g for malignan t neoplasm of colon Completed 201708/02/2019 Problem Code: Z12.11; Problem Code Type: ICD-10; Not Available [facility] 3 05:18:20 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 315205584 Completed 201504/22/2023 Problem Code: I69.328; Problem Code Type: ICD-10; Not Available [facility] 3 05:18:20 General unsteadi ness 667729970 Completed 201503/24/2017 Problem Code: R26.81; Problem Code Type: ICD-10; Not Available [facility] 3 05:18:21 Auditory hallucin ations 07829155 Completed 201403/24/2017 Problem Code: R44.0; Problem Code Type: ICD-10; Tia Hugo null, [facility] 4 11:52:16 Screenin g for disorder Completed 201805/09/2019 Problem Code: Z13.89; Problem Code Type: ICD-10; Not Available [facility] 3 05:18:21 Stool finding 180709165 Completed 201503/19/2017 Problem Code: R19.5; Problem Code Type: ICD-10; Not Available [facility] 3 05:18:21 Pain in left lower limb 395902343 Completed 201503/19/2017 Problem Code: M79.605; Problem Code Type: ICD-10; Not Available [facility] 3 05:18:21 Gastroes ophageal reflux disease without esophagi tis 989464394 Active 2022 TISHA MARIE RN [facility], [facility] 3 15:14:39 Nocturia 684174401 Active [address], [place] [address] , [facility] 4 14:14:51 Urge incontin ence of urine 43653516 Active [address], [address] 4 14:14:38 Onychomy cosis of toenails 794786263 Active [address], [place] [address] , [facility] 4 14:14:49 Osteopor osis 28074134 Active [address], [place] [address] , [facility] 4 11:13:59 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 sees [facility] neurosur anjum. planned MRI repeat for manageme nt January [address], [place], [address] , [facility] 4 11:18:57 Low back pain 156398032 Active [address], [place], [address] , [facility] 4 11:16:28 Unsteady when walking 28348071 Active [address], [facility] [address] , [facility] 4 11:16:42 Increase d frequenc y of urinatio n 111030932 Active [address], [place], [address] , [facility] 4 12:57:41 Notes:Some problems listed i n Document: #[id number] could not be added to this patient's chart. Please review this document and add these problems to the patient's chart manually as needed. Problem Notes None recorded. Medical Equipment None Reported. Allergies No known drug allergies Medications Name Sig Start Date Stop Date Status Note LastModified by Organization Details LastModified Time quetiapin e 25 mg tablet TAKE ONE TABLET BY MOUTH EVERY EVENING FOR FOR ANXIETY AND PSYCHOTI C D/O active Not Available Not Available No t Available atorvasta tin 40 mg tablet TAKE ONE TABLET BY MOUTH AT BEDTIME 07/04 completed Not Available Not Available Not Available oxybutyni n chloride ER 10 mg tablet,ex tended release 24 hr TAKE ONE TABLET BY MOUTH EVERY MORNING +DOSE INCREASE D+ 05/13 completed Not Available Not Available Not Available aspirin 325 mg tablet TAKE ONE TABLET BY MOUTH EVERY DAY 10/11 completed Not Available Not Available Not Available alendrona te 70 mg tablet TAKE ONE TABLET BY MOUTH EVERY WEEK SWALLOWI NG THE WHOLE TABLET WITH 6-8 OUNCES OF WATER ON AN EMPTY STOMACH REMAIN UPRIGHT FOR AT LEAST 30 active Not Available Not Available No t Available risperido ne 0.25 mg tablet TAKE THREE TABLETS BY MOUTH EVERY EVENING AT BEDTIME active Not Available Not Available No t Available aspirin 81 mg tablet,de layed release [...] Not Available levothyro xine 88 mcg tablet TAKE ONE TABLET BY MOUTH EVERY MORNING 30 MIN. PRIOR TO EATING ANYTHING active Not Available Not Available No t [...] daily prescrib ed by Dr. Tere su ([facility]) 07/09 completed Not Available Not Available Not Available doxycycli ne hyclate 100 mg tablet TAKE ONE TABLET BY MOUTH TWICE A DAY 06/16 completed Not Available Not Available Not Available risperido ne 0.5 mg tablet Take 1 tablet by mouth every night with 0.25mg tablet 02/10 completed changed by [facility] provider Not Available Not Available Not Available [...] Available Not Available Not Avai lable calcium 600 mg (as carbonate )-vitamin D3 10 mcg (400 unit) tablet TAKE [...] Not Available Not Available Not Available Calcium with Vit D3 600 mg (as carbonate )-12.5 mcg (500 unit) capsule Take 1 capsule [...] Updated DateTime 4 162.56 cm 16.3 kg/m2 43319.5 6 g 98.2 [degF] 78 /min 16 /min 110 mm[Hg] 60 mm[Hg] TISHA MARIE RN [facility] 4 13:05:09 Social History Question Answer Notes LastModified by Organizat ion Details LastModified Time Tobacco Smoking Status Never Smoker SANJUANITA SPANGLER, [facility] 06/16/2023 11:28:51 What Is Your Level Of Alcohol Consumption? None Information not available 06/16/2023 What Was The Date Of Your Most Recent Tobacco Screening? 05/13/2024 Information not available 05/13/2024 Do You Use Any Illicit Or Recreational Drugs? No Information not available 06/16/2023 Has Tobacco Cessation Counseling Been Provided? No Information not available 05/13/2024 Do You Or Have You Ever Used Any Other Forms Of Tobacco Or Nicotine? No Information not available 11/12/2023 Sex: Female Functional Status None recorded. Mental Status None recorded. Family History Relationship Description Onset Age of this Age Resolved Age Notes LastModified by Organization Details LastModified Time Father Family history of cancer of colon [email or web address] Not available 2022 04:01:01 Mother [email or web address] Not available 2022 04:01:01 Medical History No medical history recorded. Gynecological HistoryNo gynecological history recorded. Obstetrics History GPAL:G 0 P 0 0 0 0 Immunizations Vaccine Type Date Status Provider Name and Address Organization Details Recorded Time Tdap 06/16/2023 completed SANJUANITA SPANGLER, [facility] 06/16/2023 17:19:44 Influenza, high-dose, trivalent, PF 05/13/2024 completed SANJUANITA SPANGLER, [facility] 05/13/2024 14:24:26 Pneumococcal conjugate PCV20, polysaccharide [id number] conjugate, adjuvant, PF 05/13/2024 completed SANJUANITA SPANGLER, [facility] 05/13/2024 14:24:26 Tdap 08/27/2011 completed Not Available [facility] 06:04:44 zoster live 10/25/2012 completed Not Available [facility] 06/05/2023 06:04:44 Influenza, split virus, trivalent, preservative 07/03/2016 completed Not Available [facility] 06/05/2023 06:04:44 Pneumococcal Conjugate, unspecified formulation 10/18/2014 completed Not Available [facility] 06/05/2023 06:04:44 Influenza, split virus, quadrivalent, preservative 04/13/2018 completed Not Available [facility] 06/05/2023 06:04:44 pneumococcal polysaccharide PPV23 09/24/2010 completed Not Available [facility] 2022 06:04:44 influenza, unspecified formulation 05/17/2019 completed Not Available [facility] 06/05/2023 06:04:45 SARS-COV-2 (COVID-19) vaccine, UNSPECIFIED 12/11/2020 completed SANJUANITA SPANGLER, [facility] 05/13/2024 13:28:35 SARS-COV-2 (COVID-19) vaccine, UNSPECIFIED 01/08/2021 completed SANJUANITA SPANGLER, [facility] 05/13/2024 13:28:39 influenza, unspecified formulation 04/26/2020 completed SANJUANITA SPANGLER, [facility] 05/13/2024 13:28:57 Past Encounters Encounter ID Performer Location Encounter Start Date Encounter Closed Date Diagnosis/Indication Diagnosis SNOMED-CT Code Diagnosis ICD10 Code [id number] ADÁN HERRMANN [address] [place] [address] 02/11/2024 12:45:08 02/11/2024 14:06:48 Hypothyroidism 38023961 E03.9 Osteoporosis 53115328 M8 5.88 Urge incon tinence of urine 55274576 N39.41 Onychomyco sis of toenails 998454531 B35.1 Schizoaffe ctive disorder 76623636 F25.9 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 398995428 D49.2 Unsteady when walking 22 659689 R26.89 Health Concerns Section Related Observation LastModified by Organization Detai ls LastModified Time None Recorded Concern Status LastModified by Organization Details LastModified Time None Recorded Payers Encounter Date Sequence Insurance Name Policy Number Policy Murray Covered Member ID Murray Member ID Guarantor Name 02/11/2024 1 [place] [employer] Mayra Elizondo [id number] Mayra Elizondo 02/11/[address] [facility] (MEDICAID) Mayra Elizondo [id number] Mayra Elizondo Notes Date Note Type Note Provider Name and Address Organization Details Recorded Time 02/11/2024 text/html HPI Notes: Mayra is a pleasant 78 year old female here today for a 3 month follow up: hypothyroidism (recheck TSH today), psych referral (re-sent 11/11, seeing Dr. Albert now), nocturia, audiology referral (sent 11/11, pt daughter Binta says they never called from [facility]). Did not get DEXA scan [...] pain and also osteoporosis. Continues to see [facility] neurosurgery for management and follow-up MRI scheduled [...] pain, chest tightness, headaches, vision changes, edema IVANIA LANCASTER, ADÁN [address], [place], [address], [place] [facility]. 02/15/2024 11:26:46 OBGyn Episode No OBEpisode recorded.
--- OUTSIDE RECORDS SUMMARY | 2024-05-13 15:39 | XMS_ITS | Encounter Summary ---
Author Organization [facility] Address [address] [place] [address] Care Team Providers Care Chemists Name Role Phone Unavailable Primary Care Provider Unavailabl e Encounter Details Date Type Department Care Team (Latest Contact Info) Description 07/15/2000 14:10 EST Hospital Encounter [facility] - Other [address] [place] [address] Raissa Rashid, MASSAGE COORDINATOR Unknown, Provider, Discharge Disposition: Auto Discharge [...] ? VALERIO LOLITA ? Accession #: ? [id number] : ? 1945 (Age: 55) ??F ?Collect Date: ? 07/15/2000 Location: ? [facility] ? Receive Date: ? 07/17/2000 Provider: ?RAISSA RASHID HEMMER AUTOMATIC Copy to: ? Specimen/Source: ?ThinPrep Pap Test, Endocervix Last Menstrual Period: ? Not applicable. Hormonal/Contracep tive Status: ? Premarin and provera ? SPECIMEN ADEQUACY ? Satisfactory for evaluation. GENERAL CATEGORIZATION ? Benign Cellular Changes DESCRIPTIVE DIAGNOSIS ? Predominance of coccobacilli present consistent with shift in vaginal rosario. ? Document reviewed and electronically signed by: ? FORSET Coronel(ASCP) ? Report Date: ??07/17/2000 14:24 End of Report TIA PINEDA 07/15/2000 07/17/2000 Raissa Rashid MASSAGE COORDINATOR PATHOLOGY ORDERABLES TIA PINEDA [address] [place] [address] documented in this encounter Visit Diagnoses Not on filedocumented in this encounter
[2024-05-13 19:19] LABS: ALT 13 U/L (14-59); AST 23 U/L (15-37); Albumin 3.5 g/dL (3.4-5.0); Alkaline Phosphatase 85 U/L (46-116); Anion Gap 5.6 mmol/L (3-11); BUN 14 mg/dL (7-18); Bilirubin, Total 0.38 mg/dL (0.2-1.0); CO2 30.4 mmol/L (21.0-32.0); CREATININE 1.1 mg/dL (0.55-1.02); Chloride 107 mmol/L (98-107); Estimated GFR 51.11 (mL/min/1.73m2); FREE T4 1.68 ng/dL (0.76-1.46); Glucose 166 mg/dL (74-106); Potassium 4.4 mmol/L (3.5-5.1); Sodium 143 mmol/L (136-145); TSH 0.85 uIU/mL (0.36-3.74); Total Protein 6.7 g/dL (6.4-8.2)
[2024-05-13 19:36] LABS: Hemoglobin A1C 5.6 % (<5.7)
== END 2024-05-13 15:08 | disposition home or self-care (01) ==
LOC: NCHCN 15:07
PROVIDERS: PCP Nurse Practitioner Family; Visit Provider Nurse Practitioner Family
DX: E03.9 Hypothyroidism, unspecified (principal)
CPT/HCPCS: 80053; 83036; 84439; 84443

== ENCOUNTER 2024-08-12 14:05 | Outpatient (REF) | payer MEDICARE, MEDICAID, SELFPAY ==
[2024-08-12 13:46] LABS: Bilirubin Negative (Negative); Blood Small (Negative); Clarity Cloudy (Clear); Glucose Negative (Negative); Ketones Negative (Negative); Leukocyte Esterase Trace (Negative); Nitrite Negative (Negative); Specific Gravity 1.025 (1.005-1.025); pH 6.5 (5-8)
[2024-08-12 13:56] LABS: Bacteria Many HPF (Negative); C & S Indicated? No; Casts Negative LPF (Negative); Crystals Negative HPF (Negative); Epithelial Cells Few HPF (Negative); Mucus Negative (Negative)
--- OUTSIDE RECORDS SUMMARY | 2024-08-12 14:08 | XMS_ITS | Encounter Summary ---
Author Organization [facility] Address [address] [place] [address] Care Team Providers Care Senior Accounts Payable Clerk Name Role Phone Unavailable Primary Care Provider Unavailabl e Encounter Details Date Type Department Care Team (Latest Contact Info) Description 02/21/2014 12:50 EDT - 02/21/2014 23:59 EDT Hospital Encounter [address] [address] Unknown, Provider, MD Discharge Disposition: Home or Self Care Social History Tobacco Use Types Packs/Day Years Used Date Smoking Tobacco: Never Assessed Comments Unknown Sex and Gender Information Value Date Recorded Sex Assigned at Not on file Legal Sex Female 18:18 EST Gender Identity Not on file Sexual Orientation Not on file documented as of this encounter Discharge Disposition Disposition Code Departure Means Destination Home or Self Intermediate documented in this encounter Plan of Treatment Not on file documented as of this encounter Visit Diagnoses Not on filedocumented in this encounter
--- OUTSIDE RECORDS SUMMARY | 2024-08-12 14:08 | XMS_ITS | Encounter Summary ---
Author Organization [facility] Address [address] [place] [address] Care Team Providers Care Bookstore Clerk Name Role Phone Unknown, Provider Primary Care Provider Unava ilable Encounter Details Date Type Department Care Team (Late st Contact Info) Description 02/15/[address] [facility] Radiology Results [address] [place] [address] Jorge Morillo MD [address] [place] [address] [address] [place] [address] Social History Tobacco Use Types [...] 14:0 0 EDT Narrative 02/16/2014 9:23 EDT [facility] [address] [place], [place] [address] Diagnostic Imaging Report Signed Patient Name:LOLITA ELIZONDO ? Date of :1945 ? MR Number:[id number] Age:68 ?Sex:F Category: MG ? Date of [...] KATELYN/eif Dictated by: Allyson Estrada ? D/ 2 Transcribed by: VANESSA ? D/ 1047 E-Signed by: <Electronically signed by Allyson Estrada ??MD> ? D/ 1535 Procedure Note Steven Estrada MD - 04/26/2019 [place] [address] Diagnostic Imaging Report Signed Patient Name:LOLITA ELIZONDOcount Number:[id number] Date of :1945 MRNumber:[id number] Age:68 Sex:F Category: MG Date ofExam:02/15/14 Procedure: MG: Mammo, Bilat, ScreeningAccession: [id number] Ordering Physician: Jorge Morillo CC: Jorge Morillo [...] by: <Electronically signed by Allyson Estrada MD>D/ 7575 us Jorge Morillo MD IMG MAMMOGRAPHY ORDERABLES Final Result documented in this encounter Visit Diagnoses Not on filedocumented in this encounter Care Teams Bookstore Clerk Relationship Specialty Start Date End Date Unknown, Provider, PCP - General 02/22/14 documented as of this encounter
--- OUTSIDE RECORDS SUMMARY | 2024-08-12 14:08 | XMS_ITS | Encounter Summary ---
Author Organization [facility] Address [address] [place] [address] Care Team Providers Care New Vehicle Sales Consultant Name Role Phone Unavailable Primary Care Provider Unavailabl e Encounter Details Date Type Department Care Team (Latest Contact Info) Description 09/30/2002 14:19 EST Hospital Encounter [facility] - Other [address] [place] [address] Raissa Rashid NP Unknown, Provider, MD Discharge Disposition: Auto Discharge Social History Tobacco [...] ? LOLITA ELIZONDO ? Accession #: ? [id number] : ? 1945 (Age: 57) ??F ?Collect Date: ? 09/30/2002 Location: ? [facility] ? Receive Date: ? 10/03/2002 Provider: ?RAISSA RASHID CURING PRESS MAINTAINER Copy to: ? Specimen/Source: ?ThinPrep Pap Test, [...] End of Report TIA PINEDA 09/30/2002 10/03/2002 us Raissa Rashid MANAGER BALANCE PATHOLOGY ORDERABLES Final Re sult TIA PINEDA [address] [place] [address] documented in this encounter Visit Diagnoses Not on filedocumented in this encounter
--- OUTSIDE RECORDS SUMMARY | 2024-08-12 14:08 | XMS_ITS | Encounter Summary ---
Author Organization [facility] Address [address] [place] [address] Care Team Providers Care Ab Initio Etl Developer Name Role Phone Unknown, Provider Primary Care Provider Unava ilable Encounter Details Date Type Department Care Team (Late st Contact Info) Description 03/08/2015 Historical Results Only [facility] Radiology Results [address] [place] [address] Jorge Morillo MD [address] [place] [address] [address] [place] [address] Social History Tobacco Use Types [...] 11:3 0 EDT Narrative 03/08/2015 17:19 EDT [facility] [address] [place], [place] [address] Diagnostic Imaging Report Signed Patient Name:LOLITA ELIZONDO ? Date of :1945 ? MR Number:[id number] Age:69 ?Sex:F Category: MR ? Date of Exam:03/08/15 Procedure: MR: MRI Brain w/o contrast ? Ordering Physician: Jorge oBnilla ?? CC: Jorge Morillo MR BRAIN The [...] Procedure Note Steven Estrada MD - 04/27/2019 [place] [id number] Diagnostic Imaging Report Signed Patient Name:LOLITA ELIZONDO Number:[id number] Date of :1945 MRNumber:[id number] Age:69 Sex:F Category: MR Date ofExam:03/08/15 Procedure: MR: MRI Brain w/o contrastAccession: [id number] Ordering Physician: Jorge Bonilla MD CC: Jorge [...] <Electronically signed by Allyson Estrada MD>D/ 1520 us Jorge Morillo MD IMG MRI ORDERAB LES Final Result documented in this encounter Visit Diagnoses Not on filedocumented in this encounter Care Teams Ab Initio Etl Developer Relationship Specialty Start Date End Date Unknown, Provider, PCP - General 02/22/14 documented as of this encounter
--- OUTSIDE RECORDS SUMMARY | 2024-08-12 14:08 | XMS_ITS | Encounter Summary ---
Author Organization [facility] Address [address] [place] [address] Care Team Providers Care Airplane Electrician Name Role Phone Unavailable Primary Care Provider Unavailabl e Encounter Details Date Type Department Care Team (Latest Contact Info) Description 07/15/2000 14:10 EST Hospital Encounter [facility] - Other [address] [place] [address] Raissa Rashid NP Unknown, Provider, MD Discharge [...] ? LOLITA ELIZONDO ? Accession #: ? [id number] : ? 1945 (Age: 55) ??F ?Collect Date: ? 07/15/2000 Location: ? [facility] ? Receive Date: ? 07/17/2000 Provider: ?RAISSA RASHID SENIOR ELECTRONICS TECHNICIAN Copy to: ? Specimen/Source: ?ThinPrep Pap [...] End of Report TIA PINEDA 07/15/2000 07/17/2000 us Raissa Rashid SMALL CRAFT OPERATOR PATHOLOGY ORDERABLES Final Re sult [facility] [address] [place] [address] documented in this encounter Visit Diagnoses Not on filedocumented in this encounter
--- OUTSIDE RECORDS SUMMARY | 2024-08-12 14:08 | XMS_ITS | Encounter Summary ---
Author Organization [facility] Address [address] [place] [address] Care Team Providers Care Nurses' Association Executive Director Name Role Phone Unavailable Primary Care Provider Unavailabl e Encounter Details Date Type Department Care Team (Late st Contact Info) Description 04/29/2004 Results Only [facility] conversion [address] [place] [address] Raissa Rashid NP Social History Tobacco Use [...] ? LOLITA ELIZONDO ? Accession #: ? [id number] : ? 1945 (Age: 58) ??F ?Collect Date: ? 04/29/2004 Location: ? [facility] ? Receive Date: ? 04/30/2004 Provider: ?RAISSA RASHID UNDERGROUND HEAVY EQUIPMENT OPERATOR Copy to: ? Specimen/Source: ?ThinPrep Pap [...] End of Report TIA PINEDA 04/29/2004 04/30/2004 us Raissa Rashid NEW HOME SALES CONSULTANT PATHOLOGY ORDERABLES Final Re sult TIA PINEDA [address] [place] [address] documented in this encounter Visit Diagnoses Not on filedocumented in this encounter
--- OUTSIDE RECORDS SUMMARY | 2024-08-12 14:08 | XMS_ITS | Encounter Summary ---
Author Organization [facility] Address [address] [place] [address] Care Team Providers Care Dehydrogenation Operator Name Role Phone Unavailable Primary Care Provider Unavailabl e Encounter Details Date Type Department Care Team (Latest Contact Info) Description 04/17/2004 12:14 EDT Hospital Encounter [facility] - Other [address] [place] [address] Raissa Jones, FUNDS TRANSFER CLERK Discharge Disposition: Auto Discharge Social History Tobacco [...]
--- OUTSIDE RECORDS SUMMARY | 2024-08-12 14:08 | XMS_ITS | Encounter Summary ---
Author Organization [facility] Address [address] [place] [address] Care Team Providers Care Latrine Cleaner Name Role Phone Unknown, Provider Primary Care Provider Unava ilable Encounter Details Date Type Department Care Team (Late st Contact Info) Description 09/12/2015 Results Only [facility] [phone] Jorge Morillo MD [address] [place] [address] [address] [place] [phone] Social History Tobacco Use Types Packs/Day Years [...] ? VALERIO LOLITA ? Accession #: ? [id number] ? : ? 1945 (Age: 70) ??F ? Collect Date: ? 09/12/2015 ? Location: ? [facility] ? Receive Date: ? 09/13/2015 ? Provider: [...] Butcher 09/14/2015 8:56 AM End of Report [facility] 09/12/2015 16:3 8 EST 09/13/2015 16:38 EST us Jorge Morillo MD PATHOLOGY ORDER IVETH Final Result [facility] [address] [place] [address] documented in this encounter Visit Diagnoses Not on filedocumented in this encounter Care Teams Latrine Cleaner Relationship Specialty Start Date End Date Unknown, Provider, PCP - General 02/22/14 documented as of this encounter
--- OUTSIDE RECORDS SUMMARY | 2024-08-12 14:08 | XMS_ITS | Encounter Summary ---
Author Organization [facility] Address [address] [place] [address] Care Team Providers Care Tool Design Draftsperson Name Role Phone Unknown, Provider Primary Care Provider Unava ilable Encounter Details Date Type Department Care Team (Late st Contact Info) Description 03/29/2015 Historical Results Only [facility] Radiology Results [address] [place] [address] Jorge Morillo MD [address] [place] [address] [address] [place] [address] Social History Tobacco Use [...] 13:4 3 EDT Narrative 03/29/2015 17:08 EDT [facility] [address] [place], [place] [address] Diagnostic Imaging Report Signed Patient Name:LOLITA ELIZONDO ? Date of :1945 ? MR Number:[id number] Age:69 ?Sex:F Category: CR ? Date of [...] the right. EDGARDO/demario Dictated by: Carl Matute ? D/ 1708 Transcribed by: VANESSA ? D/ 26 E-Signed by: <Electronically signed by Carl Matute ??MD> ? D/ 1008 Procedure Note Carl Matute MD - 04/26/2019 [place] [id number] Diagnostic Imaging Report Signed Patient Name:LOLITA ELIZONDO Number:[id number] Date of :1945 MRNumber:[id number] Age:69 Sex:F Category: CR Date ofExam:03/29/15 Procedure: CR: Chest; PA/LAT viewsAccession: [id number] Ordering Physician: Jorge Bonilla MD CC: Jorge [...] by: Carl Matute MDD/ 07 Transcribed by: JYOTIORD/ 26 E-Signed by: <Electronically signed by Carl Matute MD>D/ 1008 us Jorge Morillo MD IMG DIAGNOSTIC IMAGING ORDERABLES Final Result documented in this encounter Visit Diagnoses Not on filedocumented in this encounter Care Teams Tool Design Draftsperson Relationship Specialty Start Date End Date Unknown, Provider, PCP - General 02/22/14 documented as of this encounter
--- OUTSIDE RECORDS SUMMARY | 2024-08-12 14:08 | XMS_ITS | Encounter Summary ---
Author Organization [facility] Address [address] [place] [address] Care Team Providers Care Manager Office Name Role Phone Unavailable Primary Care Provider Unavailabl e Encounter Details Date Type Department Care Team (Late st Contact Info) Description 04/15/2005 17:30 EDT Hospital Encounter [facility] - Other [address] [place] [address] Raissa Jones, VANDANA Social History Tobacco Use [...] 04/15/2005 14:3 0 EDT 04/16/2005 15:30 EDT us Provider Unknown MD CHEMISTRY & BLOOD GAS ORDERA BLES Final Result [facility] [address] [place] [address] documented in this encounter Visit Diagnoses Not on filedocumented in this encounter
--- OUTSIDE RECORDS SUMMARY | 2024-08-12 14:08 | XMS_ITS | Encounter Summary ---
Author Organization [facility] Address [address] [place] [address] Care Team Providers Care Local Combination Truck Driver Name Role Phone Unavailable Primary Care Provider Unavailabl e Encounter Details Date Type Department Care Team (Latest Contact Info) Description 04/29/2004 9:39 EDT - 04/29/2004 11:59 EDT Hospital Encounter [facility] - Other [address] [place] [address] Raissa Jones, BACKFILLER Discharge Disposition: Auto Discharge Social History Tobacco [...]
--- OUTSIDE RECORDS SUMMARY | 2024-08-12 14:08 | XMS_ITS | Encounter Summary ---
Author Organization [facility] Address [address] [place] [address] Care Team Providers Care Grain Operator Name Role Phone Unavailable Primary Care Provider Unavailabl e Encounter Details Date Type Department Care Team (Late st Contact Info) Description 04/15/2005 Results Only [facility] conversion [address] [place] [address] Raissa Rashid NP Social History Tobacco Use [...] ? LOLITA ELIZONDO ? Accession #: ? [id number] : ? 1945 (Age: 59) ??F ?Collect Date: ? 04/15/2005 Location: ? [facility] ? Receive Date: ? 04/16/2005 Provider: ?RAISSA RASHID DATA SCIENCE AND IOT MANAGER Copy to: ? Specimen/Source: ?ThinPrep Pap Test, Endocervix, processed on Socitive ThinPrep Imaging System, with manual evaluation Last Menstrual Period: ? SPECIMEN ADEQUACY ? Satisfactory for Evaluation - transformation zone component present GENERAL CATEGORIZATION ? Negative for Intraepithelial Lesion or Malignancy ? Document reviewed and electronically signed by: ? FOREST Serna(ASCP)(IAC) ? Report Date: ??04/22/2005 15:56 End of Report TIA PINEDA 04/15/2005 04/16/2005 us Raissa Rashid LATHE SPOTTER PATHOLOGY ORDERABLES Final Re sult TIA PINEDA [address] [place] [address] documented in this encounter Visit Diagnoses Not on filedocumented in this encounter
--- OUTSIDE RECORDS SUMMARY | 2024-08-12 14:08 | XMS_ITS | Encounter Summary ---
Author Organization [facility] Address [address] [place] [address] Care Team Providers Care Safety Engineer Name Role Phone Unavailable Primary Care Provider Unavailabl e Encounter Details Date Type Department Care Team (Late st Contact Info) Description 09/10/2005 Results Only [facility] conversion [address] [place] [address] Tori Hernandez MD Social History Tobacco Use [...] ? VALERIO LOLITA ? Accession #: ? [id number] ? : ? 1945 (Age: 60) ??F ? Collect Date: ? 09/10/2005 ? Location: ? [facility] ? Receive Date: ? 09/10/2005 ? Provider: TORI HERNANDEZ MD Copy to: TY RASHID [facility] WH[facility] MD ? Final Pathologic [...] tissue. ??Submitted intact in one cassette. ??(Jona Delacruz)/yaelk End of Report TIA PINEDA 09/10/2005 09/10/2005 14: 12 EST us Tori Hernandez MD PATHOLOGY ORDERABLES Final Re sult TIA PINEDA [address] [place] [address] documented in this encounter Visit Diagnoses Not on filedocumented in this encounter
--- OUTSIDE RECORDS SUMMARY | 2024-08-12 14:08 | XMS_ITS | Encounter Summary ---
Author Organization [facility] Address [address] [place] [address] Care Team Providers Care Research Chemist Name Role Phone Unavailable Primary Care Provider Unavailabl e Encounter Details Date Type Department Care Team (Late st Contact Info) Description 04/20/2007 Results Only [facility] conversion [address] [place] [address] Raissa Rashid NP Social History Tobacco Use [...] ? LOLITA ELIZONDO ? Accession #: ? [id number] : ? 1945 (Age: 61) ??F ?Collect Date: ? 04/20/2007 Location: ? [facility] ? Receive Date: ? 04/21/2007 Provider: ?RAISSA RASHID HOTEL DINING ROOM CASHIER Copy to: ? Specimen/Source: ?ThinPrep Pap Test, Cervix, processed on Edufii ThinPrep Imaging System, with manual evaluation Last Menstrual Period: ? SPECIMEN ADEQUACY ? Satisfactory for Evaluation - transformation zone component present GENERAL CATEGORIZATION ? Negative for Intraepithelial Lesion or Malignancy ? Document reviewed and electronically signed by: ? JAX Sands(ASCP) ? Report Date: ??04/27/2007 10:58 End of Report TIA PINEDA 04/20/2007 04/21/2007 us Raissa Rashid PAINT TRIMMER PIPE BOWLS PATHOLOGY ORDERABLES Final Re sult TIA [facility]ED[facility] [address] [place] [address] documented in this encounter Visit Diagnoses Not on filedocumented in this encounter
--- OUTSIDE RECORDS SUMMARY | 2024-08-12 14:08 | XMS_ITS | Encounter Summary ---
Author Organization [facility] Address [address] [place] [address] Care Team Providers Care Warehouse Helper Name Role Phone Unknown, Provider Primary Care Provider Unava ilable Encounter Details Date Type Department Care Team (Late st Contact Info) Description 02/21/2014 Results Only [facility] [address] [place], [place] [address] Jorge Morillo MD [address] [place] [address] [address] [place] [address] Social History Tobacco Use Types [...] taken when reading/interpreting unformatted reports. Name: ? CHARLESLOLITA PERSON ? Accession #: ? [id number] ? : ? 1945 (Age: 68) ??F ? Collect Date: ? 02/21/2014 ? Location: ? [facility] ? Receive Date: ? 02/22/2014 ? [...] 02/22/2014 03:09 PM End of Report [facility] 02/21/2014 14:3 5 EDT 02/22/2014 14:35 EDT us Jorge Morillo MD PATHOLOGY ORDER IVETH Final Result [facility] [address] [place] [id number] documented in this encounter Visit Diagnoses Not on filedocumented in this encounter Care Teams Warehouse Helper Relationship Specialty Start Date End Date Unknown, Provider, PCP - General 02/22/14 documented as of this encounter
--- OUTSIDE RECORDS SUMMARY | 2024-08-12 14:08 | XMS_ITS | Encounter Summary ---
Author Organization [facility] Address [address] [place] [address] Care Team Providers Care Health Aide Name Role Phone Unknown, Provider Primary Care Provider Unava ilable Encounter Details Date Type Department Care Team (Late st Contact Info) Description 03/05/2015 Historical Results Only [facility] Radiology Results [address] [place] [address] Jorge Morillo MD [address] [place] [address] [address] [place] [address] Social History Tobacco Use Types [...] 16:3 0 EDT Narrative 03/06/2015 8:17 EDT [facility] [address] [place], [place] [address] Diagnostic Imaging Report Signed Patient Name:LOLITA ELIZONDO ? Date of :1945 ? MR Number:[id number] Age:69 ?Sex:F Category: MG ? Date of [...] s time. ESTRADA/eif Dictated by: Allyson Estrada ??MD ? D/ 0817 Transcribed by: VANESSA ? D/ 0957 E-Signed by: <Electronically signed by Allyson Estrada ??MD> ? D/ 1233 Procedure Note Steven Estrada MD - 04/26/2019 [place] [id number] Diagnostic Imaging Report Signed Patient Name:LOLITA ELIZONDO Number:[id number] Date of :1945 MRNumber:[id number] Age:69 Sex:F Category: MG Date ofExam:03/05/15 Procedure: MG: Mammo, Bilat scr w/tomoAccession: [id number] Ordering Physician: Jorge Bonilla MD CC: Jorge [...] <Electronically signed by Allyson Estrada MD>D/ 1233 us Jorge Morillo MD IMG MAMMOGRAPHY ORDERABLES Final Result documented in this encounter Visit Diagnoses Not on filedocumented in this encounter Care Teams Health Aide Relationship Specialty Start Date End Date Unknown, Provider, PCP - General 02/22/14 documented as of this encounter
--- OUTSIDE RECORDS SUMMARY | 2024-08-12 14:08 | XMS_ITS | Encounter Summary ---
Author Organization [facility] Address [address] [place] [address] Care Team Providers Care Adult Nurse Practitioner Name Role Phone Unavailable Primary Care Provider Unavailabl e Encounter Details Date Type Department Care Team (Late st Contact Info) Description 04/17/2004 Results Only [facility] conversion [address] [place] [address] Raissa Rashid NP Social History Tobacco Use [...] ? LOLITA ELIZONDO ? Accession #: ? [id number] : ? 1945 (Age: 58) ??F ?Collect Date: ? 04/17/2004 Location: ? [facility] ? Receive Date: ? 04/18/2004 Provider: ?RAISSA RASHID GLASS FORMING ENGINEER Copy to: ? Specimen/Source: ?ThinPrep Pap [...] End of Report TIA PINEDA 04/17/2004 04/18/2004 us Raissa Rashid EQUIPMENT SERVICES ASSOCIATE PATHOLOGY ORDERABLES Final Re sult [facility]IA [facility] [address] [place] [address] documented in this encounter Visit Diagnoses Not on filedocumented in this encounter
--- OUTSIDE RECORDS SUMMARY | 2024-08-12 14:08 | XMS_ITS | Encounter Summary ---
Author Organization [facility] Address [address] [place] [address] Care Team Providers Care Multifocal Button Generator Name Role Phone Unavailable Primary Care Provider Unavailabl e Encounter Details Date Type Department Care Team (Latest Contact Info) Description 05/31/1999 16:36 EST Hospital Encounter [facility] - Other [address] [place] [address] Raissa Jones, VANDANA Unknown, Provider, MD Discharge Disposition: Auto Discharge [...]
--- OUTSIDE RECORDS SUMMARY | 2024-08-12 14:08 | XMS_ITS | Encounter Summary ---
Author Organization [facility] Address [address] [place] [address] Care Team Providers Care Chief Talent Officer Name Role Phone Unknown, Provider Primary Care Provider Unava ilable Encounter Details Date Type Department Care Team (Latest Contact Info) Description 09/12/2015 7:01 EST - 09/12/2015 23:59 EST Hospital Encounter [address] [address] Unknown, Provider, Discharge Disposition: Home or Self [...] on filedocumented in this encounter Care Teams Chief Talent Officer Relationship Specialty Start Date End Date Unknown, Provider, PCP - General 02/22/14 documented as of this encounter
--- OUTSIDE RECORDS SUMMARY | 2024-08-12 14:08 | XMS_ITS | Encounter Summary ---
Author Organization [facility] Address [address] [place] [address] Care Team Providers Care Financial Investigator Name Role Phone Unavailable Primary Care Provider Unavailabl e Encounter Details Date Type Department Care Team (Latest Contact Info) Description 06/30/2001 14:24 EST Hospital Encounter [facility] - Other [address] [place] [address] Raissa Rashid NP Unknown, Provider, MD Discharge [...] ? SANDRA ELIZONDOA ? Accession #: ? [id number] : ? 1945 (Age: 55) ??F ?Collect Date: ? 06/30/2001 Location: ? [facility] ? Receive Date: ? 07/02/2001 Provider: ?RAISSA RASHID EMT PARAMEDIC Copy to: ? Specimen/Source: ?ThinPrep Pap Test, Source Not Provided Last Menstrual Period: ? SPECIMEN ADEQUACY ? Satisfactory for evaluation. GENERAL CATEGORIZATION ? Benign Cellular Changes DESCRIPTIVE DIAGNOSIS ? Predominance of coccobacilli present consistent with shift in vaginal rosario. ? Document reviewed and electronically signed by: ? Michelle Guzman, FOREST(ASCP)(IAC) ? Report Date: ??07/07/2001 09:36 End of Report TIA [facility] 06/30/2001 07/02/2001 us Raissa Rashid PERSONNEL INTERVIEWER PATHOLOGY ORDERABLES Final Re sult [facility] [address] [place] [address] documented in this encounter Visit Diagnoses Not on filedocumented in this encounter
--- OUTSIDE RECORDS SUMMARY | 2024-08-12 14:08 | XMS_ITS | Clinical Summary ---
Author Organization [facility] Address [address] [place] [address] Care Team Providers Care Alarm Operator Name Role Phone Unknown, Provider Primary Care Provider Unava ilable Social History Tobacco Use Types Packs/Day Years Used Date Smoking Tobacco: Never Assessed Comments Unknown Sex and Gender Information Value Date Recorded Sex Assigned at Not on file Legal Sex Female 18:18 EST Gender Identity Not on file Sexual Orientation Not on file Plan of Treatment Health Maintenance Due Date Last Done Comments Hepatitis C Screen 1945 Fall Risk Screening 2009 RSV Immunization ( o r 60+ Years) (1 - 1-dose 75+ series) 2019 COVID-19 Vaccine ( season) 2024 Care Teams Alarm Operator Relationship Specialty Start Date End Date Unknown, Provider, PCP - General 02/22/14
--- OUTSIDE RECORDS SUMMARY | 2024-08-12 14:08 | XMS_ITS | Encounter Summary ---
Author Organization [facility] Address [address] [place] [address] Care Team Providers Care Manufacturing Engineering Technician Name Role Phone Unavailable Primary Care Provider Unavailabl e Encounter Details Date Type Department Care Team (Latest Contact Info) Description 04/07/2006 16:43 EDT Hospital Encounter [facility] - Other [address] [place] [address] Raissa Jones, ABLE BODIED SEAMAN Discharge Disposition: Home or Self Care Social [...] 04/07/2006 14:3 0 EDT 04/08/2006 17:33 EDT us Provider Unknown CHEMISTRY & BLOOD GAS ORDERA BLES Final Result [facility] [address] [place] [address] documented in this encounter Visit Diagnoses Not on filedocumented in this encounter
--- OUTSIDE RECORDS SUMMARY | 2024-08-12 14:08 | XMS_ITS | Encounter Summary ---
Author Organization [facility] Address [address] [place] [address] Care Team Providers Care Assistant Fitness Manager Name Role Phone Unknown, Provider Primary Care Provider Unava ilable Encounter Details Date Type Department Care Team (Late st Contact Info) Description 06/11/2014 Historical Results Only [facility] Radiology Results [address] [place] [id number] Darnell Obando MD [address] [place] [address] Social History Tobacco Use Types Packs/Day [...] 10:3 5 EST Narrative 06/11/2014 19:[address] [address] Diagnostic Imaging Report Signed Patient Name:LOLITA ELIZONDO ? Date of :1945 ? MR Number:[id number] Age:68 ?Sex:F Category: CR ? Date of [...] Procedure Note Carl Matute MD - 04/26/2019 [place] [id number] Diagnostic Imaging Report Signed Patient Name:LOLITA ELIZONDO Number:[id number] Date of :1945 MRNumber:[id number] Age:68 Sex:F Category: CR Date ofExam:06/11/14 Procedure: CR: Acute Abdomen w/PA ChestAccession: [id number] Ordering Physician: Darnell Obando MD CC: Jorge [...] are present. EDGARDO/karina Dictated by: Carl Matute MDD/ 35 Transcribed by: DEV/ 13 E-Signed by: <Electronically signed by Carl Matute MD>D/ 29 us Darnell Obando MD IMG DIAGNOSTIC IMAGING DWAYNE FERRO Final Result documented in this encounter Visit Diagnoses Not on filedocumented in this encounter Care Teams Assistant Fitness Manager Relationship Specialty Start Date End Date Unknown, Provider, PCP - General 02/22/14 documented as of this encounter
--- OUTSIDE RECORDS SUMMARY | 2024-08-12 14:08 | XMS_ITS | Encounter Summary ---
Author Organization [facility] Address [address] [place] [address] Care Team Providers Care Mobile Lounge Driver Name Role Phone Unavailable Primary Care Provider Unavailabl e Encounter Details Date Type Department Care Team (Latest Contact Info) Description 04/20/2007 15:03 EDT Hospital Encounter [facility] - Other [address] [place] [address] Raissa Jones, VANDANA Discharge Disposition: Auto Discharge Social History Tobacco [...] reading/interpreti ng unformatted reports. ? Name: ? PLUE, LOLITA ? Accession #: ? [id number] ? : ? 1945 (Age: 62) ??F [...] 08:04 ? End of Report ? TIA PINEDA 04/25/2008 04/26/2008 us Emi Marlee [place] MD PATHOLOGY ORDERABLES Final Result Performing Organization Address City/State/[facility] Co de Phone Number TIA [facility] [address] [place] [address] documented in this encounter Visit Diagnoses Not on filedocumented in this encounter
--- OUTSIDE RECORDS SUMMARY | 2024-08-12 14:08 | XMS_ITS | Encounter Summary ---
Author Organization [facility] Address [address] [place] [address] Care Team Providers Care Operations Team Leader Name Role Phone Unavailable Primary Care Provider Unavailabl e Encounter Details Date Type Department Care Team (Late st Contact Info) Description 04/07/2006 Results Only [facility] [place] conversion [address] [place] [address] Raissa Rashid NP Social History Tobacco Use [...] ? LOLITA ELIZONDO ? Accession #: ? [id number] : ? 1945 (Age: 60) ??F ?Collect Date: ? 04/07/2006 Location: ? [facility] ? Receive Date: ? 04/08/2006 Provider: ?RAISSA RASHID GLOBAL CHIEF CREATIVE OFFICER Copy to: ? Specimen/Source: ?ThinPrep Pap Test, Endocervix, processed on [employer] ThinPrep Imaging System, with manual evaluation Last Menstrual Period: ? SPECIMEN ADEQUACY ? Satisfactory for Evaluation - transformation zone component present GENERAL CATEGORIZATION ? Negative for Intraepithelial Lesion or Malignancy ? Document reviewed and electronically signed by: ? JAX Sands(ASCP) ? Report Date: ??04/10/2006 15:09 End of Report TIA PINEDA 04/07/2006 04/08/2006 us Raissa Rashid CENTRAL OFFICE TECHNICIAN PATHOLOGY ORDERABLES Final Re sult TIA PINEDA [address] [place] [address] documented in this encounter Visit Diagnoses Not on filedocumented in this encounter
--- OUTSIDE RECORDS SUMMARY | 2024-08-12 14:08 | XMS_ITS | Referral Summary ---
Author Organization [facility] Address [address] [place] [address] Care Team Providers Care Resource Management Specialist Name Role Phone Unknown, Provider Primary Care Provider Unava ilable Social History Tobacco Use Types Packs/Day Years Used Date Smoking Tobacco: Never Assessed Comments Unknown Sex and Gender Information Value Date Recorded Sex Assigned at Not on file Legal Sex Female 18:18 EST Gender Identity Not on file Sexual Orientation Not on file Plan of Treatment Not on file Care Teams Resource Management Specialist Relationship Specialty Start Date End Date Unknown, Provider, PCP - General 02/22/14
--- OUTSIDE RECORDS SUMMARY | 2024-08-12 14:08 | XMS_ITS | Encounter Summary ---
Author Organization [facility] Address [address] [place] [address] Care Team Providers Care Vocational Technical Education Director Name Role Phone Unknown, Provider Primary Care Provider Unava ilable Encounter Details Date Type Department Care Team (Late st Contact Info) Description 04/12/2015 Historical Results Only [facility] Radiology Results [address] [place] [address] Jorge Morillo MD [address] [place] [address] [address] [place] [address] Social History Tobacco Use Types [...] 13:1 6 EDT Narrative 04/12/2015 19:05 EDT [facility] [address], [place] [address] Diagnostic Imaging Report Signed Patient Name:LOLITA ELIZONDO ? Date of :1945 ? MR Number:[id number] Age:69 ?Sex:F Category: RF ? Date of [...] Procedure Note Steven Estrada MD - 04/27/2019 [place] [id number] Diagnostic Imaging Report Signed Patient Name:LOLITA ELIZONDO Number:[id number] Date of :1945 MRNumber:[id number] Age:69 Sex:F Category: RF Date ofExam:04/12/15 Procedure: RF: Barium Swallow- ModifiedAccession: [id number] Ordering Physician: Jorge Bonilla MD CC: Jorge [...] by: Allyson Estrada MDD/ 04 Transcribed by: JYOTIORD/ 28 E-Signed by: <Electronically signed by Allyson Estrada MD>D/ 3 us Jorge Morillo MD IMG FLUOROSCOPY ORDERABLES Final Result documented in this encounter Visit Diagnoses Not on filedocumented in this encounter Care Teams Vocational Technical Education Director Relationship Specialty Start Date End Date Unknown, Provider, PCP - General 02/22/14 documented as of this encounter
--- OUTSIDE RECORDS SUMMARY | 2024-08-12 14:09 | XMS_ITS | Data Portability ---
Author Organization [facility] Address [address] [place] [address] Care Team Providers Care Patent Paralegal Name Role Phone [facility] Neurologist Assessment No assessment recorded. Plan of Treatment Reminders Order Date Submit Date Provider Last Modified By Organization Details Last Modified Time Details Appointments Follow Up 30 2024 10:30A M IVANIA LANCASTER Not available Not available Not available Lab urinalysi s, dipstick 2022 023 [email or web address] [facility], [address], [place], [address], 06/16/2023 14:20:23 CBC w/ diff 2022 023 [facility] (Registration ), [address] [place] [address] [place] [facility] [place], [address], 07/30/2023 07:41:58 CMP, serum or plasma 2022 023 [facility] (Registration ), [address] [place] [address] [place], [address], 07/02/2023 11:36:43 TSH, serum or plasma 2022 023 [facility] (Registration ), [address] [place] [address] [place], [address], 07/30/2023 07:41:59 CBC w/ diff - 1 PST, 1 LAV obtained without issue from (R) AC [email or web address] [facility] (Registration ), [address] [place] [address] , [place], [address], 11/13/2023 10:19:53 urinalysi s, dipstick 2023 024 [email or web address] [facility], [address] , [place], [address], 11/13/2023 10:19:53 TSH + free T4, serum - 1 PST, 1 LAV obtained without issue from (R) AC [email or web address] [facility] [address] [facility] (Registration ), [address] [place] [address] [place], [address], 11/13/2023 10:19:53 CMP, serum or plasma - 1 PST, 1 LAV obtained without issue from (R) AC [address] [facility] (Registration ), [address] [place] [address] , [place], [address], 11/13/2023 10:19:53 TSH + free T4, serum - 1 PST obtained without issue [address] [facility] (Registration ), [address] [place] [address] [place], [address], 02/12/2024 15:44:58 CMP, serum or plasma - 1 PST obtained without issue 2023 024 [email or web address] [address] [place] [address] [place], [address], 02/11/2024 18:09:39 HbA1c (hemoglob in A1c), blood - 1 PST, 1 LAV obtained without issue [address] [facility] (Registration ), [address] [place] [address] [place], [address], 05/20/2024 16:07:47 urinalysi s complete, reflex culture - please call Mayra's daughter Binta at and let them know they should come to lab for a urine. they never got done at last visit 2024 025 [facility] ([facility] Direct), [address] [place] [address] [place], [address], 08/11/2024 04:21:23 TSH + free T4, serum - 1 PST, 1 LAV obtained without issue 2023 024 [facility] (Registration ), [address] [place] [address] [place], [address], 05/20/2024 16:07:46 CMP, serum or plasma - 1 PST, 1 LAV obtained without issue 2023 024 [facility] (Registration ), [address] [place] [address] [place], [address], 05/13/2024 19:23:[address] referral 2022 023 [email or web address] Sandra Choudhary [facility], [address] [place] [address] [place], [address], 02/08/2024 15:48:55 psychiatr ist referral - schizoaff ective disorder, depressio n, auditory hallucina tions, needs psychiatr ist and medicatio n managemen t 2022 023 [email or web address] [facility], [address] [place], [address], 01/05/2024 16:11:18 psychiatr ist referral - NEEDS PSYCHIATR IST, NOT JUST COUNSELOR 2023 024 [facility], [address] [place], [address], 02/05/2024 09:26:[address] referral 2023 024 [email or web address] [facility], [address], [place], [address], 08/10/2024 04:14:14 podiatris t referral 2023 024 [email or web address] [facility], [address] [place] [address] Dr, [place], [address], 05/12/2024 10:44:01 Procedures None recorded. Surgeries None recorded. Imaging bone density 2022 023 [email or web address] [facility], [address], [place], [address], 01/27/2024 16:25:23 bone density 2023 024 [email or web address] [facility], [address], [place], [address], 03/04/2024 08:38:58 Medication Orders Adult Low Dose Aspirin 81 mg tablet,de layed release 2022 023 [email or web address] [facility], [address] [place], [address], 06/16/2023 12:44:58 quetiapin e 25 mg tablet 2023 024 [facility], [address] [place], [address], 02/11/2024 13:02:41 risperido ne 0.25 mg tablet 2023 024 [facility], [address] [place], [address], 02/08/2024 15:20:22 oxybutyni n chloride ER 5 mg tablet,ex tended release 24 hr 2023 024 EUSEBIO [facility], [address] [place], [address], 02/12/2024 14:14:19 alendrona te 70 mg tablet 2023 024 [email or web address] [facility], [address] [place], [address], 02/11/2024 14:20:14 oxybutyni n chloride ER 15 mg tablet,ex tended release 24 hr 2023 024 EUSEBIO [facility], [address] [place], [address], 05/22/2024 12:49:42 Patient TargetsNo targets recorded. Patient Instructions Encounter Date Encounter Id Patient Instructions Last Modified By Organization Details Last Modified Time 06/16/[id number] [facility] and make a follow up to review MRI and make a plan for lower back pain and tumor 2. get bone density screening done 3. establish care with [facility] psychiatry, referral sent 4. establish with audiology for hearing aids- referral sent 5. continue all current medications as you have been until you hear from me about labs or imaging results Not available 06/16/2023 12:36:59 11/12/2023 [id number] Nice to see you today! Labs today for monitoring and possible initiation of medication for urge incontinence. Urine testing today as well. I will call you with results. Continue on all current medications as prescribed. We will check on [facility] psychiatrist referral that we placed back in July. You are established with a counselor there as well as managed care analyst but no psychiatrist for prescribing. Will let you know what they say on estimate for appointment with them for psychiatrist. We discussed that [facility] with Deanna cole may be able to see you instead if [facility] can't get you in. We will order the durable medical equipment: medium size pull-ups through [employer] for 4-5 pull ups in a 24-hour period for urge incontinence. Discussed starting oxybutynin extended release once nightly if kidney function testing is normal and urine testing is normal today. This should help with urge incontinence And nighttime urination. Not available 11/12/2023 14:52:40 02/11/2024 [id number] Nice to see you today! we will get your labs and I will call you with results talked about if kidney function good, would have less incontinence if we increase the ER to 10mg oxybutynin will let you know continue with [facility] provider, Seeker, telehealth continue same medication dosings continue with counselor weekly counselor on zoom with [facility] as you have been. I will reorder the dexa scan for osteoporosis monitoring on the alendonerate Not available 02/11/2024 14:03:36 Reason for Referral Psychiatrist Referral for Sc hizoaffective disorder schizoaffective disorder, depression, auditory hallucinations, needs psychiatrist and medication management Referring Physician: Ivania Lancaster [facility], Encounter Date: 06/16/2023 Blast Furnace Operator Referral for Bradly ateral hearing loss Referring Physician: Ivania Lancaster [facility] Dakotah, Encounter Date: 06/16/2023 Psychiatrist Referral for Sc hizoaffective disorder NEEDS PSYCHIATRIST, NOT JUST COUNSELOR Referring Physician: Family Dakotah Huff, Encounter Date: 11/12/2023 Blast Furnace Operator Referral for Sen sorineural hearing loss hearing aids in past. want updated hearing exam and hearing aid consult. lost her last pair 1 yr ago Referring Physician: Ivania Lancaster [facility] Dakotah, Encounter Date: 11/12/2023 Pruner Referral for Onyc homycosis of toenails toenail cutting, onychomycosis Referring Physician: Ivania Lancaster [facility] Dakotah, Encounter Date: 02/11/2024 Results Created Date Observation Date Name Description Value Unit Range Abnormal Flag Note LastModifiedBy Organization Detail LastModifiedTime 06/16/2006/16/2023 urina lysis , dipst ick Leukocytes Small Not Available [facility] [address], [place], [address], 06/16/2023 11:49:26 06/16/20 23 06/16/2023 urina lysis , dipst ick Nitrite negati ve Not Available [facility] [address], [place], [address], 06/16/2023 11:49:26 06/16/20 23 06/16/2023 urina lysis , dipst ick Urobilinogen .2 Not Available [facility] [address], [place], [address], 06/16/2023 11:49:26 06/16/20 23 06/16/2023 urina lysis , dipst ick Protein 30 Not Available [facility] [address], [place], [address], 06/16/2023 11:49:26 06/16/20 23 06/16/2023 urina lysis , dipst ick pH 6.0 Not Available [facility] [address], [place], [address], 06/16/2023 11:49:26 06/16/20 23 06/16/2023 urina lysis , dipst ick Blood Non-He molyze d: Trace Not Available [facility] [address], [place], [address], 06/16/2023 11:49:26 06/16/20 23 06/16/2023 urina lysis , dipst ick Specific [place] 1.030 Not Available [facility] [address], [place], [address], 06/16/2023 11:49:26 06/16/20 23 06/16/2023 urina lysis , dipst ick Ketone Small Not Available [facility] [address], [place], [address], 06/16/2023 11:49:26 06/16/20 23 06/16/2023 urina lysis , dipst ick Bilirubin Negati ve Not Available [facility] [address], [place], [address], 06/16/2023 11:49:26 06/16/2006/16/2023 urina lysis , dipst ick Glucose Negati ve Not Available [facility] [address], [place], [address], 06/16/2023 11:49:26 06/16/2006/16/2023 TSH, serum or plasm a TSH, serum or plasma 0.18 micro intl_ units /mL 0.36-3 .74 low Not Available Not Available 02/26/2024 12:47:05 06/16/2006/16/2023 hemog lobin (Hb), blood hemoglobin (Hb), blood 14.3 g/dL 11.2-1 5.7 normal Not Available Not Available 02/26/2024 12:47:05 06/16/2006/16/2023 gluco se, QN [mass /volu me], blood glucose ser 110 mg/dL 74-106 high Not Available [facility] [address] [facility] [address], [place], [address], 02/26/2024 12:47:04 06/16/20 23 06/16/2023 CMP, serum or plasm a albumin, serum or plasma 4.0 g/dL 3.4-5. 0 normal Not Available Not Available 02/26/2024 12:47:00 06/16/2006/16/2023 CMP, serum or plasm a aniongap 8.9 mmol/ L 3-11 normal Not Available Not Available 02/26/20 12:47:00 06/16/2006/16/2023 CMP, serum or plasm a bilirubin, total, serum or plasma 0.6 mg/dL 0.2-1. 0 normal Not Available Not Available 02/26/2024 12:47:00 06/16/2006/16/2023 CMP, serum or plasm a BUN (blood urea nitrogen), serum or plasma 21 mg/dL 7-18 high Not Available Not Available 08/2023 12:47:00 06/16/2006/16/2023 CMP, serum or plasm a calcium, qn, serum or plasma 9.7 mg/dL 8.5-10 .1 normal Not Available Not Available 02/26/2024 12:47:00 06/16/2006/16/2023 CMP, serum or plasm a chloride, serum or plasma 106 mmol/ L 98-107 normal Not Available Not Available 02/26/20 12:47:00 06/16/2006/16/2023 CMP, serum or plasm a [...] /L 15-37 normal Not Available Not Available 02/26/20 12:47:00 06/16/20 23 06/16/2023 CMP, serum or plasm a ALT (alanine aminotransfe rase), serum or plasma 16 units /L 14-59 normal Not Available Not Available 02/26/20 12:47:00 06/16/2006/16/2023 CMP, serum or plasm a sodium, serum or plasma 141 mmol/ L 136-14 5 normal Not Available Not Available 02/26/2024 12:47:00 06/16/20 23 06/16/2023 CBC % baso auto 0.5 (?) % Not Available Not Available 12:46:55 06/16/2006/16/2023 CBC basoph count 0.03 10 3/uL 10*3/ mm3 0.0-0. 2 normal Not Available Not Available 02/26/2024 12:46:55 06/16/2006/16/2023 CBC eosinophil count, manual, blood 0.06 10 3/uL 10*3/ mm3 0.0-0. 7 normal Not Available Not Available 02/26/2024 12:46:55 06/16/2006/16/2023 CBC eosinophil % 1.0 (?) % Not Available Not Available 12:46:55 06/16/2006/16/2023 CBC hematocrit, automated count, blood 42.8 % 36.0-4 6.0 normal Not Available Not Available 02/26/2024 12:46:55 06/16/2006/16/2023 CBC imm granu % 0.3 (?) % Not Available Not Available 12:46:55 06/16/2006/16/2023 CBC lymph count 1.27 10 3/uL 10*3/ mm3 1.2-3. 4 normal Not Available Not Available 02/26/2024 12:46:55 06/16/2006/16/2023 CBC MCH 30.8 pg 27.0-3 3.0 normal Not Available Not Available 02/26/2024 12:46:55 06/16/2006/16/2023 CBC MCHC 33.4 % 32.0-3 6.0 normal Not Available Not Available 02/26/2024 12:46:55 06/16/20 23 06/16/2023 CBC MCV, blood 92 fL 80-95 normal Not Available N ot Available 02/26/2024 12:46:55 06/16/2006/1606/16/2023 CBC monocyte % 8.6 (?) % Not Available Not Available 12:46:55 06/16/20 23 06/16/2023 CBC monocyte cnt 0.51 10 3/uL 10*3/ mm3 0.1-0. 8 normal Not Available Not Available 02/26/2024 12:46:55 06/16/20 23 06/16/2023 CBC MPV 10.9 fL 8.0-11 .0 normal Not Available Not Available 02/26/2024 12:46:55 06/16/2006/16/2023 CBC neutro count 4.06 10 3/uL 10*3/ mm3 1.2-6. 7 normal Not Available Not Available 02/26/2024 12:46:55 06/16/2006/16/2023 CBC nucl RBC-umd 0.0 % 0.0-0. 3 normal Not Available Not Available 02/26/2024 12:46:55 06/16/2006/16/2023 CBC platelets, auto, blood 273 10 3/uL 10*3/ mm3 130-40 0 normal Not Available Not Available 02/26/2024 12:46:55 06/16/20 23 06/16/2023 CBC PMN % 68.3 (?) % Not Available Not Available 12:46:55 06/16/2006/16/2023 CBC RBC count, blood 4.65 10 6/uL 10*6/ mm3 3.93-5 .22 normal Not Available Not Available 02/26/2024 12:46:55 06/16/20 23 06/16/2023 CBC RDW 13.0 % 11.7-1 4.6 normal Not Available Not Available 02/26/2024 12:46:55 06/16/20 23 06/16/2023 CBC WBC 5.95 10 3/uL 10*3/ mm3 4.4-10 .8 normal Not Available Not Available 02/26/2024 12:46:55 07/02/2007/02/2023 URINA LYSIS color Yellow yellow Not Available [facility] [address] [facility] , [place], [address] 07/02/2023 10:28:35 07/02/20 23 07/02/2023 URINA LYSIS clarity Clear clear Not Available [facility] [address] [place], [address] 07/02/2023 10:28:35 07/02/20 23 07/02/2023 URINA LYSIS specific gravity 1.010 1.005- 1.025 normal Not Available [address] [place], [address] 07/02/2023 10:28:35 07/02/20 23 07/02/2023 URINA LYSIS pH 6.0 5-8 normal Not Available [facility] [address] [place], [address] 07/02/2023 10:28:35 07/02/20 23 07/02/2023 URINA LYSIS leukocyte esterase Negati ve negati ve Not Available [address] [place], [address] 07/02/2023 10:28:35 07/02/20 23 07/02/2023 URINA LYSIS nitrite Negati ve negati ve Not Available [address] [place], [address] 07/02/2023 10:28:35 07/02/20 23 07/02/2023 URINA LYSIS protein Negati ve mg/dL negati ve Not Available [address] [place], [address] 07/02/2023 10:28:35 07/02/20 23 07/02/2023 URINA LYSIS glucose Negati ve mg/dL negati ve Not Available [address] [place], [address] 07/02/2023 10:28:35 07/02/20 23 07/02/2023 URINA LYSIS ketones Negati ve mg/dL negati ve Not Available [address] [place], [address] 07/02/2023 10:28:35 07/02/20 23 07/02/2023 URINA LYSIS urobilinogen 0.2 mg/dL up to 0.2 Not Available [address] [place], [address] 07/02/2023 10:28:35 07/02/20 23 07/02/2023 URINA LYSIS bilirubin Negati ve negati ve Not Available [address] [place], [address] 07/02/2023 10:28:35 07/02/20 23 07/02/2023 URINA LYSIS blood Negati ve negati ve Not Available [address] [place], [address] 07/02/2023 10:28:35 07/02/20 23 07/02/2023 COMPL ETE BLOOD COUNT W/DIF F WBC 6.75 10_3/ uL 4.4-10 .8 normal Not Available [address] [place], [address] 07/02/2023 11:11:40 07/02/20 23 07/02/2023 COMPL ETE BLOOD COUNT W/DIF F RBC 4.76 10_6/ uL 3.93-5 .22 normal Not Available [address] [place], [address] 07/02/2023 11:11:40 07/02/20 23 07/02/2023 COMPL ETE BLOOD COUNT W/DIF F HGB 14.6 g/dL 11.2-1 5.7 normal Not Available [address] [place], [address] 07/02/2023 11:11:40 07/02/20 23 07/02/2023 COMPL ETE BLOOD COUNT W/DIF F HCT 43.8 % 36.0-4 6.0 normal Not Available [address] [place], [address] 07/02/2023 11:11:40 07/02/20 23 07/02/2023 COMPL ETE BLOOD COUNT W/DIF F MCV 92 fL 80-95 normal Not Available [facility] [address] [place], [address] 07/02/2023 11:11:40 07/02/20 23 07/02/2023 COMPL ETE BLOOD COUNT W/DIF F MCH 30.7 pg 27.0-3 3.0 normal Not Available [address] [place], [address] 07/02/2023 11:11:40 07/02/20 23 07/02/2023 COMPL ETE BLOOD COUNT W/DIF F MCHC 33.3 % 32.0-3 6.0 normal Not Available [address] [place], [address] 07/02/2023 11:11:40 07/02/20 23 07/02/2023 COMPL ETE BLOOD COUNT W/DIF F RDW 13.0 % 11.7-1 4.6 normal Not Available [address] [place], [address] 07/02/2023 11:11:40 07/02/20 23 07/02/2023 COMPL ETE BLOOD COUNT W/DIF F platelet count 258 10_3/ uL 130-40 0 normal Not Available [address] [place], [address] 07/02/2023 11:11:40 07/02/20 23 07/02/2023 COMPL ETE BLOOD COUNT W/DIF F MPV 9.7 fL 8.0-11 .0 normal Not Available [address] [place], [address] 07/02/2023 11:11:40 07/02/20 23 07/02/2023 COMPL ETE BLOOD COUNT W/DIF F neutrophils % 78.6 Not Available [address] [place], [address] 07/02/2023 11:11:40 07/02/20 23 07/02/2023 COMPL ETE BLOOD COUNT W/DIF F lymphocytes % 13.8 Not Available [address] [place], [address] 07/02/2023 11:11:40 07/02/20 23 07/02/2023 COMPL ETE BLOOD COUNT W/DIF F monocytes % 6.4 Not Available [address] [place], [address] 07/02/2023 11:11:40 07/02/20 23 07/02/2023 COMPL ETE BLOOD COUNT W/DIF F eosinophils % 0.4 Not Available [address] [place], [address] 07/02/2023 11:11:40 07/02/20 23 07/02/2023 COMPL ETE BLOOD COUNT W/DIF F basophils % 0.4 Not Available [address] [place], [address] 07/02/2023 11:11:40 07/02/20 23 07/02/2023 COMPL ETE BLOOD COUNT W/DIF F immature grans % 0.4 Not Available [address] [place], [address] 07/02/2023 11:11:40 07/02/20 23 07/02/2023 COMPL ETE BLOOD COUNT W/DIF F nucleated RBC 0.0 % 0.0-0. 3 normal Not Available [address] [place], [address] 07/02/2023 11:11:40 07/02/20 23 07/02/2023 COMPL ETE BLOOD COUNT W/DIF F absolute neutrophil count 5.30 10_3/ uL 1.2-6. 7 normal Not Available [address] [place], [address] 07/02/2023 11:11:40 07/02/20 23 07/02/2023 COMPL ETE BLOOD COUNT W/DIF F absolute lymphocyte count 0.93 10_3/ uL 1.2-3. 4 low Not Available [address] [place], [address] 07/02/2023 11:11:40 07/02/20 23 07/02/2023 COMPL ETE BLOOD COUNT W/DIF F absolute monocyte count 0.43 10_3/ uL 0.1-0. 8 normal Not Available [address] [place], [address] 07/02/2023 11:11:40 07/02/20 23 07/02/2023 COMPL ETE BLOOD COUNT W/DIF F absolute eosinophil count 0.03 10_3/ uL 0.0-0. 7 normal Not Available [address] [place], [address] 07/02/2023 11:11:40 07/02/20 23 07/02/2023 COMPL ETE BLOOD COUNT W/DIF F absolute basophil count 0.03 10_3/ uL 0.0-0. 2 normal Not Available [address] [place], [address] 07/02/2023 11:11:40 07/02/20 23 07/02/2023 COMPR EHENS PAVITHRA METAB OLIC PANEL calcium 10.1 mg/dL 8.5-10 .1 normal Not Available [address] [place], [address] 07/02/2023 11:36:43 07/02/20 23 07/02/2023 COMPR EHENS PAVITHRA METAB OLIC PANEL glucose 124 mg/dL 74-106 high Not Available [facility] [address] [place], [address] 07/02/2023 11:36:43 07/02/20 23 07/02/2023 COMPR EHENS PAVITHRA METAB OLIC PANEL BUN 13 mg/dL 7-18 normal Not Available [facility] [address] [place], [address] 07/02/2023 11:36:43 07/02/20 23 07/02/2023 COMPR EHENS PAVITHRA METAB OLIC PANEL creatinine 1.2 mg/dL 0.55-1 .02 high Not Available [address] [place], [address] 07/02/2023 11:36:43 07/02/20 23 07/02/2023 COMPR EHENS PAVITHRA METAB OLIC PANEL estimated GFR 46.33 mL/min /1.73m 2 The eGFR is calcu lated from a serum creat inine using the CKD-E PI 2020 equat ion. Other varia bles requi red for the equat ion are gende r and age; this equat ion does not inclu de a race coeff icien t. This equat ion has simil ar overa ll perfo rmanc e to previ ous equat ions excep t value s may diffe r, in parti cular , in patie nts with highe r value s of eGFR and young er-ag ed adult s. Not Available [address] [place], [address] 07/02/2023 11:36:43 07/02/20 23 07/02/2023 COMPR EHENS PAVITHRA METAB OLIC PANEL total protein 6.9 g/dL 6.4-8. 2 normal Not Available [address] [place], [address] 07/02/2023 11:36:43 07/02/20 23 07/02/2023 COMPR EHENS PAVITHRA METAB OLIC PANEL albumin 3.9 g/dL 3.4-5. 0 normal Not Available [address] [place], [address] 07/02/2023 11:36:43 07/02/20 23 07/02/2023 COMPR EHENS PAVITHRA METAB OLIC PANEL bilirubin, total 0.5 mg/dL 0.2-1. 0 normal Not Available [address] [place], [address] 07/02/2023 11:36:43 07/02/20 23 07/02/2023 COMPR EHENS PAVITHRA METAB OLIC PANEL alk phos 75 U/L 46-116 normal Not Available [address] [place], [address] 07/02/2023 11:36:43 07/02/20 23 07/02/2023 COMPR EHENS PAVITHRA METAB OLIC PANEL sodium 145 mmol/ L 136-14 5 normal Not Available [address] [place], [address] 07/02/2023 11:36:43 07/02/20 23 07/02/2023 COMPR EHENS PAVITHRA METAB OLIC PANEL potassium 3.5 mmol/ L 3.5-5. 1 normal Not Available [address] [place], [address] 07/02/2023 11:36:43 07/02/20 23 07/02/2023 COMPR EHENS PAVITHRA METAB OLIC PANEL chloride 107 mmol/ L 98-107 normal Not Available [address] [place], [address] 07/02/2023 11:36:43 07/02/20 23 07/02/2023 COMPR EHENS PAVITHRA METAB OLIC PANEL CO2 30.0 mmol/ L 21.0-3 2.0 normal Not Available [address] [place], [address] 07/02/2023 11:36:43 07/02/20 23 07/02/2023 COMPR EHENS PAVITHRA METAB OLIC PANEL anion gap 8.0 mmol/ L 3-11 normal Not Available [address] [place], [address] 07/02/2023 11:36:43 07/02/20 23 07/02/2023 COMPR EHENS PAVITHRA METAB OLIC PANEL AST 19 U/L 15-37 normal Not Available [facility] [address] [place], [address] 07/02/2023 11:36:43 07/02/20 23 07/02/2023 COMPR EHENS PAVITHRA METAB OLIC PANEL ALT 19 U/L 14-59 normal Not Available [facility] [address] [place], [address] 07/02/2023 11:36:43 07/02/20 23 07/02/2023 ETHYL ALCOH OL ethyl alcohol < 3.0 mg/dL <10 ETOH Refer ence Range = <10 mg/dL Legal Limit of Intox icati on is 80 mg/dL This test is inten ded only for Medic al purpo ses. Divid e resul t by 1000 to conve rt to %(w/v ) Not Available [address] [place], [id number] 07/02/2023 11:36:44 07/02/20 23 07/02/2023 MAGNE SIUM magnesium 2.2 mg/dL 1.8-2. 4 normal Not Available [address] [place], [id number] 07/02/2023 11:36:44 07/02/20 23 07/02/2023 TSH (W/RE F FT4) TSH (w/ref FT4) 5.47 uIU/m L 0.36-3 .74 high NOTE: Supra -phys iolog ic doses of Bioti n(B7) may cause false negat pavithra resul ts. Not Available [address] [place], [id number] 07/02/2023 11:36:45 07/02/2007/02/2023 ETHYL ALCOH OL ethyl alcohol < 3.0 mg/dL <10 ETOH Refer ence Range = <10 mg/dL Legal Limit of Intox icati on is 80 mg/dL This test is inten ded only for Medic al purpo ses. Divid e resul t by 1000 to conve rt to %(w/v ) Not Available [address] [place], [address] 07/02/2023 11:55:51 07/02/2007/02/2023 MAGNE SIUM magnesium 2.2 mg/dL 1.8-2. 4 normal Not Available [address] [place], [address] 07/02/2023 11:55:51 07/02/20 23 07/02/2023 TSH (W/RE F FT4) TSH (w/ref FT4) 5.47 uIU/m L 0.36-3 .74 high NOTE: Supra -phys iolog ic doses of Bioti n(B7) may cause false negat pavithra resul ts. Not Available [address] [place], [address] 07/02/2023 11:55:52 07/02/20 23 07/02/2023 FREE T4 free T4 1.56 NG/dL 0.76-1 .46 high Not Available [address] [place], [address] 07/02/2023 11:55:52 07/02/20 23 07/02/2023 URINE DRUG SCREE N ([facility] ) methadone Negati ve negati ve Not Available [address] [place], [address] 07/02/2023 15:35:13 07/02/20 23 07/02/2023 URINE DRUG SCREE N ([facility] ) benzodiazepi odalys Negati ve negati ve Benzo diaze pines are exten sivel y metab olize d and the paren t compo und may not be detec erick in urine . If clini rené suspi cion is high, pleas e notif y Lab for send- out testi ng. Not Available [address] [place], [address] 07/02/2023 15:35:13 07/02/20 23 07/02/2023 URINE DRUG SCREE N ([facility] ) cocaine Negati ve negati ve Not Available [address] [place], [address] 07/02/2023 15:35:13 07/02/20 23 07/02/2023 URINE DRUG SCREE N ([facility] ) amphetamines Negati ve negati ve Not Available [address] [place], [address] 07/02/2023 15:35:13 07/02/20 23 07/02/2023 URINE DRUG SCREE N ([facility] ) tetrahydroca nnabinol Negati ve negati ve Not Available [address] [place], [address] 07/02/2023 15:35:13 07/02/20 23 07/02/2023 URINE DRUG SCREE N ([facility] ) opiates Negati ve negati ve Not Available [address] [place] [place], [address] 07/02/2023 15:35:13 07/02/20 23 07/02/2023 URINE DRUG SCREE N ([facility] ) barbiturates Negati ve negati ve Not Available [address] [place], [address] 07/02/2023 15:35:13 07/02/20 23 07/02/2023 URINE DRUG SCREE N ([facility] ) tricyclic antidepressa nts Negati ve negati ve T his test is not suita ble for legal purpo ses Cutof f eldon ntrat ions for each drug class are: MTD 300 ng/mL BZO 200 ng/mL JULY 300 ng/mL * AMP 1000 ng/mL * THC 50 ng/mL OPI 300 ng/mL BAR 200 ng/mL TCA 1000 ng/mL *Salo mmend ed scree fidelina cutof f eldon ntrat ions by the subst ance abuse and menta l healt h servi lillian admin istra tion. This test provi jareth preli minar y resul ts. A more speci fic alter rodrigue metho d such as GC/MS is the prefe rred confi rmato ry metho d. Notif y the Labor atory withi n 72 hours of repor t date if you shamar e confi rmati on. Presc ribed medic ation s may give posit pavithra resul ts and must be consi dered prior to inter preta tion of these resul ts. Not Available [address] [place], [address] 07/02/2023 15:35:13 07/29/1907/29/2023 COMPL ETE BLOOD COUNT W/DIF F WBC 4.99 10_3/ uL 4.4-10 .8 normal Not Available [address] [place], [address] 07/29/2023 09:52:33 07/29/19 24 07/29/2023 COMPL ETE BLOOD COUNT W/DIF F RBC 4.64 10_6/ uL 3.93-5 .22 normal Not Available [address] [place] [facility] [place], [address] 07/29/2023 09:52:33 07/29/19 24 07/29/2023 COMPL ETE BLOOD COUNT W/DIF F HGB 14.3 g/dL 11.2-1 5.7 normal Not Available [address] [facility] [place], [address] 07/29/2023 09:52:33 07/29/19 24 07/29/2023 COMPL ETE BLOOD COUNT W/DIF F HCT 43.6 % 36.0-4 6.0 normal Not Available [address] [place] [facility] [place], [address] 07/29/2023 09:52:33 07/29/19 24 07/29/2023 COMPL ETE BLOOD COUNT W/DIF F MCV 94 fL 80-95 normal Not Available [facility] [address] [place], [address] 07/29/2023 09:52:33 07/29/19 24 07/29/2023 COMPL ETE BLOOD COUNT W/DIF F MCH 30.8 pg 27.0-3 3.0 normal Not Available [address] [place], [address] 07/29/2023 09:52:33 07/29/19 24 07/29/2023 COMPL ETE BLOOD COUNT W/DIF F MCHC 32.8 % 32.0-3 6.0 normal Not Available [address] [place], [address] 07/29/2023 09:52:33 07/29/19 24 07/29/2023 COMPL ETE BLOOD COUNT W/DIF F RDW 13.8 % 11.7-1 4.6 normal Not Available [address] [place], [address] 07/29/2023 09:52:33 07/29/19 24 07/29/2023 COMPL ETE BLOOD COUNT W/DIF F platelet count 263 10_3/ uL 130-40 0 normal Not Available [address] [place], [address] 07/29/2023 09:52:33 07/29/19 24 07/29/2023 COMPL ETE BLOOD COUNT W/DIF F MPV 10.0 fL 8.0-11 .0 normal Not Available [address] [place], [address] 07/29/2023 09:52:33 07/29/19 24 07/29/2023 COMPL ETE BLOOD COUNT W/DIF F neutrophils % 68.6 Not Available [address] [place], [address] 07/29/2023 09:52:33 07/29/19 24 07/29/2023 COMPL ETE BLOOD COUNT W/DIF F lymphocytes % 21.2 Not Available [address] [place], [address] 07/29/2023 09:52:33 07/29/19 24 07/29/2023 COMPL ETE BLOOD COUNT W/DIF F monocytes % 6.8 Not Available [address] [place], [address] 07/29/2023 09:52:33 07/29/19 24 07/29/2023 COMPL ETE BLOOD COUNT W/DIF F eosinophils % 2.6 Not Available [address] [place], [address] 07/29/2023 09:52:33 07/29/19 24 07/29/2023 COMPL ETE BLOOD COUNT W/DIF F basophils % 0.6 Not Available [address] [place], [address] 07/29/2023 09:52:33 07/29/19 24 07/29/2023 COMPL ETE BLOOD COUNT W/DIF F immature grans % 0.2 Not Available [address] [place], [address] 07/29/2023 09:52:33 07/29/19 24 07/29/2023 COMPL ETE BLOOD COUNT W/DIF F nucleated RBC 0.0 % 0.0-0. 3 normal Not Available [address] [place], [address] 07/29/2023 09:52:33 07/29/19 24 07/29/2023 COMPL ETE BLOOD COUNT W/DIF F absolute neutrophil count 3.42 10_3/ uL 1.2-6. 7 normal Not Available [address] [place], [address] 07/29/2023 09:52:33 07/29/19 24 07/29/2023 COMPL ETE BLOOD COUNT W/DIF F absolute lymphocyte count 1.06 10_3/ uL 1.2-3. 4 low Not Available [address] [place], [address] 07/29/2023 09:52:33 07/29/19 24 07/29/2023 COMPL ETE BLOOD COUNT W/DIF F absolute monocyte count 0.34 10_3/ uL 0.1-0. 8 normal Not Available [address] [place], [address] 07/29/2023 09:52:33 07/29/19 24 07/29/2023 COMPL ETE BLOOD COUNT W/DIF F absolute eosinophil count 0.13 10_3/ uL 0.0-0. 7 normal Not Available [address] [place], [address] 07/29/2023 09:52:33 07/29/19 24 07/29/2023 COMPL ETE BLOOD COUNT W/DIF F absolute basophil count 0.03 10_3/ uL 0.0-0. 2 normal Not Available [address] [place], [address] 07/29/2023 09:52:33 07/29/19 24 07/29/2023 BASIC METAB OLIC PANEL calcium 9.3 mg/dL 8.5-10 .1 normal Not Available [address] [place], [address] 07/29/2023 10:10:34 07/29/19 24 07/29/2023 BASIC METAB OLIC PANEL glucose 103 mg/dL 74-106 normal Not Available [facility] [address] [place], [address] 07/29/2023 10:10:34 07/29/19 24 07/29/2023 BASIC METAB OLIC PANEL BUN 17 mg/dL 7-18 normal Not Available [facility] [address] [place] [place], [address] 07/29/2023 10:10:34 07/29/19 24 07/29/2023 BASIC METAB OLIC PANEL creatinine 1.0 mg/dL 0.55-1 .02 normal Not Available [address] [place], [address] 07/29/2023 10:10:34 07/29/19 24 07/29/2023 BASIC METAB OLIC PANEL estimated GFR 57.31 mL/min /1.73m 2 The eGFR is calcu lated from a serum creat inine using the CKD-E PI 2020 equat ion. Other varia bles requi red for the equat ion are gende r and age; this equat ion does not inclu de a race coeff icien t. This equat ion has simil ar overa ll perfo rmanc e to previ ous equat ions excep t value s may diffe r, in parti cular , in patie nts with highe r value s of eGFR and young er-ag ed adult s. Not Available [address] [place], [address] 07/29/2023 10:10:34 07/29/19 24 07/29/2023 BASIC METAB OLIC PANEL sodium 143 mmol/ L 136-14 5 normal Not Available [address] [place], [address] 07/29/2023 10:10:34 07/29/19 24 07/29/2023 BASIC METAB OLIC PANEL potassium 3.9 mmol/ L 3.5-5. 1 normal Not Available [address] [place], [address] 07/29/2023 10:10:34 07/29/19 24 07/29/2023 BASIC METAB OLIC PANEL chloride 107 mmol/ L 98-107 normal Not Available [address] [place], [address] 07/29/2023 10:10:34 07/29/19 24 07/29/2023 BASIC METAB OLIC PANEL CO2 31.5 mmol/ L 21.0-3 2.0 normal Not Available [address] [place], [address] 07/29/2023 10:10:34 07/29/19 24 07/29/2023 BASIC METAB OLIC PANEL anion gap 4.5 mmol/ L 3-11 normal Not Available [address] [place], [address] 07/29/2023 10:10:34 07/29/19 24 07/29/2023 CARDI AC TROPO DOMINICK I cardiac troponin I < 50 NG/L <or=60 Not Available [address] [place], [address] 07/29/2023 10:10:35 07/29/19 24 07/29/2023 COVID /FLU/ RSV PCR source Nasoph arynx Not Available [address] [place], [address] 07/29/2023 10:49:41 07/29/19 24 07/29/2023 COVID /FLU/ RSV PCR covid-19 PCR Negati ve negati ve This test has not been FDA clear ed or appro ethan. This test has been autho rized by the FDA under an Emerg ency Use Autho rizat ion for use by autho rized labor atori es. This test has been autho rized only for detec tion of nucle ic acid from the 2019 novel coron a virus (2018 -nCoV ), influ jose A, influ jose B, and respi rator y syncy tial virus (RSV) , and not for the detec tion of any other virus es or patho gens. This test is only autho rized for the durat ion of the decla ratio n that circu mstan lillian exist justi fying the autho rizat ion of emerg ency use of in vitro diagn ostic tests for detec tion and/o r diagn osis of nCoV under secti on 564(b )(1) of Act, 21 U.S.C ??? 360bb b-3(b )(1), unles s the autho rizat ion is termi nated or revok ed soone r. Negat pavithra resul ts do not precl ude 2019- nCoV, influ jose, and/o r RSV infec tion and shoul d not be used as the sole basis for treat ment or other patie nt manag ement decis ions. Negat pavithra resul ts must be combi moses with clini rené obser vatio ns, patie nt histo ry, and epide miolo gical infor matlinda nCarlos Testi ng perfo rmed at [facility] (CLIA #[id number]) on the Cephe id GeneX pert. Not Available [address] [place], [address] 07/29/2023 10:49:41 07/29/19 24 07/29/2023 COVID /FLU/ RSV PCR influenza A PCR Negati ve negati ve Not Available [address] [place], [address] 07/29/2023 10:49:41 07/29/19 24 07/29/2023 COVID /FLU/ RSV PCR influenza B PCR Negati ve negati ve Not Available [address] [place], [address] 07/29/2023 10:49:41 07/29/19 24 07/29/2023 COVID /FLU/ RSV PCR RSV PCR Negati ve negati ve Not Available [address] [place], [address] 07/29/2023 10:49:41 07/29/19 24 07/29/2023 D-DIM ER D-dimer 1764 NG/ml feu <500 high *Lite ratur e suppo rts the exclu dick of DVT and/o r PE with a resul t less than 500 ng/ml FEU with this metho d.* Not Available [address] [place], [address] 07/29/2023 10:51:41 11/12/19 24 11/12/2023 COMPL ETE BLOOD COUNT W/DIF F WBC 6.07 10_3/ uL 4.4-10 .8 normal Not Available [address] [place], [address] 11/12/2023 19:26:45 11/12/19 24 11/12/2023 COMPL ETE BLOOD COUNT W/DIF F RBC 4.17 10_6/ uL 3.93-5 .22 normal Not Available [address] [place], [address] 11/12/2023 19:26:45 11/12/19 24 11/12/2023 COMPL ETE BLOOD COUNT W/DIF F HGB 13.0 g/dL 11.2-1 5.7 normal Not Available [address] [place] [place], [address] 11/12/2023 19:26:45 11/12/19 24 11/12/2023 COMPL ETE BLOOD COUNT W/DIF F HCT 39.1 % 36.0-4 6.0 normal Not Available [address] [place], [address] 11/12/2023 19:26:45 11/12/19 24 11/12/2023 COMPL ETE BLOOD COUNT W/DIF F MCV 94 fL 80-95 normal Not Available [address] [place], [address] 11/12/2023 19:26:45 11/12/19 24 11/12/2023 COMPL ETE BLOOD COUNT W/DIF F MCH 31.2 pg 27.0-3 3.0 normal Not Available [address] [place], [address] 11/12/2023 19:26:45 11/12/19 24 11/12/2023 COMPL ETE BLOOD COUNT W/DIF F MCHC 33.2 % 32.0-3 6.0 normal Not Available [address] [place], [address] 11/12/2023 19:26:45 11/12/19 24 11/12/2023 COMPL ETE BLOOD COUNT W/DIF F RDW 13.0 % 11.7-1 4.6 normal Not Available [address] [facility] [place], [address] 11/12/2023 19:26:45 11/12/19 24 11/12/2023 COMPL ETE BLOOD COUNT W/DIF F platelet count 252 10_3/ uL 130-40 0 normal Not Available [address] [place], [address] 11/12/2023 19:26:45 11/12/19 24 11/12/2023 COMPL ETE BLOOD COUNT W/DIF F MPV 10.8 fL 8.0-11 .0 normal Not Available [address] [place], [address] 11/12/2023 19:26:45 11/12/19 24 11/12/2023 COMPL ETE BLOOD COUNT W/DIF F neutrophils % 73.6 Not Available [address] [place], [address] 11/12/2023 19:26:45 11/12/19 24 11/12/2023 COMPL ETE BLOOD COUNT W/DIF F lymphocytes % 15.5 Not Available [address] [place], [address] 11/12/2023 19:26:45 11/12/19 24 11/12/2023 COMPL ETE BLOOD COUNT W/DIF F monocytes % 6.9 Not Available [address] [place], [address] 11/12/2023 19:26:45 11/12/19 24 11/12/2023 COMPL ETE BLOOD COUNT W/DIF F eosinophils % 3.1 Not Available [address] [place], [address] 11/12/2023 19:26:45 11/12/19 24 11/12/2023 COMPL ETE BLOOD COUNT W/DIF F basophils % 0.7 Not Available [address] [place], [address] 11/12/2023 19:26:45 11/12/19 24 11/12/2023 COMPL ETE BLOOD COUNT W/DIF F immature grans % 0.2 Not Available [address] [place], [address] 11/12/2023 19:26:45 11/12/19 24 11/12/2023 COMPL ETE BLOOD COUNT W/DIF F nucleated RBC 0.0 % 0.0-0. 3 normal Not Available [address] [place], [address] 11/12/2023 19:26:45 11/12/19 24 11/12/2023 COMPL ETE BLOOD COUNT W/DIF F absolute neutrophil count 4.47 10_3/ uL 1.2-6. 7 normal Not Available [address] [place], [address] 11/12/2023 19:26:45 11/12/19 24 11/12/2023 COMPL ETE BLOOD COUNT W/DIF F absolute lymphocyte count 0.94 10_3/ uL 1.2-3. 4 low Not Available [address] [place], [address] 11/12/2023 19:26:45 11/12/19 24 11/12/2023 COMPL ETE BLOOD COUNT W/DIF F absolute monocyte count 0.42 10_3/ uL 0.1-0. 8 normal Not Available [address] [place], [address] 11/12/2023 19:26:45 11/12/19 24 11/12/2023 COMPL ETE BLOOD COUNT W/DIF F absolute eosinophil count 0.19 10_3/ uL 0.0-0. 7 normal Not Available [address] [place], [address] 11/12/2023 19:26:45 11/12/19 24 11/12/2023 COMPL ETE BLOOD COUNT W/DIF F absolute basophil count 0.04 10_3/ uL 0.0-0. 2 normal Not Available [address] [place], [address] 11/12/2023 19:26:45 11/12/19 24 11/12/2023 COMPR EHENS PAVITHRA METAB OLIC PANEL calcium 8.8 mg/dL 8.5-10 .1 normal Not Available [address] [place], [address] 11/12/2023 19:44:51 11/12/19 24 11/12/2023 COMPR EHENS PAVITHRA METAB OLIC PANEL glucose 153 mg/dL 74-106 high Not Available [address] [place], [address] 11/12/2023 19:44:51 11/12/19 24 11/12/2023 COMPR EHENS PAVITHRA METAB OLIC PANEL BUN 17 mg/dL 7-18 normal Not Available [facility] [address] [place], [address] 11/12/2023 19:44:51 11/12/19 24 11/12/2023 COMPR EHENS PAVITHRA METAB OLIC PANEL creatinine 0.9 mg/dL 0.55-1 .02 normal Not Available [address] [place], [address] 11/12/2023 19:44:51 11/12/19 24 11/12/2023 COMPR EHENS PAVITHRA METAB OLIC PANEL estimated GFR 65.03 mL/min /1.73M 2 The eGFR is calcu lated from a serum creat inine using the CKD-E PI 2020 equat ion. Other varia bles requi red for the equat ion are gende r and age; this equat ion does not inclu de a race coeff icien t. This equat ion has simil ar overa ll perfo rmanc e to previ ous equat ions excep t value s may diffe r, in parti cular , in patie nts with highe r value s of eGFR and young er-ag ed adult s. Not Available [address] [place], [address] 11/12/2023 19:44:51 11/12/19 24 11/12/2023 COMPR EHENS PAVITHRA METAB OLIC PANEL total protein 6.5 g/dL 6.4-8. 2 normal Not Available [address] [place], [address] 11/12/2023 19:44:51 11/12/19 24 11/12/2023 COMPR EHENS PAVITHRA METAB OLIC PANEL albumin 3.4 g/dL 3.4-5. 0 normal Not Available [address] [place], [address] 11/12/2023 19:44:51 11/12/19 24 11/12/2023 COMPR EHENS PAVITHRA METAB OLIC PANEL bilirubin, total 0.3 mg/dL 0.2-1. 0 normal Not Available [address] [place], [address] 11/12/2023 19:44:51 11/12/19 24 11/12/2023 COMPR EHENS PAVITHRA METAB OLIC PANEL alk phos 77 U/L 46-116 normal Not Available [address] [place], [address] 11/12/2023 19:44:51 11/12/19 24 11/12/2023 COMPR EHENS PAVITHRA METAB OLIC PANEL sodium 143 mmol/ L 136-14 5 normal Not Available [address] [place], [address] 11/12/2023 19:44:51 11/12/19 24 11/12/2023 COMPR EHENS PAVITHRA METAB OLIC PANEL potassium 3.9 mmol/ L 3.5-5. 1 normal Not Available [address] [place], [address] 11/12/2023 19:44:51 11/12/19 24 11/12/2023 COMPR EHENS PAVITHRA METAB OLIC PANEL chloride 108 mmol/ L 98-107 high Not Available [address] [place] [place], [address] 11/12/2023 19:44:51 11/12/19 24 11/12/2023 COMPR EHENS PAVITHRA METAB OLIC PANEL CO2 28.9 mmol/ L 21.0-3 2.0 normal Not Available [address] [place], [address] 11/12/2023 19:44:51 11/12/19 24 11/12/2023 COMPR EHENS PAVITHRA METAB OLIC PANEL anion gap 6.1 mmol/ L 3-11 normal Not Available [address] [place], [address] 11/12/2023 19:44:51 11/12/19 24 11/12/2023 COMPR EHENS PAVITHRA METAB OLIC PANEL AST 25 U/L 15-37 normal Not Available [facility] [address] [place], [address] 11/12/2023 19:44:51 11/12/19 24 11/12/2023 COMPR EHENS PAVITHRA METAB OLIC PANEL ALT 19 U/L 14-59 normal Not Available [address] [place], [address] 11/12/2023 19:44:51 11/12/19 24 11/12/2023 TSH TSH 3.79 uIU/m L 0.36-3 .74 high Not Available [address] [place], [address] 11/12/2023 19:44:52 11/12/19 24 11/12/2023 FREE T4 free T4 1.36 NG/dL 0.76-1 .46 normal Not Available [address] [place], [address] 11/12/2023 19:44:53 11/12/19 24 11/12/2023 urina lysis , dipst ick Leukocytes Negati ve Not Available [facility] [address], [place], [address], 11/12/2023 15:23:50 11/12/19 24 11/12/2023 urina lysis , dipst ick Nitrite negati ve Not Available [facility] [address], [place], [address], 11/12/2023 15:23:50 11/12/19 24 11/12/2023 urina lysis , dipst ick Urobilinogen .2 Not Available [facility] [address], [place], [address], 11/12/2023 15:23:50 11/12/19 24 11/12/2023 urina lysis , dipst ick Protein Trace Not Available [facility] [address], [place], [address], 11/12/2023 15:23:50 11/12/19 24 11/12/2023 urina lysis , dipst ick pH 5.0 Not Available [facility] [address], [place], [address], 11/12/2023 15:23:50 11/12/19 24 11/12/2023 urina lysis , dipst ick Blood Non-He molyze d: Trace Not Available [facility] [address], [place], [address], 11/12/2023 15:23:50 11/12/19 24 11/12/2023 urina lysis , dipst ick Specific [place] 1.020 Not Available [facility] [address], [place], [address], 11/12/2023 15:23:50 11/12/19 24 11/12/2023 urina lysis , dipst ick Ketone Negati ve Not Available [facility] [address], [place], [address], 11/12/2023 15:23:50 11/12/19 24 11/12/2023 urina lysis , dipst ick Bilirubin Negati ve Not Available [facility] [address], [place], [address], 11/12/2023 15:23:50 11/12/19 24 11/12/2023 urina lysis , dipst ick Glucose Negati ve Not Available [facility] [address], [place], [address], 11/12/2023 15:23:50 11/12/19 24 11/12/2023 urina lysis , dipst ick Appearance Slight ly Cloudy Not Available [facility] [address], [place], [address], 11/12/2023 15:23:50 11/12/19 24 11/12/2023 urina lysis , dipst ick Color Pale Yellow Not Available [facility] [address], [place], [address], 11/12/2023 15:23:50 02/11/20 24 02/11/2024 COMPR EHENS PAVITHRA METAB OLIC PANEL calcium 8.9 mg/dL 8.5-10 .1 normal Not Available [address] , [place], [address] 02/11/2024 18:09:39 02/11/20 24 02/11/2024 COMPR EHENS PAVITHRA METAB OLIC PANEL glucose 117 mg/dL 74-106 high Not Available [facility] [address] [place], [address] 02/11/2024 18:09:39 02/11/20 24 02/11/2024 COMPR EHENS PAVITHRA METAB OLIC PANEL BUN 19 mg/dL 7-18 high Not Available [facility] [address] [place], [address] 02/11/2024 18:09:39 02/11/20 24 02/11/2024 COMPR EHENS PAVITHRA METAB OLIC PANEL creatinine 1.1 mg/dL 0.55-1 .02 high Not Available [address] [place], [address] 02/11/2024 18:09:39 02/11/20 24 02/11/2024 COMPR EHENS PAVITHRA METAB OLIC PANEL estimated GFR 51.11 mL/min /1.73m 2 The eGFR is calcu lated from a serum creat inine using the CKD-E PI 2020 equat ion. Other varia bles requi red for the equat ion are gende r and age; this equat ion does not inclu de a race coeff icien t. This equat ion has simil ar overa ll perfo rmanc e to previ ous equat ions excep t value s may diffe r, in parti cular , in patie nts with highe r value s of eGFR and young er-ag ed adult s. Not Available [address] [place], [address] 02/11/2024 18:09:39 02/11/20 24 02/11/2024 COMPR EHENS PAVITHRA METAB OLIC PANEL total protein 6.4 g/dL 6.4-8. 2 normal Not Available [address] [place], [address] 02/11/2024 18:09:39 02/11/20 24 02/11/2024 COMPR EHENS PAVITHRA METAB OLIC PANEL albumin 3.4 g/dL 3.4-5. 0 normal Not Available [address] [place], [address] 02/11/2024 18:09:39 02/11/20 24 02/11/2024 COMPR EHENS PAVITHRA METAB OLIC PANEL bilirubin, total 0.38 mg/dL 0.2-1. 0 normal Not Available [address] [place], [address] 02/11/2024 18:09:39 02/11/20 24 02/11/2024 COMPR EHENS PAVITHRA METAB OLIC PANEL alk phos 80 U/L 46-116 normal Not Available [address] [place], [address] 02/11/2024 18:09:39 02/11/20 24 02/11/2024 COMPR EHENS PAVITHRA METAB OLIC PANEL sodium 144 mmol/ L 136-14 5 normal Not Available [address] [place], [address] 02/11/2024 18:09:39 02/11/20 24 02/11/2024 COMPR EHENS PAVITHRA METAB OLIC PANEL potassium 3.9 mmol/ L 3.5-5. 1 normal Not Available [address] [place], [address] 02/11/2024 18:09:39 02/11/20 24 02/11/2024 COMPR EHENS PAVITHRA METAB OLIC PANEL chloride 108 mmol/ L 98-107 high Not Available [address] [place] [place], [address] 02/11/2024 18:09:39 02/11/20 24 02/11/2024 COMPR EHENS PAVITHRA METAB OLIC PANEL CO2 28.4 mmol/ L 21.0-3 2.0 normal Not Available [address] [place], [address] 02/11/2024 18:09:39 02/11/20 24 02/11/2024 COMPR EHENS PAVITHRA METAB OLIC PANEL anion gap 7.6 mmol/ L 3-11 normal Not Available [address] [place], [address] 02/11/2024 18:09:39 02/11/20 24 02/11/2024 COMPR EHENS PAVITHRA METAB OLIC PANEL AST 25 U/L 15-37 normal Not Available [address] [place], [address] 02/11/2024 18:09:39 02/11/20 24 02/11/2024 COMPR EHENS PAVITHRA METAB OLIC PANEL ALT 15 U/L 14-59 normal Not Available [facility] [address] [place], [address] 02/11/2024 18:09:39 02/11/20 24 02/11/2024 TSH TSH 0.18 uIU/m L 0.36-3 .74 low Not Available [address] [place], [address] 02/11/2024 18:09:39 02/11/20 24 02/11/2024 FREE T4 free T4 1.72 NG/dL 0.76-1 .46 high Not Available [address] [place], [address] 02/11/2024 18:09:40 05/13/20 24 05/13/2024 COMPR EHENS PAVITHRA METAB OLIC PANEL calcium 9.0 mg/dL 8.5-10 .1 normal Not Available [address] [place], [address] 05/13/2024 19:23:52 05/13/20 24 05/13/2024 COMPR EHENS PAVITHRA METAB OLIC PANEL glucose 166 mg/dL 74-106 high Not Available Senait fung [address] [place], [address] 05/13/2024 19:23:52 05/13/20 24 05/13/2024 COMPR EHENS PAVITHRA METAB OLIC PANEL BUN 14 mg/dL 7-18 normal Not Available Senait fung [address] [place], [address] 05/13/2024 19:23:52 05/13/20 24 05/13/2024 COMPR EHENS PAVITHRA METAB OLIC PANEL creatinine 1.1 mg/dL 0.55-1 .02 high Not Available [address] [place], [address] 05/13/2024 19:23:52 05/13/20 24 05/13/2024 COMPR EHENS PAVITHRA METAB OLIC PANEL estimated GFR 51.11 mL/min /1.73M 2 The eGFR is calcu lated from a serum creat inine using the CKD-E PI 2020 equat ion. Other varia bles requi red for the equat ion are gende r and age; this equat ion does not inclu de a race coeff icien t. This equat ion has simil ar overa ll perfo rmanc e to previ ous equat ions excep t value s may diffe r, in parti cular , in patie nts with highe r value s of eGFR and young er-ag ed adult s. Not Available [address] [facility] [place], [address] 05/13/2024 19:23:52 05/13/2005/13/2024 COMPR EHENS PAVITHRA METAB OLIC PANEL total protein 6.7 g/dL 6.4-8. 2 normal Not Available [address] [place], [address] 05/13/2024 19:23:52 05/13/2005/13/2024 COMPR EHENS PAVITHRA METAB OLIC PANEL albumin 3.5 g/dL 3.4-5. 0 normal Not Available [address] [place], [address] 05/13/2024 19:23:52 05/13/20 24 05/13/2024 COMPR EHENS PAVITHRA METAB OLIC PANEL bilirubin, total 0.38 mg/dL 0.2-1. 0 normal Not Available [address] [place], [address] 05/13/2024 19:23:52 05/13/2005/13/2024 COMPR EHENS PAVITHRA METAB OLIC PANEL alk phos 85 U/L 46-116 normal Not Available [address] [place], [address] 05/13/2024 19:23:52 05/13/2005/13/2024 COMPR EHENS PAVITHRA METAB OLIC PANEL sodium 143 mmol/ L 136-14 5 normal Not Available [address] [place], [address] 05/13/2024 19:23:52 05/13/20 24 05/13/2024 COMPR EHENS PAVITHRA METAB OLIC PANEL potassium 4.4 mmol/ L 3.5-5. 1 normal Not Available [address] [place], [address] 05/13/2024 19:23:52 05/13/2005/13/2024 COMPR EHENS PAVITHRA METAB OLIC PANEL chloride 107 mmol/ L 98-107 normal Not Available [address] [place], [address] 05/13/2024 19:23:52 05/13/2005/13/2024 COMPR EHENS PAVITHRA METAB OLIC PANEL CO2 30.4 mmol/ L 21.0-3 2.0 normal Not Available [address] [place], [address] 05/13/2024 19:23:52 05/13/2005/13/2024 COMPR EHENS PAVITHRA METAB OLIC PANEL anion gap 5.6 mmol/ L 3-11 normal Not Available [address] [place], [address] 05/13/2024 19:23:52 05/13/2005/13/2024 COMPR EHENS PAVITHRA METAB OLIC PANEL AST 23 U/L 15-37 normal Not Available Senait [address] [place], [address] 05/13/2024 19:23:52 05/13/2005/13/2024 COMPR EHENS PAVITHRA METAB OLIC PANEL ALT 13 U/L 14-59 low Not Available Senait [address] [place], [address] 05/13/2024 19:23:52 05/13/2005/13/2024 TSH TSH 0.85 uIU/m L 0.36-3 .74 normal NOTE: Supra -phys iolog ic doses of Bioti n(B7) may cause false negat pavithra resul ts. Not Available [address] [place], [address] 05/13/2024 19:23:52 05/13/20 24 05/13/2024 FREE T4 free T4 1.68 NG/dL 0.76-1 .46 high Not Available [address] [place], [address] 05/13/2024 19:23:53 05/13/20 24 05/13/2024 HEMOG LOBIN A1C hemoglobin A1C 5.6 % <5.7 Refer ence Range s <5.7 Linnea l 5.7-6 .4% Predi abete s 6.5% or great er Diagn ostic for diabe melissa (if confi rmed) Refer ences : 1. Ameri can Diabe melissa Assoc iatio n. Clas sific ation and Diagn osis of Diabe melissa. Diabe melissa Care 2018 2(Sup pleme nt 1):S1 3-s28 . Not Available [facility] (Registration ) [address] [place] [address] , [place], [address], 05/13/2024 19:48:58 06/24/20 23 12/02/2022 MRI, lumba r spine , w/wo contr ast No observ ation record ed. [email or web address] Not Available 2022 19:58:44 07/02/2007/02/2023 elect jani bolden am EKG PATICHAYO T NAME: Jaspal Elizondo UNIT #: [id number] ORDERI NG [facility] ER: Tra Moreira ACCOUN T #: [id number] PRIMIN Y [facility] ER: IVANIA LANCASTER DATE/T SO OF SERV E: 1043 : 1944 PERFOR EDWINA LOCATI ON: ER ------ ------ --- APPROV ED REPORT ------ ------ -- Exam: Restin g ECG Reason for Exam: ams Patien t Locati on: E HR:75 bpm ECG Measur ements Heart Rate 75 AXIS OR 141 P 76 QRSd 82 QRS 20 QT 388 T 54 QTc 430 Conclu dick Sinus rhythm .. V-rate 60- 99 Atrial premat ure comple x...SV comple x w/ short R-R interv al Consid er kisha septal infarc t...Q >30mS, dimin R, V1-V2 Approp riate interv als. No ST segmen t or T wave abnorm alitie s to sugges t occlus pavithra UT ------ ------ ------ ------ ------ ------ ------ ------ ------ ------ ------ ------ ------ ------ ------ ------ ---- ------ - E-Sign Date: E-Sign Time: 1052 [email or web address] [facility] [address] [place], [address] 07/02/2023 15:48:08 07/02/2007/02/2023 CT imagi ng rayna anaya Name: Jaspal Elizondo Unit #: [id number] Loc: ER [facility] er: Dina hernandez,Tra WATSON Accoun t #: [id number] Status : REG ER Primar [...] ZATION : All CT scans at this [facility] use at least one of these dose [...] ---- Dictat ed By: Rudy Rosario [id number] Transc ribed By: Sebastian Ames 1118 This is privil eged, confid ential inform ation intend ed only for the provid er named. Any use or distri bution by any person other than this provid er is strict ly prohib ited. If you receiv e this report in error, please notify us immedi lizly at and return the origin al report to us at the addres s above. Thank- you. [email or web address] [facility] [address] [place], [address] 07/02/2023 15:48:09 07/02/20 23 07/02/2023 elect jani bolden am EKG PATIEN T NAME: Jaspal Elizondo UNIT #: [id number] ORDERI NG PROVID ER: Tra Moreira ACCOUN T #: [id number] PRIMAR Y CARE PROVID ER: IVANIA LANCASTER DATE/T SO OF SERVFRANCISCO JAVIER E: 1043 : 1944 [place] LOCATI ON: ER ------ ------ --- APPROV ED REPORT ------ ------ -- Exam: Restin g ECG Reason for Exam: annabella anaya Locati on: E HR:75 bpm ECG Measur ements Heart Rate 75 AXIS OR 141 P 76 QRSd 82 QRS 20 QT 388 T 54 QTc 430 Conclu dick Sinus rhythm .. V-rate 60- 99 Atrial premat ure comple x...SV comple x w/ short R-R interv al Consid er kisha septal infarc t...Q >30mS, dimin R, V1-V2 Approp riate interv als. No ST segmen t or T wave abnorm alitie s to sugges t occlus pavithra UT ------ ------ ------ ------ ------ ------ ------ ------ ------ ------ ------ ------ ------ ------ ------ ------ ---- ------ - E-Sign Date: E-Sign Time: 1052 ------ ------ --- ADDEND APPRO ED REPORT ------ ------ -- Exam: Restin g ECG Reason for Exam: annabella anaya Locati on: E HR:75 bpm ECG Measur ements Heart Rate 75 AXIS OR 141 P 76 QRSd 82 QRS 20 QT 388 T 54 QTc 430 Conclu dick Sinus rhythm .. V-rate 60- 99 Atrial premat ure comple x...SV comple x w/ short R-R interv al Consid er kisha septal infarc t...Q >30mS, dimin R, V1-V2 Approp riate interv als. No ST segmen t or T wave abnorm alitie s to sugges t occlus pavithra UT I have review ed and I agree with the emerge ncy room alissa pompa's ECG interp retati on. Electr onical ly signed by: [id number] Cosign ed by: [facility] [address] [place], [address] 07/02/2023 15:48:08 07/03/2007/02/2023 ED visit note ED Visit Note PATICHAYO T NAME: Jaspal Elizondo UNIT #: [id number] ADMITT ING PROVID ER: Tra Moreira PA ACCOUN T #: [id number] PRIMAR Y CARE PROVID ER: IVANIA LANCASTER [...] like you have had an intake today [facility] for furthe r outpat ient evalua tion [...] had just and both daught er and patichayo anaya felt comfor table being discha rged home at this time, zhanna anaya is calm and marcos ative, she is alert and orient ed Will place zhanna anaya on 0.5 mg of Risper adela in the mornin g and give Ativan severa l tablet s 0.5 as needed HPI Genera l Date/T so Provid er Initia erick Guerra ntatio n: 10:14 . 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 Thank you. [email or web address] [facility] [address] [place], [address] 07/03/2023 22:25:15 07/04/20 23 07/03/2023 stanley thomas s note Mental Health Crisis Note ZHANNA Anaya NAME: Jaspal Elizondo UNIT #: [id number] ADMITT ING PROVID ER: Palmira Leticia padilla ACCOUN T #: [id number] PRIMAR Y CARE PROVID ER: IVANIA LANCASTER DATE OF ADMIT: 02/15 : 1944 Date of servic e: Time of Servic e: 12:08 Mental Health Emerge ncy Note Releas e [facility] releas e signed :: Yes Reason for Visit The client is seen in the ED after family yemi t her in for sudden increa se in agitat ion and behavi ors. The ED report ed they did not see her needin bg inpati ent level of care leno ware ts would be helpfu l. In the [...] al and daught ers report . ) [place] ation: Disori ented in Time Memory : [...] Caucas peña female who lives with her [facility] and others in [facility]. She gaytan been trying to get into servic es with [facility] and [facility] was only trying to get intake paperw ork comple erick. This was comple erick today during this assess ment. It is report ed by the [facility] and the client that the client [...] but not a famili ar one. The [facility] er inform ed that the client stated that the voice tells her she is going to take her kids away. when she hears this she become s agitat ed poundi ng her fist on the table really hard and scream ing out loud. The [facility] er stated that there was a recent change in her meds and attrib utes this behavi or to those change s. The [facility] er said she has had poor concen tratio n even when it comes to her favori te game of [email or web address]. She report ed that last evenin g while playin g [employer]ING[employer] she though t she saw this person starsylvester pederson at her throug h the window and so slid off the chair and hid under the table. She is observ ed by family to sit in her chair all day tappin g her foot contin uously . It appear s based on chart review with [facility] the client is diagno sed with schizo phreni a. The client was feelin bg better after receiv ing some Risper idone and wanted to go home. Resour lillian Reosur lillian review ed and given: : 988 and [facility] Plan/D isposi tion Recomm ended Dispos ition: [facility] Servic es [facility] Servic es: Other. Plan: The client [...] ------ ------ ------ --- Dictat ed by: PALMIRA Padilla MS QMHP,R OSE Dictat ed: Time: [...] this report in error, please notify us immelveri tracey at [phone] and return the origin al report to us at the addres s above. Thank you. [email or web address] [facility] [address] [place], [address] 07/07/2023 13:32:02 07/29/19 24 07/29/2023 elect jani bolden am EKG PATICHAYO T NAME: Jaspal Elizondo UNIT #: [id number] ORDERI NG PROVID ER: Bakari Olea M.D. ACCOUN T #: [id number] PRIMAR Y CARE PROVID ER: Ivania Lancaster DATE/T SO OF SERVIC E: 0 4 0917 : 1944 PERFOR EDWINA LOCATI ON: ER ------ ------ --- APPROV ED REPORT ------ ------ -- Exam: Restin g ECG Reason for Exam: sob Patichayo anaya Locati on: E HR:79 bpm ECG Measur ements Heart Rate 79 AXIS OR 134 P 82 QRSd 72 QRS 52 [...] ---- ------ - E-Sign Date: E-Sign Time: [id number] [address] [place], [address] 07/30/2023 22:26:49 07/29/19 24 07/29/2023 elect jani bolden am No observ ation record ed. [email or web address] Not Available 2023:58:55 07/29/19 24 07/29/2023 x-ray imagi ng repor t Zhanna anaya Name: Jaspal Elizondo Unit #: [id number] Loc: ER Orderi ng Provid er: Bakari Olea M.D. Accoun t #: [id number] Status : REG ER Primar [...] error, please notify us immedi ately at [phone] and return the origin al report to us at the addres s above. Thank- you. [email or web address] [facility] [address], [place], [address] 07/30/2023 22:26:49 07/29/19 24 07/29/2023 CT imagi ng rayna anaya Name: Jaspal Elizondo Unit #: [id number] Loc: ER Orderi ng Provid er: Mj héctorBakari M.D. Accoun t #: [id number] Status : REG ER Primar [...] tion); or iterat pavithra recons tructi on. 0103-0 016: Total DLP = 0.00 mGy-cm Ordere [...] error, please notify us immedi tracey at [phone] and return the origin al report to us at the addres s above. Thank- you. [place] [address] , [place], [address] 07/30/2023 22:26:49 07/30/19 24 07/29/2023 ED visit note ED Visit Note PATIEN T NAME: Jaspal Elizondo UNIT #: [id number] ADMITT ING PROVID ER: Mj héctorBakari M.D. ACCOUN T #: [id number] PRIM[facility] CARE PROVID ER: Ivania Lancaster DATE OF ADMIT: 07/29 : 1944 HPI Genera l DELISA: 2 Date/T so Provid er Initijaspal sommerstio n: 09:07. HPI Narrat pavithra: MDM This [...] Will obtain labs in the event that patichayo t is found to have a pneumo jw in order to calcul ate a PORT score. I consid ered sepsis howeve r the patichayo t is not febril e hypote nsive nor [...] pain nausea nor vomiti ng to sugges héctor mesent gurpreet ischem ia. [facility] the zhanna anaya seen [...] affect ing the care of the zhanna t: Alzhei eriberto's and schizo phreni a Histor y obtain ed from an outsid e histor peña: Zhanna anaya's daught er Property Condition Assessor al record review : [facility] [Diagn ostic interp retati ons perfor [...] This is a 78-yea r-old female arrivi pema from [facility] e reside nce with her daught er with whom [facility]n ess of [...] ncy. No histor y of diabet es. 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 Smokin g risk [...] DATE OF EXAM: TIME OF EXAM: 09:44 [facility] ER THAT PERFOR MED THE STUDY: Bakari [...] DATE OF EXAM: TIME OF EXAM: 09:45 [facility] ER THAT PERFOR MED THE STUDY: Bakari anaya REASON FOR EXAM: Shortn ess ofBrea th and Other indica tion: Shortn ess of breath VISUAL IZED STRUCT URES: right anteri or, left anteri or, right atmospheric technician ior and left atmospheric technician ior PERTIN ENT FINDIN GS/IMP RESSIO N: [...] this report in error, please notify us immaustyn webb at and return the origin al report to us at the addres s above. Thank you. [email or web address] [facility] [address], [place], [address] 07/30/2023 22:26:48 08/04/19 24 07/29/2023 elect jani bolden am EKG ZHANNA Anaya NAME: Jaspal Elizondo UNIT #: [id number] ORDERI NG PROVID ER: Bakari Olea M.D. ACCOUN T #: [id number] PRIMAR Y CARE PROVID ER: Ivania Lancaster DATE/T SO OF SERVIC E: 0 4 0917 : 1944 PERFOR EDWINA LOCATI ON: ER ------ ------ --- APPROV ED REPORT ------ ------ -- Exam: Restin g ECG Reason for Exam: sob Patichayo t Locati on: E HR:79 bpm ECG Measur ements Heart Rate 79 AXIS OR 134 P 82 QRSd 72 QRS 52 [...] E-Sign Time: 09 ------ ------ --- ADDEND UM APPROV ED REPORT ------ ------ -- Exam: Restin g ECG Reason for Exam: sob Patien t Locati on: E HR:79 bpm ECG Measur ements Heart Rate 79 AXIS OR 134 P 82 QRSd 72 QRS 52 [...] ly signed by: [id number] Cosign ed by: [email or web address] [facility] [address], [place], [address] 08/07/2023 11:35:30 08/04/19 24 07/29/2023 trans -thor acic echoc ardio gram (TTE) (PROC ) No observ ation record ed. Not Available 2023 14:34:47 03/03/2003/03/2024 bone densi tomet ry imagi ng rpt Patichayo t Name: Jaspal Elizondo Unit #: [id number] Loc: DI Orderi ng Provid er: Ivania Lancaster Accdaniel t #: [id number] Status : REG CLI Primar y [...] the thorac ic and lumbar spine. COMPAR TEN: DX DEXA BONE DENSIT Y WITH TIERNEY [...] a 10.4 percen t decrea se from 2016.. The femora l neck T-scor e is -3.1, in the osteop orotic range. Thelef t forear m bone minera l densit y measur ements corres pond to a T-scor e of the distal 3rd of - 5.2, in the osteop orotic range. This repres ents a 20.5 percen t decrea se from 2015. 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 Osteop enia of the spine. Ordere d By: Ivania Lancaster CC: ------ ------ ------ ------ ------ ------ ------ ------ ------ ------ ------ ------ - Dictat ed By: Rudy Rosario [id number] Transc ribed By: Sebastian Ames 155 This is privil eged, confid ential inform ation intend ed only for the provid er named. Any use or distri bution by any person other than this provid er is strict ly prohib ited. If you receiv e this report in error, please notify us immedi tracey at [phone] and return the origin al report to us at the addres s above. Thank- you. [place] [address] , [place], [address] 03/14/2024 16:55:45 03/03/20 24 03/03/2024 bone densi ty No observ ation record ed. [email or web address] [facility] (Radiology) [address] [place] [address] , [place], [address], 03/03/2024 16:37:30 04/11/20 24 07/02/2023 imagi ng/di yasmani tic resul t No observ ation record ed. [email or web address] Not Available 04/11 03:58:12 04/11/20 24 08/09/2019 TEDDY valarie kitchen No observ ation record ed. [email or web address] Not Available 04/11 03:58:43 Result Notes None recorded. 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 581573094 Active 2015 Tia Hugo null, [facility] 4 11:52:36 Sensorin eural hearing loss 03587408 Active 2015 Tia Hugo null, [facility] 4 11:54:31 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 Tia Hugo null, [facility] 4 11:49:27 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 2015 Problem Code: M41.20; Problem Code Type: ICD-10; [address], [place], [address] , [facility] 4 14:14:56 Senile osteopor osis 09693442 Active 2015 Problem Code: M81.0; Problem Code Type: ICD-10; [address], [place], [address] , [facility] 4 14:14:42 Sciatica 09734380 Active 2015 Problem Code: M54.30; Problem Code Type: ICD-10; [address], [place], [address] , [facility] 4 14:14:44 Major depressi on, single episode 53954649 Active 2015 Problem Code: F32.9; Problem Code Type: ICD-10; [address], [facility] [address] , [facility] 4 14:14:54 Arthropa thy 318714734 Active 2015 Problem Code: M12.9; Problem Code Type: ICD-10; [address], [facility] [address] , [facility] 4 14:14:59 Acute upper respirat ory infectio n 01707001 Completed 201609/15/2016 Problem Code: J06.9; Problem Code Type: ICD-10; Not Available [facility] 3 05:18:19 Auditory hallucin ations 17151669 Active 2016 Tia Hugo null, [facility]. 4 11:52:16 Schizoaf fective disorder 73208851 Active 2016 Problem Code: F25.9; Problem Code Type: ICD-10; [address], [facility] [address] , [facility], [facility] 3 11:51:45 Transien t cerebral ischemia 772526173 Active 2018 Tia Hugo null, [facility]. 4 11:50:19 Incoordi nation 254549541 Active 2018 Tia Hugo null, [facility] 4 11:56:33 Underwei ght 404233994 Active 2019 Problem Code: R63.6; Problem Code Type: ICD-10; [address], [facility] [address] , [facility] 4 14:14:40 Amnesia 75635816 Active 2019 Tia Hugo null, [facility]. 4 11:56:50 Pain in thoracic spine 375542872 Completed 201503/19/2017 Problem Code: M54.9; Problem Code Type: ICD-10; Not Available [facility] 3 05:18:20 Abnormal weight loss 834983787 Completed 201601/12/2018 Problem Code: R63.4; Problem Code Type: ICD-10; Not Available [facility] 3 05:18:20 Urinary tract infectio us disease 44812715 Completed 201805/09/2019 Problem Code: N39.0; Problem Code Type: ICD-10; Not Available [facility] 3 05:18:20 Cognitiv e deficit in communic ation skills 24695854954 9106 Completed 201506/13/2016 Problem Code: R41.841; Problem Code Type: ICD-10; Not Available [facility] 3 05:18:20 Screenin g for malignan t neoplasm of breast Completed 201608/02/2019 Problem Code: Z12.39; Problem Code Type: ICD-10; Not Available [facility] 3 05:18:20 Screenin g for malignan t neoplasm of colon Completed 201708/02/2019 Problem Code: Z12.11; Problem Code Type: ICD-10; Not Available [facility] 3 05:18:20 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 408816325 Completed 201504/22/2023 Problem Code: I69.328; Problem Code Type: ICD-10; Not Available [facility] 3 05:18:20 General unsteadi ness 317640332 Completed 201503/24/2017 Problem Code: R26.81; Problem Code Type: ICD-10; Not Available [facility] 3 05:18:21 Auditory hallucin ations 87058607 Completed 201403/24/2017 Problem Code: R44.0; Problem Code Type: ICD-10; Estelita thomas [facility] 4 11:52:16 Screenin g for disorder Completed 201805/09/2019 Problem Code: Z13.89; Problem Code Type: ICD-10; Not Available [facility] 3 05:18:21 Stool finding 637932096 Completed 201503/19/2017 Problem Code: R19.5; Problem Code Type: ICD-10; Not Available [facility] 3 05:18:21 Pain in left lower limb 553726541 Completed 201503/19/2017 Problem Code: M79.605; Problem Code Type: ICD-10; Not Available [facility] 3 05:18:21 Gastroes ophageal reflux disease without esophagi tis 892115706 Active 2022 TISHA MARIE RN [facility] hospital, [facility] 3 15:14:39 Nocturia 227596121 Active [address], [facility] [address] , [facility] 4 14:14:51 Urge incontin ence of urine 58316795 Active [address], [facility] [address] , [facility] 4 14:14:38 Onychomy cosis of toenails 947494269 Active [address], [facility] [address] , [facility] 4 14:14:49 Osteopor osis 60373572 Active [address], [facility] [address] , [facility] 4 11:13:59 Tumor of spinal nerve and sheath 335034262 Active [address] [facility] neurosur anjum. planned MRI repeat for manageme nt January [address], [facility] [address] , [facility] 4 11:18:57 Low back pain 817273325 Active [address], [facility] [address] , [facility] 11:16:28 Unsteady when walking 95705043 Active [address], [place], [address] , [facility] 11:16:42 Increase d frequenc y of urinatio n 878677230 Active [address], [facility] [place], [address] , [facility] 12:57:41 Notes:Some problems listed i n Document: #[id number] could not be added to this patient's chart. Please review this document and add these problems to the patient's chart manually as needed. Problem Notes None recorded. Procedures Surgical History None recorded. Imaging Results Imaging Date Name Status LastModified by Organization Details LastModified Time 12/02/2022 MRI, lumbar spine, w/wo contrast completed [email or web address] Information not available 06/24/2023 19:58:44 07/02/2023 electrocardiogram completed [email or web address] [address] [place], [address] 07/02/2023 15:48:08 07/02/2023 CT imaging report completed [email or web address] [address] [place], [address] 07/02/2023 15:48:09 07/02/2023 electrocardiogram completed [email or web address] [address] [place], [address] 07/02/2023 15:48:08 07/02/2023 ED visit note completed [email or web address] [address] [place], [address] 07/03/2023 22:25:15 07/03/2023 mental health crisis note completed [email or web address] [address] [place], [address] 07/07/2023 13:32:02 07/29/2023 electrocardiogram completed [id number] [place] [address] [place], [address] 07/30/2023 22:26:49 07/29/2023 electrocardiogram completed [email or web address] Informa tion not available 07/30/2023 22:58:55 07/29/2023 x-ray imaging report completed [email or web address] Yunior reneehusam [address] [place], [address] 07/30/2023 22:26:49 07/29/2023 CT imaging report completed [address] [place], [address] 07/30/2023 22:26:49 07/29/2023 ED visit note completed [email or web address] [address] [place], [address] 07/30/2023 22:26:48 07/29/2023 electrocardiogram completed [email or web address] [address] [place], [address] 08/07/2023 11:35:30 07/29/2023 trans-thoracic echocardiogram (TTE) (PROC[email or web address] not available 08/11/2023 14:34:47 03/03/2024 bone densitometry imaging rpt completed [address] [place] [place], [address] 03/14/2024 16:55:45 03/03/2024 bone density completed [email or web address] [facility] (Radiology) [address] [place] [address] [place], [address], 03/03/2024 16:37:30 07/02/2023 imaging/diagnostic result completed Information not available 04/11/2024 03:58:12 08/09/2019 MAMMO, screening completed Informat ion not available 04/11/2024 03:58:43 Procedure Notes None recorded. Medical Equipment None Reported. Allergies No known drug allergies Medications Name Sig Start Date Stop Date Status Note LastModified by Organization Details LastModified Time adult pull ups active Not Available Not Available Not Available quetiapin e 25 mg tablet TAKE ONE TABLET BY MOUTH EVERY DAY FOR FOR ANXIETY AND PSYCHOTI C D/O active Not Available Not Available No t Available atorvasta tin 40 mg tablet TAKE ONE TABLET BY MOUTH AT BEDTIME 07/04 completed Not Available Not Available Not Available oxybutyni n chloride ER 15 mg tablet,ex tended release 24 hr Take 1 tablet every day by oral route, for urinary incontin ence. 2023 active Not Available Not Available Not Avai lable oxybutyni n chloride ER 10 mg tablet,ex [...] Avai lable levothyro xine 75 mcg tablet Take 1 tab by mouth daily each morning prior to eating breakfas t. dose decrease d active Not Available Not Available No t Available levothyro xine 100 mcg tablet TAKE ONE TABLET BY MOUTH EVERY DAY IN THE MORNING 30 MINUTES PRIOR TO EATING 02/11 completed Not Available Not Available Not Available levothyro xine 88 mcg tablet TAKE ONE TABLET BY MOUTH EVERY MORNING 30 MIN. PRIOR TO EATING ANYTHING 05/22 completed Not Available Not Available Not Available lorazepam [...] TAKE ONE CAPSULE BY MOUTH EVERY DAY 2023 active Not Available Not Available Not Avai lable Synthroid 112 mcg tablet Take 1 tab by mouth daily 2015 active Not Available Not Available Not Avai lable ketoconaz ole 2 % topical cream APPLY TO TOENAILS ONCE DAILY FOR 3 MONTHS 11/11 completed from podiatry Not Available Not Available Not Available sertralin e 50 mg tablet Take 1 tab by mouth daily prescrib ed by Dr. Tere su ([facility]) 07/09 completed Not Available Not Available Not Available doxycycli ne hyclate 100 mg tablet TAKE ONE TABLET BY MOUTH TWICE A DAY 06/16 completed Not Available Not Available Not Available risperido ne 0.5 mg tablet Take 1 tablet by mouth every night with 0.25mg tablet 02/10 completed changed by [facility] provider Not Available Not Available Not [...] Updated DateTime 3 162.56 cm 16.9 kg/m2 47934.7 7 g 98.2 [degF] 78 /min 14 /min 104 mm[Hg] 64 mm[Hg] TISHA MARIE RN [facility] 3 11:31:38 Date Recorded Body height Body mass index (BMI) Body weight Body temperature Heart rate Respiratory rate Systolic blood pressure Diastolic blood pressure Provider Name and Address Organization Details Last Updated DateTime 4 162.56 cm 16.3 kg/m2 41912.2 8 g 98.2 [degF] 76 /min 14 /min 92 mm[Hg] 50 mm[Hg] TISHA MARIE RN [facility] 4 13:51:53 Date Recorded Body height Body mass index (BMI) Body weight Body temperature Heart rate Respiratory rate Systolic blood pressure Diastolic blood pressure Provider Name and Address Organization Details Last Updated DateTime 4 162.56 cm 16.3 kg/m2 03421.5 6 g 98.2 [degF] 78 /min 16 /min 110 mm[Hg] 60 mm[Hg] TISHA MARIE RN [facility] 4 13:05:09 Date Recorded Body height Body mass index (BMI) Body weight Body temperature Oxygen saturation Oxygen saturation in Arterial blood by Pulse oximetry Heart rate Respiratory rate Systolic blood pressure Diastolic blood pressure Provider Name and Address Organization Details Last Updated DateTime 4 162.56 cm 15 kg/m2 87874.9 7 g 98.2 [degF] 98 % 98 % 76 /min 14 /min 140 mm[Hg] 64 mm[Hg] TISHA MARIE RN [facility] 4 12:48:36 Social History Question Answer Notes LastModified by Organizat ion Details LastModified Time Tobacco Smoking Status Never Smoker TISHA MARIE RN null, [facility] 06/16/2023 11:28:51 What Is Your Level [...] Father Family history of cancer of colon [email or web address] Not available 2022 04:01:01 Mother Family history of seizure disorder [email or web address] Not available 2022 04:01:01 Medical History No medical history recorded. Gynecological HistoryNo gynecological history recorded. Obstetrics History GPAL:G 0 P 0 0 0 0 Immunizations Vaccine Type Date Status Note Provider Nam e and Address Organization Details Recorded Time Tdap 3 completed TISHA MARIE RN null, [facility] 06/16/2023 17:19:44 Influenza, high-dose, trivalent, PF [address], [place], [address], [facility] 07/28/2024 12:32:14 Pneumococcal conjugate PCV20, polysaccharide [id number] conjugate, adjuvant, PF [address], [place], [address], [facility] 07/28/2024 12:32:14 Tdap 2 completed Not Available [facility] 06/05/2023 06:04:44 zoster live 3 completed Not Available [facility] 06/05/2023 06:04:44 Influenza, split virus, trivalent, preservative 6 completed Not Available [facility] 06/05/2023 06:04:44 Pneumococcal Conjugate, unspecified formulation 5 completed Not Available [facility] 06/05/2023 06:04:44 Influenza, split virus, quadrivalent, preservative 8 completed Not Available [facility] 06/05/2023 06:04:44 pneumococcal polysaccharide PPV23 1 completed Not Available [facility] 06/05/2023 06:04:44 influenza, unspecified formulation 9 completed Not Available [facility] 06/05/2023 06:04:45 SARS-COV-2 (COVID-19) vaccine, UNSPECIFIED 1 completed TISHA MARIE RN null, [facility] 05/13/2024 13:28:35 SARS-COV-2 (COVID-19) vaccine, UNSPECIFIED 1 completed TISHA MARIE RN null, [facility] 05/13/2024 13:28:39 influenza, unspecified formulation 0 completed TISHA MARIE RN null, [facility] 05/13/2024 13:28:57 Past Encounters Encounter ID Performer Location Encounter Start Date Encounter Closed Date Diagnosis/Indication Diagnosis SNOMED-CT Code Diagnosis ICD10 Code Diagnosis Note [id number] ADÁN HUFF [facility] [address] [place] [address] 06/16/2023 11:04:49 06/16/2023 12:35:17 Anticoagulant therapy 432338154 Z79.01 history of TIA. continue low dose aspirin 81mg daily Hypothyroidism 86601546 E03.9 TSH today. continue 88mcg levothyrox ine for now Schizoaffe ctive disorder 70445005 F25.9 continue current dosing of quetiapine 25mg at bedtime and risperidon e 0.25mg at bedtime. Referral sent to [facility] for psychiatri st for medication and condition management Transient cerebral ischemia 719277402 G45.9 continue baby aspirin daily. 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 being managed through [facility] neurology. Recent MRI of lumbar spine w/wo contrast at 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 She will follow up for management of chronic conditions in 3 months Gastroesop hageal reflux disease 520727321 K21.9 continue omeprazole 20mg daily Osteoporosis 14143214 M8 5.88 last bone density was in 2015. reordered bone density scan. Has been on alendronat e for over 5 years. if she is considered high risk for fracture (T score below -3.5) then we will continue for 10 years, if not, could potentiall y stop this. Bone density screening first. continue vitamin D and calcium Dysuria 26586026 R30.0 urine dip today for pain with urination. no true indication of infection but did not have enough urine for send out. will have her drop off urine sample Low back pain 666958094 M54.50 chronic. takes OTC ibuprofen or tylenol. sees [facility] neurosurge ry for lumbar spine tumor Bilateral hearing loss 91510121 H91.93 referral to audiologis t in [facility] in order to get bilateral hearing aids again. Administra tion of diphtheria, pertussis, and tetanus vaccine 881523690 Z23 [id number] ADÁN HUFF [facility] [address] [place] [address] 11/12/2023 12:49:40 11/12/2023 15:02:22 Schizoaffective disorder 02933480 F25.9 Continue on current dosing of quetiapine and Risperdal. Sending referral to get re-establi shed at [facility] as you do need a psychiatri st for management of schizoaffe ctive disorder not just a counselor. Not sure why this was not done initially but will resend referral. Nocturia 257044792 R35.1 Urine dipstick normal. Kidney function normal. We will see if oxybutynin ER 5 mg once daily helps with this. May need to go up on dosing if not that helpful at 5 mg. Hypothyroidism 37474364 E03.9 tsh today, 75mcg of levothyrox ine daily currently Urge incon tinence of urine 65144260 N39.41 discussed starting oxybutynin ER once nightly if kidney function normal kidney function and urine dip normal. start oxybutynin 5mg XR once daily and follow up in office in 3 months, sooner if concerns. Also will try to send an order for DME for medium size pull-ups through [employer] for 4-5 pull ups in a 24-hour period for urge incontinen ce. Sensorineu ral hearing loss 58822349 H90.5 no longer audiologis t at [facility]. sending referral to [facility] for re-testing and hearing aid assessment [id number] IVANIA LANCASTER, ADÁN [facility] [address] [place] [address] 02/11/2024 12:45:08 02/11/2024 14:06:48 Hypothyroidism 14523153 E03.9 Recheck TSH and free T4. Currently at 100 mcg dosing. Previous to that was at 75 mcg. Osteoporosis 19994696 M8 5.88 last bone density was in 2015. reordered bone density scan. Has been on alendronat e for over 5 years. if she is considered high risk for fracture (T score below -3.5) then we will continue for 10 years, if not, could potentiall y stop this. Bone density screening first. continue vitamin D and calcium. Has scoliosis and Urge incon tinence of urine 70780662 N39.41 kidney function and urine dip normal at last visit in October . started oxybutynin 5mg XR once daily and helpful, will recheck kidney function now on it and if ok will increase to 10mg XR daily. Also will try to send an order again for DME for medium size pull-ups through [employer] for 4-5 pull ups in a 24-hour period for urge incontinen ce . advised daughter to call them directly if she doesn't hear in a week. last referral/o rder sent in October and they didn't hear back from company [employer] sis of toenails 554826588 B35.1 Toenails are too thick for cutting by patient's daughter. Will send referral for toenail clipping and management through podiatry [facility] Schizoaffe ctive disorder 46900498 F25.9 Continue on current dosing of quetiapine 25 mg at bedtime. And risperidon e 0.25mg (3 tablets at bedtime). 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 being managed through [facility] neurology. Recent MRI of lumbar spine w/wo contrast at 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 recheck today Nocturia 490905067 R35.1 continues at least twice nightly. will recheck kidney function and also urine dip today and increase oxybutynin to 15mg XR. advised can try taking at night if better. Administra tion of influenza vaccine 31915233 Z23 high dose influenza vaccine given today Urge incon tinence of urine 78939501 N39.41 increase oxybutynin to 15mg XR once daily. see if more helpful. wll check on [employer] e order again as it has now been over 6 months since sending 2 orders to them. daughter is contact and hasn't heard from them. Also will try to send an order again for DME for medium size pull-ups through [employer] for 4-5 pull ups in a 24-hour period for urge incontinen ce . advised daughter to call them directly if she doesn't hear in a week. last referral/o rder sent in October and they didn't hear back from company Schizoaffe ctive disorder 07952332 F25.9 Continue to see [facility] for psychiatri c management . Continue on current dosing of quetiapine 25 mg at bedtime. And risperidon e 0.25mg (3 tablets at bedtime). Increased frequency of urination 227899210 R35.0 unable to void in office today; will send lab orders to hospital if daughter agrees to bring her there Gastroesop hageal reflux disease without esophagitis 992785466 K21.9 continue omeprazole 20mg daily. gets heartburn if stops. has tried weaning off. recheck kidney function today Administra tion of pneumococcal vaccine 28255193 Z23 prevnar 20 given today Health Concerns Section Related Observation LastModified by Organization Detai ls LastModified Time None Recorded Concern Status LastModified by Organization Details LastModified Time None Recorded Advance Directives Directive None Recorded Payers Encounter Date Sequence Insurance Name Policy Number Policy Murray Covered Member ID Murray Member ID Guarantor Name 06/16/2023 1 [place] [employer] Mayra M Plue [id number] Mayra M Plue 06/16/2023 2 [employer] (MEDICAID) Mayra M Plue [id number] Mayra Brenden Plue 11/12/2023 1 [place] Mayra M Plue [id number] Mayra M Plue 11/12/2023 2 [employer] (MEDICAID) Mayra M Plue [id number] Mayra M Plue 02/11/2024 1 [place] Mayra M Plue [id number] Mayra M Plue 02/11/2024 2 [employer] [place] [employer] (MEDICAID) Mayra M Plue [id number] Mayra M Plue 05/13/2024 1 [place] [employer] Mayra M Plue [id number] 6 Mayra M Plue 05/13/2024 2 [employer] [facility] (MEDICAID) Mayra M Plue [id number] Mayra Elizondo Notes Date Note Type Note Provider Name and Address Organization Details Recorded Time 06/16/2023 text/html Generic HPI TemplateReported bypatient.Notes:Mayra is a pleasant 77 year old female here today for an Establish care get acquainted visit with new PCP. 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 Recent MRI completed in November but they did not hear the results back from the provider there yet apparently missed a phone call.Does not have a follow-up scheduled.She has chronic lumbar spine pain and the tumor was found secondary to work-up for this pain. Initial work-up started at her last PCP office last year. They report that it had been mentioned to get the tumor out via surgery but they wanted to see what the new MRI showed.I reviewed Lumbar spine MRI results with him today. 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 Should be reviewed by neurosurgery.Stable.Hi story of hypothyroidism and currently on 88 mcg levothyroxine.Due for thyroid laboratory. Does have mental health medication for diagnosis of schizoaffective disorder.She has auditory hallucinations. Currently on quetiapine as well as risperidone nightly. Her caregiver feels that this is a good combination for her.They do want to get established with a psychiatric provider for continued management. Her caregiver is her daughter Binta. This is her power of attorney general. Mayra has a developmental delay as well as dementia. These diagnoses came from her last office visit with primary care provider in [place]. I do not have any mental health visit notes from past mental health facilities.nellie have history of osteoporosis and currently on L and on rate once weekly as well as vitamin D and calcium. Daughter reports that she has been on this well over 5 years. Last bone density screening was in 2015. Does have history of TIA and is currently only on low-dose baby aspirin.History of GERD and takes omeprazole 20 mg a day.Does complain of dysuria. Is not sure if this is related to urine or vaginal irritation. IVANIA LANCASTER, ADÁN [address], [place], [address], [facility]. 06/16/2023 14:42:48 11/12/2023 text/html Mayra is here tod ay with her daughter, Binta, who is also her caregiver. Was seen last to establish care with me 06/16/2023. At that time I had placed a referral to audiology for sensorineural hearing loss to get potential new hearing aids. Unfortunately [facility] lost their belt changer and they would like referral to a different belt changer for assessment. Discussed today that Mayra continues [...] office visit had sent referral back to [facility] to get reestablished with psychiatrist that she has not seen them for quite some time. does have diagnosis of schizoaffective disorder.Currently taking only quetiapine 25 mg nightly as well as risperidone 0.25 mg. Patient's daughter feels that this could be increased. Issues with sleeping still. But again she is getting up multiple times to pee in the night.Apparently [facility] only establish her with a counselor and not a psychiatrist so they never got establishedwith a psychiatric prescriber. IVANIA LANCASTER, ADÁN [address], [place], [address], [facility]. 11/25/2023 14:53:11 02/11/2024 text/html Mayra is a pleasa 78 year old female here today for a 3 month follow up: hypothyroidism (recheck TSH today), psych referral (re-sent 11/11, seeing Dr. Albert now), nocturia, audiology referral (sent 11/11, pt daughter Binta says they never called from [facility]).Did not get DEXA scan scheduled - will need new order today.???Daughter reports thatAnna is unsteady with her gait even though she is completing physical therapy for her lower back pain. 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 Continues to have back pain and also osteoporosis.Continues to see [facility] neurosurgery for management and follow-up MRI scheduled [...] changes, edema ADÁN HUFF [address], [place], [address], [facility]. 02/15/2024 11:26:46 05/13/2024 text/html Mayra is a [facility] 79 year old female here today with her daughter, Binta, for follow up.Reports no improvement in incontinence despite the recent adjustment an increase in her incontinence medication. She states that the frequency of urination started a couple of nights ago again and denies any pain during urination. The patient denies any improvement in incontinence since increasing the medication. She is currently taking 10 mg XR of the oxybutynin medication. Mayra reports that she is still taking her medications for schizophrenia, including quetiapine 25 mg at bedtime and risperidone 0.25 mg (3 tablets) at bedtime. She mentions that she had an appointment at [facility], but they did not book her for medication management for some reason so things are delayed. The patient denies any other concerns, including chest pains, breathing issues, stomach pain, and coughing. She also denies any pain when her kidneys and bladder are palpated. The patient's caregiver reports that Mayra is urinating every 20 minutes and consumes one 32-ounce tumbler of water per day. The caregiver also states that Mayra's sleep is disrupted at night due to frequent urination, despite taking oxybutynin in the morning. [address], [place], [address], [facility]. 07/28/2024 12:36:44 OBGyn Episode No OBEpisode recorded.
--- OUTSIDE RECORDS SUMMARY | 2024-08-12 14:09 | XMS_ITS | Continuity of Care Document ---
Author Organization [place] - [facility] [place] [address] Care Team Providers Care Property Clerk Name Role Phone [facility] Neurologist Assessment No assessment recorded. Plan of Treatment Reminders Order Date Submit Date Provider Last Modified By Organization Details Last Modified Time Details Appointments Follow Up 30 2024 10:30A M MONIKA WALSH Not available Not available Not available Lab HbA1c (hemoglob in A1c), blood - 1 PST, 1 LAV obtained without issue [address] [facility] (Registration ), [address] [place] [address] [place], [address], 05/20/2024 16:07:47 urinalysi s complete, reflex culture - please call Mayra's daughter Binta at [phone] and let them know they should come to lab for a urine. they never got done at last visit 2024 025 [facility] ([facility]), [address] [place] [address] [place], [address], 08/11/2024 04:21:23 TSH + free T4, serum - 1 PST, 1 LAV obtained without issue [address] [facility] (Registration ), [address] [place] [address] [place], [address], 05/20/2024 16:07:46 CMP, serum or plasma - 1 PST, 1 LAV obtained without issue 2023 024 [facility] (Registration ), [address] [place] [address] , [place], [address], 05/13/2024 19:23:52 Referral None recorded. Procedures None recorded. Surgeries None recorded. Imaging None recorded. Medication Orders oxybutyni n chloride ER 15 mg tablet,ex tended release 24 hr 2023 PROVO [facility], [address] [place], [address], 05/22/2024 12:49:42 Patient TargetsNo targets recorded. Patient InstructionsNo instructions recorded. Reason for Referral None Reported. 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 558885590 Active 2015 Tia Hugo [facility] 4 11:52:36 Sensorin eural hearing loss 84541095 Active 2015 Tia Hugo null, [facility] 4 11:54:31 Hypothyr oidism 49121145 Active 2015 [facility] 4 11:49:27 Idiopath ic scoliosi s 316834924 Active 2015 Problem Code: M41.20; Problem Code Type: ICD-10; [address], [place], [address] , [facility] 4 14:14:56 Senile osteopor osis 88122675 Active 2015 Problem Code: M81.0; Problem Code Type: ICD-10; [address], [place] [address] , [facility] 4 14:14:42 Sciatica 96049477 Active 2015 Problem Code: M54.30; Problem Code Type: ICD-10; [address], [address] 4 14:14:44 Major depressi on, single episode 94184999 Active 2015 Problem Code: F32.9; Problem Code Type: ICD-10; [address], [address] 4 14:14:54 Arthropa thy 761488430 Active 2015 Problem Code: M12.9; Problem Code Type: ICD-10; [address], [address] 4 14:14:59 Acute upper respirat ory infectio n 30697690 Completed 201609/15/2016 Problem Code: J06.9; Problem Code Type: ICD-10; Not Available [facility] 3 05:18:19 Auditory hallucin ations 67219287 Active 2016 Tia Hugo null, [facility] 4 11:52:16 Schizoaf fective disorder 16702906 Active 2016 Problem Code: F25.9; Problem Code Type: ICD-10; [address], [address] 3 11:51:45 Transien t cerebral ischemia 590190443 Active 2018 Tia Hugo null, [facility] 4 11:50:19 [facility] 3488[facility] Active 2018 Estelita thomas, [facility] 4 11:56:33 Christopher héctor 767692590 Active 2019 Problem Code: R63.6; Problem Code Type: ICD-10; [address]N [address], [place], [address] [facility] 4 14:14:40 Amnesia 90931180 Active 2019 Estelita thomas, [facility] 4 11:56:50 Pain in thoracic spine 830075516 Completed 201503/19/2017 Problem Code: M54.9; Problem Code Type: ICD-10; Not Available [facility] 3 05:18:20 Abnormal weight loss 573332991 Completed 201601/12/2018 Problem Code: R63.4; Problem Code Type: ICD-10; Not Available [facility] 3 05:18:20 Urinary tract infectio us disease 33513623 Completed 201805/09/2019 Problem Code: N39.0; Problem Code Type: ICD-10; Not Available [facility] 3 05:18:20 Cognitiv e deficit in communic ation skills 95963594735 9106 Completed 201506/13/2016 Problem Code: R41.841; Problem Code Type: ICD-10; Not Available [facility] 3 05:18:20 Screenin g for malignan t neoplasm of breast Completed 201608/02/2019 Problem Code: Z12.39; Problem Code Type: ICD-10; Not Available [facility] 3 05:18:20 Screenin g for malignan t neoplasm of colon Completed 201708/02/2019 Problem Code: Z12.11; Problem Code Type: ICD-10; Not Available 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 037396416 Completed 201504/22/2023 Problem Code: I69.328; Problem Code Type: ICD-10; Not Available [facility] 3 05:18:20 General unsteadi ness 754057747 Completed 201503/24/2017 Problem Code: R26.81; Problem Code Type: ICD-10; Not Available [facility] 3 05:18:21 Auditory hallucin ations 10314196 Completed 201403/24/2017 Problem Code: R44.0; Problem Code Type: ICD-10; Tia Hugo null, [facility] 4 11:52:16 Screenin g for disorder Completed 201805/09/2019 Problem Code: Z13.89; Problem Code Type: ICD-10; Not Available [facility] 3 05:18:21 Stool finding 118552341 Completed 201503/19/2017 Problem Code: R19.5; Problem Code Type: ICD-10; Not Available [facility] 3 05:18:21 Pain in left lower limb 614606825 Completed 201503/19/2017 Problem Code: M79.605; Problem Code Type: ICD-10; Not Available [facility] 3 05:18:21 Gastroes ophageal reflux disease without esophagi tis 621155108 Active 2022 TISHA MARIE RN null, [facility] 3 15:14:39 Nocturia 579005924 Active [address], [place], [address] , [facility]. 4 14:14:51 Urge incontin ence of urine 52717344 Active [address], [place], [address] , [facility]. 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 sees [facility] neurosur anjum. planned MRI repeat for manageme nt January [address], [place], [address] , [facility] 4 11:18:57 Low back pain 750538405 Active [address], [place], [address] , [facility] 4 11:16:28 Unsteady when walking 77094950 Active [address], [place], [address] , [facility] 4 11:16:42 Increase d frequenc y of urinatio n 598869747 Active [address], [place], [address] , [facility] 4 12:57:41 Notes:Some problems listed i n Document: #[id number] could not be added to this patient's [...] mouth daily. 07/31 completed Has appt on 12/08/16 Not Available Not Available Not Available oxybutyni [...] daily prescrib ed by Dr. Tere su ([facility]) 07/09 completed Not Available Not Available Not Available doxycycli ne hyclate 100 mg tablet TAKE ONE TABLET BY MOUTH TWICE A DAY 06/16 completed Not Available Not Available Not Available risperido ne 0.5 mg tablet Take 1 tablet by mouth every night with 0.25mg tablet 02/10 completed changed by [facility] provider Not Available Not Available Not [...] and Address Organization Details Last Updated DateTime 162.56 cm 15 kg/m2 10594.9 7 g 98.2 [degF] 98 % 98 % 76 /min 14 /min 140 mm[Hg] 64 mm[Hg] TISHA MARIE RN [facility] 12:48:36 Social History Question Answer Notes LastModified by Organizat ion Details LastModified Time Tobacco Smoking Status Never Smoker TISHA MARIE RN [facility], [facility] 06/16/2023 11:28:51 What Is Your Level [...] Father Family history of cancer of colon [email or web address] Not available 2022 04:01:01 Mother Family history of seizure disorder [email or web address] Not available 2022 04:01:01 Medical History No medical history recorded. Gynecological HistoryNo gynecological history recorded. Obstetrics History GPAL:G 0 P 0 0 0 0 Immunizations Vaccine Type Date Status Note Provider Nam e and Address Organization Details Recorded Time Tdap 3 completed SANJUANITA SPANGLER, [facility] 06/16/2023 17:19:44 Influenza, high-dose, trivalent, PF [address], [place], [address], [facility] 07/28/2024 12:32:14 Pneumococcal conjugate PCV20, polysaccharide [id number] conjugate, adjuvant, PF [address], [place], [address], [facility] 07/28/2024 12:32:14 Tdap 2 completed Not Available [facility] 06/05/2023 06:04:44 zoster live 3 completed Not Available [facility] 06/05/2023 06:04:44 Influenza, split virus, trivalent, preservative 6 completed Not Available [facility] 06/05/2023 06:04:44 Pneumococcal Conjugate, unspecified formulation 5 completed Not Available [facility] 06/05/2023 06:04:44 Influenza, split virus, quadrivalent, preservative 8 completed Not Available [facility] 06/05/2023 06:04:44 pneumococcal polysaccharide PPV23 1 completed Not Available [facility] 06/05/2023 06:04:44 influenza, unspecified formulation 9 completed Not Available [facility] 06/05/2023 06:04:45 SARS-COV-2 (COVID-19) vaccine, UNSPECIFIED 1 completed SANJUANITA SPANGLER, [facility] 05/13/2024 13:28:35 SARS-COV-2 (COVID-19) vaccine, UNSPECIFIED 1 completed SANJUANITA SPANGLER, [facility] 05/13/2024 13:28:39 influenza, unspecified formulation 0 completed TISHA MARIE RN [facility], [place] [facility]. 05/13/2024 13:28:57 Past Encounters Encounter ID Performer Location Encounter Start Date Encounter Closed Date Diagnosis/Indication Diagnosis SNOMED-CT Code Diagnosis ICD10 Code Diagnosis Note [id number] AD[facility]N HUFF [facility] [address] [place] [address] 05/13/2024 12:37:13 05/13/2024 14:19:53 Hypothyroidism 30401200 E03.9 decreased from 100mcg to 88mcg dosing due to low TSH at January visit. recheck today Nocturia 088972638 R35.1 continues at least twice nightly. will recheck kidney function and also urine dip today and increase oxybutynin to 15mg XR. advised can try taking at night if better. Administra tion of influenza vaccine 06635285 Z23 high dose influenza vaccine given today Urge incon tinence of urine 12770245 N39.41 increase oxybutynin to 15mg XR once daily. see if more helpful. wll check on [employer] order again as it has now been over 6 months since sending 2 orders to them. daughter is contact and hasn't heard from them. Also will try to send an order again for DME for medium size pull-ups through [employer] for 4-5 pull ups in a 24-hour period for urge incontinen ce . advised daughter to call them directly if she doesn't hear in a week. last referral/o rder sent in October and they didn't hear back from [place] Schizoaffe ctive disorder 28451856 F25.9 Continue to see [facility] for psychiatri c management . Continue on current dosing of quetiapine 25 mg at bedtime. And risperidon e 0.25mg (3 tablets at bedtime). Increased frequency of urination 940852234 R35.0 unable to void in office today; will send lab orders to hospital if daughter agrees to bring her there Gastroesop hageal reflux disease without esophagitis 483639801 K21.9 continue omeprazole 20mg daily. gets heartburn if stops. has tried weaning off. recheck kidney function today Administra tion of pneumococcal vaccine 89177880 Z23 prevnar 20 given today Health Concerns Section Related Observation LastModified by Organization Detai ls LastModified Time None Recorded Concern Status LastModified by Organization Details LastModified Time None Recorded Payers Encounter Date Sequence Insurance Name Policy Number Policy Murray Covered Member ID Murray Member ID Guarantor Name 05/13/2024 1 [place]ICARE [place]: [employer] Mayra Elizondo [id number] Mayra Wilcox Caro 05/13/2024 2 [facility] (MEDICAID) Mayra Wilcox Jrzakiya [id number] Mayra Wilcox Jrzakiya Notes Date Note Type Note Provider Name and Address Organization Details Recorded Time 05/13/2024 text/html Mayra is a pleasa nt 79 year old female here today with [...] mentions that she had an appointment at [facility], but they did not book her for [...] taking oxybutynin in the morning. [address], [place], [address], [facility]. 07/28/2024 12:36:44 OBGyn Episode No OBEpisode recorded.
== END 2024-08-12 14:06 | disposition home or self-care (01) ==
LOC: NCHCN 14:05
PROVIDERS: PCP Nurse Practitioner Family; Visit Provider Nurse Practitioner Family
DX: R35.0 Frequency of micturition (principal); R82.89 Other abnormal findings on cytological and histological examination of urine
CPT/HCPCS: 81003; 81015

== ENCOUNTER 2024-09-02 18:02 | Inpatient (IN) | payer MEDICARE, MEDICAID, SELFPAY ==
--- NOTE | 2024-09-02 18:00 | RT.EKG_ITS ---
APPROVED REPORT Exam: Resting ECG Reason for Exam: AMS Patient Location: E HR:101 bpm ECG Measurements Heart Rate 101 AXIS NH 131 P 24 QRSd 76 QRS 1 QT 319 T 21 QTc 415 Conclusion Sinus tachycardia...rate> 99 Consider anteroseptal infarct...Q >30mS, dimin R, V1-V2 No STEMI
--- NOTE | 2024-09-02 18:04 | ED.GENADUL_ITS ---
Discharge Plan Disposition Patient Disposition: Admit to [facility] Discharge Details Clinical Impression: Influenza A Admit Date/Time: 09/02/24 21:17 Admit Provider: Osiel Gomez Attending Provider: Osiel Gomez Primary Care Provider: Ivania Lancaster ED Provider: Bakari Aquino Discharge Data Discharge Date/Time-TO BE ENTERED AT DEPARTURE: 09/02/24 23:54 HPI General Date/Time Provider Initiated Documentation: 09/02/24 18:04 . HPI Narrative: MDM This is a febrile and tachycardic cjub-oqio-kyv female concerning for sepsis for which she received lactate broad-spectrum antibiotics. No pain out of proportion to suggest necrotizing soft tissue infection. Patient does have a history of memory impairment however she is alert and oriented at present. Given daughter's flu positive will send PCR for influenza as her mjnej-fw-wxxc swab was negative. Blood cultures lactate have been drawn. Will cover patient with cefepime and vancomycin. Given fall will obtain CT head to assess for intracranial hemorrhage. Will straight cath for urinalysis and obtain a chest x-ray. Patient has a stable pelvis and no pain with passive range of motion of her bilateral lower extremities so not concern for hip fracture. No pain out of proportion to suggest necrotizing soft tissue infection. Urinalysis with hematuria but nitrite and leuk esterase negative?-not consistent with UTI. Soft nontender abdomen so not concern for intra-abdominal infection. Patient is not on chronic steroids nor she hypotensive so I did not feel that she required stress dose steroids. 12:05 AM Patient found to have influenza A. CT head no acute bleed. I was in touch with Dr. Gomez who agreed to graciously except the patient for hospitalization. Given unclear onset of symptoms we will defer oseltamavir. Patient was given acetaminophen. She was not hypoxic. Her lactate down trended with 250 cc crystalloid bolus. Patient accepted by Dr. Gomez. HPI This is an 79-year-old female with memory impairment arrived to the emergency department with her daughter in the setting of increased confusion. Patient's daughter has been sick with the flu. She reportedly has been more confused during the day today. She fell around 5 PM. This was an unwitnessed fall. She is not apparently get up on her own. She has been coughing. Exam General: Elderly-appearing in no acute distress speaking in complete sentences. Head: Normocephalic, atraumatic. Eye: Extraocular eye movements intact. No conjunctival injection. No scleral icterus. Ear, nose, mouth, throat: Grossly normal inspection. Normal voice, handling secretions normally. Neck: Trachea midline. Cardiovascular: Well-perfused distal extremities. Rapid regular rhythm. Respiratory: Nonlabored respiration. Clear lungs bilaterally. Gastrointestinal: Nondistended abdomen. Musculoskeletal: No edema. Moving all 4 extremities spontaneously. Skin: Normal for age and race, grossly normal temperature and turgor. No acute rash. Neurologic: Alert and appropriate, no apparent acute deficits. GCS 15. Moving all 4 extremities spontaneously. Cranial nerves II through XII intact grossly. Psychiatric: Mood and manner are appropriate. Grooming and personal hygiene are appropriate. Related Data Home Medications ?Medication ?Instructions ?Recorded ?Confirmed acetaminophen 650 mg 650 mg PO PRN PRN 06/12/16 09/02/24 tablet,extended release (Mapap Arthritis Pain) levalbuterol tartrate 45 2 puff inhalation Q4H WHILE AWAKE 04/14/17 09/02/24 mcg/actuation aerosol inhaler (Xopenex HFA) levothyroxine 112 mcg tablet 75 mcg PO DAILY 11/09/18 09/02/24 quetiapine 25 mg tablet 25 mg PO HS 11/09/18 09/02/24 risperidone 0.25 mg tablet 0.25 mg PO BID 11/09/18 09/02/24 (Risperdal) ketoconazole 2 % topical cream 1 applic topical DAILY 3 months 06/02/23 09/02/24 #60 grams benzonatate 100 mg capsule 100 mg PO BID PRN #7 caps 07/29/23 09/02/24 cetirizine 10 mg tablet 10 mg PO DAILY PRN #7 tabs 07/29/23 09/02/24 aspirin 81 mg tablet,delayed 81 mg PO DAILY 09/02/24 09/02/24 release calcium 600 mg (as 1 tab PO DAILY 09/02/24 09/02/24 carbonate)-vitamin D3 10 mcg (400 unit) tablet omeprazole 20 mg capsule,delayed 20 mg PO DAILY 09/02/24 09/02/24 release oxybutynin chloride 15 mg 15 mg PO DAILY 09/02/24 09/02/24 tablet,extended release 24 hr risperidone 0.5 mg tablet 1 mg PO QHS 09/02/24 09/02/24 (Risperdal) Previous Rx's ?Medication ?Instructions ?Recorded ketoconazole 2 % topical cream 1 applic topical DAILY 3 months 06/02/23 #60 grams benzonatate 100 mg capsule 100 mg PO BID PRN #7 caps 07/29/23 cetirizine 10 mg tablet 10 mg PO DAILY PRN #7 tabs 07/29/23 Allergies Allergy/AdvReac Type Severity Reaction Status Date / Time No Known Allergies Allergy Unverified 09/02/24 18:08 General DELISA: 3 Medical Decision Making Quality:SDOH Health Related Social Needs: No Data to Display PFSH All Active Problems (Updated 09/02/24 @ 21:35 by Bakari Aquino MD) Influenza A (Acute) Lactic acidosis (Acute) JANET (acute kidney injury) (Acute) CAP (community acquired pneumonia) (Acute) Severe sepsis (Acute) PVD (peripheral vascular disease) (Chronic) Pain in right foot (Acute) Pain in left foot (Acute) Nail dystrophy (Acute) Onychomycosis (Acute) Memory impairment (Acute) Underweight (Acute) Lack of coordination (Acute) Schizoaffective disorder (Acute) Auditory hallucinations (Acute) Developmental speech or language disorder (Acute) Depressive disorder (Chronic) Hypothyroidism (Chronic) Sciatica (Acute) Osteoporosis (Chronic) Idiopathic scoliosis (Acute) Sensorineural hearing loss (Acute) Osteochondropathy (Acute) TIA (transient ischemic attack) (Acute) Medical History Symptomatic menopausal or female climacteric states Arthropathy Social History Smoking/Tobacco Use Status: Never Smoking risk assessment performed?: Yes Alcohol Intake: never Drug use: Never Substance use type: does not use Housing: house Do you feel safe at home: Yes Do you feel safe in your relationship?: Yes Additional Social history: unable to assess privately
[2024-09-02 18:06] VITALS: BP 114/63; PULSE 107; TEMP 39.6; O2SAT 90
[2024-09-02 18:10] VITALS: BP 114/63; PULSE 107; TEMP 39.6; O2SAT 90
--- NOTE | 2024-09-02 18:18 | DI.RAD_ITS ---
Exam(s) XR CHEST 1V IN DI DEPT EXAM: XR CHEST 1V IN DI DEPT CLINICAL HISTORY: Sepsis TECHNIQUE: 2D digital imaging was performed. COMPARISON: CR XR PORTABLE CHEST AP from 07/29/2023 FINDINGS: Exam is limited by single view and rotation, in part due to severe scoliosis. LUNGS: Question of medial right lower lobe infiltrate. No gross evidence of pulmonary edema. No ple ural abnormality seen. HEART: Enlarged. AORTA: Normal diameter. BONES: Prominent biconvex thoracolumbar scoliosis. Soft tissues: Unremarkable. IMPRESSION: Question of right lower lobe infiltrate. DATA REPOSITORY: RADIATION DOSE DELIVERED:
--- OUTSIDE RECORDS SUMMARY | 2024-09-02 18:28 | XMS_ITS | Clinical Summary ---
Author Organization [facility] Address [address] [place] [address] Care Team Providers Care Equipment Specialist Name Role Phone Unknown, Provider Primary [...] COVID-19 Vaccine ( season) 2024 Care Teams Equipment Specialist Relationship Specialty Start Date End Date Unknown, Provider, PCP - General 02/22/14
--- OUTSIDE RECORDS SUMMARY | 2024-09-02 18:28 | XMS_ITS | Encounter Summary ---
Author Organization [facility] Address [address] [place] [address] Care Team Providers Care Surveillance Sensor Officer Name Role Phone Unknown, Provider Primary Care Provider Unava ilable Encounter Details Date Type Department Care Team (Latest Contact Info) Description 09/12/2015 7:01 EST - 09/12/2015 23:59 EST Hospital Encounter [address] [address] Unknown, Provider, Discharge Disposition: Home or Self [...] Code Departure Means Destination Home or Self Shelter documented in this encounter Plan of Treatment Not on file documented as of this encounter Visit Diagnoses Not on filedocumented in this encounter Care Teams Surveillance Sensor Officer Relationship Specialty Start Date End Date Unknown, Provider, PCP - General 02/22/14 documented as of this encounter
--- OUTSIDE RECORDS SUMMARY | 2024-09-02 18:28 | XMS_ITS | Encounter Summary ---
Author Organization [facility] Address [address] [place] [address] Care Team Providers Care Burlesque Dancer Name Role Phone Unknown, Provider Primary Care Provider Unava ilable Encounter Details Date Type Department Care Team (Late st Contact Info) Description 03/08/2015 Historical Results Only [facility] Radiology Results [address] [place] [address] Jorge Morillo MD [address] [place] [address] [address] [place] [address] Social History Tobacco Use Types [...] 11:3 0 EDT Narrative 03/08/2015 17:19 EDT [facility] [address] [place], [place] [address] Diagnostic Imaging Report Signed Patient Name:LOLITA ELIZONDO ? Date of :1945 ? MR Number:[id number] Age:69 ?Sex:F Category: MR ? Date of [...] Procedure Note Steven Estrada MD - 04/27/2019 [place] [address] Diagnostic Imaging Report Signed Patient Name:LOLITA ELIZONDO Number:[id number] Date of :1945 MRNumber:[id number] Age:69 Sex:F Category: MR Date ofExam:03/08/15 Procedure: MR: MRI Brain w/o contrastAccession: [id number] Ordering Physician: Jorge Bonilla MD CC: Jorge [...] on filedocumented in this encounter Care Teams Burlesque Dancer Relationship Specialty Start Date End Date Unknown, Provider, PCP - General 02/22/14 documented as of this encounter
--- OUTSIDE RECORDS SUMMARY | 2024-09-02 18:28 | XMS_ITS | Continuity of Care Document ---
Author Organization [facility] Address [address] [place] [address] Care Team Providers Care Mold Designer Name Role Phone MONIKA WALSH APRN Primary Care Physician [phone] Encounter [facility] NBR [id number] Date(s): 11/13/23 - 11/13/23 [facility] [address] [place] [address]- [place] Patient Care team information Care Team Personnel Name: MONIKA WALSH APRN Position: No Access Member Role: Primary Care Physician Address: Address: [address] [place], [place] [address]
--- OUTSIDE RECORDS SUMMARY | 2024-09-02 18:28 | XMS_ITS | Encounter Summary ---
Author Organization [facility] Address [address] [place] [address] Care Team Providers Care Senior Education Specialist Name Role Phone Unknown, Provider Primary Care Provider Unava ilable Encounter Details Date Type Department Care Team (Late st Contact Info) Description 04/12/2015 Historical Results Only [facility] Radiology Results [address] [place] [address] Jorge Morilol MD [address] [place] [address] [address] [place] [address] Social History Tobacco Use Types [...] 13:1 6 EDT Narrative 04/12/2015 19:05 EDT [facility] [address] [place], [place] [address] Diagnostic Imaging Report Signed Patient Name:LOLITA ELIZONDO ? Date of :1945 ? MR Number:[id number] Age:69 ?Sex:F Category: RF ? Date of [...] Procedure Note Steven Estrada MD - 04/27/2019 [place] [id number] Diagnostic Imaging Report Signed Patient Name:LOLITA ELIZONDO Number:[id number] Date of :1945 MRNumber:[id number] Age:69 Sex:F Category: RF Date ofExam:04/12/15 Procedure: RF: Barium Swallow- ModifiedAccession: [id number] Ordering Physician: Jorge Bonilla MD CC: Jorge [...] on filedocumented in this encounter Care Teams Senior Education Specialist Relationship Specialty Start Date End Date Unknown, Provider, PCP - General 02/22/14 documented as of this encounter
--- OUTSIDE RECORDS SUMMARY | 2024-09-02 18:28 | XMS_ITS | Referral Summary ---
Author Organization [facility] Address [address] [place] [address] Care Team Providers Care Dye Winch Operator Name Role Phone Unknown, Provider Primary Care Provider Unava ilable Social History Tobacco Use Types Packs/Day Years Used Date Smoking Tobacco: Never Assessed Comments Unknown Sex and Gender Information Value Date Recorded Sex Assigned at Not on file Legal Sex Female 18:18 EST Gender Identity Not on file Sexual Orientation Not on file Plan of Treatment Not on file Care Teams Dye Winch Operator Relationship Specialty Start Date End Date Unknown, Provider, PCP - General 02/22/14
--- OUTSIDE RECORDS SUMMARY | 2024-09-02 18:28 | XMS_ITS | Encounter Summary ---
Author Organization [facility] Address [address] [place] [address] Care Team Providers Care Generator Operator Name Role Phone Unknown, Provider Primary Care Provider Unava ilable Encounter Details Date Type Department Care Team (Late st Contact Info) Description 09/12/2015 Results Only [facility] [phone] Jorge Morillo MD [address] [place] [address] [address] [place] [phone] Social History Tobacco Use Types Packs/Day Years [...] ? VALERIO LOLITA ? Accession #: ? [id number] ? : ? 1945 (Age: 70) ??F ? Collect Date: ? 09/12/2015 ? Location: ? [facility] ? Receive Date: ? 09/13/2015 ? Provider: [...] Butcher 09/14/2015 8:56 AM End of Report [facility] 09/12/2015 16:3 8 EST 09/13/2015 16:38 EST us Jorge Morillo MD PATHOLOGY ORDER IVETH Final Result [facility] [address] [place] [address] documented in this encounter Visit Diagnoses Not on filedocumented in this encounter Care Teams Generator Operator Relationship Specialty Start Date End Date Unknown, Provider, PCP - General 02/22/14 documented as of this encounter
--- OUTSIDE RECORDS SUMMARY | 2024-09-02 18:28 | XMS_ITS | Encounter Summary ---
Author Organization [facility] Address [address] [place] [address] Care Team Providers Care Licensing Representative Name Role Phone Unknown, Provider Primary Care Provider Unava ilable Encounter Details Date Type Department Care Team (Late st Contact Info) Description 03/29/2015 Historical Results Only [facility] Radiology Results [address] [place] [address] Jorge Morillo MD [address] [place] [address] [address] [place] [address] Social History Tobacco Use Types [...] 13:4 3 EDT Narrative 03/29/2015 17:[address] [facility] [address] [place], [place] [address] Diagnostic Imaging Report Signed Patient Name:LOLITA ELIZONDO ? Date of :1945 ? MR Number:[id number] Age:69 ?Sex:F Category: CR ? Date of [...] Procedure Note Carl Matute MD - 04/26/2019 [place] [id number] Diagnostic Imaging Report Signed Patient Name:LOLITA ELIZONDO Number:[id number] Date of :1945 MRNumber:[id number] Age:69 Sex:F Category: CR Date ofExam:03/29/15 Procedure: CR: Chest; PA/LAT viewsAccession: [id number] Ordering Physician: Jorge Bonilla MD CC: Jorge [...] on filedocumented in this encounter Care Teams Licensing Representative Relationship Specialty Start Date End Date Unknown, Provider, PCP - General 02/22/14 documented as of this encounter
--- OUTSIDE RECORDS SUMMARY | 2024-09-02 18:29 | XMS_ITS | Encounter Summary ---
Author Organization [facility] Address [address] [place] [address] Care Team Providers Care Engineering Intern Name Role Phone Unavailable Primary Care Provider Unavailabl e Encounter Details Date Type Department Care Team (Late st Contact Info) Description 04/07/2006 Results Only [facility] [place] [facility] [address] [place] [address] Raissa Rashid NP Social History Tobacco Use [...] ? LOLITA ELIZONDO ? Accession #: ? [id number] : ? 1945 (Age: 60) ??F ?Collect Date: ? 04/07/2006 Location: ? [facility] ? Receive Date: ? 04/08/2006 Provider: ?RAISSA RASHID SMOKE AND FLAME SPECIALIST Copy to: ? Specimen/Source: ?ThinPrep Pap Test, Endoc[employer]ix, processed on [employer], formerly [employer] ThinPrep Imaging System, with manual evaluation Last Menstrual Period: ? SPECIMEN ADEQUACY ? Satisfactory for Evaluation - transformation zone component present GENERAL CATEGORIZATION ? Negative for Intraepithelial Lesion or Malignancy ? Document reviewed and electronically signed by: ? JAX Sands(ASCP) ? Report Date: ??04/10/2006 15:09 End of Report TIA PINEAD 04/07/2006 04/08/2006 us Raissa Rashid NATURAL GAS BASIS TRADER PATHOLOGY ORDERABLES Final Re sult TIA PINEDA [address] [place] [address] documented in this encounter Visit Diagnoses Not on filedocumented in this encounter
--- OUTSIDE RECORDS SUMMARY | 2024-09-02 18:29 | XMS_ITS | Encounter Summary ---
Author Organization [facility] Address [address] [place] [address] Care Team Providers Care Hand Scraper Name Role Phone Unavailable Primary Care Provider Unavailabl e Encounter Details Date Type Department Care Team (Late st Contact Info) Description 04/15/2005 Results Only [facility] conversion [address] [place] [address] Raissa Rashid NP Social History Tobacco Use [...] ? LOLITA ELIZONDO ? Accession #: ? [id number] : ? 1945 (Age: 59) ??F ?Collect Date: ? 04/15/2005 Location: ? [facility] ? Receive Date: ? 04/16/2005 Provider: ?RAISSA RASHID CANVAS GOODS SUPERVISOR Copy to: ? Specimen/Source: ?ThinPrep Pap Test, [employer], processed on [employer] ThinPrep Imaging System, with manual evaluation Last Menstrual Period: ? SPECIMEN ADEQUACY ? Satisfactory for Evaluation - transformation zone component present GENERAL CATEGORIZATION ? Negative for Intraepithelial Lesion or Malignancy ? Document reviewed and electronically signed by: ? FOREST Serna(ASCP)(IAC) ? Report Date: ??04/22/2005 15:56 End of Report TIA PINEDA 04/15/2005 04/16/2005 us Raissa Rashid AIRPLANE CLEANER PATHOLOGY ORDERABLES Final Re sult TIA PIENDA [address] [place] [address] documented in this encounter Visit Diagnoses Not on filedocumented in this encounter
--- OUTSIDE RECORDS SUMMARY | 2024-09-02 18:29 | XMS_ITS | Encounter Summary ---
Author Organization [facility] Address [address] [place] [address] Care Team Providers Care Plant Physiology Teacher Name Role Phone Unavailable Primary Care Provider Unavailabl e Encounter Details Date Type Department Care Team (Late st Contact Info) Description 09/10/2005 Results Only [facility] conversion [address] [place] [address] Tori Hernandez MD Social History Tobacco Use [...] ? VALERIO LOLITA ? Accession #: ? [id number] ? : ? 1945 (Age: 60) ??F ? Collect Date: ? 09/10/2005 ? Location: ? [facility] ? Receive Date: ? 09/10/2005 ? Provider: TORI HERNANDEZ MD Copy to: TY RASHID [facility] JACINTA WHITE MD ? Final Pathologic Diagnosis: [...] ORDERABLES Final Re sult TIA PINEDA [address] [place] [address] documented in this encounter Visit Diagnoses Not on filedocumented in this encounter
--- OUTSIDE RECORDS SUMMARY | 2024-09-02 18:29 | XMS_ITS | Encounter Summary ---
Author Organization [facility] Address [address] [place] [address] Care Team Providers Care Outsole Cementer Machine Name Role Phone Unavailable Primary Care Provider Unavailabl e Encounter Details Date Type Department Care Team (Late st Contact Info) Description 04/20/2007 Results Only [facility] [place] conversion [address] [place] [address] Raissa Rsahid NP Social History Tobacco Use Types Packs/Day [...] ? LOLITA ELIZONDO ? Accession #: ? [id number] : ? 1945 (Age: 61) ??F ?Collect Date: ? 04/20/2007 Location: ? [facility] ? Receive Date: ? 04/21/2007 Provider: ?RAISSA RASHID CARE PROCESS MANAGER Copy to: ? Specimen/Source: ?ThinPrep Pap Test, C[employer], processed on [employer] ThinPrep Imaging System, with manual evaluation Last Menstrual Period: ? SPECIMEN ADEQUACY ? Satisfactory for Evaluation - transformation zone component present GENERAL CATEGORIZATION ? Negative for Intraepithelial Lesion or Malignancy ? Document reviewed and electronically signed by: ? JAX Sands(ASCP) ? Report Date: ??04/27/2007 10:58 End of Report TIA PINEDA 04/20/2007 04/21/2007 us Raissa Rashid HEAD OF DRAMA PATHOLOGY ORDERABLES Final Re sult TIA PINEDA [address] [place] [address] documented in this encounter Visit Diagnoses Not on filedocumented in this encounter
--- OUTSIDE RECORDS SUMMARY | 2024-09-02 18:29 | XMS_ITS | Encounter Summary ---
Author Organization [facility] Address [address] [place] [address] Care Team Providers Care Lift Manager Name Role Phone Unavailable Primary Care Provider Unavailabl e Encounter Details Date Type Department Care Team (Latest Contact Info) Description 04/20/2007 15:03 EDT Hospital Encounter [facility] - Other [address] [place] [address] Raissa Jones, VANDANA Discharge Disposition: Auto Discharge [...] ? PLUE, LOLITA ? Accession #: ? [id number] ? : ? 1945 (Age: 62) ??F [...] TIA PINEDA 04/25/2008 04/26/2008 us Emi Marlee Austin MD PATHOLOGY ORDERABLES Final Result Performing Organization Address City/State/[facility] Co de Phone Number TIA [facility] [address] [place] [address] documented in this encounter Visit Diagnoses Not on filedocumented in this encounter
--- OUTSIDE RECORDS SUMMARY | 2024-09-02 18:29 | XMS_ITS | Encounter Summary ---
Author Organization [facility] Address [address] [place] [address] Care Team Providers Care Inner Layer Scrubber Tender Name Role Phone Unknown, Provider Primary Care Provider Unava ilable Encounter Details Date Type Department Care Team (Late st Contact Info) Description 02/21/2014 Results Only [facility] Laboratory Services - [facility] [address] [place], [place] [address] Jorge Morillo MD [address] [place] [address] [address] [place] [address] Social History Tobacco Use Types [...] ? CHARLESLOLITA PERSON ? Accession #: ? [id number] ? : ? 1945 (Age: 68) ??F ? Collect Date: ? 02/21/2014 ? Location: ? [facility] ? Receive Date: ? 02/22/2014 ? [...] MD PATHOLOGY ORDER IVETH Final Result TIA [facility] [address] [place] [id number] documented in this encounter Visit Diagnoses Not on filedocumented in this encounter Care Teams Inner Layer Scrubber Tender Relationship Specialty Start Date End Date Unknown, Provider, PCP - General 02/22/14 documented as of this encounter
--- OUTSIDE RECORDS SUMMARY | 2024-09-02 18:29 | XMS_ITS | Encounter Summary ---
Author Organization [facility] Address [address] [place] [address] Care Team Providers Care Surveyor Instrument Assistant Name Role Phone Unknown, Provider Primary Care Provider Unava ilable Encounter Details Date Type Department Care Team (Late st Contact Info) Description 02/15/2014 Historical Results Only [facility] Radiology Results [address] [place] [address] Jorge Morillo MD [address] [place] [address] [address] [place] [address] Social History Tobacco Use Types [...] 14:0 0 EDT Narrative 02/16/2014 9:[address] [facility] [address] [place], [place] [address] Diagnostic Imaging Report Signed Patient Name:LOLITA ELIZONDO ? Date of :1945 ? MR Number:[id number] Age:68 ?Sex:F Category: MG ? Date of [...] Procedure Note Steven Estrada MD - 04/26/2019 [place] [id number] Diagnostic Imaging Report Signed Patient Name:LOLITA ELIZONDOcount Number:[id number] Date of :1945 MRNumber:[id number] Age:68 Sex:F Category: MG Date ofExam:02/15/14 Procedure: MG: Mammo, Bilat, ScreeningAccession: [id number] Ordering Physician: Jorge Morillo CC: Jorge Morillo [...] by: <Electronically signed by Allyson Estrada MD>D/ [id number] us Jorge Morillo MD IMG MAMMOGRAPHY ORDERABLES Final Result documented in this encounter Visit Diagnoses Not on filedocumented in this encounter Care Teams Surveyor Instrument Assistant Relationship Specialty Start Date End Date Unknown, Provider, PCP - General 02/22/14 documented as of this encounter
--- OUTSIDE RECORDS SUMMARY | 2024-09-02 18:29 | XMS_ITS | Encounter Summary ---
Author Organization [facility] Address [address] [place] [address] Care Team Providers Care Construction Executive Name Role Phone Unknown, Provider Primary Care Provider Unava ilable Encounter Details Date Type Department Care Team (Late st Contact Info) Description 03/05/2015 Historical Results Only [facility] Radiology Results [address] [place] [address] Jorge Morillo MD [address] [place] [address] [address] [place] [address] Social History Tobacco Use Types [...] 16:3 0 EDT Narrative 03/06/2015 8:17 EDT [facility] [address] [place], [place] [address] Diagnostic Imaging Report Signed Patient Name:LOLITA ELIZONDO ? Date of :1945 ? MR Number:[id number] Age:69 ?Sex:F Category: MG ? Date of [...] Procedure Note Steven Estrada MD - 04/26/2019 [place] [id number] Diagnostic Imaging Report Signed Patient Name:LOLITA ELIZONDO Number:[id number] Date of :1945 MRNumber:[id number] Age:69 Sex:F Category: MG Date ofExam:03/05/15 Procedure: MG: Mammo, Bilat scr w/tomoAccession: [id number] Ordering Physician: Jorge Bonilla MD CC: Jorge [...] on filedocumented in this encounter Care Teams Construction Executive Relationship Specialty Start Date End Date Unknown, Provider, PCP - General 02/22/14 documented as of this encounter
--- OUTSIDE RECORDS SUMMARY | 2024-09-02 18:29 | XMS_ITS | Encounter Summary ---
Author Organization [facility] Address [address] [place] [address] Care Team Providers Care Four Slide Machine Operator Name Role Phone Unavailable Primary Care Provider Unavailabl e Encounter Details Date Type Department Care Team (Latest Contact Info) Description 04/07/2006 16:43 EDT Hospital Encounter [facility] - Other [address] [place] [address] Raissa Jones, BUTCHER SUPERVISOR Discharge Disposition: Home or Self Care Social [...] BLES Final Result [facility] [address] [place] [address] documented in this encounter Visit Diagnoses Not on filedocumented in this encounter
--- OUTSIDE RECORDS SUMMARY | 2024-09-02 18:29 | XMS_ITS | Encounter Summary ---
Author Organization [facility] Address [address] [place] [address] Care Team Providers Care Boiler Operator Helper Name Role Phone Unknown, Provider Primary Care Provider Unava ilable Encounter Details Date Type Department Care Team (Late st Contact Info) Description 06/11/2014 Historical Results Only [facility] Radiology Results [address] [place] [id number] Darnell Obando MD [address] [place] [address] Social History Tobacco Use Types Packs/Day [...] 10:3 5 EST Narrative 06/11/2014 19:[address] [address] Diagnostic Imaging Report Signed Patient Name:LOLITA ELIZONDO ? Date of :1945 ? MR Number:[id number] Age:68 ?Sex:F Category: CR ? Date of [...] Procedure Note Carl Matute MD - 04/26/2019 [place] [id number] Diagnostic Imaging Report Signed Patient Name:LOLITA ELIZONDO Number:[id number] Date of :1945 MRNumber:[id number] Age:68 Sex:F Category: CR Date ofExam:06/11/14 Procedure: CR: Acute Abdomen w/PA ChestAccession: [id number] Ordering Physician: Darnell Obando MD CC: Jorge [...] on filedocumented in this encounter Care Teams Boiler Operator Helper Relationship Specialty Start Date End Date Unknown, Provider, PCP - General 02/22/14 documented as of this encounter
--- OUTSIDE RECORDS SUMMARY | 2024-09-02 18:29 | XMS_ITS | Encounter Summary ---
Author Organization [facility] Address [address] [place] [address] Care Team Providers Care Special Assemblies Supervisor Name Role Phone Unavailable Primary Care Provider Unavailabl e Encounter Details Date Type Department Care Team (Latest Contact Info) Description 02/21/2014 12:50 EDT - 02/21/2014 23:59 EDT Hospital Encounter [address] [address] Unknown, Provider, MD Discharge Disposition: Home or [...] Code Departure Means Destination Home or Self [facility] documented in this encounter Plan of Treatment Not on file documented as of this encounter Visit Diagnoses Not on filedocumented in this encounter
--- NOTE | 2024-09-02 18:30 | DI.CT_ITS ---
Exam(s) CT HEAD WO EXAM: CT HEAD WO CLINICAL HISTORY: Altered, fall. TECHNIQUE: Imaging Protocol: Axial computed tomography images with coronal and sagittal reformatted images were created and reviewed COMPARISON: CT CT HEAD WO from 07/02/2023 FINDINGS: Ventricles and Extra axial spaces: Normal in size and morphology for the patient's age. Hemorrhage: None. Cerebral parenchyma: No evidence of acute infarct or mass. Mild white matter changes of small vesse l disease. Midline shift: None. Brainstem/Cerebellum: Normal. Calvarium: Normal. Visualized Paranasal sinuses:Mucosal thickening noted at the left ethmoid and left maxillary sinuses. Mastoid air cells are clear. Mastoids: Clear. Soft Tissues: Unremarkable. ORBITS: Unremarkable. PITUITARY: Not enlarged. IMPRESSION: No acute intracranial process. RADIATION DOSE DELIVERED: Total DLP DATA REPOSITORY: All CT scans at this facility are submitted to the National Radiology Data Registry (NRDR) Dose Index Registry (DIR) with the [employer] (ACR). RADIATION OPTIMIZATION: All CT scans at this facility use at least one of these dose optimization te chniques: automated exposure control; mA and/or kV adjustment per patient size (includes targeted exa ms where dose is matched to clinical indication); or iterative reconstruction.
--- OUTSIDE RECORDS SUMMARY | 2024-09-02 18:30 | XMS_ITS | Encounter Summary ---
Author Organization [facility] Address [address] [place] [address] Care Team Providers Care Cooker Syrup Name Role Phone Unavailable Primary Care Provider Unavailabl e Encounter Details Date Type Department Care Team (Latest Contact Info) Description 04/29/2004 9:39 EDT - 04/29/2004 11:59 EDT Hospital Encounter [facility] - Other [address] [place] [address] Raissa Jones, ACCREDITATION MANAGER Discharge Disposition: Auto Discharge Social History [...]
--- OUTSIDE RECORDS SUMMARY | 2024-09-02 18:30 | XMS_ITS | Data Portability ---
Author Organization [facility] Address [address] [place] [address] Care Team Providers Care Vp Strategy Name Role Phone [facility] Neurologist Assessment No assessment recorded. Plan of Treatment Reminders Order Date Submit Date Provider Last Modified By Organization Details Last Modified Time Details Appointments Nurse Visit 2024 11:30A M [facility] Nursing Staff Not available Not available Not available Follow Up 2024 01:30P M IVANIA LANCASTER Not available Not available Not available Lab urinalys is, dipstick 2022 023 [email or web address] [facility], [address], [place], [address], 06/16/2023 14:20:23 CBC w/ diff 2022 023 [facility] (Registration ), [address] [place] [address] [place] [facility] [place], [address], 07/30/2023 07:41:58 CMP, serum or plasma 2022 023 [facility] (Registration ), [address] [place] [address] [place] [facility] [place], [address], 07/02/2023 11:36:43 TSH, serum or plasma 2022 023 [facility] (Registration ), [address] [place] [address] [place], [address], 07/30/2023 07:41:59 CBC w/ diff - 1 PST, 1 LAV obtained without issue from (R) AC 2023 024 [email or web address] [facility] (Registration ), [address] [place] [address] [place], [address], 11/13/2023 10:19:53 urinalys is, dipstick 2023 024 [email or web address] [facility], [address], [place], [address], 11/13/2023 10:19:53 TSH + free T4, serum - 1 PST, 1 LAV obtained without issue from (R) [email or web address] [facility] (Registration ), [address] [place] [address] [place], [address], 11/13/2023 10:19:53 CMP, serum or plasma - 1 PST, 1 LAV obtained without issue from (R) AC [id number] [facility] (Registration ), [address] [place] [address] [place], [address], 11/13/2023 10:19:53 TSH + free T4, serum - 1 PST obtained without issue [email or web address] [facility] (Registration ), [address] [place] [address] [place], [address], 02/12/2024 15:44:58 CMP, serum or plasma - 1 PST obtained without issue 2023 024 [email or web address] [facility] (Registration ), [address] [place] [address] [place], [address], 02/11/2024 18:09:39 HbA1c (hemoglo bin A1c), blood - 1 PST, 1 LAV obtained without issue [email or web address] [facility] [address] [facility] (Registration ), [address] [place] [address] [place], [address], 05/20/2024 16:07:47 urinalys is complete , reflex culture - please call Mayra's daughter Binta at and let them know they should come to lab for a urine. they never got done at last visit [email or web address] [facility] [address] [facility] ([facility]), [address] [place] [address] [place], [address], 08/17/2024 09:58:16 TSH + free T4, serum - 1 PST, 1 LAV obtained without issue [email or web address] [facility] (Registration ), [address] [place] [address] [place], [address], 05/20/2024 16:07:46 CMP, serum or plasma - 1 PST, 1 LAV obtained without issue 2023 024 [email or web address] [facility] (Registration ), [address] [place] [address] [place], [address], 05/13/2024 19:23:52 Referral audiolog ist referral 2022 023 [email or web address] Sandra Choudhary [facility], [address] [place] [address] [place], [address], 02/08/2024 15:48:55 psychiat rist referral - schizoaf fective disorder , depressi on, auditory hallucin ations, needs psychiat rist and medicati on manageme nt 2022 023 [email or web address] [facility], [address] [place], [address], 01/05/2024 16:11:18 psychiat rist referral - NEEDS PSYCHIAT RIST, NOT JUST COUNSELO R 2023 024 [facility], [address] [place], [address], 02/05/2024 09:26:01 audiolog ist referral 2023 024 [email or web address] [facility], [address] [place], [address], 08/15/2024 14:37:[address] referral 2023 024 [email or web address] [facility], [address] [place] [address] Dr, [place], [address], 05/12/2024 10:44:01 Procedures None recorded . Surgeries None recorded . Imaging bone density 2022 023 [email or web address] [facility] [address], [place], [address], 01/27/2024 16:25:23 bone density 2023 024 [email or web address] [facility], [address], [place], [address], 03/04/2024 08:38:58 Medication Orders Adult Low Dose Aspirin 81 mg tablet,d elayed release 2022 023 [email or web address] [facility], [address] [place], [address], 06/16/2023 12:44:58 quetiapi ne 25 mg tablet 2023 024 [facility], [address] [place], [address], 02/11/2024 13:02:41 risperid one 0.25 mg tablet 2023 024 [facility], [address] [place], [address], 02/08/2024 15:20:22 oxybutyn in chloride ER 5 mg tablet,e xtended release 24 hr 2023 024 EUSEBIO [facility], [address] [place], [address], 02/12/2024 14:14:19 alendron ate 70 mg tablet 2023 024 [email or web address] [facility], [address] [place], [address], 02/11/2024 14:20:14 oxybutyn in chloride ER 15 mg tablet,e xtended release 24 hr 2023 024 EUSEBIO [facility], [address] [place], [address], 05/22/2024 12:49:42 Patient TargetsNo targets recorded. Patient Instructions Encounter Date Encounter Id Patient Instructions Last Modified By Organization Details Last Modified Time 06/16/2023 [id number] 1. Call [facility] and make a follow up to review MRI and make a plan for lower back pain and tumor 2. get bone density screening done 3. establish care with [facility] psychiatry, referral sent 4. establish with audiology for hearing aids- referral sent 5. continue all current medications as you have been until you hear from me about labs or imaging results Not available 06/16/2023 12:36:59 11/12/2023 [id number] Nice to see you today! Labs today for monitoring and possible initiation of medication for urge incontinence. Urine testing today as well. I will call you with results. Continue on all current medications as prescribed. We will check on [facility] psychiatrist referral that we placed back in July. 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 Will let you know what they say on estimate for appointment with them for psychiatrist. We discussed that [facility] with Deanna cole may be able to see you instead if [facility] can't get you in. We will order the durable medical equipment: medium size pull-ups through [employer] for 4-5 pull ups in a 24-hour period for urge incontinence. Discussed starting oxybutynin extended release once nightly if kidney function testing is normal and urine testing is normal today. This should help with urge incontinence And nighttime urination. Not available 11/12/2023 14:52:40 02/11/2024 [id number] Nice to see you today! we will get your labs and I will call you with results talked about if kidney function good, would have less incontinence if we increase the ER to 10mg oxybutynin will let you know continue with [facility] provider, Seeker, telehealth continue same medication dosings continue with counselor weekly counselor on zoom with [facility] as you have been. I will reorder the dexa scan for osteoporosis monitoring on the alendonerate Not available 02/11/2024 14:03:36 Reason for Referral Psychiatrist Referral for Sc hizoaffective disorder schizoaffective disorder, depression, auditory hallucinations, needs psychiatrist and medication management Referring Physician: Ivania Lancaster [facility], Encounter Date: 06/16/2023 Nursing Program Director Referral for Bradly ateral hearing loss Referring Physician: Ivania Lancaster [facility] Dakotah, Encounter Date: 06/16/2023 Psychiatrist Referral for Sc hizoaffective disorder NEEDS PSYCHIATRIST, NOT JUST COUNSELOR Referring Physician: Family Dakotah Huff, Encounter Date: 11/12/2023 Nursing Program Director Referral for Sen sorineural hearing loss hearing aids in past. want updated hearing exam and hearing aid consult. 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 Referral for Onyc homycosis of toenails toenail cutting, onychomycosis Referring Physician: Ivania Lancaster [facility], Encounter Date: 02/11/2024 Results Created Date Observation Date Name Description Value Unit Range Abnormal Flag Note LastModifiedBy Organization Detail LastModifiedTime 06/16/2006/16/2023 urina lysis , dipst ick Leukocytes Small Not Available [facility] [address], [place], [address], 06/16/2023 11:49:26 06/16/20 23 06/16/2023 urina lysis , dipst ick Nitrite negati ve Not Available [facility] [address], [place], [address], 06/16/2023 11:49:26 06/16/2006/16/2023 urina lysis , dipst ick Urobilinogen .2 Not Available [facility] [address], [place], [address], 06/16/2023 11:49:26 06/16/20 23 06/16/2023 urina lysis , dipst ick Protein 30 Not Available [facility] [address], [place], [address], 06/16/2023 11:49:26 06/16/20 23 06/16/2023 urina lysis , dipst ick pH 6.0 Not Available [facility] [address], [place], [address], 06/16/2023 11:49:26 06/16/20 23 06/16/2023 urina lysis , dipst ick Blood Non-He molyze d: Trace Not Available [facility] [address], [place], [address], 06/16/2023 11:49:26 06/16/20 23 06/16/2023 urina lysis , dipst ick Specific [place] 1.030 Not Available [facility] [address], [place], [address], 06/16/2023 11:49:26 06/16/20 23 06/16/2023 urina lysis , dipst ick Ketone Small Not Available [facility] [address], [place], [address], 06/16/2023 11:49:26 06/16/20 06/16/2023 urina lysis , dipst ick Bilirubin Negati ve Not Available [facility] [address], [place], [address], 06/16/2023 11:49:26 06/16/20 23 06/16/2023 urina lysis , dipst ick Glucose Negati ve Not Available [facility] [address], [place], [address], 06/16/2023 11:49:26 06/16/20 23 06/16/2023 TSH, serum or plasm a TSH, serum or plasma 0.18 micro intl_ units /mL 0.36-3 .74 low Not Available Not Available 02/26/2024 12:47:05 06/16/20 23 06/16/2023 hemog lobin (Hb), blood hemoglobin (Hb), blood 14.3 g/dL 11.2-1 5.7 normal Not Available Not Available 02/26/2024 12:47:05 06/16/2006/16/2023 gluco se, QN [mass /volu me], blood glucose ser 110 mg/dL 74-106 high Not Available [facility] [address] [facility] [address], [place], [address], 02/26/2024 12:47:04 06/16/20 23 06/16/2023 CMP, serum [...] Available 02/26/2024 12:46:55 06/16/20 23 06/16/2023 CBC MCHC 33.4 % 32.0-3 6.0 normal Not Available Not Available 02/26/2024 12:46:55 06/16/2006/16/2023 CBC MCV, blood 92 fL 80-95 normal Not Available N ot Available 02/26/2024 12:46:55 06/16/2006/16/2023 CBC monocyte % 8.6 (?) % Not Available Not Available 12:46:55 06/16/20 23 06/16/2023 CBC monocyte cnt 0.51 10 3/uL 10*3/ mm3 0.1-0. 8 normal Not Available Not Available 02/26/2024 12:46:55 06/16/2006/16/2023 CBC MPV 10.9 fL 8.0-11 .0 normal [...] Available Not Available 02/26/2024 12:46:55 06/16/2006/16/2023 CBC PMN % 68.3 (?) % Not Available Not Available 12:46:55 06/16/2006/16/2023 CBC RBC count, blood 4.65 10 6/uL 10*6/ mm3 3.93-5 .22 normal Not Available Not Available 02/26/2024 12:46:55 06/16/2006/16/2023 CBC RDW 13.0 % 11.7-1 4.6 normal Not Available Not Available 02/26/2024 12:46:55 06/16/20 23 06/16/2023 CBC WBC 5.95 10 3/uL 10*3/ mm3 4.4-10 .8 normal Not Available Not Available 02/26/2024 12:46:55 07/02/2007/02/2023 URINA LYSIS color Yellow yellow Not Available [facility] [address] [place], [address] 07/02/2023 10:28:35 07/02/20 23 07/02/2023 URINA LYSIS clarity Clear clear Not Available [facility] [address] [place], [address] 07/02/2023 10:28:35 07/02/20 23 07/02/2023 URINA LYSIS specific gravity 1.010 1.005- 1.025 normal Not Available [address] [place], [address] 07/02/2023 10:28:35 07/02/20 23 07/02/2023 URINA LYSIS pH 6.0 5-8 normal Not Available [facility] [address] [place], [address] 07/02/2023 10:28:35 07/02/20 23 07/02/2023 URINA LYSIS leukocyte esterase Negati ve negati ve Not Available [address] [place], [address] 07/02/2023 10:28:35 07/02/20 23 07/02/2023 URINA LYSIS nitrite Negati ve negati ve Not Available [address] [place], [address] 07/02/2023 10:28:35 07/02/20 23 07/02/2023 URINA LYSIS protein Negati ve mg/dL negati ve Not Available [address] [place], [address] 07/02/2023 10:28:35 07/02/20 23 07/02/2023 URINA LYSIS glucose Negati ve mg/dL negati ve Not Available [address] [place], [address] 07/02/2023 10:28:35 07/02/20 23 07/02/2023 URINA LYSIS ketones Negati ve mg/dL negati ve Not Available [address] [place], [address] 07/02/2023 10:28:35 07/02/20 23 07/02/2023 URINA LYSIS urobilinogen 0.2 mg/dL up to 0.2 Not Available [address] [place], [address] 07/02/2023 10:28:35 07/02/20 23 07/02/2023 URINA LYSIS bilirubin Negati ve negati ve Not Available [address] [place], [address] 07/02/2023 10:28:35 07/02/20 23 07/02/2023 URINA LYSIS blood Negati ve negati ve Not Available [address] [place], [address] 07/02/2023 10:28:35 07/02/20 23 07/02/2023 COMPL ETE BLOOD COUNT W/DIF F WBC 6.75 10_3/ uL 4.4-10 .8 normal Not Available [address] [place], [address] 07/02/2023 11:11:40 07/02/20 23 07/02/2023 COMPL ETE BLOOD COUNT W/DIF F RBC 4.76 10_6/ uL 3.93-5 .22 normal Not Available [address] [place], [address] 07/02/2023 11:11:40 07/02/20 23 07/02/2023 COMPL ETE BLOOD COUNT W/DIF F HGB 14.6 g/dL 11.2-1 5.7 normal Not Available [address] [place], [address] 07/02/2023 11:11:40 07/02/20 23 07/02/2023 COMPL ETE BLOOD COUNT W/DIF F HCT 43.8 % 36.0-4 6.0 normal Not Available [address] [place], [address] 07/02/2023 11:11:40 07/02/20 23 07/02/2023 COMPL ETE BLOOD COUNT W/DIF F MCV 92 fL 80-95 normal Not Available [facility] [address] [place], [address] 07/02/2023 11:11:40 07/02/20 23 07/02/2023 COMPL ETE BLOOD COUNT W/DIF F MCH 30.7 pg 27.0-3 3.0 normal Not Available [address] [place], [address] 07/02/2023 11:11:40 07/02/20 23 07/02/2023 COMPL ETE BLOOD COUNT W/DIF F MCHC 33.3 % 32.0-3 6.0 normal Not Available [address] [place], [address] 07/02/2023 11:11:40 07/02/20 23 07/02/2023 COMPL ETE BLOOD COUNT W/DIF F RDW 13.0 % 11.7-1 4.6 normal Not Available [address] [place], [address] 07/02/2023 11:11:40 07/02/20 23 07/02/2023 COMPL ETE BLOOD COUNT W/DIF F platelet count 258 10_3/ uL 130-40 0 normal Not Available [address] [place], [address] 07/02/2023 11:11:40 07/02/20 23 07/02/2023 COMPL ETE BLOOD COUNT W/DIF F MPV 9.7 fL 8.0-11 .0 normal Not Available [address] [place], [address] 07/02/2023 11:11:40 07/02/20 23 07/02/2023 COMPL ETE BLOOD COUNT W/DIF F neutrophils % 78.6 Not Available [address] [place], [address] 07/02/2023 11:11:40 07/02/20 23 07/02/2023 COMPL ETE BLOOD COUNT W/DIF F lymphocytes % 13.8 Not Available [address] [place], [address] 07/02/2023 11:11:40 07/02/20 23 07/02/2023 COMPL ETE BLOOD COUNT W/DIF F monocytes % 6.4 Not Available [address] [place], [address] 07/02/2023 11:11:40 07/02/20 23 07/02/2023 COMPL ETE BLOOD COUNT W/DIF F eosinophils % 0.4 Not Available [address] [place], [address] 07/02/2023 11:11:40 07/02/20 23 07/02/2023 COMPL ETE BLOOD COUNT W/DIF F basophils % 0.4 Not Available [address] [place], [address] 07/02/2023 11:11:40 07/02/20 23 07/02/2023 COMPL ETE BLOOD COUNT W/DIF F immature grans % 0.4 Not Available [address] [place], [address] 07/02/2023 11:11:40 07/02/20 23 07/02/2023 COMPL ETE BLOOD COUNT W/DIF F nucleated RBC 0.0 % 0.0-0. 3 normal Not Available [address] [place], [address] 07/02/2023 11:11:40 07/02/20 23 07/02/2023 COMPL ETE BLOOD COUNT W/DIF F absolute neutrophil count 5.30 10_3/ uL 1.2-6. 7 normal Not Available [address] [place], [address] 07/02/2023 11:11:40 07/02/20 23 07/02/2023 COMPL ETE BLOOD COUNT W/DIF F absolute lymphocyte count 0.93 10_3/ uL 1.2-3. 4 low Not Available [address] [place], [address] 07/02/2023 11:11:40 07/02/20 23 07/02/2023 COMPL ETE BLOOD COUNT W/DIF F absolute monocyte count 0.43 10_3/ uL 0.1-0. 8 normal Not Available [address] [place], [address] 07/02/2023 11:11:40 07/02/20 23 07/02/2023 COMPL ETE BLOOD COUNT W/DIF F absolute eosinophil count 0.03 10_3/ uL 0.0-0. 7 normal Not Available [address] [place], [address] 07/02/2023 11:11:40 07/02/20 23 07/02/2023 COMPL ETE BLOOD COUNT W/DIF F absolute basophil count 0.03 10_3/ uL 0.0-0. 2 normal Not Available [address] [place], [address] 07/02/2023 11:11:40 07/02/20 23 07/02/2023 COMPR EHENS PAVITHRA METAB OLIC PANEL calcium 10.1 mg/dL 8.5-10 .1 normal Not Available [address] [place], [address] 07/02/2023 11:36:43 07/02/20 23 07/02/2023 COMPR EHENS PAVITHRA METAB OLIC PANEL glucose 124 mg/dL 74-106 high Not Available [facility] [address] [place], [address] 07/02/2023 11:36:43 07/02/20 23 07/02/2023 COMPR EHENS PAVITHRA METAB OLIC PANEL BUN 13 mg/dL 7-18 normal Not Available [facility] [address] [place], [address] 07/02/2023 11:36:43 07/02/20 23 07/02/2023 COMPR EHENS PAVITHAR METAB OLIC PANEL creatinine 1.2 mg/dL 0.55-1 .02 high Not Available [address] [place], [address] 07/02/2023 11:36:43 07/02/20 23 07/02/2023 COMPR EHENS [...] young er-ag ed adult s. Not Available [address] [place], [address] 07/02/2023 11:36:43 07/02/20 23 07/02/2023 COMPR EHENS PAVITHRA METAB OLIC PANEL total protein 6.9 g/dL 6.4-8. 2 normal Not Available [address] [place], [address] 07/02/2023 11:36:43 07/02/20 23 07/02/2023 COMPR EHENS PAVITHRA METAB OLIC PANEL albumin 3.9 g/dL 3.4-5. 0 normal Not Available [address] [place], [address] 07/02/2023 11:36:43 07/02/20 23 07/02/2023 COMPR EHENS PAVITHRA METAB OLIC PANEL bilirubin, total 0.5 mg/dL 0.2-1. 0 normal Not Available [address] [place], [address] 07/02/2023 11:36:43 07/02/20 23 07/02/2023 COMPR EHENS PAVITHRA METAB OLIC PANEL alk phos 75 U/L 46-116 normal Not Available [address] [place], [address] 07/02/2023 11:36:43 07/02/20 23 07/02/2023 COMPR EHENS PAVITHRA METAB OLIC PANEL sodium 145 mmol/ L 136-14 5 normal Not Available [address] [place], [address] 07/02/2023 11:36:43 07/02/20 23 07/02/2023 COMPR EHENS PAVITHRA METAB OLIC PANEL potassium 3.5 mmol/ L 3.5-5. 1 normal Not Available [address] [place], [address] 07/02/2023 11:36:43 07/02/20 23 07/02/2023 COMPR EHENS PAVITHRA METAB OLIC PANEL chloride 107 mmol/ L 98-107 normal Not Available [address] [place], [address] 07/02/2023 11:36:43 07/02/20 23 07/02/2023 COMPR EHENS PAVITHRA METAB OLIC PANEL CO2 30.0 mmol/ L 21.0-3 2.0 normal Not Available [address] [place], [address] 07/02/2023 11:36:43 07/02/20 23 07/02/2023 COMPR EHENS PAVITHRA METAB OLIC PANEL anion gap 8.0 mmol/ L 3-11 normal Not Available [address] [place], [address] 07/02/2023 11:36:43 07/02/20 23 07/02/2023 COMPR EHENS PAVITHRA METAB OLIC PANEL AST 19 U/L 15-37 normal Not Available [facility] [address] [place], [address] 07/02/2023 11:36:43 07/02/20 23 07/02/2023 COMPR EHENS PAVITHRA METAB OLIC PANEL ALT 19 U/L 14-59 normal Not Available [facility] [address] [place], [address] 07/02/2023 11:36:43 07/02/2007/02/2023 ETHYL ALCOH OL ethyl alcohol < 3.0 mg/dL <10 ETOH Refer ence Range = <10 mg/dL Legal Limit of Intox icati on is 80 mg/dL This test is inten ded only for Medic al purpo ses. Divid e resul t by 1000 to conve rt to %(w/v ) Not Available [address] [place], [address] 07/02/2023 11:36:44 07/02/20 23 07/02/2023 MAGNE SIUM magnesium 2.2 mg/dL 1.8-2. 4 normal Not Available [address] [place], [address] 07/02/2023 11:36:44 07/02/20 23 07/02/2023 TSH (W/RE F FT4) TSH (w/ref FT4) 5.47 uIU/m L 0.36-3 .74 high NOTE: Supra -phys iolog ic doses of Bioti n(B7) may cause false negat pavithra resul ts. Not Available [address] [place], [address] 07/02/2023 11:36:45 07/02/20 23 07/02/2023 ETHYL ALCOH OL ethyl alcohol < 3.0 mg/dL <10 ETOH Refer ence Range = <10 mg/dL Legal Limit of Intox icati on is 80 mg/dL This test is inten ded only for Medic al purpo ses. Divid e resul t by 1000 to conve rt to %(w/v ) Not Available [address] [place], [address] 07/02/2023 11:55:51 07/02/20 23 07/02/2023 MAGNE SIUM magnesium 2.2 mg/dL 1.8-2. 4 normal Not Available [address] [place], [address] 07/02/2023 11:55:51 07/02/20 23 07/02/2023 TSH (W/RE F FT4) TSH (w/ref FT4) 5.47 uIU/m L 0.36-3 .74 high NOTE: Supra -phys iolog ic doses of Bioti n(B7) may cause false negat pavithra resul ts. Not Available [address] [place], [address] 07/02/2023 11:55:52 07/02/20 23 07/02/2023 FREE T4 free T4 1.56 NG/dL 0.76-1 .46 high Not Available [address] [place], [address] 07/02/2023 11:55:52 07/02/20 23 07/02/2023 URINE DRUG SCREE N ([facility] ) methadone Negati ve negati ve Not Available [address] [place], [address] 07/02/2023 15:35:13 07/02/20 23 07/02/2023 URINE DRUG SCREE N ([facility] ) benzodiazepi odalys Negati ve negati ve Benzo diaze pines are exten sivel y metab olize d and the paren t compo und may not be detec erick in urine . If clini rené suspi cion is high, pleas e notif y Lab for send- out testi ng. Not Available [address] [place], [address] 07/02/2023 15:35:13 07/02/20 23 07/02/2023 URINE DRUG SCREE N ([facility] ) cocaine Negati ve negati ve Not Available [address] [place], [address] 07/02/2023 15:35:13 07/02/20 23 07/02/2023 URINE DRUG SCREE N ([facility] ) amphetamines Negati ve negati ve Not Available [address] [place], [address] 07/02/2023 15:35:13 07/02/20 23 07/02/2023 URINE DRUG SCREE N ([facility] ) tetrahydroca nnabinol Negati ve negati ve Not Available [address] [place], [address] 07/02/2023 15:35:13 07/02/20 23 07/02/2023 URINE DRUG SCREE N ([facility] ) opiates Negati ve negati ve Not Available [address] [place], [address] 07/02/2023 15:35:13 07/02/20 23 07/02/2023 URINE DRUG SCREE N ([facility] ) barbiturates Negati ve negati ve Not Available [address] [place], [address] 07/02/2023 15:35:13 07/02/20 23 07/02/2023 URINE DRUG [...] tion of these resul ts. Not Available [address] [place], [address] 07/02/2023 15:35:13 07/29/19 24 07/29/2023 COMPL ETE BLOOD COUNT W/DIF F WBC 4.99 10_3/ uL 4.4-10 .8 normal Not Available [address] [facility] [place], [address] 07/29/2023 09:52:33 07/29/19 24 07/29/2023 COMPL ETE BLOOD COUNT W/DIF F RBC 4.64 10_6/ uL 3.93-5 .22 normal Not Available [address] [facility] [place], [address] 07/29/2023 09:52:33 07/29/19 24 07/29/2023 COMPL ETE BLOOD COUNT W/DIF F HGB 14.3 g/dL 11.2-1 5.7 normal Not Available [address] [facility] [place], [address] 07/29/2023 09:52:33 07/29/19 24 07/29/2023 COMPL ETE BLOOD COUNT W/DIF F HCT 43.6 % 36.0-4 6.0 normal Not Available [address] [facility] [place], [address] 07/29/2023 09:52:33 07/29/19 24 07/29/2023 COMPL ETE BLOOD COUNT W/DIF F MCV 94 fL 80-95 normal Not Available [facility] [address] [place], [address] 07/29/2023 09:52:33 07/29/19 24 07/29/2023 COMPL ETE BLOOD COUNT W/DIF F MCH 30.8 pg 27.0-3 3.0 normal Not Available [address] [place], [address] 07/29/2023 09:52:33 07/29/19 24 07/29/2023 COMPL ETE BLOOD COUNT W/DIF F MCHC 32.8 % 32.0-3 6.0 normal Not Available [address] [place], [address] 07/29/2023 09:52:33 07/29/19 24 07/29/2023 COMPL ETE BLOOD COUNT W/DIF F RDW 13.8 % 11.7-1 4.6 normal Not Available [address] [place], [address] 07/29/2023 09:52:33 07/29/19 24 07/29/2023 COMPL ETE BLOOD COUNT W/DIF F platelet count 263 10_3/ uL 130-40 0 normal Not Available [address] [place], [address] 07/29/2023 09:52:33 07/29/19 24 07/29/2023 COMPL ETE BLOOD COUNT W/DIF F MPV 10.0 fL 8.0-11 .0 normal Not Available [address] [place], [address] 07/29/2023 09:52:33 07/29/19 24 07/29/2023 COMPL ETE BLOOD COUNT W/DIF F neutrophils % 68.6 Not Available [address] [place], [address] 07/29/2023 09:52:33 07/29/19 24 07/29/2023 COMPL ETE BLOOD COUNT W/DIF F lymphocytes % 21.2 Not Available [address] [place], [address] 07/29/2023 09:52:33 07/29/19 24 07/29/2023 COMPL ETE BLOOD COUNT W/DIF F monocytes % 6.8 Not Available [address] [place], [address] 07/29/2023 09:52:33 07/29/19 24 07/29/2023 COMPL ETE BLOOD COUNT W/DIF F eosinophils % 2.6 Not Available [address] [place], [address] 07/29/2023 09:52:33 07/29/19 24 07/29/2023 COMPL ETE BLOOD COUNT W/DIF F basophils % 0.6 Not Available [address] [place], [address] 07/29/2023 09:52:33 07/29/19 24 07/29/2023 COMPL ETE BLOOD COUNT W/DIF F immature grans % 0.2 Not Available [address] [place], [address] 07/29/2023 09:52:33 07/29/19 24 07/29/2023 COMPL ETE BLOOD COUNT W/DIF F nucleated RBC 0.0 % 0.0-0. 3 normal Not Available [address] [place], [address] 07/29/2023 09:52:33 07/29/19 24 07/29/2023 COMPL ETE BLOOD COUNT W/DIF F absolute neutrophil count 3.42 10_3/ uL 1.2-6. 7 normal Not Available [address] [place], [address] 07/29/2023 09:52:33 07/29/19 24 07/29/2023 COMPL ETE BLOOD COUNT W/DIF F absolute lymphocyte count 1.06 10_3/ uL 1.2-3. 4 low Not Available [address] [place], [address] 07/29/2023 09:52:33 07/29/19 24 07/29/2023 COMPL ETE BLOOD COUNT W/DIF F absolute monocyte count 0.34 10_3/ uL 0.1-0. 8 normal Not Available [address] [place], [address] 07/29/2023 09:52:33 07/29/19 24 07/29/2023 COMPL ETE BLOOD COUNT W/DIF F absolute eosinophil count 0.13 10_3/ uL 0.0-0. 7 normal Not Available [address] [place], [address] 07/29/2023 09:52:33 07/29/19 24 07/29/2023 COMPL ETE BLOOD COUNT W/DIF F absolute basophil count 0.03 10_3/ uL 0.0-0. 2 normal Not Available [address] [place], [address] 07/29/2023 09:52:33 07/29/19 24 07/29/2023 BASIC METAB OLIC PANEL calcium 9.3 mg/dL 8.5-10 .1 normal Not Available [address] [place], [address] 07/29/2023 10:10:34 07/29/19 24 07/29/2023 BASIC METAB OLIC PANEL glucose 103 mg/dL 74-106 normal Not Available [facility] [address] [place], [address] 07/29/2023 10:10:34 07/29/19 24 07/29/2023 BASIC METAB OLIC PANEL BUN 17 mg/dL 7-18 normal Not Available [facility] [address] [place], [address] 07/29/2023 10:10:34 07/29/19 24 07/29/2023 BASIC METAB OLIC PANEL creatinine 1.0 mg/dL 0.55-1 .02 normal Not Available [address] [place], [address] 07/29/2023 10:10:34 07/29/19 24 07/29/2023 BASIC METAB [...] young er-ag ed adult s. Not Available [address] [place], [address] 07/29/2023 10:10:34 07/29/19 24 07/29/2023 BASIC METAB OLIC PANEL sodium 143 mmol/ L 136-14 5 normal Not Available [address] [place], [address] 07/29/2023 10:10:34 07/29/19 24 07/29/2023 BASIC METAB OLIC PANEL potassium 3.9 mmol/ L 3.5-5. 1 normal Not Available [address] [place], [address] 07/29/2023 10:10:34 07/29/19 24 07/29/2023 BASIC METAB OLIC PANEL chloride 107 mmol/ L 98-107 normal Not Available [address] [place], [address] 07/29/2023 10:10:34 07/29/19 24 07/29/2023 BASIC METAB OLIC PANEL CO2 31.5 mmol/ L 21.0-3 2.0 normal Not Available [address] [place], [address] 07/29/2023 10:10:34 07/29/19 24 07/29/2023 BASIC METAB OLIC PANEL anion gap 4.5 mmol/ L 3-11 normal Not Available [address] [place], [address] 07/29/2023 10:10:34 07/29/19 24 07/29/2023 CARDI AC TROPO DOMINICK I cardiac troponin I < 50 NG/L <or=60 Not Available [address] [place], [address] 07/29/2023 10:10:35 07/29/19 24 07/29/2023 COVID /FLU/ RSV PCR source Nasoph arynx Not Available [address] [place], [address] 07/29/2023 10:49:41 07/29/19 24 07/29/2023 COVID /FLU/ [...] histo ry, and epide miolo gical infor matio n. Testi ng perfo [facility]med at [facility] (CLIA #[id number]) on the Cephe id GeneX pert. Not Available [address] [place], [address] 07/29/2023 10:49:41 07/29/19 24 07/29/2023 COVID /FLU/ RSV PCR influenza A PCR Negati ve negati ve Not Available [address] [place], [address] 07/29/2023 10:49:41 07/29/19 24 07/29/2023 COVID /FLU/ RSV PCR influenza B PCR Negati ve negati ve Not Available [address] [place], [address] 07/29/2023 10:49:41 07/29/19 24 07/29/2023 COVID /FLU/ RSV PCR RSV PCR Negati ve negati ve Not Available [address] [place], [address] 07/29/2023 10:49:41 07/29/19 24 07/29/2023 D-DIM ER D-dimer 1764 NG/ml feu <500 high *Lite ratur e suppo rts the exclu dick of DVT and/o r PE with a resul t less than 500 ng/ml FEU with this metho d.* Not Available [address] [place], [address] 07/29/2023 10:51:41 11/12/19 24 11/12/2023 COMPL ETE BLOOD COUNT W/DIF F WBC 6.07 10_3/ uL 4.4-10 .8 normal Not Available [address] [place], [address] 11/12/2023 19:26:45 11/12/19 24 11/12/2023 COMPL ETE BLOOD COUNT W/DIF F RBC 4.17 10_6/ uL 3.93-5 .22 normal Not Available [address] [place], [address] 11/12/2023 19:26:45 11/12/19 24 11/12/2023 COMPL ETE BLOOD COUNT W/DIF F HGB 13.0 g/dL 11.2-1 5.7 normal Not Available [address] [place], [address] 11/12/2023 19:26:45 11/12/19 24 11/12/2023 COMPL ETE BLOOD COUNT W/DIF F HCT 39.1 % 36.0-4 6.0 normal Not Available [address] [place], [address] 11/12/2023 19:26:45 11/12/19 24 11/12/2023 COMPL ETE BLOOD COUNT W/DIF F MCV 94 fL 80-95 normal Not Available [facility] [address] [place], [address] 11/12/2023 19:26:45 11/12/19 24 11/12/2023 COMPL ETE BLOOD COUNT W/DIF F MCH 31.2 pg 27.0-3 3.0 normal Not Available [address] [place], [address] 11/12/2023 19:26:45 11/12/19 24 11/12/2023 COMPL ETE BLOOD COUNT W/DIF F MCHC 33.2 % 32.0-3 6.0 normal Not Available [address] [place], [address] 11/12/2023 19:26:45 11/12/19 24 11/12/2023 COMPL ETE BLOOD COUNT W/DIF F RDW 13.0 % 11.7-1 4.6 normal Not Available [address] [place], [address] 11/12/2023 19:26:45 11/12/19 24 11/12/2023 COMPL ETE BLOOD COUNT W/DIF F platelet count 252 10_3/ uL 130-40 0 normal Not Available [address] [place], [address] 11/12/2023 19:26:45 11/12/19 24 11/12/2023 COMPL ETE BLOOD COUNT W/DIF F MPV 10.8 fL 8.0-11 .0 normal Not Available [address] [place], [address] 11/12/2023 19:26:45 11/12/19 24 11/12/2023 COMPL ETE BLOOD COUNT W/DIF F neutrophils % 73.6 Not Available Mo weiner [address] [place], [address] 11/12/2023 19:26:45 11/12/19 24 11/12/2023 COMPL ETE BLOOD COUNT W/DIF F lymphocytes % 15.5 Not Available [address] [place], [address] 11/12/2023 19:26:45 11/12/19 24 11/12/2023 COMPL ETE BLOOD COUNT W/DIF F monocytes % 6.9 Not Available [address] [place], [address] 11/12/2023 19:26:45 11/12/19 24 11/12/2023 COMPL ETE BLOOD COUNT W/DIF F eosinophils % 3.1 Not Available [address] [place], [address] 11/12/2023 19:26:45 11/12/19 24 11/12/2023 COMPL ETE BLOOD COUNT W/DIF F basophils % 0.7 Not Available [address] [place], [address] 11/12/2023 19:26:45 11/12/19 24 11/12/2023 COMPL ETE BLOOD COUNT W/DIF F immature grans % 0.2 Not Available [address] [place], [address] 11/12/2023 19:26:45 11/12/19 24 11/12/2023 COMPL ETE BLOOD COUNT W/DIF F nucleated RBC 0.0 % 0.0-0. 3 normal Not Available [address] [place], [address] 11/12/2023 19:26:45 11/12/19 24 11/12/2023 COMPL ETE BLOOD COUNT W/DIF F absolute neutrophil count 4.47 10_3/ uL 1.2-6. 7 normal Not Available [address] [place], [address] 11/12/2023 19:26:45 11/12/19 24 11/12/2023 COMPL ETE BLOOD COUNT W/DIF F absolute lymphocyte count 0.94 10_3/ uL 1.2-3. 4 low Not Available [address] [place], [address] 11/12/2023 19:26:45 11/12/19 24 11/12/2023 COMPL ETE BLOOD COUNT W/DIF F absolute monocyte count 0.42 10_3/ uL 0.1-0. 8 normal Not Available [address] [place], [address] 11/12/2023 19:26:45 11/12/19 24 11/12/2023 COMPL ETE BLOOD COUNT W/DIF F absolute eosinophil count 0.19 10_3/ uL 0.0-0. 7 normal Not Available [address] [place], [address] 11/12/2023 19:26:45 11/12/19 24 11/12/2023 COMPL ETE BLOOD COUNT W/DIF F absolute basophil count 0.04 10_3/ uL 0.0-0. 2 normal Not Available [address] [place], [address] 11/12/2023 19:26:45 11/12/19 24 11/12/2023 COMPR EHENS PAVITHRA METAB OLIC PANEL calcium 8.8 mg/dL 8.5-10 .1 normal Not Available [address] [place], [address] 11/12/2023 19:44:51 11/12/19 24 11/12/2023 COMPR EHENS PAVITHRA METAB OLIC PANEL glucose 153 mg/dL 74-106 high Not Available [facility] [address] [place], [address] 11/12/2023 19:44:51 11/12/19 24 11/12/2023 COMPR EHENS PAVITHRA METAB OLIC PANEL BUN 17 mg/dL 7-18 normal Not Available [facility] [address] [place], [address] 11/12/2023 19:44:51 11/12/19 24 11/12/2023 COMPR EHENS PAVITHRA METAB OLIC PANEL creatinine 0.9 mg/dL 0.55-1 .02 normal Not Available [address] [place], [address] 11/12/2023 19:44:51 11/12/19 24 11/12/2023 COMPR EHENS [...] young er-ag ed adult s. Not Available [address] [place], [address] 11/12/2023 19:44:51 11/12/19 24 11/12/2023 COMPR EHENS PAVITHRA METAB OLIC PANEL total protein 6.5 g/dL 6.4-8. 2 normal Not Available [address] [place], [address] 11/12/2023 19:44:51 11/12/19 24 11/12/2023 COMPR EHENS PAVITHRA METAB OLIC PANEL albumin 3.4 g/dL 3.4-5. 0 normal Not Available [address] [place], [address] 11/12/2023 19:44:51 11/12/19 24 11/12/2023 COMPR EHENS PAVITHRA METAB OLIC PANEL bilirubin, total 0.3 mg/dL 0.2-1. 0 normal Not Available [address] [place], [address] 11/12/2023 19:44:51 11/12/19 24 11/12/2023 COMPR EHENS PAVITHRA METAB OLIC PANEL alk phos 77 U/L 46-116 normal Not Available [address] [place], [address] 11/12/2023 19:44:51 11/12/19 24 11/12/2023 COMPR EHENS PAVITHRA METAB OLIC PANEL sodium 143 mmol/ L 136-14 5 normal Not Available [address] [place], [address] 11/12/2023 19:44:51 11/12/19 24 11/12/2023 COMPR EHENS PAVITHRA METAB OLIC PANEL potassium 3.9 mmol/ L 3.5-5. 1 normal Not Available [address] [place], [address] 11/12/2023 19:44:51 11/12/19 24 11/12/2023 COMPR EHENS PAVITHRA METAB OLIC PANEL chloride 108 mmol/ L 98-107 high Not Available [address] [place], [address] 11/12/2023 19:44:51 11/12/19 24 11/12/2023 COMPR EHENS PAVITHRA METAB OLIC PANEL CO2 28.9 mmol/ L 21.0-3 2.0 normal Not Available [address] [place], [address] 11/12/2023 19:44:51 11/12/19 24 11/12/2023 COMPR EHENS PAVITHRA METAB OLIC PANEL anion gap 6.1 mmol/ L 3-11 normal Not Available [address] [place], [address] 11/12/2023 19:44:51 11/12/19 24 11/12/2023 COMPR EHENS PAVITHRA METAB OLIC PANEL AST 25 U/L 15-37 normal Not Available [facility] [address] [place], [address] 11/12/2023 19:44:51 11/12/19 24 11/12/2023 COMPR EHENS PAVITHRA METAB OLIC PANEL ALT 19 U/L 14-59 normal Not Available [facility] [address] [place], [address] 11/12/2023 19:44:51 11/12/19 24 11/12/2023 TSH TSH 3.79 uIU/m L 0.36-3 .74 high Not Available [address] [place], [address] 11/12/2023 19:44:52 11/12/19 24 11/12/2023 FREE T4 free T4 1.36 NG/dL 0.76-1 .46 normal Not Available [address], [place], [address] 11/12/2023 19:44:53 11/12/19 24 11/12/2023 urina lysis , dipst ick Leukocytes Negati ve Not Available [facility] [address] [place], [place], [address], 11/12/2023 15:23:50 11/12/19 24 11/12/2023 urina lysis , dipst ick Nitrite negati ve Not Available [facility] [address], [place], [address], 11/12/2023 15:23:50 11/12/19 24 11/12/2023 urina lysis , dipst ick Urobilinogen .2 Not Available [facility] [address], [place], [address], 11/12/2023 15:23:50 11/12/19 24 11/12/2023 urina lysis , dipst ick Protein Trace Not Available [facility] [address], [place], [address], 11/12/2023 15:23:50 11/12/19 24 11/12/2023 urina lysis , dipst ick pH 5.0 Not Available [facility] [address], [place], [address], 11/12/2023 15:23:50 11/12/19 24 11/12/2023 urina lysis , dipst ick Blood Non-He molyze d: Trace Not Available [facility] [address], [place], [address], 11/12/2023 15:23:50 11/12/19 24 11/12/2023 urina lysis , dipst ick Specific [place] 1.020 Not Available [facility] [address], [place], [address], 11/12/2023 15:23:50 11/12/19 24 11/12/2023 urina lysis , dipst ick Ketone Negati ve Not Available [facility] [address], [place], [address], 11/12/2023 15:23:50 11/12/19 24 11/12/2023 urina lysis , dipst ick Bilirubin Negati ve Not Available [facility] [address], [place], [address], 11/12/2023 15:23:50 11/12/19 24 11/12/2023 urina lysis , dipst ick Glucose Negati ve Not Available [facility] [address], [place], [address], 11/12/2023 15:23:50 11/12/19 24 11/12/2023 urina lysis , dipst ick Appearance Slight ly Cloudy Not Available [facility] [address], [place], [address], 11/12/2023 15:23:50 11/12/19 24 11/12/2023 urina lysis , dipst ick Color Pale Yellow Not Available [facility] [address], [place], [address], 11/12/2023 15:23:50 02/11/20 24 02/11/2024 COMPR EHENS PAVITHRA METAB OLIC PANEL calcium 8.9 mg/dL 8.5-10 .1 normal Not Available [address] , [place], [address] 02/11/2024 18:09:39 02/11/20 24 02/11/2024 COMPR EHENS PAVITHRA METAB OLIC PANEL glucose 117 mg/dL 74-106 high Not Available [facility] [address] [place], [address] 02/11/2024 18:09:39 02/11/20 24 02/11/2024 COMPR EHENS PAVITHRA METAB OLIC PANEL BUN 19 mg/dL 7-18 high Not Available [facility] [address] [place], [address] 02/11/2024 18:09:39 02/11/20 24 02/11/2024 COMPR EHENS PAVITHRA METAB OLIC PANEL creatinine 1.1 mg/dL 0.55-1 .02 high Not Available [address] [place], [address] 02/11/2024 18:09:39 02/11/20 24 02/11/2024 COMPR EHENS [...] young er-ag ed adult s. Not Available [address] [place], [address] 02/11/2024 18:09:39 02/11/20 24 02/11/2024 COMPR EHENS PAVITHRA METAB OLIC PANEL total protein 6.4 g/dL 6.4-8. 2 normal Not Available [address] [place], [address] 02/11/2024 18:09:39 02/11/20 24 02/11/2024 COMPR EHENS PAVITHRA METAB OLIC PANEL albumin 3.4 g/dL 3.4-5. 0 normal Not Available [address] [place], [address] 02/11/2024 18:09:39 02/11/20 24 02/11/2024 COMPR EHENS PAVITHRA METAB OLIC PANEL bilirubin, total 0.38 mg/dL 0.2-1. 0 normal Not Available [address] [place], [address] 02/11/2024 18:09:39 02/11/20 24 02/11/2024 COMPR EHENS PAVITHRA METAB OLIC PANEL alk phos 80 U/L 46-116 normal Not Available [address] [place], [address] 02/11/2024 18:09:39 02/11/20 24 02/11/2024 COMPR EHENS PAVITHRA METAB OLIC PANEL sodium 144 mmol/ L 136-14 5 normal Not Available [address] [place], [address] 02/11/2024 18:09:39 02/11/20 24 02/11/2024 COMPR EHENS PAVITHRA METAB OLIC PANEL potassium 3.9 mmol/ L 3.5-5. 1 normal Not Available [address] [place], [address] 02/11/2024 18:09:39 02/11/20 24 02/11/2024 COMPR EHENS PAVITHRA METAB OLIC PANEL chloride 108 mmol/ L 98-107 high Not Available [address] [place], [address] 02/11/2024 18:09:39 02/11/20 24 02/11/2024 COMPR EHENS PAVITHRA METAB OLIC PANEL CO2 28.4 mmol/ L 21.0-3 2.0 normal Not Available [address] [place], [address] 02/11/2024 18:09:39 02/11/20 24 02/11/2024 COMPR EHENS PAVITHRA METAB OLIC PANEL anion gap 7.6 mmol/ L 3-11 normal Not Available [address] [place], [address] 02/11/2024 18:09:39 02/11/20 24 02/11/2024 COMPR EHENS PAVITHRA METAB OLIC PANEL AST 25 U/L 15-37 normal Not Available [facility] [address] [place], [address] 02/11/2024 18:09:39 02/11/20 24 02/11/2024 COMPR EHENS PAVITHRA METAB OLIC PANEL ALT 15 U/L 14-59 normal Not Available [facility] [address] [place], [address] 02/11/2024 18:09:39 02/11/20 24 02/11/2024 TSH TSH 0.18 uIU/m L 0.36-3 .74 low Not Available [address] [place], [address] 02/11/2024 18:09:39 02/11/20 24 02/11/2024 FREE T4 free T4 1.72 NG/dL 0.76-1 .46 high Not Available [address] [place], [address] 02/11/2024 18:09:40 05/13/20 24 05/13/2024 COMPR EHENS PAVITHRA METAB OLIC PANEL calcium 9.0 mg/dL 8.5-10 .1 normal Not Available [address] [place], [address] 05/13/2024 19:23:52 05/13/20 24 05/13/2024 COMPR EHENS PAVITHRA METAB OLIC PANEL glucose 166 mg/dL 74-106 high Not Available [facility] [address] [place], [address] 05/13/2024 19:23:52 05/13/20 24 05/13/2024 COMPR EHENS PAVITHRA METAB OLIC PANEL BUN 14 mg/dL 7-18 normal Not Available [facility] [address] [place], [address] 05/13/2024 19:23:52 05/13/20 24 05/13/2024 COMPR EHENS PAVITHRA METAB OLIC PANEL creatinine 1.1 mg/dL 0.55-1 .02 high Not Available [address] [place], [address] 05/13/2024 19:23:52 05/13/20 24 05/13/2024 COMPR EHENS [...] young er-ag ed adult s. Not Available [address] [place], [address] 05/13/2024 19:23:52 05/13/2005/13/2024 COMPR EHENS PAVITHRA METAB OLIC PANEL total protein 6.7 g/dL 6.4-8. 2 normal Not Available [address] [place], [address] 05/13/2024 19:23:52 05/13/2005/13/2024 COMPR EHENS PAVITHRA METAB OLIC PANEL albumin 3.5 g/dL 3.4-5. 0 normal Not Available [address] [place], [address] 05/13/2024 19:23:52 05/13/2005/13/2024 COMPR EHENS PAVITHRA METAB OLIC PANEL bilirubin, total 0.38 mg/dL 0.2-1. 0 normal Not Available [address] [place], [address] 05/13/2024 19:23:52 05/13/2005/13/2024 COMPR EHENS PAVITHRA METAB OLIC PANEL alk phos 85 U/L 46-116 normal Not Available [address] [place], [address] 05/13/2024 19:23:52 05/13/2005/13/2024 COMPR EHENS PAVITHRA METAB OLIC PANEL sodium 143 mmol/ L 136-14 5 normal Not Available [address] [place], [address] 05/13/2024 19:23:52 05/13/20 24 05/13/2024 COMPR EHENS PAVITHRA METAB OLIC PANEL potassium 4.4 mmol/ L 3.5-5. 1 normal Not Available [address] [place], [address] 05/13/2024 19:23:52 05/13/20 24 05/13/2024 COMPR EHENS PAVITHRA METAB OLIC PANEL chloride 107 mmol/ L 98-107 normal Not Available [address] [place], [address] 05/13/2024 19:23:52 05/13/20 24 05/13/2024 COMPR EHENS PAVITHRA METAB OLIC PANEL CO2 30.4 mmol/ L 21.0-3 2.0 normal Not Available [address] [place], [address] 05/13/2024 19:23:52 05/13/20 24 05/13/2024 COMPR EHENS PAVITHRA METAB OLIC PANEL anion gap 5.6 mmol/ L 3-11 normal Not Available [address] [place], [address] 05/13/2024 19:23:52 05/13/2005/13/2024 COMPR EHENS PAVITHRA METAB OLIC PANEL AST 23 U/L 15-37 normal Not Available [facility] [address] [place], [address] 05/13/2024 19:23:52 05/13/20 24 05/13/2024 COMPR EHENS PAVITHRA METAB OLIC PANEL ALT 13 U/L 14-59 low Not Available [facility] [address] [place], [address] 05/13/2024 19:23:52 05/13/20 24 05/13/2024 TSH TSH 0.85 uIU/m L 0.36-3 .74 normal NOTE: Supra -phys iolog ic doses of Bioti n(B7) may cause false negat pavithra resul ts. Not Available [address] [place], [address] 05/13/2024 19:23:52 05/13/20 24 05/13/2024 FREE T4 free T4 1.68 NG/dL 0.76-1 .46 high Not Available [address] [place], [address] 05/13/2024 19:23:53 05/13/20 24 05/13/2024 HEMOG LOBIN A1C hemoglobin A1C 5.6 % <5.7 Refer ence Range s <5.7 Linnea l 5.7-6 .4% Predi abete s 6.5% or great er Diagn ostic for diabe melissa (if confi rmed) Refer ences : 1. [facility]i can Diabe melissa [facility] i[facility] n. Clas sific ation and Diagn osis of Diabe melissa. Diabe melissa Care 2019 Jul;4 2(Sup pleme nt 1):S1 3-s28 . Not Available [facility] (Registration ) [address] [place] [address] [place], [address], 05/13/2024 19:48:58 08/12/19 25 08/12/2024 URINA LYSIS color Yellow yellow Not Available [facility] [address] [facility] [place], [address] 08/12/2024 13:59:15 08/12/19 25 08/12/2024 URINA LYSIS clarity Cloudy clear Not Available [facility] [address] [place], [address] 08/12/2024 13:59:15 08/12/19 25 08/12/2024 URINA LYSIS specific gravity 1.025 1.005- 1.025 normal Not Available [address] [place], [address] 08/12/2024 13:59:15 08/12/19 25 08/12/2024 URINA LYSIS pH 6.5 5-8 normal Not Available [facility] [address] [place], [address] 08/12/2024 13:59:15 08/12/19 25 08/12/2024 URINA LYSIS leukocyte esterase Trace negati ve abnormal Not Available [address] [place], [address] 08/12/2024 13:59:15 08/12/19 25 08/12/2024 URINA LYSIS nitrite Negati ve negati ve Not Available [address] [place], [address] 08/12/2024 13:59:15 08/12/19 25 08/12/2024 URINA LYSIS protein Negati ve mg/dL neg-tr ruben Not Available [address] [place], [address] 08/12/2024 13:59:15 08/12/19 25 08/12/2024 URINA LYSIS glucose Negati ve mg/dL negati ve Not Available [address] [place], [address] 08/12/2024 13:59:15 08/12/19 25 08/12/2024 URINA LYSIS ketones Negati ve mg/dL negati ve Not Available [address] [place], [address] 08/12/2024 13:59:15 08/12/19 25 08/12/2024 URINA LYSIS urobilinogen 1.0 mg/dL up to 0.2 abnormal Not Available [address] [place], [address] 08/12/2024 13:59:15 08/12/19 25 08/12/2024 URINA LYSIS bilirubin Negati ve negati ve Not Available [address] [place], [address] 08/12/2024 13:59:15 08/12/19 25 08/12/2024 URINA LYSIS blood Small negati ve abnormal Not Available [address] [place], [address] 08/12/2024 13:59:15 08/12/19 25 08/12/2024 MICRO SCOPI C FINDI NGS WBC 3-5 hpf 0-5 Not Available Senait fung [address] [place], [address] 08/12/2024 13:59:16 08/12/19 25 08/12/2024 MICRO SCOPI C FINDI NGS RBC 10-20 hpf 0-2 abnormal Not Available Allen [address] [place], [address] 08/12/2024 13:59:16 08/12/19 25 08/12/2024 MICRO SCOPI C FINDI NGS epithelial cells Few hpf negati ve Not Available [address] [place], [address] 08/12/2024 13:59:16 08/12/19 25 08/12/2024 MICRO SCOPI C FINDI NGS bacteria Many hpf negati ve Not Available [address] [place], [address] 08/12/2024 13:59:16 08/12/19 25 08/12/2024 MICRO SCOPI C FINDI NGS crystals Negati ve hpf negati ve Not Available [address] [place], [address] 08/12/2024 13:59:16 08/12/19 25 08/12/2024 MICRO SCOPI C FINDI NGS mucus Negati ve negati ve Not Available [address] [place], [address] 08/12/2024 13:59:16 08/12/19 25 08/12/2024 MICRO SCOPI C FINDI NGS casts Negati ve lpf negati ve Not Available [address] [place], [address] 08/12/2024 13:59:16 08/12/19 25 08/12/2024 MICRO SCOPI C FINDI NGS C S indicated? No Not Available [address] [place], [address] 08/12/2024 13:59:16 06/24/20 23 12/02/2022 MRI, lumba r spine , w/wo contr ast No observ ation record ed. Not Available 2022 19:58:44 07/02/20 23 07/02/2023 karli bolden am EKG ZHANNA T NAME: Jaspal Elizondo UNIT #: [id number] ORDERI NG PROVID ER: Candy hernandez,Tra n PA ACCOUN T #: [id number] PRIMAR Y CARE PROVID ER: IVANIA LANCASTER DATE/T SO OF SERVIC E: 1043 : 1944 [place] LOCATI ON: ER ------ ------ --- APPROV ED REPORT ------ ------ -- Exam: Restin g ECG Reason for Exam: ams Zhanna anaya Locati on: E HR:75 bpm ECG Measur ements Heart Rate 75 AXIS [place] 141 P 76 QRSd 82 QRS 20 QT 388 T 54 QTc 430 Conclu dick Sinus rhythm .. V-rate 60- 99 Atrial premat ure comple x...SV comple x w/ short R-R interv al Consid er kisha septal infarc t...Q >30mS, dimin R, V1-V2 Approp riate interv als. No ST segmen t or T wave abnorm angel an to connie anaya occlus pavithra [place] ------ ------ ------ ------ ------ ------ ------ ------ ------ ------ ------ ------ ------ ------ ------ ------ ---- ------ - E-Sign Date: E-Sign Time: 1052 [email or web address] [facility] [address] [facility] [place], [address] 07/02/2023 15:48:08 07/02/20 23 07/02/2023 CT imagi pema Chao t Name: Jaspal Elizondo Unit #: [id number] Loc: ER Orderi ng Provid er: Tra Moreira Accoun t #: [id number] Status : REG ER Primar y Care [facility] er: Ivania Lancaster Date of Exam: Sex: [...] facili ty are submit erick to the [facility] al Radiol ogy Data Regist ry (NRDR) [...] this report in error, please notify us tabby webb at and return the origin al report to us at the addres s above. Thank- you. [email or web address] [facility] [address] [facility] [place], [address] 07/02/2023 15:48:09 07/02/2007/02/2023 elect jani bolden am EKG ZHANNA Anaya NAME: Jaspal Elizondo UNIT #: [id number] ORDERI NG PROVID ER: Candy hernandez,Tra lopez PA ACCOUN T #: [id number] PRIMAR Y CARE PROVID ER: IVANIA LANCASTER DATE/T SO OF SERVIC E: 1043 : 1944 [place] LOCATI ON: ER ------ ------ --- APPROV ED REPORT ------ ------ -- Exam: Restin g ECG Reason for Exam: ams Zhanna anaya Locati on: E HR:75 bpm ECG Measur ements Heart Rate 75 AXIS [place] 141 P 76 QRSd 82 QRS 20 QT 388 T 54 QTc 430 Conclu dick Sinus rhythm .. V-rate 60- 99 Atrial premat ure comple x...SV comple x w/ short R-R interv al Consid er kisha septal infarc t...Q >30mS, dimin R, V1-V2 Approp riate interv als. No ST segmen t or T wave abnorm angel an to connie anaya occlus pavithra [place] ------ ------ ------ ------ ------ ------ ------ ------ ------ ------ ------ ------ ------ ------ ------ ------ ---- ------ - E-Sign Date: E-Sign Time: 1052 ------ ------ --- ADDEND APPROV ED REPORT ------ ------ -- Exam: Restin g ECG Reason for Exam: ams Patien t Locati on: E HR:75 bpm ECG Measur ements Heart Rate 75 AXIS [place] 141 P 76 QRSd 82 QRS 20 QT 388 T 54 QTc 430 Conclu dick Sinus rhythm .. V-rate 60- 99 Atrial premat ure comple x...SV comple x w/ short R-R interv al Consid er kisha septal infarc t...Q >30mS, dimin R, V1-V2 Approp riate interv als. No ST segmen t or T wave abnorm alitie s to sugges t occlus pavithra OK I have review ed and I agree with the emerge ncy room physic peña's ECG interp retati on. 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 Any use or distri bution by any person other than this provid er is strict ly prohib ited. If you receiv e this report in error, please notify us immedi ately at [phone] and return the origin al report to us at the addres s above. Thank you. [email or web address] [facility] [address], [place], [address] 07/03/2023 22:25:15 07/04/20 23 07/03/2023 stanley thomas s note Mental Health Crisis Note ZHANNA T NAME: JrzakiyaJaspal Brenden UNIT #: [id number] ADMITT ING PROVID ER: Palmira randyLeticia ACCOUN T #: [id number] PRIMAR Y CARE PROVID ER: IVANIA LANCASTER DATE OF ADMIT: 02/15 : 1944 Date of servic e: Time of Servic e: 12:08 Mental Health Emerge ncy Note Releas e [facility] releas e signed :: Yes Reason for [...] al and daught ers report . ) [place] ation: Disori ented in Time Memory : Impair ed in: (Per report of the hosp al staff and client 's [facility] er she is diagno sed with sameera [...] Caucas peña female who lives with her [facility] er and others in [facility]. She gaytan been trying to get into servic es with [facility] and [facility] was only trying to get intake paperw ork comple erick. This was comple erick today during this assess ment. It is report ed by the [employer] er and the client that the client [...] but not a famili ar one. The daromulo er inform ed that the client stated [...] appear s based on chart review with [facility] the client is diagno sed with schizo phreni a. The client was feelin g better after receiv ing some Risper idone and wanted to go home. Resour lillian Reosur lillian review ed and given: : 988 and [facility] Plan/D isposi tion Recomm ended Dispos ition: [facility] Servic es [facility] Servic es: Other. Plan: The client was discha rged to go home with her daught er. She will be follow ed up with by her new team in [facility] soon now that intake paul esparza is annmarie suarez. Person report ed agreem ent to plan: Yes Report s/comm unicat ion Outcom e discus sed with: ED/Chase souza cc: ------ ------ ------ ------ ------ ------ ------ ------ ------ ------ ------ --- Dictat ed by: PALMIRA Martinez MS QMHP,R RICK Dictat ed: Time: 1208 Date: 2201 Date: Date: Transc ribed Date: Transc ribed Time: 1208 By: SAVANNAH This is privil eged, confid ential inform ation, intend ed only for the provid er named. Any use or distri bution by any person other than this provid er is strict ly prohib ited. If you receiv e this report in error, please notify us immedi ately at [phone] and return the origin al report to us at the addres s above. Thank you. [email or web address] [facility] [address], [place], [address] 07/07/2023 13:32:02 07/29/19 24 07/29/2023 elect jani bolden am EKG ZHANNA Anaya NAME: Jaspal Elizondo UNIT #: [id number] ORDERI NG PROVID ER: Bakari Olea M.D. ACCOUN T #: [id number] PRIMAR Y CARE PROVID ER: Ivania Lancaster DATE/T SO OF SERVIC E: 0 4 0917 : 1944 [place] LOCATI ON: ER ------ ------ --- APPROV ED REPORT ------ ------ -- Exam: Restin g ECG Reason for Exam: sob Lenorechayo anaya Locati on: E HR:79 bpm ECG Measur ements Heart Rate 79 AXIS [place] 134 P 82 QRSd 72 QRS 52 [...] ------ - E-Sign Date: E-Sign Time: [id number] [facility] [address] [place], [address] 07/30/2023 22:26:49 07/29/19 24 07/29/2023 elect jani bolden am No observ ation record ed. [email or web address] Not Available 2023 22:58:55 07/29/19 24 07/29/2023 x-ray imagi pema anaya Name: Jaspal Elizondo Unit #: [id number] Loc: ER Debora De Souza er: Bakari Olea M.D. Accdaniel t #: [id number] Status : REG ER Primar y Care [facility] er: TonnyIvania Date of Exam: Sex: F Admiss ion [...] REPOSI TORY: RADIAT ION DOSE DELIVE RED: Lalitha reynolds By: Bakari Olea M.D. CC: ------ ------ [...] at the addres s above. Thank- you. [facility] [address] [place], [address] 07/30/2023 22:26:49 07/29/19 24 07/29/2023 CT imagi ng repor t Patien t Name: Jaspal Elizondo Unit #: [id number] Loc: ER Orderi ng Provid er: Bakari Olea M.D. Accoun t #: [id number] Status : REG ER Primar [...] facili ty are submit erick to the [facility] al Radiol ogy Data Regist ry (NRDR) Dose Index Regist ry (DIR) with the [place] of Radiol ogy (ACR). RADIAT ION OPTIMI ZATION : [facility] CT [facility] use at least one of these dose optimi zation techni ques: automa erick exposu re contro l; mA and/or kV adjust ment per patien t size (inclu jareth target ed exams where dose is matche d to clinic al indica tion); or iterat pavithra recons tructi on. 3-0 016: Total DLP = 0.00 mGy-cm Ordere d By: Bakari Olea M.D. CC: ------ ------ ------ ------ ------ ------ ------ ------ ------ ------ ------ ------ ---- Dictat ed By: Rudy Rosario 1217 1217 Transc ribed By: Sebastian Ames 1217 This is privil eged, confid ential inform ation intend ed only for the provid er named. Any use or distri bution by any person other than this provid er is strict ly prohib ited. If you receiv e this report in error, please notify us immedi ately at and return the origin al report to us at the addres s above. Thank- you. [email or web address] [facility] [address], [place], [address] 07/30/2023 22:26:49 07/30/19 24 07/29/2023 ED visit note ED Visit Note ZHANNA Anaya NAME: Jaspal Elizondo UNIT #: [id number] ADMITT ING PROVID ER: Bakari Olea M.D. ACCOUN T #: [id number] PRIMAR Y CARE PROVID ER: Ivania Lancaster [...] jw. ACS possib le based on the patien t's age howeve r in the settin g [...] not the most likely diagno sis as patichayo t does not have calf pain or hemopt [...] ischem ia. 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 Please return to the [facility] ment if you develo p worsen ing shortn ess of breath have any falls or develo p any chest pain. Discha rge Data Discha rge Date/T so-TO BE ENTERE D AT DEPART URE: 12:42 POCUS Exam (ED) Limite d Pb c Exam DATE OF EXAM: TIME OF EXAM: 09:44 [facility] ER THAT PERFOR MED THE STUDY: Bakari [...] right anteri or, left anteri or, right educational/development assistant ior and left educational/development assistant ior PERTIN ENT FINDIN GS/IMP RESSIO N: [...] at the addres s above. Thank you. [email or web address] [facility] [address], [place], [address] 07/30/2023 22:26:48 08/04/19 24 07/29/2023 karli bolden am EKG ZHANNA Anaya NAME: Jaspal Elizondo UNIT #: [id number] ORDERI NG PROVID ER: Bakari Olea M.D. ACCOUN T #: [id number] PRIMAR Y CARE PROVID ER: Ivania Lancaster DATE/T SO OF SERVIC E: 0 4 0917 : 1944 PER[place] LOCATI ON: ER ------ ------ --- APPROV ED REPORT ------ ------ -- Exam: Restin g ECG Reason for Exam: sob Zhanna anaya Locati on: E HR:79 bpm ECG Measur ements Heart Rate 79 AXIS [place] 134 P 82 QRSd 72 QRS 52 [...] ------ - E-Sign Date: E-Sign Time: 934 ------ ------ --- ADDEND UM APPROV ED REPORT ------ ------ -- Exam: Restin g ECG Reason for Exam: sob Patien t Locati on: E HR:79 bpm ECG Measur ements Heart Rate 79 AXIS [place] 134 P 82 QRSd 72 QRS 52 [...] ly signed by: [id number] Cosign ed by: [email or web address] [facility] [address], [place], [address] 08/07/2023 11:35:30 08/04/19 24 07/29/2023 trans -thor acic echoc ardio gram (TTE) (PROC ) No observ ation record ed. Not Available 2023 14:34:47 03/03/20 24 03/03/2024 bone densi tomet ry imagi ng rpt Patien t Name: Jaspal Elizondo Unit #: [id number] Loc: DI Orderi ng Provid er: Tonny Ivania Herrera Accoun t #: [id number] Status : REG CLI Primar y [...] t on the prior chest x-ray from 2017. The thorac ic verteb ral bodies are [...] a 20.5 percen t decrea se from 2016. IMPRES DICK: Osteop orosis of the hip [...] at the addres s above. Thank- you. [address] [place], [address] 03/14/2024 16:55:45 03/03/20 24 03/03/2024 bone densi ty No observ ation record ed. [email or web address] [facility] (Radiology) [address] [place] [address] [place], [address], 03/03/2024 16:37:30 04/11/20 24 07/02/2023 imagi ng/di agnos tic resul t No observ ation record ed. [email or web address] Not Available 04/11 03:58:12 04/11/20 24 08/09/2019 valarie ESPINAL No observ ation record ed. [email or web address] Not Available 04/11 03:58:43 Result Notes None recorded. 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 923141668 Active 2015 [facility] 4 11:52:36 Sensorin eural hearing loss 27243643 Active 2015 [facility] 4 11:54:31 Hypothyr oidism 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 Active 2015 [facility] 4 11:49:27 Idiopath ic scoliosi s 150007597 Active 2015 Problem Code: M41.20; Problem Code Type: ICD-10; [address], [facility] [address] , [facility] 4 14:14:56 Senile osteopor osis 88210780 Active 2015 Problem Code: M81.0; Problem Code Type: ICD-10; [address], [facility] [address] , [facility] 4 14:14:42 Sciatica 66660738 Active 2015 Problem Code: M54.30; Problem Code Type: ICD-10; [address], [facility] [address] , [facility] 4 14:14:44 Major depressi on, single episode 18767320 Active 2015 Problem Code: F32.9; Problem Code Type: ICD-10; [address], [place] [address] , [facility] 4 14:14:54 Arthropa thy 249457211 Active 2015 Problem Code: M12.9; Problem Code Type: ICD-10; [address], [facility] [address] , [facility] 4 14:14:59 Acute upper respirat ory infectio n 59304382 Completed 201609/15/2016 Problem Code: J06.9; Problem Code Type: ICD-10; Not Available [facility] 3 05:18:19 Auditory hallucin ations 29606654 Active 2016 Tia Hugo null, [facility]. 4 11:52:16 Schizoaf fective disorder 74722933 Active 2016 Problem Code: F25.9; Problem Code Type: ICD-10; [address], [facility] [address] , [facility] 3 11:51:45 Transien t cerebral ischemia 835614223 Active 2018 Tia Hugo null, [facility]. 4 11:50:19 [facility] 036068742 Active 2018 Tia Hugo null, [facility] 4 11:56:33 [facility] 946767160 Active 2019 Problem Code: R63.6; Problem Code Type: ICD-10; [address], [place], [address] , [facility] 4 14:14:40 Amnesia 73650383 Active 2019 Tia Hugo martha, [facility] 4 11:56:50 Pain in thoracic spine 513983798 Completed 201503/19/2017 Problem Code: M54.9; Problem Code Type: ICD-10; Not Available [facility] 3 05:18:20 Abnormal weight loss 370220534 Completed 201601/12/2018 Problem Code: R63.4; Problem Code Type: ICD-10; Not Available [facility] 3 05:18:20 Urinary tract infectio us disease 57840577 Completed 201805/09/2019 Problem Code: N39.0; Problem Code Type: ICD-10; Not Available [facility] 3 05:18:20 Cognitiv e deficit in communic ation skills 30744430916 9106 Completed 201506/13/2016 Problem Code: R41.841; Problem Code Type: ICD-10; Not Available [facility] 3 05:18:20 Screenin g for malignan t neoplasm of breast Completed 201608/02/2019 Problem Code: Z12.39; Problem Code Type: ICD-10; Not Available [facility] 3 05:18:20 Screenin g for malignan t neoplasm of colon Completed 201708/02/2019 Problem Code: Z12.11; Problem Code Type: ICD-10; Not Available [facility] 3 05:18:20 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 222939113 Completed 201504/22/2023 Problem Code: I69.328; Problem Code Type: ICD-10; Not Available [facility] 3 05:18:20 General unsteadi ness 954491777 Completed 201503/24/2017 Problem Code: R26.81; Problem Code Type: ICD-10; Not Available [facility] 3 05:18:21 Auditory hallucin ations 07240391 Completed 201403/24/2017 Problem Code: R44.0; Problem Code Type: ICD-10; Estelita Arias null, [facility] 4 11:52:16 Screenin g for disorder Completed 201805/09/2019 Problem Code: Z13.89; Problem Code Type: ICD-10; Not Available [facility] 3 05:18:21 Stool finding 297361467 Completed 201503/19/2017 Problem Code: R19.5; Problem Code Type: ICD-10; Not Available [facility] 3 05:18:21 Pain in left lower limb 710650734 Completed 201503/19/2017 Problem Code: M79.605; Problem Code Type: ICD-10; Not Available [facility] 3 05:18:21 Gastroes ophageal reflux disease without esophagi tis 061042522 Active 2022 TISHA MARIE RN null, [facility] 3 15:14:39 Nocturia 325064342 Active [address], [facility] [address] , [facility] 4 14:14:51 Urge incontin ence of urine 37020018 Active [address], [facility] [address] , [facility]. 4 14:14:38 Onychomy cosis of toenails 812498686 Active [address], [facility] [address] , [facility]. 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 sees [facility] neurosur anjum. planned MRI repeat for manageme nt January [address], [place], [address] , [facility] 11:18:57 Low back pain 882740634 Active [address], [place], [address] , [facility] 4 11:16:28 Unsteady when walking 44150042 Active [address], [facility] [address] , [facility] 4 11:16:42 Increase d frequenc y of urinatio n 914122097 Active [address], [place], [address] , [facility] 12:57:41 Notes:Some problems listed i n Document: #[id number] could not be added to this patient's chart. Please review this document and add these problems to the patient's chart manually as needed. Problem Notes None recorded. Procedures Surgical History None recorded. Imaging Results Imaging Date Name Status LastModified by Organization Details LastModified Time 12/02/2022 MRI, lumbar spine, w/wo contrast completed Information not available 06/24/2023 19:58:44 07/02/2023 electrocardiogram completed [email or web address] [address] [place], [address] 07/02/2023 15:48:08 07/02/2023 CT imaging report completed [email or web address] [address] [place], [address] 07/02/2023 15:48:09 07/02/2023 electrocardiogram completed [email or web address] [address] [place], [address] 07/02/2023 15:48:08 07/02/2023 ED visit note completed [email or web address] [address], [address] 07/03/2023 22:25:15 07/03/2023 mental health crisis note completed [address] [place], [address] 07/07/2023 13:32:02 07/29/2023 electrocardiogram completed [email or web address] [address] [place], [address] 07/30/2023 22:26:49 07/29/2023 electrocardiogram completed [email or web address] Informa tion not available 07/30/2023 22:58:55 07/29/2023 x-ray imaging report completed [email or web address] [address] [place], [address] 07/30/2023 22:26:49 07/29/2023 CT imaging report completed [email or web address] [address] [place], [address] 07/30/2023 22:26:49 07/29/2023 ED visit note completed [address] [place], [address] 07/30/2023 22:26:48 07/29/2023 electrocardiogram completed [email or web address] [address] [place], [address] 08/07/2023 11:35:30 07/29/2023 trans-thoracic echocardiogram (TTE) (PROC) completed Information not available 08/11/2023 14:34:47 03/03/2024 bone densitometry imaging rpt completed [address] [place], [address] 03/14/2024 16:55:45 03/03/2024 bone density completed [email or web address] [facility] (Radiology) [address] [facility] [address] [place], [address], 03/03/2024 16:37:30 07/02/2023 imaging/diagnostic result completed Information [...] 15 mg tablet,ex tended release 24 hr TAKE ONE TABLET BY MOUTH EVERY DAY active Not Available Not Available No t Available oxybutyni n chloride ER 10 mg [...] daily prescrib ed by Dr. Tere su ([facility]) 07/09 completed Not Available Not Available Not Available risperido ne 1 mg tablet TAKE ONE TABLET BY MOUTH AT BEDTIME active Not Available Not Available No t Available doxycycli ne hyclate 100 mg tablet TAKE ONE TABLET BY MOUTH TWICE A DAY 06/16 completed Not Available Not Available Not Available risperido ne 0.5 mg tablet Take 1 tablet by mouth every night with 0.25mg tablet 02/10 completed changed by [facility] provider Not Available Not Available [...] TAKE 1 TABLET BY MOUTH EVERY DAY 2024 active Not Available Not Available Not Avai lable omeprazol e 20 mg tablet,de layed release [...] Updated DateTime 3 162.56 cm 16.9 kg/m2 08022.7 7 g 98.2 [degF] 78 /min 14 /min 104 mm[Hg] 64 mm[Hg] TISHA MARIE RN [facility] 3 11:31:38 Date Recorded Body height Body mass index (BMI) Body weight Body temperature Heart rate Respiratory rate Systolic blood pressure Diastolic blood pressure Provider Name and Address Organization Details Last Updated DateTime 4 162.56 cm 16.3 kg/m2 25921.2 8 g 98.2 [degF] 76 /min 14 /min 92 mm[Hg] 50 mm[Hg] TISHA MARIE RN [facility] 4 13:51:53 Date Recorded Body height Body mass index (BMI) Body weight Body temperature Heart rate Respiratory rate Systolic blood pressure Diastolic blood pressure Provider Name and Address Organization Details Last Updated DateTime 4 162.56 cm 16.3 kg/m2 83787.5 6 g 98.2 [degF] 78 /min 16 /min 110 mm[Hg] 60 mm[Hg] TISHA MARIE RN [facility] 4 13:05:09 Date Recorded Body height Body mass index (BMI) Body weight Body temperature Oxygen saturation Oxygen saturation in Arterial blood by Pulse oximetry Heart rate Respiratory rate Systolic blood pressure Diastolic blood pressure Provider Name and Address Organization Details Last Updated DateTime 4 162.56 cm 15 kg/m2 95846.9 7 g 98.2 [degF] 98 % 98 % 76 /min 14 /min 140 mm[Hg] 64 mm[Hg] TISHA MARIE RN [facility] 4 12:48:36 Social History Question Answer Notes LastModified by [employer] ion Details LastModified Time Tobacco Smoking Status Never Smoker TISHA MARIE RN [facility], [facility] 06/16/2023 11:28:51 What Is Your Level Of Alcohol Consumption? None Information not available 06/16/2023 What Was The Date Of Your Most Recent Tobacco Screening? 08/16/2024 Information not available 08/16/2024 Do You Use Any Illicit Or Recreational [...] Tdap 3 completed TISHA MARIE RN null, [facility] 06/16/2023 17:19:44 Influenza, high-dose, trivalent, PF [address], [place], [address], [facility] 07/28/2024 12:32:14 Pneumococcal conjugate PCV20, polysaccharide [id number] conjugate, adjuvant, PF [address], [place], [address], [facility] 07/28/2024 12:32:14 Tdap 2 completed Not Available [facility] 06/05/2023 06:04:44 zoster live 3 completed Not Available [facility] 06/05/2023 06:04:44 Influenza, split virus, trivalent, preservative 6 completed Not Available [facility] 06/05/2023 06:04:44 Pneumococcal Conjugate, unspecified formulation 5 completed Not Available [facility] 06/05/2023 06:04:44 Influenza, split virus, quadrivalent, preservative 8 completed Not Available [facility] 06/05/2023 06:04:44 pneumococcal polysaccharide PPV23 1 completed Not Available [facility] 06/05/2023 06:04:44 influenza, unspecified formulation 9 completed Not Available [facility] 06/05/2023 06:04:45 SARS-COV-2 (COVID-19) vaccine, UNSPECIFIED 1 completed TISHA MARIE RN null, [facility] 05/13/2024 13:28:35 SARS-COV-2 (COVID-19) vaccine, UNSPECIFIED 1 completed TISHA MARIE RN null, [facility] 05/13/2024 13:28:39 influenza, unspecified formulation 0 completed SANJUANITA SPANGLER, [facility] 05/13/2024 13:28:57 Past Encounters Encounter ID Performer Location Encounter Start Date Encounter Closed Date Diagnosis/Indication Diagnosis SNOMED-CT Code Diagnosis ICD10 Code Diagnosis Note [id number] AD[address]N HUFF [facility] [address] [place] [address] 06/16/2023 11:04:49 06/16/2023 12:35:17 Anticoagulant therapy 981730110 Z79.01 history of TIA. continue low dose aspirin 81mg daily Hypothyroidism 27828481 E03.9 TSH today. continue 88mcg levothyrox ine for now Schizoaffe ctive disorder 99844607 F25.9 continue current dosing of quetiapine 25mg at bedtime and risperidon e 0.25mg at bedtime. Referral sent to [facility] for psychiatri st for medication and condition management Transient cerebral ischemia 890477242 G45.9 continue baby aspirin daily. 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 being managed through [facility]. 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 She will follow up for management of chronic conditions in 3 months Gastroesop hageal reflux disease 999700203 K21.9 continue omeprazole 20mg daily Osteoporosis 50255550 M8 5.88 last bone density was in 2016. reordered bone density scan. Has been on alendronat e for over 5 years. if she is considered high risk for fracture (T score below -3.5) then we will continue for 10 years, if not, could potentiall y stop this. Bone density screening first. continue vitamin D and calcium Dysuria 28179495 R30.0 urine dip today for pain with urination. no true indication of infection but did not have enough urine for send out. will have her drop off urine sample Low back pain 541000476 M54.50 chronic. takes OTC ibuprofen or tylenol. sees [facility] neurosurge ry for lumbar spine tumor Bilateral hearing loss 08222183 H91.93 referral to audiologis t in [facility] in order to get bilateral hearing aids again. Administra tion of diphtheria, pertussis, and tetanus vaccine 317911519 Z23 [id number] [facility] [address] [place] [address] 11/12/2023 12:49:40 11/12/2023 15:02:22 Schizoaffective disorder 35762284 F25.9 Continue on current dosing of quetiapine and Risperdal. Sending referral to get re-establi shed at [facility] as you do need a psychiatri for management of schizoaffe ctive disorder not just a counselor. Not sure why this was not done initially but will resend referral. Nocturia 525160519 R35.1 Urine dipstick normal. Kidney function normal. We will see if oxybutynin ER 5 mg once daily helps with this. May need to go up on dosing if not that helpful at 5 mg. Hypothyroidism 15608292 E03.9 tsh today, 75mcg of levothyrox ine daily currently Urge incon tinence of urine 05724405 N39.41 discussed starting oxybutynin ER once nightly if kidney function normal kidney function and urine dip normal. start oxybutynin 5mg XR once daily and follow up in office in 3 months, sooner if concerns. Also will try to send an order for [facility] for medium size pull-ups through [facility] for 4-5 pull ups in a 24-hour period for urge incontinen ce. Sensorineu ral hearing loss 47235678 H90.5 no longer audiologis t at [facility]. sending referral to [facility] for re-testing and hearing aid assessment [id number] ADÁN HUFF [facility] [address] [place] [address] 02/11/2024 12:45:08 02/11/2024 14:06:48 Hypothyroidism 60591431 E03.9 Recheck TSH and free T4. Currently at 100 mcg dosing. Previous to that was at 75 mcg. Osteoporosis 23846026 M8 5.88 last bone density was in 2016. reordered bone density scan. Has been on alendronat e for over 5 years. if she is considered high risk for fracture (T score below -3.5) then we will continue for 10 years, if not, could potentiall y stop this. Bone density screening first. continue vitamin D and calcium. Has scoliosis and Urge incon tinence of urine 66229043 N39.41 kidney function and urine dip normal at last visit in October . started oxybutynin 5mg XR once daily and helpful, will recheck kidney function now on it and if ok will increase to 10mg XR daily. Also will try to send an order again for DME for medium size pull-ups through [facility] for 4-5 pull ups in a 24-hour period for urge incontinen ce . advised daughter to call them directly if she doesn't hear in a week. last referral/o rder sent in October and they didn't hear back from [facility] to[facility] 128358956 B35.1 Toenails are too thick for cutting by patient's daughter. Will send referral for toenail clipping and management through podiatry [facility] Schizoaffe ctive disorder 32960261 F25.9 Continue on current dosing of quetiapine 25 mg at bedtime. And risperidon e 0.25mg (3 tablets at bedtime). 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 being managed through [facility] neurolog[facility]. 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 recheck today Nocturia 347358617 R35.1 continues at least twice nightly. will recheck kidney function and also urine dip today and increase oxybutynin to 15mg XR. advised can try taking at night if better. Administra tion of influenza vaccine 17693971 Z23 high dose influenza vaccine given today Urge incon tinence of urine 66528442 N39.41 increase oxybutynin to 15mg XR once daily. see if more helpful. wll check on [facility] order again as it has now been over 6 months since sending 2 orders to them. daughter is contact and hasn't heard from them. Also will try to send an order again for DME for medium size pull-ups through [facility] for 4-5 pull ups in a 24-hour period for urge incontinen ce . advised daughter to call them directly if she doesn't hear in a week. last referral/o rder sent in October and they didn't hear back from company Schizoaffe ctive disorder 75049424 F25.9 Continue to see [facility] for psychiatri c management . Continue on current dosing of quetiapine 25 mg at bedtime. And risperidon e 0.25mg (3 tablets at bedtime). Increased frequency of urination 353989245 R35.0 unable to void in office today; will send lab orders to hospital if daughter agrees to bring her there Gastroesop hageal reflux disease without esophagitis 949207830 K21.9 continue omeprazole 20mg daily. gets heartburn if stops. has tried weaning off. recheck kidney function today Administra tion of pneumococcal vaccine 29031384 Z23 prevnar 20 given today Health Concerns Section Related Observation LastModified by Organization Detai ls LastModified Time None Recorded Concern Status LastModified by Organization Details LastModified Time None Recorded Advance Directives Directive None Recorded Payers Encounter Date Sequence Insurance Name Policy Number Policy Murray Covered Member ID Murray Member ID Guarantor Name 06/16/2023 1 [place] [employer] Mayra Elizondo [id number] Mayra Elizondo 06/16/2023 2 [facility] (MEDICAID) Mayra Elizondo [id number] Mayra Elizondo 11/12/2023 1 [place] [employer] [employer] Mayra Elizondo [id number] Mayra Elizondo 11/12/2023 2 [facility] (MEDICAID) Mayra Elizondo [id number] Mayra Elizondo 02/11/2024 1 [place] [facility] Mayra Elizondo [id number] Mayra Elizondo 02/11/2024 2 [facility] (MEDICAID) Mayra Elizondo [id number] Mayra Elizondo 05/13/2024 1 [place] Mayra Elizondo [id number] Mayra Elizondo 05/13/2024 2 [facility] (MEDICAID) Mayra Elizondo [id number] Mayra Elizondo Notes Date Note Type Note Provider Name and Address Organization Details Recorded Time 06/16/2023 text/html Generic HPI TemplateReported bypatient.Notes:Mayra is a pleasant 77 year old female here today for an [facility] care get acquainted visit with new PCP. 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 Recent [...] Binta. This is her power of attorney lawyer. Mayra has a developmental delay as well as dementia. These diagnoses came from her last office visit with primary care provider in [place]. I do not have any mental health visit notes from past mental health facilities.does have history of osteoporosis and currently on [...] is related to urine or vaginal irritation. [address], [place], [address], [facility]. 06/16/2023 14:42:48 11/12/2023 text/html [facility] daughter, Binta, who is also her caregiver. Was seen last to establish care with me 06/16/2023. At that time I had placed a referral to audiology for sensorineural hearing loss to get potential new hearing aids. Unfortunately [facility] lost their necktie maker and they would like referral to a different necktie maker for assessment. Discussed today that Mayra [...] office visit had sent referral back to [facility] to get reestablished with psychiatrist that she has not seen them for quite some time. does have diagnosis of schizoaffective disorder.Currently taking only quetiapine 25 mg nightly as well as risperidone 0.25 mg. Patient's daughter feels that this could be increased. Issues with sleeping still. But again she is getting up multiple times to pee in the night.Apparently [facility] only establish her with a counselor and not a psychiatrist so they never got establishedwith a psychiatric prescriber. [address], [place], [address], [facility], [facility]. 11/25/2023 14:53:11 02/11/2024 text/html [facility] 78 [facility] female here today for a 3 month follow up: hypothyroidism (recheck TSH today), psych referral (re-sent 11/11, seeing Dr. Albert now), nocturia, audiology referral (sent 11/11, pt daughter Binta says they never called from [facility]).Did not get DEXA scan scheduled - will need new order today.???Daughter reports thatAnna is unsteady with her gait even though she is completing physical therapy for her lower back pain. 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 Continues to have back pain and also osteoporosis.Continues to see [facility] neurosurgery for management and follow-up MRI scheduled January or February for lower back. Reports that the oxybutynin 5 mg has helped with urinary urge incontinence but they never received DME order for incontinence pull-ups. We did order these back in October. Will order again for family. Says they never heard from the [facility] [employer]. Daughter says she is doing [...] changes, edema [address], [place], [address], [facility], [facility]. 02/15/2024 11:26:46 05/13/2024 text/html Mayra is a [facility] nt 79 year old female here today [...] mentions that she had an appointment at [facility], but they did not book her [...] urination, despite taking oxybutynin in the morning. IVANIA LANCASTER, PROCUREMENT INSPECTOR [address], [place], [address], [facility]. 07/28/2024 12:36:44 OBGyn Episode No OBEpisode recorded.
--- OUTSIDE RECORDS SUMMARY | 2024-09-02 18:30 | XMS_ITS | Encounter Summary ---
Author Organization [facility] Address [address] [place] [address] Care Team Providers Care Limited Radiology Technician Name Role Phone Unavailable Primary Care Provider Unavailabl e Encounter Details Date Type Department Care Team (Latest Contact Info) Description 06/30/2001 14:24 EST Hospital Encounter [facility] - Other [address] [place] [address] Raissa Rashid NP Unknown, Provider, MD Discharge [...] ? SANDRA ELIZONDOA ? Accession #: ? [id number] : ? 1945 (Age: 55) ??F ?Collect Date: ? 06/30/2001 Location: ? [facility] ? Receive Date: ? 07/02/2001 Provider: ?RAISSA RASHID DRY HEAT CABINET ATTENDANT Copy to: ? Specimen/Source: ?ThinPrep Pap Test, [...] TIA PINEDA 06/30/2001 07/02/2001 us Raissa Rashid SOURCE INSPECTOR PATHOLOGY ORDERABLES Final Re sult TIA PINEDA [address] [place] [address] documented in this encounter Visit Diagnoses Not on filedocumented in this encounter
--- OUTSIDE RECORDS SUMMARY | 2024-09-02 18:30 | XMS_ITS | Encounter Summary ---
Author Organization [facility] Address [address] [place] [address] Care Team Providers Care Commercial Lawn Specialist Name Role Phone Unavailable Primary Care Provider Unavailabl e Encounter Details Date Type Department Care Team (Late st Contact Info) Description 04/15/2005 17:30 EDT Hospital Encounter [facility] - Other [address] [place] [address] Raissa Jones, VANDANA Social History Tobacco Use [...] BLES Final Result [facility] [address] [place] [address] documented in this encounter Visit Diagnoses Not on filedocumented in this encounter
--- OUTSIDE RECORDS SUMMARY | 2024-09-02 18:30 | XMS_ITS | Encounter Summary ---
Author Organization [facility] Address [address] [place] [address] Care Team Providers Care Butcher Apprentice Name Role Phone Unavailable Primary Care Provider Unavailabl e Encounter Details Date Type Department Care Team (Latest Contact Info) Description 05/31/1999 16:36 EST Hospital Encounter [facility] - Other [address] [place] [address] Raissa Jones, VANDANA Unknown, Provider, MD Discharge [...]
--- OUTSIDE RECORDS SUMMARY | 2024-09-02 18:30 | XMS_ITS | Encounter Summary ---
Author Organization [facility] Address [address] [place] [address] Care Team Providers Care Utility Tender Carding Name Role Phone Unavailable Primary Care Provider Unavailabl e Encounter Details Date Type Department Care Team (Latest Contact Info) Description 07/15/2000 14:10 EST Hospital Encounter [facility] - Other [address] [place] [address] Raissa Rashid NP Unknown, Provider, MD Discharge [...] ? LOLITA ELIZONDO ? Accession #: ? [id number] : ? 1945 (Age: 55) ??F ?Collect Date: ? 07/15/2000 Location: ? [facility] ? Receive Date: ? 07/17/2000 Provider: ?RAISSA RASHID PLUGGER MAN Copy to: ? Specimen/Source: ?ThinPrep Pap Test, [...] TIA PINEDA 07/15/2000 07/17/2000 us Raissa Rashid SNACK STEWARDESS PATHOLOGY ORDERABLES Final Re sult [facility] [address] [place] [address] documented in this encounter Visit Diagnoses Not on filedocumented in this encounter
--- OUTSIDE RECORDS SUMMARY | 2024-09-02 18:30 | XMS_ITS | Encounter Summary ---
Author Organization [facility] Address [address] [place] [address] Care Team Providers Care Computer Systems Security Administrator Name Role Phone Unavailable Primary Care Provider Unavailabl e Encounter Details Date Type Department Care Team (Latest Contact Info) Description 04/17/2004 12:14 EDT Hospital Encounter [facility] - Other [address] [place] [address] Raissa Jones, FACILITY SPECIALIST Discharge Disposition: Auto Discharge Social History Tobacco [...]
--- OUTSIDE RECORDS SUMMARY | 2024-09-02 18:30 | XMS_ITS | Encounter Summary ---
Author Organization [facility] Address [address] [place] [address] Care Team Providers Care Inspector Floor Name Role Phone Unavailable Primary Care Provider Unavailabl e Encounter Details Date Type Department Care Team (Late st Contact Info) Description 04/17/2004 Results Only [facility] conversion [address] [place] [address] Raissa Rashid NP Social History Tobacco Use [...] ? LOLITA ELIZONDO ? Accession #: ? [id number] : ? 1945 (Age: 58) ??F ?Collect Date: ? 04/17/2004 Location: ? [facility] ? Receive Date: ? 04/18/2004 Provider: ?RAISSA RASHID SUPERVISOR CELLARS Copy to: ? Specimen/Source: ?ThinPrep Pap Test, [...] TIA PINEDA 04/17/2004 04/18/2004 us Raissa Rashid GAS MAKER PATHOLOGY ORDERABLES Final Re sult [facility] [address] [place] [address] documented in this encounter Visit Diagnoses Not on filedocumented in this encounter
--- OUTSIDE RECORDS SUMMARY | 2024-09-02 18:30 | XMS_ITS | Encounter Summary ---
Author Organization [facility] Address [address] [place] [address] Care Team Providers Care Animal Skinner Name Role Phone Unavailable Primary Care Provider Unavailabl e Encounter Details Date Type Department Care Team (Late st Contact Info) Description 04/29/2004 Results Only [facility] [address] [place] [address] Raissa Rashid NP Social History Tobacco Use [...] ? LOLITA ELIZONDO ? Accession #: ? [id number] : ? 1945 (Age: 58) ??F ?Collect Date: ? 04/29/2004 Location: ? [facility] ? Receive Date: ? 04/30/2004 Provider: ?RAISSA RASHID ASSISTANT GOLF PROFESSIONAL Copy to: ? Specimen/Source: ?ThinPrep Pap [...] TIA PINEDA 04/29/2004 04/30/2004 us Raissa Rashid TERRAZZO WORKER APPRENTICE PATHOLOGY ORDERABLES Final Re sult TIA PINEDA [address] [place] [address] documented in this encounter Visit Diagnoses Not on filedocumented in this encounter
--- OUTSIDE RECORDS SUMMARY | 2024-09-02 18:30 | XMS_ITS | Encounter Summary ---
Author Organization [facility] Address [address] [place] [address] Care Team Providers Care Cover Machine Operator Name Role Phone Unavailable Primary Care Provider Unavailabl e Encounter Details Date Type Department Care Team (Latest Contact Info) Description 09/30/2002 14:19 EST Hospital Encounter [facility] - Other [address] [place] [address] Raissa Rashid NP Unknown, Provider, MD Discharge [...] ? LOLITA ELIZONDO ? Accession #: ? [id number] : ? 1945 (Age: 57) ??F ?Collect Date: ? 09/30/2002 Location: ? [facility] ? Receive Date: ? 10/03/2002 Provider: ?RAISSA RASHID SURVEILLANCE OFFICER Copy to: ? Specimen/Source: ?ThinPrep Pap [...] TIA PINEDA 09/30/2002 10/03/2002 us Raissa Rashid CABLE LAYER PATHOLOGY ORDERABLES Final Re sult TIA [facility]EDA [address] [place] [address] documented in this encounter Visit Diagnoses Not on filedocumented in this encounter
[2024-09-02] MEDS: Acetaminophen 500 MG TAB PO (18:39)
[2024-09-02 18:42] LABS: HCT 38.7 % (36.0-46.0); HGB 12.5 g/dL (11.2-15.7); MCH 30.7 pg (27.0-33.0); MCHC 32.3 % (32.0-36.0); MCV 95 fL (80-95); MPV 9.9 fL (8.0-11.0); Platelet Count 163 10^3/uL (130-400); RBC 4.07 10^6/uL (3.93-5.22); RDW 13.2 % (11.7-14.6); RDW-SD 46.2 fL; WBC 5.15 10^3/uL (4.4-10.8)
[2024-09-02 18:45] LABS: Lactate 2.3 mmol/L (<or=2.0)
[2024-09-02 19:01] LABS: ALT 55 U/L (14-59); AST 90 U/L (15-37); Absolute Basophil Count 0.05 10^3/uL (0.0-0.2); Absolute Lymphocyte Count 0.26 10^3/uL (1.2-3.4); Absolute Monocyte Count 0.31 10^3/uL (0.1-0.8); Absolute Neutrophil Count 4.38 10^3/uL (1.2-6.7); Alkaline Phosphatase 100 U/L (46-116); Anion Gap 8.5 mmol/L (3-11); Atypical Lymphocytes % 1 %; BUN 32 mg/dL (7-18); Bands % 18 %; Bilirubin, Total 0.57 mg/dL (0.2-1.0); CO2 28.5 mmol/L (21.0-32.0); CREATININE 1.4 mg/dL (0.55-1.02); Calcium 8.4 mg/dL (8.5-10.1); Chloride 99 mmol/L (98-107); Diff Comment Manual Differential; Estimated GFR 38.03 (mL/min/1.73m2); Glucose 249 mg/dL (74-106); Metamyelocytes % 3; Poikilocytes 1+; Potassium 3.5 mmol/L (3.5-5.1); Sodium 136 mmol/L (136-145); Total Protein 6.2 g/dL (6.4-8.2)
[2024-09-02 19:08] LABS: Bilirubin Negative (Negative); Blood Moderate (Negative); Clarity Sl Cloudy (Clear); Glucose 100 mg/dL (Negative); Ketones Negative (Negative); Leukocyte Esterase Negative (Negative); Nitrite Negative (Negative); pH 5.5 (5-8)
[2024-09-02 19:15] LABS: Bacteria Many HPF (Negative); C & S Indicated? No; Crystals Negative HPF (Negative); Epithelial Cells Moderate HPF (Negative); Mucus Negative (Negative)
[2024-09-02 19:26] VITALS: RESP 18
[2024-09-02] MEDS: Normal Saline 250 ML 500 ML IV (19:28)
--- NOTE | 2024-09-02 19:56 | DI.VRAD_ITS ---
PROCEDURE INFORMATION: Exam: CT Head Without Contrast Exam date and time: 09/02/2024 7:35 PM Age: 79 years old Clinical indication: Other: Altered, fall TECHNIQUE: Imaging protocol: Computed tomography of the head without contrast. COMPARISON: CT HEAD WO 07/02/2023 11:04 AM FINDINGS: Brain: Prominence of cerebral and cerebellar sulci reflects diffuse atrophy. Poorly marginated hypodensities scattered throughout the deep and periventricular white matter of both cerebral hemispheres are consistent with underlying microvascular ischemic changes. There is no evidence of acute transcortical infarction or recent intracranial hemorrhage. Cerebral ventricles: No midline shift or hydrocephalus. Paranasal sinuses: Left maxilloethmoidal mucosal disease is evident. Mastoid air cells: Grossly clear bilaterally. Bones: Bony calvarium and skull base are grossly intact and no acute fractures are detected. Soft tissues: Unremarkable. IMPRESSION: Cerebral and cerebellar atrophy with underlying microvascular ischemic changes again identified. There is no evidence of acute transcortical infarction, recent intracranial hemorrhage or hydrocephalus. No acute intracranial process is detected. Dictated and Authenticated by: Forrest Henry MD. Orderin Kenia Villegas MD
--- NOTE | 2024-09-02 19:58 | DI.VRAD_ITS ---
PROCEDURE INFORMATION: Exam: XR Chest Exam date and time: 09/02/2024 7:43 PM Age: 79 years old Clinical indication: Other: Sepsis TECHNIQUE: Imaging protocol: Radiologic exam of the chest. Views: 1 view. COMPARISON: CT CHEST PE CTA 07/29/2023 11:49 AM FINDINGS: Lungs: New parenchymal mass or consolidation is detected. Pleural spaces: No pneumothorax or pleural effusion is seen. Heart/Mediastinum: Heart size is normal and vessel margins are sharply defined. Bones/joints: S shaped thoracolumbar scoliosis again evident with no acute fractures detected. IMPRESSION: No acute cardiopulmonary process is detected. Dictated and Authenticated by: Forrest Henry MD. Orderin Kenia Villegas MD
[2024-09-02] MEDS: CEFEPIME 2 GM in Normal Saline 100 ML IVPB (20:34)
--- NOTE | 2024-09-02 21:17 | W.PM.HP.N ---
Date of service: 09/02/24 Time of Service: 21:35 Assessment and Plan Assessment and plan (1) Severe sepsis: Status: Acute Assessment and plan: - Patient meets criteria for severe sepsis with a temperature of 103.2 ?F, pulse of 107, source of infection being presumed right lower lobe pneumonia (by my read), JANET with creatinine of 1.4 (baseline 1), and a lactic acid of 2.2 -Patient was started on vancomycin and cefepime in the emergency department will be continued -Follow-up repeat lactic acid -Follow-up a.m. CBC (2) CAP (community acquired pneumonia): Status: Acute Assessment and plan: - Likely source of infection as noted above (3) Influenza A: Status: Acute Assessment and plan: - Started on Tamiflu, will continue (4) JANET (acute kidney injury): Status: Acute Assessment and plan: - Secondary to severe sepsis as noted above -Follow-up a.m. BMP (5) Lactic acidosis: Status: Acute Assessment and plan: - Secondary to severe sepsis and community-acquired as noted above -Follow-up repeat lactic (6) Hypothyroidism: Status: Chronic Assessment and plan: - Continue home Synthroid (7) Schizoaffective disorder: Status: Acute Assessment and plan: - Continue home risperidone History of Present Illness History of Present Illness Chief Complaint: Confusion, fall Narrative: 79-year-old female with a past medical history of memory impairment who presents to the emergency department with her daughter due to concerns for increasing confusion. Patient's daughter states that she herself has been sick with the flu that she has noticed that her mother (the patient), has been more confused throughout the day, and that she fell at around 5 PM. The fall was unwitnessed and was noted the patient was unable to get up on her own. It was also noticed that the patient had developed a cough, but denied any fever, lightheadedness, dizziness, nausea vomiting or diarrhea. In the emergency department the patient was noted as being tachycardic with a heart rate of 107, febrile with a temperature of 103.2 ?F, but was otherwise normotensive and was saturating well on room air. CBC was unremarkable, but CMP showed a creatinine of 1.4 (baseline of 1), and a lactic acid was 2.2. Chest x-ray showed right lower lobe infiltrate. Patient was started on vancomycin and cefepime. At which time emergency room physician paged hospitalist for admission for patient with severe sepsis secondary to community-acquired pneumonia and flu a positive. Review of Systems All systems reviewed & are unremarkable except as noted in HPI and below PFSH All Active Problems (Updated 09/02/24 @ 21:35 by Bakari Aquino MD) Influenza A (Acute) Lactic acidosis (Acute) JANET (acute kidney injury) (Acute) CAP (community acquired pneumonia) (Acute) Severe sepsis (Acute) PVD (peripheral vascular disease) (Chronic) Pain in right foot (Acute) Pain in left foot (Acute) Nail dystrophy (Acute) Onychomycosis (Acute) Memory impairment (Acute) Underweight (Acute) Lack of coordination (Acute) Schizoaffective disorder (Acute) Auditory hallucinations (Acute) Developmental speech or language disorder (Acute) Depressive disorder (Chronic) Hypothyroidism (Chronic) Sciatica (Acute) Osteoporosis (Chronic) Idiopathic scoliosis (Acute) Sensorineural hearing loss (Acute) Osteochondropathy (Acute) TIA (transient ischemic attack) (Acute) Medical History Symptomatic menopausal or female climacteric states Arthropathy Social History Smoking/Tobacco Use Status: Never Smoking risk assessment performed?: Yes Alcohol Intake: never Drug use: Never Substance use type: does not use Housing: house Do you feel safe at home: Yes Do you feel safe in your relationship?: Yes Additional Social history: unable to assess privately Meds Allergies and Home Medications Allergies Allergy/AdvReac Type Severity Reaction Status Date / Time No Known Allergies Allergy Unverified 09/02/24 18:08 Home Medications ?Medication ?Instructions ?Recorded ?Confirmed ?Type acetaminophen 650 mg 650 mg PO PRN PRN 06/12/16 09/02/24 History tablet,extended release (Mapap Arthritis Pain) levalbuterol tartrate 45 2 puff inhalation Q4H WHILE AWAKE 04/14/17 09/02/24 History mcg/actuation aerosol inhaler (Xopenex HFA) levothyroxine 112 mcg tablet 75 mcg PO DAILY 11/09/18 09/02/24 History quetiapine 25 mg tablet 25 mg PO HS 11/09/18 09/02/24 History risperidone 0.25 mg tablet 0.25 mg PO BID 11/09/18 09/02/24 History (Risperdal) ketoconazole 2 % topical cream 1 applic topical DAILY 3 months 06/02/23 09/02/24 Rx #60 grams benzonatate 100 mg capsule 100 mg PO BID PRN #7 caps 07/29/23 09/02/24 Rx cetirizine 10 mg tablet 10 mg PO DAILY PRN #7 tabs 07/29/23 09/02/24 Rx aspirin 81 mg tablet,delayed 81 mg PO DAILY 09/02/24 09/02/24 History release calcium 600 mg (as 1 tab PO DAILY 09/02/24 09/02/24 History carbonate)-vitamin D3 10 mcg (400 unit) tablet omeprazole 20 mg capsule,delayed 20 mg PO DAILY 09/02/24 09/02/24 History release oxybutynin chloride 15 mg 15 mg PO DAILY 09/02/24 09/02/24 History tablet,extended release 24 hr risperidone 0.5 mg tablet 1 mg PO QHS 09/02/24 09/02/24 History (Risperdal) Exam Narrative Exam Narrative: Well-appearing older female laying in bed no acute distress, fatigued, but awakens to verbal stimuli, oriented to person only, heart regular rhythm, lungs clear to auscultation bilaterally, abdomen soft, nontender, nondistended Results Labs 09/02/24 18:30 09/02/24 18:30 Labs: Laboratory Results - last 24 hr 09/02/24 09/02/24 18:30 19:00 WBC 5.15 RBC 4.07 Hgb 12.5 Hct 38.7 MCV 95 MCH 30.7 MCHC 32.3 RDW 13.2 Plt Count 163 MPV 9.9 Immature Gran % See Differential Neutrophils % 67.0 Band Neutrophils % 18 Lymphocytes % 4.0 Atypical Lymphs % 1 Monocytes % 6.0 Eosinophils % 0.0 Basophils % 1.0 Metamyelocytes % 3 Nucleated RBC % 0.0 Absolute Neutrophils 4.38 Absolute Lymphocytes 0.26 L Absolute Monocytes 0.31 Absolute Eosinophils 0.00 Absolute Basophils 0.05 RBC Morphology See Below Poikilocytosis 1+ VBG Lactate 2.3 H* Sodium 136 Potassium 3.5 Chloride 99 Carbon Dioxide 28.5 Anion Gap 8.5 BUN 32 H Creatinine 1.4 H Est GFR (CKD-EPI 2020) 38.03 Glucose 249 H Calcium 8.4 L Total Bilirubin 0.57 AST 90 H ALT 55 Alkaline Phosphatase 100 Total Protein 6.2 L Albumin 3.0 L Urine Color Yellow Urine Clarity Sl Cloudy Urine pH 5.5 Ur Specific [place] 1.020 Urine Protein 100 H Urine Ketones Negative Urine Blood Moderate H Urine Nitrite Negative Urine Bilirubin Negative Urine Urobilinogen 1.0 H Ur Leukocyte Esterase Negative Urine RBC 3-5 H Urine WBC 3-5 Ur Epithelial Cells Moderate Urine Crystals Negative Urine Bacteria Many Urine Mucus Negative Ur Culture Indicated? No Urine Glucose 100 H Last Vital Signs Temp 103.2 F H 09/02/24 18:10 Pulse 107 H 09/02/24 18:10 Resp 18 09/02/24 19:26 BP 114/63 09/02/24 18:10 Pulse Ox 90 L 09/02/24 18:10 Time Spent Time spent with Patient: >75 minutes Time was spent: preparing to see the patient(eg.review tests), obtaining and/or reviewing separately otained hiistory, ordering medications,tests, procedures, referring, communicating with other health career technical education instructor, indepentently interpreting results, counseling the patient and care coordination
[2024-09-02 21:23] LABS: COVID-19 PCR Negative (Negative); Influenza A PCR Positive (Negative); Influenza B PCR Negative (Negative); RSV PCR Negative (Negative)
[2024-09-02 21:27] LABS: Source Nasopharynx
[2024-09-02 21:45] LABS: Lactate 0.6 mmol/L (<or=2.0)
[2024-09-02 22:20] VITALS: BP 114/71; PULSE 83; RESP 21; TEMP 37.7; O2SAT 95
--- NOTE | 2024-09-02 22:21 | W.PC.ACHO ---
Registration Status: Primary Language: Preferred Language: ED Information & Data Chief Complaint AMS/LOC 09/02/24 18:22 Chief Complaint AMS/LOC 09/02/24 18:06 Triage Note Daughter stated patient is 09/02/24 18:06 confused, sleeping a lot today and fell around 1700 today Medical / Surgical History (Last Reviewed 06/02/23 @ 14:12 by Sophia Guzmán DPM) Symptomatic menopausal or female climacteric states Arthropathy Most Recent Vital Signs Temperature 39.6 C H 09/02/24 18:10 Pulse 107 H 09/02/24 18:10 Respiratory Rate 18 09/02/24 19:26 Respiratory Effort Normal, Non-Labored 09/02/24 19:26 Respiratory Depth Normal 09/02/24 19:26 Respiratory Pattern Normal 09/02/24 19:26 Blood Pressure 114/63 09/02/24 18:10 Blood Pressure Position Sitting 09/02/24 18:10 Pulse Oximetry 90 L 09/02/24 18:10 Oxygen Delivery Method Room Air 09/02/24 18:10 Oxygen Flow Rate 0 09/02/24 18:10 Allergies No Known Allergies Allergy (Unverified 09/02/24 18:08) IV IV Catheter Type [Left Peripheral IV Antecubital] IV Catheter Gauge [Left 18 Antecubital] Diagnostics 09/02/24 09/02/24 09/02/24 Range/Units 21:42 20:41 19:00 WBC (4.4-10.8) 10^3/uL RBC (3.93-5.22) 10^6/uL Hgb (11.2-15.7) g/dL Hct (36.0-46.0) % MCV (80-95) fL MCH (27.0-33.0) pg MCHC (32.0-36.0) % RDW (11.7-14.6) % Plt Count (130-400) 10^3/uL MPV (8.0-11.0) fL Immature Gran % Neutrophils % % Band Neutrophils % % Lymphocytes % % Atypical Lymphs % % Monocytes % % Eosinophils % % Basophils % % Metamyelocytes % Nucleated RBC % (0.0-0.3) % Absolute Neutrophils (1.2-6.7) 10^3/uL Absolute Lymphocytes (1.2-3.4) 10^3/uL Absolute Monocytes (0.1-0.8) 10^3/uL Absolute Eosinophils (0.0-0.7) 10^3/uL Absolute Basophils (0.0-0.2) 10^3/uL RBC Morphology Poikilocytosis VBG Lactate 0.6 (<or=2.0) mmol/L Sodium (136-145) mmol/L Potassium (3.5-5.1) mmol/L Chloride (98-107) mmol/L Carbon Dioxide (21.0-32.0) mmol/L Anion Gap (3-11) mmol/L BUN (7-18) mg/dL Creatinine (0.55-1.02) mg/dL Est GFR (CKD-EPI 2020) (mL/min/1.73m2) Glucose (74-106) mg/dL Calcium (8.5-10.1) mg/dL Total Bilirubin (0.2-1.0) mg/dL AST (15-37) U/L ALT (14-59) U/L Alkaline Phosphatase (46-116) U/L Total Protein (6.4-8.2) g/dL Albumin (3.4-5.0) g/dL Urine Color Yellow (Yellow) Urine Clarity Sl Cloudy (Clear) Urine pH 5.5 (5-8) Ur Specific [place] 1.020 (1.005-1.025) Urine Protein 100 H (Neg-Trace) mg/dL Urine Ketones Negative (Negative) mg/dL Urine Blood Moderate H (Negative) Urine Nitrite Negative (Negative) Urine Bilirubin Negative (Negative) Urine Urobilinogen 1.0 H (Up to 0.2) mg/dL Ur Leukocyte Esterase Negative (Negative) Urine RBC 3-5 H (0-2) HPF Urine WBC 3-5 (0-5) HPF Ur Epithelial Cells Moderate (Negative) HPF Urine Crystals Negative (Negative) HPF Urine Bacteria Many (Negative) HPF Urine Mucus Negative (Negative) Ur Culture Indicated? No Urine Glucose 100 H (Negative) mg/dL COVID-19 Source Nasopharynx SARS-CoV-2 (PCR) Negative (Negative) Influenza Type A (PCR) Positive A (Negative) Influenza Type B (PCR) Negative (Negative) RSV (PCR) Negative (Negative) 09/02/24 Range/Units 18:30 WBC 5.15 (4.4-10.8) 10^3/uL RBC 4.07 (3.93-5.22) 10^6/uL Hgb 12.5 (11.2-15.7) g/dL Hct 38.7 (36.0-46.0) % MCV 95 (80-95) fL MCH 30.7 (27.0-33.0) pg MCHC 32.3 (32.0-36.0) % RDW 13.2 (11.7-14.6) % Plt Count 163 (130-400) 10^3/uL MPV 9.9 (8.0-11.0) fL Immature Gran % See Differential Neutrophils % 67.0 % Band Neutrophils % 18 % Lymphocytes % 4.0 % Atypical Lymphs % 1 % Monocytes % 6.0 % Eosinophils % 0.0 % Basophils % 1.0 % Metamyelocytes % 3 Nucleated RBC % 0.0 (0.0-0.3) % Absolute Neutrophils 4.38 (1.2-6.7) 10^3/uL Absolute Lymphocytes 0.26 L (1.2-3.4) 10^3/uL Absolute Monocytes 0.31 (0.1-0.8) 10^3/uL Absolute Eosinophils 0.00 (0.0-0.7) 10^3/uL Absolute Basophils 0.05 (0.0-0.2) 10^3/uL RBC Morphology See Below Poikilocytosis 1+ VBG Lactate 2.3 H* (<or=2.0) mmol/L Sodium 136 (136-145) mmol/L Potassium 3.5 (3.5-5.1) mmol/L Chloride 99 (98-107) mmol/L Carbon Dioxide 28.5 (21.0-32.0) mmol/L Anion Gap 8.5 (3-11) mmol/L BUN 32 H (7-18) mg/dL Creatinine 1.4 H (0.55-1.02) mg/dL Est GFR (CKD-EPI 2020) 38.03 (mL/min/1.73m2) Glucose 249 H (74-106) mg/dL Calcium 8.4 L (8.5-10.1) mg/dL Total Bilirubin 0.57 (0.2-1.0) mg/dL AST 90 H (15-37) U/L ALT 55 (14-59) U/L Alkaline Phosphatase 100 (46-116) U/L Total Protein 6.2 L (6.4-8.2) g/dL Albumin 3.0 L (3.4-5.0) g/dL Urine Color (Yellow) Urine Clarity (Clear) Urine pH (5-8) Ur Specific [place] (1.005-1.025) Urine Protein (Neg-Trace) mg/dL Urine Ketones (Negative) mg/dL Urine Blood (Negative) Urine Nitrite (Negative) Urine Bilirubin (Negative) Urine Urobilinogen (Up to 0.2) mg/dL Ur Leukocyte Esterase (Negative) Urine RBC (0-2) HPF Urine WBC (0-5) HPF Ur Epithelial Cells (Negative) HPF Urine Crystals (Negative) HPF Urine Bacteria (Negative) HPF Urine Mucus (Negative) Ur Culture Indicated? Urine Glucose (Negative) mg/dL COVID-19 Source SARS-CoV-2 (PCR) (Negative) Influenza Type A (PCR) (Negative) Influenza Type B (PCR) (Negative) RSV (PCR) (Negative) 09/02/24 19:11 Blood Culture - Pending Blood 09/02/24 18:45 Blood Culture - Pending Blood Intake and Output - 24 Hour Total 09/02/24 18:02 thru 09/02/24 21:16 Intake Total 350 Balance 350 Weight 38.555 kg Intake: IV 350 Falls Risk Assessment History of Falls No History 09/02/24 19:26 Contributing Factors Confusion 09/02/24 19:26 Ambulatory Aids Uses ambulatory device 09/02/24 19:26 Tubes/Lines None 09/02/24 19:26 Gait Evaluation W/any additional score 09/02/24 19:26 Cognition Cognitive impairment 09/02/24 19:26 Fall Total Score 53 09/02/24 19:26 Level of Risk High Risk 09/02/24 19:26 Problems (Last Reviewed 06/02/23 @ 14:12 by Sophia Guzmán DPM) Influenza A (Acute) Lactic acidosis (Acute) JANET (acute kidney injury) (Acute) CAP (community acquired pneumonia) (Acute) Severe sepsis (Acute) Schizoaffective disorder (Acute) Hypothyroidism (Chronic) v v v v v v v v v Sending and/or Receiving Nurses: Please use comment section below to note any information pertinent to the patient hand-off not included above. Information / Comments:No Report received from:Stephenie
[2024-09-02 22:44] VITALS: BP 117/70; PULSE 82; RESP 15; TEMP 37.4; O2SAT 95
[2024-09-03] MEDS: Levalbuterol HFA 15 GM INH 2 PUFF IH ×2 (00:34→08:00)
[2024-09-03 03:17] VITALS: BP 100/70; PULSE 90; RESP 20; TEMP 37.6; O2SAT 96
[2024-09-03] MEDS: Levothyroxine 88 MCG TAB PO (06:34)
[2024-09-03 06:53] LABS: HCT 33.2 % (36.0-46.0); HGB 11.1 g/dL (11.2-15.7); MCH 31.1 pg (27.0-33.0); MCHC 33.4 % (32.0-36.0); MCV 93 fL (80-95); MPV 10.1 fL (8.0-11.0); Platelet Count 151 10^3/uL (130-400); RBC 3.57 10^6/uL (3.93-5.22); RDW 13.2 % (11.7-14.6); RDW-SD 45.1 fL
[2024-09-03 07:02] LABS: Anion Gap 5.8 mmol/L (3-11); BUN 30 mg/dL (7-18); CO2 27.2 mmol/L (21.0-32.0); CREATININE 1.2 mg/dL (0.55-1.02); Chloride 108 mmol/L (98-107); Estimated GFR 45.76 (mL/min/1.73m2); Glucose 109 mg/dL (74-106); Magnesium 1.6 mg/dL (1.8-2.4); Potassium 3.4 mmol/L (3.5-5.1); Sodium 141 mmol/L (136-145)
[2024-09-03 07:34] VITALS: BP 124/72; PULSE 75; TEMP 37; O2SAT 100
[2024-09-03] MEDS: risperiDONE 0.5 MG TAB PO (07:55)
[2024-09-03] MEDS: Enoxaparin 30 MG/0.3 ML SYR SC (07:55)
[2024-09-03] MEDS: Omeprazole 20 MG CAPCR PO (07:55)
[2024-09-03] MEDS: Normal Saline Flush 10 ML SYR IVP (07:55)
[2024-09-03] MEDS: Calcium 600mg/Vit D 200U TAB 1 TAB PO (07:56)
[2024-09-03 08:00] VITALS: O2SAT 95
--- NOTE | 2024-09-03 08:04 | PDOC.CMIN ---
Date of service: 09/03/24 Time of Service: 08:04 Care Management Initial Assmt Initial Assessment Reason for Hospitalization: Severe Sepsis, CAP Functional Status/Living Situation Patient Presentation: Mayra was lying in bed, eating breakfast when CM met with her. She is conversant, although difficult to understand at times. Binta is Mayra's primary caregiver and the two live in [facility]. CM spoke with Binta via phone and she is in the process of helping her mother with termite control service representative planning due to her own health decline. CM provided patient with a LTM application and offered a [facility] referral. Per Binta, they are familiar with [facility] and would like to see if her community relations coordinator at [facility] would be able to help fill out the application before a referral is made. Town of Residence: [place] Resides with: Child (Binta (caregiver)) Significant Other/Family: Local Natural Supports: Daughter Binta is very supportive. 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) Instrumental Activities of Daily Living (ADLs): Requires support Activities/Hobbies/SocialSupport: Bingo Medications Medication Management: No Issues/Barriers identified Physical Functioning/Mobility Assistive Device: Walker Advance Directives Advance Directives: Do you have an Advance Directive: Y 06/25/23 15:51 AD On File at [facility]: Y 06/25/23 15:51 Date Asked 08/12/24 08/12/24 14:07 AD Date Reviewed 09/02/24 09/02/24 18:18 COLST On File at [facility] COLST Date Scanned Code Status Resuscitation Status Full Code Portal Pt does not currently have a portal and education provided: Yes Insurance Coverage/Financial Issues Insurance: Medicaid Medicare Care Team Visit Care Team Role Provider Type Ivania Lancaster Primary Care Provider NURSE PRACTITIONER Bakari Aquino MD Emergency Provider [facility] STAFF PHYSICIAN Osiel Gomez MD Admit Provider [facility] STAFF PHYSICIAN Attending Provider Discharge Potential Discharge Needs: PT Evaluation and PCP F/U Appt Anticipated Barriers to Discharge: Medical Status Patient/Family Education Needs: Review discharge instructions, discuss Ask Me Three Transportation: Private vehicle Plan: Anticipate Mayra will discharge home with a plan to follow up with her PCP and discharge plan of care as directed. Mayra will resume community supports through [facility] and work on completing a LTM application in preparation for termite control service representative planning. No new services are recommended at this time. CM will continue to follow. Social Determinants of Health Screening Social Determinants of Health last assessed: 09/03/24 Will the Patient Participate in the Screening?: Yes Do you worry about having a steady place to live?: no Problems where you live: no known problems In the past 12 months, have you had to go without electric, gas, oil or water in your home?: no Have you or anyone in your house had to go without enough food to eat?: no Has lack of transportation kept you from medical appointments or from doing things needed for daily living?: no Has anyone in your life made you feel unsafe or unsupported?: no How hard is it for you to pay for the very basics like food, housing, medical care, and heating? Would you say it is:: Not hard at all Do you want help finding or keeping work or a job?: I do not need or want help If for any reason you need help with day-to-day activities such as bathing, preparing meals, shopping, managing finances, etc., do you get the help you need?: I don?t need any help How often do you feel lonely or isolated from those around you?: Never Do you speak a language other than Turk[place] at home?: No Does the patient want assistance with any of the above?: No PFSH All Active Problems (Updated 09/02/24 @ 21:35 by Bakari Aquino MD) Influenza A (Acute) Lactic acidosis (Acute) JANET (acute kidney injury) (Acute) CAP (community acquired pneumonia) (Acute) Severe sepsis (Acute) PVD (peripheral vascular disease) (Chronic) Pain in right foot (Acute) Pain in left foot (Acute) Nail dystrophy (Acute) Onychomycosis (Acute) Memory impairment (Acute) Underweight (Acute) Lack of coordination (Acute) Schizoaffective disorder (Acute) Auditory hallucinations (Acute) Developmental speech or language disorder (Acute) Depressive disorder (Chronic) Hypothyroidism (Chronic) Sciatica (Acute) Osteoporosis (Chronic) Idiopathic scoliosis (Acute) Sensorineural hearing loss (Acute) Osteochondropathy (Acute) TIA (transient ischemic attack) (Acute) Medical History Symptomatic menopausal or female climacteric states Arthropathy Social History Smoking/Tobacco Use Status: Never Smoking risk assessment performed?: Yes Alcohol Intake: never Drug use: Never Substance use type: does not use Housing: house Do you feel safe at home: Yes Do you feel safe in your relationship?: Yes Additional Social history: unable to assess privately
[2024-09-03] MEDS: Oseltamivir 30 MG CAP PO (08:44)
--- NOTE | 2024-09-03 10:45 | PDOC.CMDIS ---
Date of service: 09/03/24 Time of Service: 10:45 LACE Index Scoring Tool Questions: Length of Stay (in days): 1 Was the patient admitted via the E.D.?: Yes Comorbidities: PVD E.D. Visits: 1 Answers: Total Score: 6 Risk of Readmission: Low Risk Care Management Discharge Plan Reason for Hospitalization: Sepsis, CAP Discharge Plan: Mayra will discharge home with a plan to follow up with her PCP and plan of care as directed. Mayra will resume community supports through [facility] and work on completing a LTM application in preparation for machine long goods helper planning. No new services are recommended at this time. Daughter will provide transportion. Patient/Family Education Needs: Review discharge instructions and plan to follow up after discharge. Discuss ask me three. SDOH Health Related Social Needs: No Data to Display
[2024-09-03] MEDS: Potassium Chloride 20 MEQ TABCR 40 MEQ PO (11:06)
[2024-09-03] MEDS: MAGNESIUM SULFATE 2 GM/50 ML BAG IV_INF (11:06)
[2024-09-03 11:10] LABS: Vancomycin, Random 7.4 ug/mL
--- NOTE | 2024-09-03 11:14 | PT.INIE ---
Date of service: 09/03/24 Time of Service: 10:50 PT Notes Visit Reasons: severe sepsis, CAP Inpatient Physical Therapy Evaluation Date: September 03, 2024 Referring Doctor: Bakari Soares PT Orders: PT CONSULT: Safety consult for discharge Precautions: Standard Patient Profile/Admitting Diagnosis: Mayra is an 79-year-old female with memory impairment admitted to hospital with sepsis and pneumonia. Arrived to the emergency department yesterday with her daughter in the setting of increased confusion. PMHX: (Updated 09/02/24 @ 21:35 by Bakari Aquino MD) Influenza A (Acute) Lactic acidosis (Acute) JANET (acute kidney injury) (Acute) CAP (community acquired pneumonia) (Acute) Severe sepsis (Acute) PVD (peripheral vascular disease) (Chronic) Pain in right foot (Acute) Pain in left foot (Acute) Nail dystrophy (Acute) Onychomycosis (Acute) Memory impairment (Acute) Underweight (Acute) Lack of coordination (Acute) Schizoaffective disorder (Acute) Auditory hallucinations (Acute) Developmental speech or language disorder (Acute) Depressive disorder (Chronic) Hypothyroidism (Chronic) Sciatica (Acute) Osteoporosis (Chronic) Idiopathic scoliosis (Acute) Sensorineural hearing loss (Acute) Osteochondropathy (Acute) TIA (transient ischemic attack) (Acute) Medical History Symptomatic menopausal or female climacteric states Arthropathy Social History/Home Situation: Mayra reports that she lives with her daughter. States that she has stairs in her home however is unable to tell me how many. Current Functional Limitations: Decreased activity tolerance Equipment Owned/DME: walker Subjective: Mayra notes that she is feeling a little better. Is agreeable to PT consult with morning. Objective: General Observation: IV access left UE Mental Status: Alert and oriented Pain: Declines any pain Vital Signs: Monitored via nursing ROM: Right Upper Extremity: Demonstrates WFL R UE ROM Left Upper Extremity: Demonstrates WFL L UE ROM Right Lower Extremity: Demonstrates WFL R LE ROM with exception of limited ankle DF Left Lower Extremity: Demonstrates WFL L LE ROM with exception of limited ankle DF Strength: Right Upper Extremity: Difficulty following command of resistance assessment. Unable to hold against resistance with shoulder flexion. ER 3+/5, IR 4-/5, Bicep 4/5 Good functional grasp Left Upper Extremity: Difficulty following command of resistance assessment. Unable to hold against resistance with shoulder flexion. ER 3+/5, IR 4-/5, Bicep 4/5, Good functional grasp Right Lower Extremity: Hip flexion 4-/5, Abduction seated 4/5, knee flexion 4-/5, knee extension 4/5 Left Lower Extremity: Hip flexion 4-/5, Abduction seated 4/5, knee flexion 4-/5, knee extension 4-/5 Bed Mobility/Transfers: Supine-sit: independent Sit-stand: supervision with verbal cueing for proper hand placement. Stand-sit: supervision Bed-chair: FWW, CGA Chair-Bed: FWW, CGA Gait: Mayra ambulated 100ft with use of FWW. Short choppy steps. Balance: Static Sitting: Good Dynamic Sitting: Good Static Standing: Fair Dynamic Standing: Fair 4 stage Balance assessment: Feet together 10 seconds, Foot in instep of other foot 10 seconds, able to assume tandem however unable to hold greater than 4 seconds. Unilateral stance L 3 seconds, R 5 seconds Special Tests: Mobility Limitations Standardized Measure [facility] AM-PAC 6 clicks Basic Mobility Inpatient Short Form: Raw Score: 20 CMS Score: 36% Informed Consent/Education: Patient instructed in purpose of PT consult and plan of care. Assessment: Patient is an 79 year old female referred to physical therapy services with the diagnosis of severe sepsis, community acquired pneumonia. Patient presents with clinical signs and symptoms consistent with diagnosis. Demonstrates WFL ROM of bilatreal UE/LE. Demonstrates independent bed mobility. Required cueing for proper hand placement with use of her walker. Demonstrates safe transfers and ambulation with use of FWW. Recommend continued use of assistive device at home to prevent falls. Patient is assessed as a Moderate 70455 complexity based on the following: History: As above Examination: As above Presentation: Stable Decision Making: Moderate Goals: Goals X1 week 1. Supine-Sit independent 2. Sit-Supine independent 3. Sit-Stand independent 4. Stand-Sit independent 5. Bed-Chair independent 6. Chair-Bed independent 7. Gait 300 ft with use FWW 8. Stairs ascend/descend 3-5 stairs with use of railing Plan of Care/Treatment Plan: 1-2x/day, 7 days/week x 1 week. Plan of care has been reviewed with the SYSTEMS DEVELOPMENT MANAGER providing the service under Physical Therapy direction. Initiate Physical Therapy intervention for strengthening, bed mobility, transfers, gait, stairs, balance training, use of assistive device. DISCHARGE RECOMMENDATIONS: Home without services once medically cleared TREATMENT CODE/TIME: 28266, IE, 25 minutes, 10:50-11:15 am [facility] Disclaimer: This note was created using [employer]ian[employer] voice recognition software. It was reviewed for major content. However, there may be multiple small discrepancies and errors due to the voice recognition aspects of the software.
[2024-09-03 11:47] VITALS: BP 92/52; PULSE 72; RESP 18; TEMP 37.9; O2SAT 93
[2024-09-03 12:19] VITALS: BP 100/58; PULSE 76; RESP 14; TEMP 37.5; O2SAT 94
[2024-09-03 13:12] LABS: MRSA PCR Negative (Negative)
[2024-09-03] MEDS: cefTRIAXone 2 GM/50 ML BAG IVPB (13:13)
[2024-09-03] MEDS: VANCOMYCIN/WATER (PEG) 750 MG/150 ML BAG 150 MG IVPB (13:14)
[2024-09-03] MEDS: Doxycycline Hyclate 100 MG CAP PO (14:07)
--- NOTE | 2024-09-03 15:19 | W.PM.DS.N ---
Date of service: 09/03/24 Time of Service: 15:19 DS: Diagnosis Discharge Diagnosis (1) CAP (community acquired pneumonia): Status: Acute (2) Influenza A: Status: Acute (3) JANET (acute kidney injury): Status: Acute (4) Lactic acidosis: Status: Acute (5) Schizoaffective disorder: Status: Acute (6) Anemia: Status: Chronic (7) Hypomagnesemia: Status: Acute (8) Elevated AST (SGOT): Status: Acute (9) Hematuria, microscopic: Status: Acute Discharge Plan Disposition Patient Disposition: Home Condition: Improving Discharge Details Reason For Visit: severe sepsis, CAP Admit Date/Time: 09/02/24 21:17 Admit Provider: Osiel Gomez Attending Provider: Osiel Gomez Primary Care Provider: Ivania Lancaster Hospital Course Hospital Course: 79 yo F with h/o schizoaffective disorder, TIA, memory impairment, and PAD who presented with increased confusion associated with cough. Daughter, who helps care for her, had influenza. The patient did not report a feer but in the emergency room she had a tempurature of 103.2. She was influenza positive and had a focal infiltrate on her chest x-ray. With mild JANET and lactate 2.2 and tachycardia, her presenation was c/w severe sepsis. She was borderline hypoxic with oxygen saturation 90% on RA. She was started on oseltamivir and vancomycin/cefepime. She was never hypotensive. Overnight on the floor she felt well, her fevers improved, her oxygen was in the mid 90s on room air, and she had no respiratory distress. Creatinine improved and lactate normalized. She was eating and drinking well. MRSA nasal swab was negative. Vancomycin stopped. Cefepime stopped and she was given a dose of IV cefriaxone and oral doxycycline. blood cultures were pending at time of discharge, but we proceeded given how good she looked clinically. Her magnesium was low at 1.6 and was replaced with 2g IV. her potassium was low at 3.4 and this was replaced orally. She was discharged to finish a 5 day course for community acquired pneumonia with amoxicillin/clavulonate and doxycycline along with oseltamivir. AST was elevated likely related to acute infection and this should be followed as an outpatient. She had a mild anemia at hemoglobin 11.1 after getting IV hydration. She had no bleeding. She should be seen in the next week for follow up with labs prior if possible. She had 3-5 red cells and 100 protein on her u/a. This should be followed up as an outpatient. Home Meds and New Rx's Prescriptions: New doxycycline hyclate 100 mg Capsule 100 mg PO Q12H 5 Days Qty: 9 0RF Rx Instructions: start 09/03 evening amoxicillin-pot clavulanate 875-125 mg tablet 1 tab PO BID 4 Days Qty: 7 0RF Rx Instructions: start 09/04 morning oseltamivir 30 mg Capsule 30 mg PO BID 4 Days Qty: 8 0RF Rx Instructions: start / pm Continued ketoconazole 2 % cream 1 applic topical DAILY 90 Days Qty: 60 3RF Rx Instructions: Apply to toenails once daily acetaminophen [Mapap Arthritis Pain] 650 MG tablet extended release 650 mg PO PRN PRN quetiapine 25 mg Tablet 25 mg PO HS risperidone [Risperdal] 0.25 mg Tablet 0.25 mg PO BID Rx Instructions: 0.50mg QAM, 0.25mg PM levothyroxine 112 MCG tablet 75 mcg PO DAILY cetirizine 10 mg tablet 10 mg PO DAILY PRNQty: 7 0RF benzonatate 100 mg capsule 100 mg PO BID PRNQty: 7 0RF risperidone [Risperdal] 0.5 mg tablet 1 mg PO QHS calcium carbonate-vitamin D3 600 mg-10 mcg (400 unit) tablet 1 tab PO DAILY Patient Comments: TAKE 1 TABLET BY MOUTH ONCE DAILY omeprazole 20 mg capsule,delayed release(DR/EC) 20 mg PO DAILY Patient Comments: TAKE ONE CAPSULE BY MOUTH EVERY DAY oxybutynin chloride 15 mg tablet extended release 24hr 15 mg PO DAILY Patient Comments: TAKE ONE TABLET BY MOUTH EVERY DAY aspirin 81 mg tablet,delayed release (DR/EC) 81 mg PO DAILY Patient Comments: TAKE ONE TABLET BY MOUTH EVERY DAY levalbuterol tartrate [Xopenex HFA] 15 GM HFA aerosol inhaler 2 puff Inhalation Q4H WHILE AWAKE Discharge Instructions Instructions: Flu in adults - Discharge instructions Additional Instructions: finish the antibiotics and anti-flu medications as above. You can use acetaminophen for fever. Do the labs in 1 week or just before you see Ivania Lancaster for follow up. Stand Alone Forms: Nursing Discharge Form Referrals: Ivania Lancaster [Primary Care Provider] - (Please call the office on Thursday to set up a hospital follow up within 10-14 days) Activity:: Activity as Tolerated Equipment/Supplies:: No Equipment Needed Diet:: As Tolerated Discharge Orders Discharge Orders: Discharge Order (Routine); Ordered 09/03/24 Ordered By: Bakari Soares Other Ambulatory Orders: Complete Blood Count w/Diff (Routine) Timeframe: 1 Week Facility: [facility] - Location: Laboratory Outpatient - [facility] Ordered By: Bakari Soares Comprehensive Metabolic Panel (Routine) Timeframe: 1 Week Facility: [facility] - Location: Laboratory Outpatient - [facility] Ordered By: Bakari Soares Magnesium (Routine) Timeframe: 1 Week Facility: [facility] - Location: Laboratory Outpatient - [facility] Ordered By: Bakari Soares Discharge Data Discharge Date/Time-TO BE ENTERED AT DEPARTURE: 09/03/24 16:20 DS: Summary Time Spent with Patient providing and/or coordinating discharge services: Greater than 30 minutes Status at Discharge Functional status at discharge: uses cane/walker Overall status at discharge: patient is back to baseline Mental Status: other (baseline cognitive impairment) Speech and Movement: speech and movement normal Mood: congruent mood and other (baseline cognitive impairment) Affect: normal affect Quality:SDOH Health Related Social Needs: No Data to Display Exam Narrative Exam Narrative: Well-appearing older female laying in bed no acute distress, sitting up and alert, stands up without assistance. Lip smacking noted. Heart regular rhythm, lungs clear to auscultation bilaterally with normal effort. abdomen soft, nontender, nondistended. extrmities non tender with no edema, warm. Psych Mental Status: other (baseline cognitive impairment) Speech and Movement: speech and movement normal Mood: congruent mood and other (baseline cognitive impairment) Affect: normal affect DS: Data Vitals/I&O Vitals and I&O: Vital Signs Temperature 37.5 C 09/03/24 12:19 Temperature Source Temporal Artery Scan 09/03/24 12:19 Pulse 76 09/03/24 12:19 Pulse Rhythm Regular 09/02/24 22:30 Respiratory Rate 14 09/03/24 12:19 Respiratory Effort Normal, Non-Labored 09/02/24 22:30 Respiratory Depth Normal 09/02/24 22:30 Respiratory Pattern Normal 09/02/24 22:30 Blood Pressure 100/58 L 09/03/24 12:19 Blood Pressure Position Sitting 09/02/24 18:10 Pulse Oximetry 94 09/03/24 12:19 Oxygen Delivery Method Room Air 09/03/24 12:19 Oxygen Flow Rate 0 09/03/24 12:19 Pain Level 0 09/03/24 12:19 Intake & Output 09/02/24 09/03/24 09/03/24 23:59 11:59 23:59 Intake Total 850 / 850 207.5 / 207.5 Output Total 400 / 850 450 / 850 Balance 850 / 850 -400 / -642.5 -242.5 / -642.5 Weight 38.555 kg Intake: IV 850 / 850 207.5 / 207.5 Output: Urine 400 / 850 450 / 850 Other: Urine Color Straw Yellow Urine Appearance Clear Clear Urine Odor None Data Completed and Pending Labs on day of discharge: Labs from last 24 hours 09/03/24 09/03/24 09/03/24 11:33 10:00 06:20 WBC 8.40 RBC 3.57 L Hgb 11.1 L Hct 33.2 L MCV 93 MCH 31.1 MCHC 33.4 RDW 13.2 Plt Count 151 MPV 10.1 Immature Gran % Neutrophils % Band Neutrophils % Lymphocytes % Atypical Lymphs % Monocytes % Eosinophils % Basophils % Metamyelocytes % Nucleated RBC % Absolute Neutrophils Absolute Lymphocytes Absolute Monocytes Absolute Eosinophils Absolute Basophils RBC Morphology Poikilocytosis VBG Lactate Sodium 141 Potassium 3.4 L Chloride 108 H Carbon Dioxide 27.2 Anion Gap 5.8 BUN 30 H Creatinine 1.2 H Est GFR (CKD-EPI 2020) 45.76 Glucose 109 H Calcium 8.0 L Magnesium 1.6 L Total Bilirubin AST ALT Alkaline Phosphatase Total Protein Albumin Urine Color Urine Clarity Urine pH Ur Specific [place] Urine Protein Urine Ketones Urine Blood Urine Nitrite Urine Bilirubin Urine Urobilinogen Ur Leukocyte Esterase Urine RBC Urine WBC Ur Epithelial Cells Urine Crystals Urine Bacteria Urine Mucus Ur Culture Indicated? Urine Glucose Random Vancomycin 7.4 COVID-19 Source SARS-CoV-2 (PCR) Influenza Type A (PCR) Influenza Type B (PCR) RSV (PCR) MRSA (TEM-PCR) Negative 09/02/24 09/02/24 09/02/24 21:42 20:41 19:00 WBC RBC Hgb Hct MCV MCH MCHC RDW Plt Count MPV Immature Gran % Neutrophils % Band Neutrophils % Lymphocytes % Atypical Lymphs % Monocytes % Eosinophils % Basophils % Metamyelocytes % Nucleated RBC % Absolute Neutrophils Absolute Lymphocytes Absolute Monocytes Absolute Eosinophils Absolute Basophils RBC Morphology Poikilocytosis VBG Lactate 0.6 Sodium Potassium Chloride Carbon Dioxide Anion Gap BUN Creatinine Est GFR (CKD-EPI 2020) Glucose Calcium Magnesium Total Bilirubin AST ALT Alkaline Phosphatase Total Protein Albumin Urine Color Yellow Urine Clarity Sl Cloudy Urine pH 5.5 Ur Specific [place] 1.020 Urine Protein 100 H Urine Ketones Negative Urine Blood Moderate H Urine Nitrite Negative Urine Bilirubin Negative Urine Urobilinogen 1.0 H Ur Leukocyte Esterase Negative Urine RBC 3-5 H Urine WBC 3-5 Ur Epithelial Cells Moderate Urine Crystals Negative Urine Bacteria Many Urine Mucus Negative Ur Culture Indicated? No Urine Glucose 100 H Random Vancomycin COVID-19 Source Nasopharynx SARS-CoV-2 (PCR) Negative Influenza Type A (PCR) Positive A Influenza Type B (PCR) Negative RSV (PCR) Negative MRSA (TEM-PCR) 09/02/24 18:30 WBC 5.15 RBC 4.07 Hgb 12.5 Hct 38.7 MCV 95 MCH 30.7 MCHC 32.3 RDW 13.2 Plt Count 163 MPV 9.9 Immature Gran % See Differential Neutrophils % 67.0 Band Neutrophils % 18 Lymphocytes % 4.0 Atypical Lymphs % 1 Monocytes % 6.0 Eosinophils % 0.0 Basophils % 1.0 Metamyelocytes % 3 Nucleated RBC % 0.0 Absolute Neutrophils 4.38 Absolute Lymphocytes 0.26 L Absolute Monocytes 0.31 Absolute Eosinophils 0.00 Absolute Basophils 0.05 RBC Morphology See Below Poikilocytosis 1+ VBG Lactate 2.3 H* Sodium 136 Potassium 3.5 Chloride 99 Carbon Dioxide 28.5 Anion Gap 8.5 BUN 32 H Creatinine 1.4 H Est GFR (CKD-EPI 2020) 38.03 Glucose 249 H Calcium 8.4 L Magnesium Total Bilirubin 0.57 AST 90 H ALT 55 Alkaline Phosphatase 100 Total Protein 6.2 L Albumin 3.0 L Urine Color Urine Clarity Urine pH Ur Specific [place] Urine Protein Urine Ketones Urine Blood Urine Nitrite Urine Bilirubin Urine Urobilinogen Ur Leukocyte Esterase Urine RBC Urine WBC Ur Epithelial Cells Urine Crystals Urine Bacteria Urine Mucus Ur Culture Indicated? Urine Glucose Random Vancomycin COVID-19 Source SARS-CoV-2 (PCR) Influenza Type A (PCR) Influenza Type B (PCR) RSV (PCR) MRSA (TEM-PCR) 02/07/25 19:11 Blood Blood Culture - Pending 09/02/24 18:45 Blood Blood Culture - Pending Preliminary micro results at discharge 09/02/24 19:11 Blood Culture - Pending Blood 09/02/24 18:45 Blood Culture - Pending Blood [facility] [place] All Active Problems (Updated 09/03/24 @ 15:21 by Bakari Soares) Hematuria, microscopic (Acute) Hypomagnesemia (Acute) Elevated AST (SGOT) (Acute) Anemia (Chronic) Influenza A (Acute) Lactic acidosis (Acute) JANET (acute kidney injury) (Acute) CAP (community acquired pneumonia) (Acute) Severe sepsis (Acute) PVD (peripheral vascular disease) (Chronic) Pain in right foot (Acute) Pain in left foot (Acute) Nail dystrophy (Acute) Onychomycosis (Acute) Osteochondropathy (Acute) Sensorineural hearing loss (Acute) Idiopathic scoliosis (Acute) Osteoporosis (Chronic) Sciatica (Acute) Hypothyroidism (Chronic) Depressive disorder (Chronic) Developmental speech or language disorder (Acute) Auditory hallucinations (Acute) Schizoaffective disorder (Acute) Lack of coordination (Acute) Underweight (Acute) Memory impairment (Acute) TIA (transient ischemic attack) (Acute) Medical History Symptomatic menopausal or female climacteric states Arthropathy Social History Smoking/Tobacco Use Status: Never Smoking risk assessment performed?: Yes Alcohol Intake: never Drug use: Never Substance use type: does not use Housing: house Do you feel safe at home: Yes Do you feel safe in your relationship?: Yes Additional Social history: unable to assess privately Time Spent with Patient Time Spent with Patient: 45-69 minutes Time was spent: preparing to see the patient(eg.review tests), obtaining and/or reviewing separately otained hiistory, ordering medications,tests, procedures, referring, communicating with other health career technical education teacher, indepentently interpreting results, counseling the patient and care coordination
== END 2024-09-03 16:20 | disposition home or self-care (01) | DRG 871 ==
LOC: ER 21:35 → MS 22:40
PROVIDERS: Family Medicine; Admitting Provider Family Medicine; Emergency Provider Emergency Medicine; PCP Nurse Practitioner Family; Visit Provider Family Medicine
DX: A41.9 Sepsis, unspecified organism (principal); J10.00 Influenza due to other identified influenza virus with unspecified type of pneumonia; E87.20 Acidosis, unspecified; N17.9 Acute kidney failure, unspecified; Z68.1 Body mass index [BMI] 19.9 or less, adult; R65.20 Severe sepsis without septic shock; E03.9 Hypothyroidism, unspecified; F25.9 Schizoaffective disorder, unspecified; R74.01 Elevation of levels of liver transaminase levels; E83.42 Hypomagnesemia; D64.9 Anemia, unspecified; R31.29 Other microscopic hematuria; R41.3 Other amnesia; Z79.899 Other long term (current) drug therapy; I73.9 Peripheral vascular disease, unspecified; R63.6 Underweight; M81.0 Age-related osteoporosis without current pathological fracture; Z86.73 Personal history of transient ischemic attack (TIA), and cerebral infarction without residual deficits; F32.A Depression, unspecified; F80.89 Other developmental disorders of speech and language; W19.XXXA Unspecified fall, initial encounter; E87.6 Hypokalemia
CPT/HCPCS: 00123; 36415; 80048; 80053; 85027; 87040; 87637; 87641; 93005; 94640; 96361; 96365; 96366; 96367; 97162; 99285; 70450; 71045; 80202; 81003; 81015; 83605; 83735; 85025; 93010; 94664; 94760; 99223; 99239; J0692; J0696; J1650; J3370; J3372; J3475

== ENCOUNTER 2024-10-04 14:15 | Emergency (ER) | payer MEDICARE, MEDICAID, SELFPAY ==
[2024-10-04 14:35] VITALS: BP 150/76; PULSE 81; RESP 16; TEMP 36.9; O2SAT 94
[2024-10-04 14:38] VITALS: BP 150/76; PULSE 81; RESP 16; TEMP 36.9; O2SAT 94
--- NOTE | 2024-10-04 14:53 | ED.GENADUL_ITS ---
Discharge Plan Discharge Details Chief Complaint: RespSymp Primary Care Provider: Ivania Lancaster ED Provider: Nat Whiting Home Meds and New Rx's Prescriptions: No Action ketoconazole 2 % cream 1 applic topical DAILY 90 Days Qty: 60 3RF Rx Instructions: Apply to toenails once daily acetaminophen [Mapap Arthritis Pain] 650 MG tablet extended release 650 mg PO PRN PRN quetiapine 25 mg Tablet 25 mg PO HS risperidone [Risperdal] 0.25 mg Tablet 0.25 mg PO BID Rx Instructions: 0.50mg QAM, 0.25mg PM levothyroxine 112 MCG tablet 75 mcg PO DAILY cetirizine 10 mg tablet 10 mg PO DAILY PRNQty: 7 0RF benzonatate 100 mg capsule 100 mg PO BID PRNQty: 7 0RF risperidone [Risperdal] 0.5 mg tablet 1 mg PO QHS calcium carbonate-vitamin D3 600 mg-10 mcg (400 unit) tablet 1 tab PO DAILY Patient Comments: TAKE 1 TABLET BY MOUTH ONCE DAILY omeprazole 20 mg capsule,delayed release(DR/EC) 20 mg PO DAILY Patient Comments: TAKE ONE CAPSULE BY MOUTH EVERY DAY oxybutynin chloride 15 mg tablet extended release 24hr 15 mg PO DAILY Patient Comments: TAKE ONE TABLET BY MOUTH EVERY DAY aspirin 81 mg tablet,delayed release (DR/EC) 81 mg PO DAILY Patient Comments: TAKE ONE TABLET BY MOUTH EVERY DAY levalbuterol tartrate [Xopenex HFA] 15 GM HFA aerosol inhaler 2 puff Inhalation Q4H WHILE AWAKE HPI General Mode of arrival: ambulatory . Date/Time Provider Initiated Documentation: 10/04/24 14:23 . Limitations to Documentation: no limitations . Information obtained by: patient, family and old records reviewed . HPI Narrative: HPI: This is a 79-year-old female patient with a past medical history significant for schizoaffective disorder, developmental disorder, TIA, hypothyroidism, and a recent history of influenza A, pneumonia, and sepsis requiring admission to this hospital 1 month ago. She is presenting for evaluation of 1 week of worsening of her cough. Family reports that she will have coughing spells, and during the coughing spells she feels like it is diffic ult to catch her breath, sometimes feels lightheaded during coughing. She has had decreased p.o. intake, and had a fever of 101 2 days ago. Her cough is not productive of any sputum, she denies pain including chest pain, back pain, belly pain, has not had nausea or vomiting. She has been taking Robitussin for management of her symptoms. Exam: Gen: Awake and alert, in no apparent distress HEENT: Non-icteric sclera Neck: Supple Lungs: No apparent respiratory distress, normal respiratory effort. Lung sounds clear and equal bilaterally CV: Appears well perfused, heart with regular rate and rhythm, strong distal pulses Abdomen: Non-distended, soft MSK: Moves 4 extremities without apparent limitation in ROM. No peripheral edema Skin: Visualized skin without rashes, cyanosis. Neuro: Normal Gait, no obvious focal deficits or facial asymmetry. Speaks in full, clear sentences. Psych: Appropriate for situation. MDM: This is an 79-year-old female patient presenting for evaluation of cough. Differential includes but is not limited to URI, pneumonia, bronchitis, considered postviral cough, patient without wheezing to suggest reactive airway disease exacerbation, no evidence of fluid overload or history of heart problems to suggest pulmonary edema or pleural effusion. I did consider metabolic electrolyte derangement, kidney injury, dehydration in the setting of her decreased p.o. intake. Reassuringly, the patient is currently hemodynamically stable and not hypoxic. Will obtain a Fluvid, chest x-ray, and laboratory studies to include CBC, CMP, magnesium. ED Course: Negative, this patient was signed out to the oncoming provider prior to completion of laboratory studies and imaging, if normal anticipate she could be managed successfully as an outpatient. Remained hemodynamically stable while under my care. Nat Whiting MD Related Data Home Medications ?Medication ?Instructions ?Recorded ?Confirmed acetaminophen 650 mg 650 mg PO PRN PRN 06/12/16 10/04/24 tablet,extended release (Mapap Arthritis Pain) levalbuterol tartrate 45 2 puff inhalation Q4H WHILE AWAKE 04/14/17 10/04/24 mcg/actuation aerosol inhaler (Xopenex HFA) levothyroxine 112 mcg tablet 75 mcg PO DAILY 11/09/18 10/04/24 quetiapine 25 mg tablet 25 mg PO HS 11/09/18 10/04/24 risperidone 0.25 mg tablet 0.25 mg PO BID 11/09/18 10/04/24 (Risperdal) ketoconazole 2 % topical cream 1 applic topical DAILY 3 months 06/02/23 10/04/24 #60 grams benzonatate 100 mg capsule 100 mg PO BID PRN #7 caps 07/29/23 10/04/24 cetirizine 10 mg tablet 10 mg PO DAILY PRN #7 tabs 07/29/23 10/04/24 aspirin 81 mg tablet,delayed 81 mg PO DAILY 09/02/24 10/04/24 release calcium 600 mg (as 1 tab PO DAILY 09/02/24 10/04/24 carbonate)-vitamin D3 10 mcg (400 unit) tablet omeprazole 20 mg capsule,delayed 20 mg PO DAILY 09/02/24 10/04/24 release oxybutynin chloride 15 mg 15 mg PO DAILY 09/02/24 10/04/24 tablet,extended release 24 hr risperidone 0.5 mg tablet 1 mg PO QHS 09/02/24 10/04/24 (Risperdal) Previous Rx's ?Medication ?Instructions ?Recorded ketoconazole 2 % topical cream 1 applic topical DAILY 3 months 06/02/23 #60 grams benzonatate 100 mg capsule 100 mg PO BID PRN #7 caps 07/29/23 cetirizine 10 mg tablet 10 mg PO DAILY PRN #7 tabs 07/29/23 Allergies Allergy/AdvReac Type Severity Reaction Status Date / Time No Known Allergies Allergy Unverified 10/04/24 14:39 General Stated Complaint: RespSymp DELISA: 3 Course Vital Signs Vital signs: Vital Signs Temperature 36.9 C 10/04/24 14:35 Pulse 81 10/04/24 14:35 Respiratory Rate 16 10/04/24 14:35 Blood Pressure 150/76 H 10/04/24 14:35 Pulse Oximetry 94 10/04/24 14:35 Temperature 36.9 C 10/04/24 14:38 Temperature Source Oral 10/04/24 14:38 Pulse 81 10/04/24 14:38 Respiratory Rate 16 10/04/24 14:38 Blood Pressure 150/76 H 10/04/24 14:38 Blood Pressure Position Sitting 10/04/24 14:38 Pulse Oximetry 94 10/04/24 14:38 Oxygen Delivery Method Room Air 10/04/24 14:38 Oxygen Flow Rate 0 10/04/24 14:35 Pain Level 0 10/04/24 14:38 Medical Decision Making Quality:SDOH Health Related Social Needs: No Data to Display PFSH All Active Problems (Updated 10/03/24 @ 00:03 by LENA FLEMING) Hematuria, microscopic (Acute) Elevated AST (SGOT) (Acute) Anemia (Chronic) Influenza A (Acute) CAP (community acquired pneumonia) (Acute) PVD (peripheral vascular disease) (Chronic) Pain in right foot (Acute) Pain in left foot (Acute) Nail dystrophy (Acute) Onychomycosis (Acute) Memory impairment (Acute) Underweight (Acute) Lack of coordination (Acute) Schizoaffective disorder (Acute) Auditory hallucinations (Acute) Developmental speech or language disorder (Acute) Depressive disorder (Chronic) Hypothyroidism (Chronic) Sciatica (Acute) Osteoporosis (Chronic) Idiopathic scoliosis (Acute) Sensorineural hearing loss (Acute) Osteochondropathy (Acute) TIA (transient ischemic attack) (Acute) Medical History Symptomatic menopausal or female climacteric states Arthropathy Social History Smoking/Tobacco Use Status: Never Smoking risk assessment performed?: Yes Alcohol Intake: never Drug use: Never Substance use type: does not use Housing: house Do you feel safe at home: Yes Do you feel safe in your relationship?: Yes Additional Social history: unable to assess privately
[2024-10-04 15:32] LABS: COVID-19 PCR Negative (Negative); Influenza A PCR Negative (Negative); Influenza B PCR Negative (Negative); RSV PCR Negative (Negative)
[2024-10-04 15:34] LABS: Source Nasopharynx
[2024-10-04 15:50] LABS: Abs Immature Grans 0.02 10^3/uL (0.0-0.06); Absolute Basophil Count 0.03 10^3/uL (0.0-0.2); Absolute Eosinophil Count 0.01 10^3/uL (0.0-0.7); Absolute Lymphocyte Count 0.99 10^3/uL (1.2-3.4); Absolute Neutrophil Count 4.43 10^3/uL (1.2-6.7); Basophils % 0.5 %; Eosinophils % 0.2 %; HCT 37.9 % (36.0-46.0); HGB 12.3 g/dL (11.2-15.7); Immature Grans % 0.3 %; MCH 30.8 pg (27.0-33.0); MCHC 32.5 % (32.0-36.0); MCV 95 fL (80-95); MPV 9.5 fL (8.0-11.0); Monocytes % 11.3 %; Neutrophils % 71.7 %; Platelet Count 236 10^3/uL (130-400); RBC 3.99 10^6/uL (3.93-5.22); RDW-SD 49.5 fL; WBC 6.18 10^3/uL (4.4-10.8)
--- NOTE | 2024-10-04 15:53 | ED.PROG_ITS ---
Date of service: 10/04/24 Time of Service: 15:53 Medical Decision Making 1600:. Care assumed from provider (Dr. Whiting) Please see their initial HPI, PE, and documentation. Discussed patient details and case and pending workup and disposition. Patient is hemodynamically stable, and alert and oriented. At the time of signout pending labs, imaging and disposition. In short this is a 79-year-old female with a recent history of pneumonia and sepsis presents with 2 days of cough and decreased appetite. Also reports dizziness. She is hemodynamically stable at this time. X-ray shows a small right lower lobe infiltrate which is improved from her previous x-ray. CBC shows no leukocytosis, CMP largely within normal limits BUN slightly elevated at 19 creatinine 0.9 glucose 108 albumin 3.0 negative COVID flu and RSV. Will continue Augmentin for the next 10 days first dose given here. Urinalysis shows trace leukocytes we will treat for possible early UTI. Discussed results with patient and family verbalized understanding. This text was generated using [employer] system, please disregard any oddities of phrase or misspellings. Medical Records Medical records reviewed: Yes I reviewed the patient's medical records. Imaging Data Radiologic Study: Imaging: X-Ray Radiologist's impression: EXAM: XR CHEST 2V PA LATERAL CLINICAL HISTORY: Cough, eval PNA. TECHNIQUE: 2D digital imaging was performed. COMPARISON: CR,XR XR CHEST 1V IN DI DEPT from 09/02/2024 FINDINGS: 2 views: There is a bidirectional thoracolumbar scoliosis again noted. Mild cardiomegaly again noted. The mediastinum is not widened. Left lung remains clear. The right lower lobe infiltrate has decreased in size but does not appear to have completely resolved. There are no pleural effusions. No pulmonary edema. No pneumothorax. IMPRESSION: Increased markings in the right lower lobe but decreased from images of 09/02/2024. Probable improving infiltrate. If clinically indicated follow-up CT scan can be performed Lab Data Lab results reviewed: Yes I reviewed the patient's lab results. Labs: Laboratory Tests Range/Units 10/04/24 10/04/24 10/04/24 14:42 15:39 16:32 WBC (4.4-10.8) 10^3/uL 6.18 RBC (3.93-5.22) 10^6/uL 3.99 Hgb (11.2-15.7) g/dL 12.3 Hct (36.0-46.0) % 37.9 MCV (80-95) fL 95 MCH (27.0-33.0) pg 30.8 MCHC (32.0-36.0) % 32.5 RDW (11.7-14.6) % 14.0 Plt Count (130-400) 10^3/uL 236 MPV (8.0-11.0) fL 9.5 Immature Gran % % 0.3 Neutrophils % % 71.7 Lymphocytes % % 16.0 Monocytes % % 11.3 Eosinophils % % 0.2 Basophils % % 0.5 Nucleated RBC % (0.0-0.3) % 0.0 Absolute Neutrophils (1.2-6.7) 10^3/uL 4.43 Absolute Lymphocytes (1.2-3.4) 10^3/uL 0.99 L Absolute Monocytes (0.1-0.8) 10^3/uL 0.70 Absolute Eosinophils (0.0-0.7) 10^3/uL 0.01 Absolute Basophils (0.0-0.2) 10^3/uL 0.03 Sodium (136-145) mmol/L 143 Potassium (3.5-5.1) mmol/L 3.9 Chloride (98-107) mmol/L 106 Carbon Dioxide (21.0-32.0) mmol/L 29.8 Anion Gap (3-11) mmol/L 7.2 BUN (7-18) mg/dL 19 H Creatinine (0.55-1.02) mg/dL 0.9 Est GFR (CKD-EPI 2020) (mL/min/1.73m2) 64.63 Glucose (74-106) mg/dL 108 H Calcium (8.5-10.1) mg/dL 8.8 Magnesium (1.8-2.4) mg/dL 2.0 Total Bilirubin (0.2-1.0) mg/dL 0.6 AST (15-37) U/L 17 ALT (14-59) U/L 14 Alkaline Phosphatase (46-116) U/L 72 Troponin I (<or=51) ng/L 9 6 Total Protein (6.4-8.2) g/dL 6.5 Albumin (3.4-5.0) g/dL 3.0 L Urine Color (Yellow) Urine Clarity (Clear) Urine pH (5-8) Ur Specific [place] (1.005-1.025) Urine Protein (Neg-Trace) mg/dL Urine Ketones (Negative) mg/dL Urine Blood (Negative) Urine Nitrite (Negative) Urine Bilirubin (Negative) Urine Urobilinogen (Up to 0.2) mg/dL Ur Leukocyte Esterase (Negative) Urine RBC (0-2) HPF Urine WBC (0-5) HPF Ur Epithelial Cells (Negative) HPF Urine Crystals (Negative) HPF Urine Bacteria (Negative) HPF Urine Mucus (Negative) Ur Culture Indicated? Urine Glucose (Negative) mg/dL COVID-19 Source Nasopharynx SARS-CoV-2 (PCR) (Negative) Negative Influenza Type A (PCR) (Negative) Negative Influenza Type B (PCR) (Negative) Negative RSV (PCR) (Negative) Negative Range/Units 10/04/24 10/04/24 17:09 17:52 WBC (4.4-10.8) 10^3/uL RBC (3.93-5.22) 10^6/uL Hgb (11.2-15.7) g/dL Hct (36.0-46.0) % MCV (80-95) fL MCH (27.0-33.0) pg MCHC (32.0-36.0) % RDW (11.7-14.6) % Plt Count (130-400) 10^3/uL MPV (8.0-11.0) fL Immature Gran % % Neutrophils % % Lymphocytes % % Monocytes % % Eosinophils % % Basophils % % Nucleated RBC % (0.0-0.3) % Absolute Neutrophils (1.2-6.7) 10^3/uL Absolute Lymphocytes (1.2-3.4) 10^3/uL Absolute Monocytes (0.1-0.8) 10^3/uL Absolute Eosinophils (0.0-0.7) 10^3/uL Absolute Basophils (0.0-0.2) 10^3/uL Sodium (136-145) mmol/L Potassium (3.5-5.1) mmol/L Chloride (98-107) mmol/L Carbon Dioxide (21.0-32.0) mmol/L Anion Gap (3-11) mmol/L BUN (7-18) mg/dL Creatinine (0.55-1.02) mg/dL Est GFR (CKD-EPI 2020) (mL/min/1.73m2) Glucose (74-106) mg/dL Calcium (8.5-10.1) mg/dL Magnesium (1.8-2.4) mg/dL Total Bilirubin (0.2-1.0) mg/dL AST (15-37) U/L ALT (14-59) U/L Alkaline Phosphatase (46-116) U/L Troponin I (<or=51) ng/L Cancelled Total Protein (6.4-8.2) g/dL Albumin (3.4-5.0) g/dL Urine Color (Yellow) Yellow Urine Clarity (Clear) Clear Urine pH (5-8) 6.0 Ur Specific [place] (1.005-1.025) 1.020 Urine Protein (Neg-Trace) mg/dL 30 H Urine Ketones (Negative) mg/dL Negative Urine Blood (Negative) Trace-lysed H Urine Nitrite (Negative) Negative Urine Bilirubin (Negative) Negative Urine Urobilinogen (Up to 0.2) mg/dL 1.0 H Ur Leukocyte Esterase (Negative) Trace H Urine RBC (0-2) HPF 10-20 H Urine WBC (0-5) HPF 5-10 Ur Epithelial Cells (Negative) HPF Many Urine Crystals (Negative) HPF Negative Urine Bacteria (Negative) HPF Moderate Urine Mucus (Negative) Trace Ur Culture Indicated? No Urine Glucose (Negative) mg/dL Negative COVID-19 Source SARS-CoV-2 (PCR) (Negative) Influenza Type A (PCR) (Negative) Influenza Type B (PCR) (Negative) RSV (PCR) (Negative) Quality:SDOH Health Related Social Needs: No Data to Display Discharge Plan Disposition Patient Disposition: Home Condition: Stable Discharge Details Clinical Impression: UTI (urinary tract infection), Pneumonia Primary Care Provider: Ivania Lancaster ED Provider: Penelope Montemayor Home Meds and New Rx's Prescriptions: New amoxicillin-pot clavulanate 875-125 mg tablet 1 tab PO BID 10 Days Qty: 20 0RF benzonatate 100 mg capsule 100 mg PO TID PRN (Reason: cough) Qty: 14 0RF Rx Instructions: Take 1 tablet by mouth up to 3 times daily as needed for cough Continued ketoconazole 2 % cream 1 applic topical DAILY 90 Days Qty: 60 3RF Rx Instructions: Apply to toenails once daily acetaminophen [Mapap Arthritis Pain] 650 MG tablet extended release 650 mg PO PRN PRN quetiapine 25 mg Tablet 25 mg PO HS risperidone [Risperdal] 0.25 mg Tablet 0.25 mg PO BID Rx Instructions: 0.50mg QAM, 0.25mg PM levothyroxine 112 MCG tablet 75 mcg PO DAILY cetirizine 10 mg tablet 10 mg PO DAILY PRNQty: 7 0RF benzonatate 100 mg capsule 100 mg PO BID PRNQty: 7 0RF risperidone [Risperdal] 0.5 mg tablet 1 mg PO QHS calcium carbonate-vitamin D3 600 mg-10 mcg (400 unit) tablet 1 tab PO DAILY Patient Comments: TAKE 1 TABLET BY MOUTH ONCE DAILY omeprazole 20 mg capsule,delayed release(DR/EC) 20 mg PO DAILY Patient Comments: TAKE ONE CAPSULE BY MOUTH EVERY DAY oxybutynin chloride 15 mg tablet extended release 24hr 15 mg PO DAILY Patient Comments: TAKE ONE TABLET BY MOUTH EVERY DAY aspirin 81 mg tablet,delayed release (DR/EC) 81 mg PO DAILY Patient Comments: TAKE ONE TABLET BY MOUTH EVERY DAY levalbuterol tartrate [Xopenex HFA] 15 GM HFA aerosol inhaler 2 puff Inhalation Q4H WHILE AWAKE Discharge Instructions Instructions: Urinary Tract Infection, Adult ED, Pneumonia, Adult ED Additional Instructions: At this time it appears the pneumonia is improved since the last x-ray however you still have a small little area in the right lower lobe that is continuing to cause you problems. I am going to place you on approximately 10 more days of antibiotic. Please take this with yogurt or a probiotic twice a day for the next 10 days. Use the Tessalon Perles as directed for cough. It also appears that you have a urinary tract infection. This antibiotic will also cover that. Follow up with primary care provider in 3-5 days. Return to ED sooner if any worsening or concerns. Thank you for allowing us to care for you today. Referrals: Ivania Lancaster [Primary Care Provider] - 3 days Discharge Data Discharge Date/Time-TO BE ENTERED AT DEPARTURE: 10/04/24 18:05
[2024-10-04 16:15] LABS: ALT 14 U/L (14-59); AST 17 U/L (15-37); Alkaline Phosphatase 72 U/L (46-116); Anion Gap 7.2 mmol/L (3-11); BUN 19 mg/dL (7-18); Bilirubin, Total 0.6 mg/dL (0.2-1.0); CO2 29.8 mmol/L (21.0-32.0); CREATININE 0.9 mg/dL (0.55-1.02); Calcium 8.8 mg/dL (8.5-10.1); Chloride 106 mmol/L (98-107); Estimated GFR 64.63 (mL/min/1.73m2); Glucose 108 mg/dL (74-106); Potassium 3.9 mmol/L (3.5-5.1); Sodium 143 mmol/L (136-145); Total Protein 6.5 g/dL (6.4-8.2); Troponin I 9 ng/L (<or=51)
--- NOTE | 2024-10-04 16:22 | DI.RAD_ITS ---
Exam(s) XR CHEST 2V PA LATERAL EXAM: XR CHEST 2V PA LATERAL CLINICAL HISTORY: Cough, eval PNA. TECHNIQUE: 2D digital imaging was performed. COMPARISON: CR,XR XR CHEST 1V IN DI DEPT from 09/02/2024 FINDINGS: 2 views: There is a bidirectional thoracolumbar scoliosis again noted. Mild cardiomegaly again noted. The mediastinum is not widened. Left lung remains clear. The right lower lobe infiltrate has decreased in size but does not appear t o have completely resolved. There are no pleural effusions. No pulmonary edema. No pneumothorax. IMPRESSION: Increased markings in the right lower lobe but decreased from images of 09/02/2024. Probable improvi ng infiltrate. If clinically indicated follow-up CT scan can be performed DATA REPOSITORY: RADIATION DOSE DELIVERED:
[2024-10-04] MEDS: Benzonatate 100 MG CAP PO (16:28)
[2024-10-04 17:07] LABS: Troponin I 6 ng/L (<or=51)
[2024-10-04 17:22] LABS: Bilirubin Negative (Negative); Blood Trace-lysed (Negative); Clarity Clear (Clear); Glucose Negative (Negative); Ketones Negative (Negative); Leukocyte Esterase Trace (Negative); Nitrite Negative (Negative)
[2024-10-04 17:31] LABS: Bacteria Moderate HPF (Negative); Crystals Negative HPF (Negative); Epithelial Cells Many HPF (Negative); Mucus Trace (Negative)
[2024-10-04 17:32] LABS: C & S Indicated? No
[2024-10-04] MEDS: Amoxicillin 875/Clav. 125 TAB PO (17:58)
[2024-10-04 18:04] VITALS: BP 135/80; PULSE 76; RESP 16; O2SAT 96
== END 2024-10-04 18:05 | disposition home or self-care (01) ==
PROVIDERS: Emergency Medicine; Emergency Provider Registered Nurse Emergency; PCP Nurse Practitioner Family
DX: J18.9 Pneumonia, unspecified organism (principal); N39.0 Urinary tract infection, site not specified
CPT/HCPCS: 00123; 36415; 80053; 87637; 99284; 71046; 81003; 81015; 83735; 84484; 85025

== ENCOUNTER 2024-10-10 14:21 | Outpatient (REF) | payer MEDICARE, MEDICAID, SELFPAY ==
[2024-10-10 16:03] LABS: TSH 9.52 uIU/mL (0.36-3.74)
[2024-10-11 18:27] LABS: T4, Free 2.2 ng/dL (0.8-2.2)
== END 2024-10-10 14:22 | disposition home or self-care (01) ==
LOC: NCHCN 14:21
PROVIDERS: PCP Nurse Practitioner Family; Visit Provider Student in an Organized Health Care Education/Training Program
DX: E03.9 Hypothyroidism, unspecified (principal)
CPT/HCPCS: 84439; 84443

== ENCOUNTER → 2024-10-31 13:22 | Outpatient (BNVA) | payer MEDICARE, MEDICAID, SELFPAY | PROVIDERS: PCP Nurse Practitioner Family; Referring Provider Nurse Practitioner Family; Visit Provider Podiatrist | DX: L60.3 Nail dystrophy (principal); B35.1 Tinea unguium; M79.671 Pain in right foot; M79.672 Pain in left foot; I73.89 Other specified peripheral vascular diseases; R09.89 Other specified symptoms and signs involving the circulatory and respiratory systems; R60.0 Localized edema; R20.8 Other disturbances of skin sensation; I83.93 Asymptomatic varicose veins of bilateral lower extremities; L65.9 Nonscarring hair loss, unspecified; L85.8 Other specified epidermal thickening; R23.8 Other skin changes; L60.2 Onychogryphosis | CPT/HCPCS: 11056; 11721 ==

== ENCOUNTER → 2024-12-29 12:49 | Outpatient (BNVA) | payer MEDICARE, MEDICAID, SELFPAY | PROVIDERS: PCP Nurse Practitioner Family; Referring Provider Nurse Practitioner Family; Visit Provider Podiatrist | DX: L60.3 Nail dystrophy (principal); B35.1 Tinea unguium; M79.671 Pain in right foot; M79.672 Pain in left foot; L97.512 Non-pressure chronic ulcer of other part of right foot with fat layer exposed; I73.89 Other specified peripheral vascular diseases; R09.89 Other specified symptoms and signs involving the circulatory and respiratory systems; R60.0 Localized edema; R20.8 Other disturbances of skin sensation; I83.93 Asymptomatic varicose veins of bilateral lower extremities; L65.9 Nonscarring hair loss, unspecified; R23.8 Other skin changes; L60.2 Onychogryphosis; L85.8 Other specified epidermal thickening | CPT/HCPCS: 11042; 11056 ==

== ENCOUNTER → 2025-02-27 13:42 | Outpatient (BNVA) | payer MEDICARE, MEDICAID, SELFPAY | PROVIDERS: PCP Student in an Organized Health Care Education/Training Program; Referring Provider Student in an Organized Health Care Education/Training Program; Visit Provider Podiatrist | DX: B35.1 Tinea unguium (principal); L60.3 Nail dystrophy; M79.672 Pain in left foot; M79.671 Pain in right foot; I73.89 Other specified peripheral vascular diseases; R09.89 Other specified symptoms and signs involving the circulatory and respiratory systems; R60.0 Localized edema; R20.8 Other disturbances of skin sensation; I83.93 Asymptomatic varicose veins of bilateral lower extremities; L65.9 Nonscarring hair loss, unspecified; R23.8 Other skin changes; L85.8 Other specified epidermal thickening; L60.2 Onychogryphosis; L60.8 Other nail disorders | CPT/HCPCS: 11056; 11721 ==

== ENCOUNTER 2025-04-11 15:10 | Outpatient (REF) | payer MEDICARE, MEDICAID, SELFPAY ==
[2025-04-11 20:32] LABS: TSH (W/Ref FT4) 59.36 uIU/mL (0.36-3.74)
== END 2025-04-11 15:11 | disposition home or self-care (01) ==
LOC: NCHCN 15:10
PROVIDERS: PCP Student in an Organized Health Care Education/Training Program
DX: E03.9 Hypothyroidism, unspecified (principal)
CPT/HCPCS: 84439; 84443

== ENCOUNTER 2025-06-08 09:56 | Outpatient (REF) | payer MEDICARE, MEDICAID, SELFPAY ==
[2025-06-08 19:35] LABS: Magnesium 2.2 mg/dL (1.6-2.6)
[2025-06-08 19:41] LABS: TSH (W/Ref FT4) 8.36 uIU/mL (0.55-4.78)
== END 2025-06-08 09:57 | disposition home or self-care (01) ==
LOC: NCHCN 09:56
PROVIDERS: PCP Student in an Organized Health Care Education/Training Program
DX: G47.62 Sleep related leg cramps (principal); E03.9 Hypothyroidism, unspecified
CPT/HCPCS: 83735; 84439; 84443

== ENCOUNTER → 2025-07-04 13:33 | Outpatient (BNVA) | payer MEDICARE, MEDICAID, SELFPAY | PROVIDERS: PCP Student in an Organized Health Care Education/Training Program; Referring Provider Student in an Organized Health Care Education/Training Program; Visit Provider Podiatrist | DX: L60.3 Nail dystrophy (principal); B35.1 Tinea unguium; M79.671 Pain in right foot; M79.672 Pain in left foot; I73.89 Other specified peripheral vascular diseases; R09.89 Other specified symptoms and signs involving the circulatory and respiratory systems; R60.0 Localized edema; R20.8 Other disturbances of skin sensation; I83.93 Asymptomatic varicose veins of bilateral lower extremities; L65.9 Nonscarring hair loss, unspecified; L60.2 Onychogryphosis; L60.8 Other nail disorders; R23.4 Changes in skin texture; L85.8 Other specified epidermal thickening | CPT/HCPCS: 11056; 11721; 93922 ==

== ENCOUNTER 2025-07-07 12:10 | Outpatient (REF) | payer MEDICARE, MEDICAID, SELFPAY ==
[2025-07-07 15:57] LABS: TSH (W/Ref FT4) 7.61 uIU/mL (0.55-4.78)
== END 2025-07-07 12:11 | disposition home or self-care (01) ==
LOC: NCHCN 12:10
PROVIDERS: PCP Student in an Organized Health Care Education/Training Program
DX: E03.9 Hypothyroidism, unspecified (principal)
CPT/HCPCS: 84439; 84443